=== PATIENT | male | born 1935 | race Two or more races ===

== ENCOUNTER 2021-09-19 19:25 | Emergency (ER) | payer MEDICARE, OTHER, SELFPAY ==
--- NOTE | ~2021-09-19 | XR_ITS ---
EXAMINATION: XR CHEST CLINICAL INFORMATION: Shortness of breath COMPARISON: Chest x-ray 06/02/2015 dictated report. Images not available for review. TECHNIQUE: 2 views of the chest were obtained. FINDINGS: Lungs are clear. No pulmonary vascular congestion. There is no pleural effusion. The heart size is normal. The cardiac and mediastinal contours are normal. There are multilevel degenerative changes of dorsal spine. XR/XR chest 2V IMPRESSION: Unremarkable examination.
--- NOTE | 2021-09-19 19:37 | ECG_ITS ---
Test Reason : WEAKNESS Blood Pressure : / mmHG Vent. Rate : 068 BPM Atrial Rate : 068 BPM P-R Int : 190 ms QRS Dur : 146 ms QT Int : 454 ms P-R-T Axes : 018 -13 017 degrees QTc Int : 482 ms Normal sinus rhythm Right bundle branch block Abnormal ECG When compared with ECG of 02-JUN-2015 10:31, Right bundle branch block is now Present Referred By: Jerrod Rizvi Electronically Signed By:RELL ALMEIDA
[2021-09-19 19:39] VITALS: BP 171/85; PULSE 75; TEMP 36.8; O2SAT 98; BMI 35.4
--- NOTE | 2021-09-19 19:41 | ED_ITS ---
HPI - General Adult General Chief complaint: Dizziness Stated complaint: dizziness Time Seen by Provider: 09/19/21 19:30 Source: patient and EMS History of Present Illness HPI narrative: Patient has apparently been out of his medications for the past 2 months. He moved here from [place] and does not have a PCP at this point. It is unclear what medications he was on. He does not believe he was ever on diabetic medication or diuretic, but family stated he was on diabetic pill. But he complains of significant bilateral leg edema. Leg edema has started over the past few months since he has been off his medication. He also complains of feeling dizzy prior to arrival. Symptoms have resolved on their own. He states he felt like this 1 time before and came to the hospital and got better without treatment. EMS found him to be hypertensive with a systolic of 170. No chest pain. No focal weakness. Unsure if he has dyspnea on exertion Related Data Previous Rx's Medication Instructions Recorded amlodipine 10 mg tablet 10 mg PO DAILY #30 tab 09/19/21 furosemide 20 mg tablet (Lasix) 20 mg PO DAILY #30 tab 09/19/21 metformin 500 mg tablet 500 mg PO DAILY #30 tab 09/19/21 Allergies Allergy/AdvReac Type Severity Reaction Status Date / Time No Known Allergies Allergy Unverified 06/16/20 18:56 [No Known Allergies*] Review of Systems Constitutional: Constitutional: Denies fever(s) and Denies headache(s) ENT: Denies headache(s) Cardiovascular: Comments: No chest pain Respiratory: Comments: No resting dyspnea Gastrointestinal: Comments: No abdominal pain. Positive abdominal bloating Musculoskeletal: Comments: Bilateral significant leg swelling Integumentary/Breasts: Comments: No rash or change in color Neurologic: Denies headache(s) Comments: No weakness numbness or paresthesias [facility] Past Medical History Medical History (Updated 09/19/21 @ 21:16 by Jerrod Rizvi MD) Diabetes Hypertension Social History Social History Alcohol intake: never Patient Tobacco Use Status: Never used Tobacco Use of substances other than those prescribed or required for medical reasons: No Advance Directives: No Physical Exam Vital Signs: Vital Signs: Last Vital Signs Temp 98.3 F 09/19/21 19:39 Pulse 80 09/19/21 20:38 Resp 25 H 09/19/21 20:00 BP 196/93 H 09/19/21 20:38 Pulse Ox 97 09/19/21 20:00 BMI result Body Mass Index 35.4 Const: Other: Awake alert in no acute distress Resp: Other: Clear and equal bilaterally Cardio: Other: Regular rate and rhythm without murmurs rubs or gallops GI: Other: Soft nontender. Positive distention. Normal bowel sounds Skin: Other: Warm pink and dry without rash Neuro: Other: Nonfocal Extrem: Other: Bilateral 3 to 4+ pitting edema, not weeping however Course Course Course Narrative: Uncontrolled hypertension Uncontrolled lymphedema Rule out acute coronary syndrome or cardiac ischemia Uncontrolled diabetes EMS point of care glucose slightly above 200. Will repeat here. Lasix for symptomatic relief. Lisinopril p.o.. 9:15 p.m.. Workup in emergency department shows no evidence of end-organ damage. Will discharge patient home with prescription for medication until he can follow-up with the primary care physician locally. Medical Decision Making Lab Data Result diagrams: 09/19/21 20:32 09/19/21 20:32 Labs: Lab Results 09/19/21 09/19/21 09/19/21 Range/Units 20:32 20:32 20:32 WBC 6.4 (4.8-10.8) X10*3/uL RBC 5.27 (4.60-5.80) X10*6/uL Hgb 13.8 L (14.0-18.0) g/dl Hct 43.9 (42.0-52.0) % MCV 83.3 (80.0-98.0) fL MCH 26.2 L (27.0-33.0) pg MCHC 31.4 (31.0-36.0) g/dl RDW 13.4 (11.0-16.0) % Plt Count 227 (160-400) X10*3/uL MPV 11.4 (9.4-12.4) fL Immature Gran % (Auto) 0.3 (0.0-0.4) % Neut % (Auto) 71.2 (45-73) % Lymph % (Auto) 19.1 L (20-40) % [place] % (Auto) 7.5 (2-11) % Eos % (Auto) 1.6 (0-4) % Baso % (Auto) 0.3 (0-2) % Lymph # (Auto) 1.2 (1.2-4.9) X10*3/uL [place] # (Auto) 0.5 (0.1-1.2) X10*3/uL Eos # (Auto) 0.1 (0.0-0.4) X10*3/uL Baso # (Auto) 0.0 (0.0-0.2) X10*3/uL Abs Immat Gran (auto) 0.02 (0.00-0.03) X10*3/uL Absolute Neuts (auto) 4.6 (2.0-8.3) x10*3/uL Absolute Nucleated RBC 0.000 (0.0-0.012) X10*3/uL Nucleated RBC % (auto) 0.0 (0.0-0.2) /100WBC Sodium 142 (135-145) mmol/L Potassium 4.0 (3.3-5.1) mmol/L Chloride 103 (96-108) mmol/L Carbon Dioxide 32 H (22-29) mmol/L Anion Gap 11 L (12-20) BUN 15 (9-16) mg/dL Creatinine 0.86 (0.5-1.4) mg/dL Estim Creat Clear Calc 61.4 Estimated GFR > 60 Random Glucose 190 H (60-115) mg/dL Calcium 9.6 (8.4-10.2) mg/dL Total Bilirubin 0.5 (0.0-1.0) mg/dL AST 18 (5-37) U/L ALT 15 (0-40) U/L Alkaline Phosphatase 148 H (39-117) U/L Ammonia 39 (13-55) umol/L Troponin I High Sens (<3.5-35.0) ng/L B-Natriuretic Peptide (<100) pg/mL Total Protein 7.3 (6.5-8.0) g/dL Albumin 3.9 (3.5-5.0) g/dL Urine Color Urine Appearance Urine pH (5.0-8.0) Ur Specific [place] (1.005-1.025) Urine Protein (NEG-TRACE) MG/DL Urine Glucose (UA) (NEG) MG/DL Urine Ketones (NEG) MG/DL Urine Blood (NEG) Urine Nitrite (NEG) Ur Leukocyte Esterase (NEG) COVID-19 ([facility]) (Negative) COVID-19 Clin Com 09/19/21 09/19/21 09/19/21 Range/Units 20:32 20:33 20:34 WBC (4.8-10.8) X10*3/uL RBC (4.60-5.80) X10*6/uL Hgb (14.0-18.0) g/dl Hct (42.0-52.0) % MCV (80.0-98.0) fL MCH (27.0-33.0) pg MCHC (31.0-36.0) g/dl RDW (11.0-16.0) % Plt Count (160-400) X10*3/uL MPV (9.4-12.4) fL Immature Gran % (Auto) (0.0-0.4) % Neut % (Auto) (45-73) % Lymph % (Auto) (20-40) % [place] % (Auto) (2-11) % Eos % (Auto) (0-4) % Baso % (Auto) (0-2) % Lymph # (Auto) (1.2-4.9) X10*3/uL [place] # (Auto) (0.1-1.2) X10*3/uL Eos # (Auto) (0.0-0.4) X10*3/uL Baso # (Auto) (0.0-0.2) X10*3/uL Abs Immat Gran (auto) (0.00-0.03) X10*3/uL Absolute Neuts (auto) (2.0-8.3) x10*3/uL Absolute Nucleated RBC (0.0-0.012) X10*3/uL Nucleated RBC % (auto) (0.0-0.2) /100WBC Sodium (135-145) mmol/L Potassium (3.3-5.1) mmol/L Chloride (96-108) mmol/L Carbon Dioxide (22-29) mmol/L Anion Gap (12-20) BUN (9-16) mg/dL Creatinine (0.5-1.4) mg/dL Estim Creat Clear Calc Estimated GFR Random Glucose (60-115) mg/dL Calcium (8.4-10.2) mg/dL Total Bilirubin (0.0-1.0) mg/dL AST (5-37) U/L ALT (0-40) U/L Alkaline Phosphatase (39-117) U/L Ammonia (13-55) umol/L Troponin I High Sens < 3.5 (<3.5-35.0) ng/L B-Natriuretic Peptide 65 (<100) pg/mL Total Protein (6.5-8.0) g/dL Albumin (3.5-5.0) g/dL Urine Color STRAW Urine Appearance CLEAR Urine pH 6.5 (5.0-8.0) Ur Specific [place] 1.020 (1.005-1.025) Urine Protein NEG (NEG-TRACE) MG/DL Urine Glucose (UA) NEG (NEG) MG/DL Urine Ketones NEG (NEG) MG/DL Urine Blood NEG (NEG) Urine Nitrite NEG (NEG) Ur Leukocyte Esterase NEG (NEG) COVID-19 ([facility]) Negative (Negative) COVID-19 Clin Com See Note Discharge Plan Discharge Clinical Impression: Hypertension, Edema Patient Disposition: Home, Self-Care Instructions: Hypertension and Diabetes (ED), Leg Edema (ED) Prescriptions: New furosemide [Lasix] 20 mg tablet 20 mg PO DAILY Qty: 30 RF: 0 metformin 500 mg tablet 500 mg PO DAILY Qty: 30 RF: 0 amlodipine 10 mg tablet 10 mg PO DAILY Qty: 30 RF: 0
[2021-09-19 20:00] VITALS: BP 196/93; PULSE 80; RESP 25; O2SAT 97
[2021-09-19 20:38] VITALS: BP 196/93; PULSE 80
[2021-09-19] MEDS: amLODIPine Besylate 10 MG TABLET PO (20:38)
[2021-09-19] MEDS: Furosemide 40 MG TABLET PO (20:38)
[2021-09-19 20:42] LABS: MANUAL DIFF FLAG NO
[2021-09-19 20:44] LABS: Appearance Urine CLEAR; Color Urine STRAW; Glucose Urine UA NEG (NEG); Leukocyte Esterase Urine NEG (NEG); Nitrite Urine NEG (NEG); PH 6.5 (5.0-8.0); Urine Blood NEG (NEG); Urine Ketones NEG (NEG); Urine Protein NEG (NEG-TRACE)
[2021-09-19 20:44] LABS: Basophils Percent Auto 0.3 % (0-2); Eosinophils Absolute Auto 0.1 X10*3/uL (0.0-0.4); Eosinophils Percent Auto 1.6 % (0-4); Hematocrit 43.9 % (42.0-52.0); Hemoglobin 13.8 g/dl (14.0-18.0); Imm Gran Abs Auto 0.02 X10*3/uL (0.00-0.03); Imm Gran Pct Auto 0.3 % (0.0-0.4); Lymphocytes Absolute Auto 1.2 X10*3/uL (1.2-4.9); Lymphocytes Percent Auto 19.1 % (20-40); Mean Corpuscular HGB Conc 31.4 g/dl (31.0-36.0); Mean Corpuscular Hemoglobin 26.2 pg (27.0-33.0); Mean Corpuscular Volume 83.3 fL (80.0-98.0); Mean Platelet Volume 11.4 fL (9.4-12.4); Monocytes Absolute Auto 0.5 X10*3/uL (0.1-1.2); Monocytes Percent Auto 7.5 % (2-11); Neutrophils Absolute Auto 4.6 x10*3/uL (2.0-8.3); Neutrophils Percent Auto 71.2 % (45-73); Platelet Count 227 X10*3/uL (160-400); Red Blood Count 5.27 X10*6/uL (4.60-5.80); Red Cell Distribution Width 13.4 % (11.0-16.0); White Blood Count 6.4 X10*3/uL (4.8-10.8)
[2021-09-19 20:52] LABS: Ammonia 39 umol/L (13-55)
[2021-09-19 20:59] LABS: Alanine Aminotransferase 15 U/L (0-40); Albumin Level 3.9 g/dL (3.5-5.0); Alkaline Phosphatase 148 U/L (39-117); Anion Gap 11 (12-20); Aspartate Amino Transferase 18 U/L (5-37); Bilirubin Total 0.5 mg/dL (0.0-1.0); Blood Urea Nitrogen 15 mg/dL (9-16); Calcium 9.6 mg/dL (8.4-10.2); Carbon Dioxide 32 mmol/L (22-29); Chloride 103 mmol/L (96-108); Creatinine Clr Calc Pharmacy 61.4; Estimated Glomerular Filt Rate > 60; Glucose Random 190 mg/dL (60-115); Sodium 142 mmol/L (135-145); Total Protein 7.3 g/dL (6.5-8.0)
[2021-09-19 21:01] LABS: COVID-19 Test Negative (Negative)
[2021-09-19 21:06] LABS: B Type Natriuretic Peptide 65 pg/mL (<100); Troponin-I High Sensitivity < 3.5 ng/L (<3.5-35.0)
[2021-09-19 21:20] LABS: Thyroid Stimulating Hormone 3.34 uIU/mL (0.32-4.0)
[2021-09-19 21:21] LABS: TSH reflex Free T4 3.24 uIU/mL (0.32-4.0)
[2021-09-19 21:29] VITALS: BP 171/88; PULSE 67; RESP 12
--- NOTE | 2022-04-15 09:59 | MHC.CM.PN ---
Patient is documented to be confused and a poor historian. CM attempted multiple times to contact listed Contact/Shirley @ [phone]; call appeared to connect to someone but then disconnected quickly. Patient appears to be visiting from [place] and has apparently been without his meds and is now here with S/S of a Stroke. CM is unaware of HCP, Covid vax status, NOK, PCP. DC plan appears contingent upon a PT eval and CM has initiated and will follow for dc planning.
== END 2021-09-19 22:06 | disposition home or self-care (01) ==
PROVIDERS: Emergency Provider Emergency Medicine
DX: I10 Essential (primary) hypertension (principal); R60.9 Edema, unspecified; E11.9 Type 2 diabetes mellitus without complications; Z79.84 Long term (current) use of oral hypoglycemic drugs; Z79.899 Other long term (current) drug therapy; Z20.822 Contact with and (suspected) exposure to COVID-19
CPT/HCPCS: 36415; 71046; 80053; 81003; 82140; 83880; 84443; 84484; 85025; 87635; 93005; 99284; 99285

== ENCOUNTER 2022-04-14 13:10 | Inpatient (IN) | payer MEDICARE, OTHER, SELFPAY ==
--- NOTE | ~2022-04-14 | XR_ITS ---
EXAMINATION: XR CHEST CLINICAL INFORMATION: Stroke COMPARISON: Previous chest x-ray May 2015 TECHNIQUE: Frontal view of the chest was obtained. FINDINGS: No significant abnormality is noted involving the heart, lungs, mediastinum, bony thorax or soft tissues. XR/XR chest 1V IMPRESSION: Unremarkable examination.
--- NOTE | ~2022-04-14 | CT_ITS ---
EXAMINATION: CT HEAD WITHOUT CONTRAST (STROKE PROTOCOL) CLINICAL INFORMATION: Stroke protocol. COMPARISON: None TECHNIQUE: Contiguous axial imaging was performed from the skull base to vertex without intravenous administration of contrast. This CT examination was performed using dose optimization techniques as appropriate, variously including the following: *Automated exposure control *Adjustment of mA and/or kV according to patient size (this includes techniques or standardized protocols for targeted exams where dose is matched to indication/reason for exam; i.e. extremities or head) *Use of iterative reconstruction technique DLP: 812 mGy-cm FINDINGS: There is no midline shift. There is no mass effect. There is no hemorrhage. Atrophy and white matter ischemic change with areas of focal infarction in the left posterior parietal occipital region as well as left cerebellum. Also high right parietal region. Scattered areas of white matter ischemic change. Bilateral hygromas right greater than left. [place]-white matter is fairly well maintained. Note is made of sinus disease. CT/CT head for stroke IMPRESSION: No acute intracranial pathology. Atrophy and white matter ischemic changes with areas of infarct and bilateral hygromas. Sinus disease noted This critical result was discussed with Dr. Garcia at 1:45 PM hours on 04/14/2022. It was ascertained that the content and urgency of the report was understood at the time of direct communication.
--- NOTE | ~2022-04-14 | US_ITS ---
EXAMINATION: US EXTRACRANIAL CAROTID DUPLEX, BILATERAL CLINICAL INFORMATION: Left-sided weakness. Stroke. COMPARISON: None TECHNIQUE: Real-time ultrasound and Doppler techniques (integrating B-mode 2-D vascular images, Doppler spectral analysis and color-flow Doppler imaging) were utilized to interrogate the extracranial carotid arteries, the vertebral arteries and proximal subclavian arteries bilaterally. The degree of stenosis is determined by criteria similar to NASCET. Exam is limited due to patient difficulty cooperating with the exam/coughing and moving. FINDINGS: Right Side: 1. There is mild atherosclerotic plaque seen in the bifurcation/proximal ICA region. 2. The common carotid artery PSV proximally is 80 cm/s and distally 13 cm/s. 3. The proximal internal carotid artery velocities are 87 cm/s systolic and cm/s diastolic. 4. The proximal external carotid artery PSV is 1-2 cm/s. 5. The vertebral artery is not seen. 6. The subclavian artery waveforms are normal. Left Side: 1. There is mild atherosclerotic plaque seen in the bifurcation/proximal ICA region. 2. The common carotid artery PSV proximally is 100 cm/s and distally 99 cm/s. 3. The proximal internal carotid artery velocities are 72 cm/s systolic and 12 cm/s diastolic. 4. The proximal external carotid artery PSV is cm/s. 5. The vertebral artery is not seen. 6. The subclavian artery waveforms are normal. US/US carotid duplex BI IMPRESSION: Limited exam. 1. RIGHT: Mild atherosclerotic plaque. 0-49% right ICA stenosis by peak systolic velocity 2. LEFT: Mild atherosclerotic plaque. 0-49% left ICA stenosis by peak systolic velocity criteria. 3. left and right vertebral artery is not seen.
--- NOTE | ~2022-04-14 | XR_ITS ---
EXAMINATION: XR CHEST CLINICAL INFORMATION: Aspiration COMPARISON: Previous chest x-ray most recent from yesterday TECHNIQUE: Frontal view of the chest was obtained. FINDINGS: The cardiac and mediastinal contours are stable. There is question of increasing airspace disease at the lung bases, left greater than right. There is no pleural effusion or pneumothorax. Bony structures are unremarkable. XR/XR chest 1V IMPRESSION: Question increasing airspace disease at the lung bases, left greater than right.
--- NOTE | ~2022-04-14 | XR_ITS ---
EXAMINATION: XR ABDOMEN KUB CLINICAL INDICATION: Pre-MRI. Check for foreign body. COMPARISON: None TECHNIQUE: AP view of the abdomen. FINDINGS: No foreign body is seen. The bowel gas pattern is normal. There are degenerative changes of the spine. There may be a mild T12 vertebral body compression fracture. There are mild degenerative changes at the hip joints. XR/XR KUB IMPRESSION: No radiopaque foreign body is seen.
--- NOTE | ~2022-04-14 | XR_ITS ---
EXAMINATION: XR CHEST CLINICAL INFORMATION: PICC placement COMPARISON: Chest x-ray on 04/15/2022 TECHNIQUE: Frontal view of the chest was obtained. FINDINGS: The right upper extremity PICC terminates in the distal SVC. The cardiac mediastinal silhouette is stable. The bilateral patchy airspace opacities and mild bronchial wall thickening is also unchanged. No pleural effusions or pneumothorax. XR/XR chest 1V IMPRESSION: Right upper extremity PICC terminates in the distal SVC.
--- NOTE | 2022-04-14 13:17 | ECG_ITS ---
Test Reason : ?STROKE Blood Pressure : / mmHG Vent. Rate : 086 BPM Atrial Rate : 086 BPM P-R Int : 180 ms QRS Dur : 134 ms QT Int : 408 ms P-R-T Axes : 048 -21 000 degrees QTc Int : 488 ms Normal sinus rhythm Right bundle branch block Abnormal ECG When compared with ECG of 19-SEP-2021 20:43, No significant change was found Referred By: Zheng Garcia Electronically Signed By:RADHA CHERRY MD
--- NOTE | 2022-04-14 13:20 | ED_ITS ---
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 Patient is visiting his family from [place] patient is out of his medication for sometimes. Related Data Previous Rx's Medication Instructions Recorded amlodipine 10 mg tablet 10 mg PO DAILY #30 tabs 09/19/21 furosemide 20 mg tablet (Lasix) 20 mg PO DAILY #30 tabs 09/19/21 metformin 500 mg tablet 500 mg PO DAILY #30 tabs 09/19/21 Allergies Allergy/AdvReac Type Severity Reaction Status Date / Time No Known Allergies Allergy Unverified 06/16/20 18:56 [No Known Allergies*] Review of Systems Review of Systems: All other systems are reviewed and are negative Constitutional: Reports as per HPI and Reports no additional constitutional complaints Eyes: Reports as per HPI and Reports no additional eye complaints Reports system reviewed and no additional complaints, except as documented Cardiovascular: Reports as per HPI and Reports no additional cardiovascular complaints Respiratory: Reports as per HPI and Reports no additional respiratory complaints Gastrointestinal: Reports as per HPI and Reports no additional gastrointestinal complaints Genitourinary: Reports no additional female genitourinary complaints Musculoskeletal: Reports no additional musculoskeletal complaints Skin/Breast: Reports system reviewed and no additional complaints, except as docu Psychiatric: Reports no additional psychiatric complaints Endocrine: Reports no additional endocrine complaints Hematologic/Lymphatic: Reports no additional hematologic/lymphatic complaints Allergic/Immunologic: Reports no additional allergic/immunologic complaints Reports system reviewed and no additional complaints, except as documented and Reports Abnormal speech present [facility] Past Medical History Medical History Diabetes Hypertension Social History Social History Alcohol intake: never Patient Tobacco Use Status: Never used Tobacco Use of substances other than those prescribed or required for medical reasons: No Advance Directives: Yes Advance Directives Information Provided: Yes Advance Directives on File: No Physical Exam Vital Signs: Vital Signs: Last Vital Signs Temp 98.5 F 04/14/22 13:37 Pulse 75 04/14/22 14:31 Resp 16 04/14/22 14:31 BP 166/89 H 04/14/22 14:31 Pulse Ox 96 04/14/22 14:31 O2 Del Method 04/14/22 14:31 BMI result Body Mass Index 35.7 Vital signs have been reviewed as appeared to be correct. Blood pressure normal. Heart rate normal. Respiration rate normal. Temperature normal. Oxygen saturation normal. Appearance: Alert. Oriented. No acute distress. Head: Normal external exam. Normocephalic. Atraumatic. No Liu signs noted. No raccoon eyes noted Eyes: PERRLA. EOMI. Conjunctiva and sclera normal. Eyelids normal. ENT: TM's Normal. Pharynx normal. Uvula midline. Moist mucous membranes. No trismus noted. No drooling noted. No muffled voice noted. Neck: Normal inspection. Neck supple. FROM. No adenopathy. Thyroid Normal. No meningeal signs. No neck mass noted. CVS: Normal heart rate and rhythm. Heart sound normal. No murmurs noted. Pulses normal throughout. Respiratory: No respiratory distress. Painless inspiration. Breath sounds normal. No wheezes/rales/rhonchi noted. Chest nontender. No accessory muscle usage noted or decreased air movement noted. Abdomen: Soft and nontender. Bowel sounds normal in all 4 quadrants. No distention noted. No organomegaly noted. No visible injury noted. Back: No CVA tenderness. Full range of motion noted. Skin: Skin warm and dry. Normal skin color. Normal skin turgor. No rashes/lesions/lacerations noted. Extremities: No lower extremity edema. Extremities exhibit normal range of motion. Extremities nontender. Neuro: Oriented X 3 (place, person, event, but not time). Cranial nerve exam: II-XII are grossly intact Mild left motor deficit. No sensory deficit. Reflexes normal. Course Course Course Narrative: 86 year old male came in with stroke like symptoms, patient is not a candidate for acute stroke treatment and thrombolytic therapy symptoms started since yesterday. Patient also is not a candidate for mechanical thrombectomy since symptoms is minor and the low NIH of 3. Will admit the patient, administer aspirin. [facility] - Neuro Symptoms/Deficit Medical Records Attestation: I reviewed the patient's medical records. Lab Data Attestation: I reviewed the patient's lab results. Result diagrams: 04/14/22 13:57 04/14/22 13:57 Labs: Lab Results 04/14/22 04/14/22 04/14/22 Range/Units 13:42 13:57 13:57 WBC 8.8 (4.8-10.8) X10*3/uL RBC 5.53 (4.60-5.80) X10*6/uL Hgb 14.7 (14.0-18.0) g/dl Hct 45.0 (42.0-52.0) % MCV 81.4 (80.0-98.0) fL MCH 26.6 L (27.0-33.0) pg MCHC 32.7 (31.0-36.0) g/dl RDW 13.5 (11.0-16.0) % Plt Count 236 (160-400) X10*3/uL MPV 11.1 (9.4-12.4) fL Immature Gran % (Auto) 0.3 (0.0-0.4) % Neut % (Auto) 78.8 H (45-73) % Lymph % (Auto) 13.3 L (20-40) % [place] % (Auto) 6.7 (2-11) % Eos % (Auto) 0.7 (0-4) % Baso % (Auto) 0.2 (0-2) % Lymph # (Auto) 1.2 (1.2-4.9) X10*3/uL [place] # (Auto) 0.6 (0.1-1.2) X10*3/uL Eos # (Auto) 0.1 (0.0-0.4) X10*3/uL Baso # (Auto) 0.0 (0.0-0.2) X10*3/uL Abs Immat Gran (auto) 0.03 (0.00-0.03) X10*3/uL Absolute Neuts (auto) 6.9 (2.0-8.3) x10*3/uL Absolute Nucleated RBC 0.000 (0.0-0.012) X10*3/uL Nucleated RBC % (auto) 0.0 (0.0-0.2) /100WBC PT 11.2 (10.0-13.1) SEC INR 1.0 (0.9-1.1) APTT 32.0 (24.1-38.0) SEC Sodium (135-145) mmol/L Potassium (3.3-5.1) mmol/L Chloride (96-108) mmol/L Carbon Dioxide (22-29) mmol/L Anion Gap (12-20) BUN (9-16) mg/dL Creatinine (0.5-1.4) mg/dL Estim Creat Clear Calc Estimated GFR POC Glucose 159 H (60-115) mg/dL Random Glucose (60-115) mg/dL Calcium (8.4-10.2) mg/dL Total Creatine Kinase (38-174) U/L Troponin I High Sens (<3.5-35.0) ng/L COVID-19 ([facility]) (Negative) COVID-19 Clin Com 04/14/22 04/14/22 04/14/22 Range/Units 13:57 13:57 13:57 WBC (4.8-10.8) X10*3/uL RBC (4.60-5.80) X10*6/uL Hgb (14.0-18.0) g/dl Hct (42.0-52.0) % MCV (80.0-98.0) fL MCH (27.0-33.0) pg MCHC (31.0-36.0) g/dl RDW (11.0-16.0) % Plt Count (160-400) X10*3/uL MPV (9.4-12.4) fL Immature Gran % (Auto) (0.0-0.4) % Neut % (Auto) (45-73) % Lymph % (Auto) (20-40) % [place] % (Auto) (2-11) % Eos % (Auto) (0-4) % Baso % (Auto) (0-2) % Lymph # (Auto) (1.2-4.9) X10*3/uL [place] # (Auto) (0.1-1.2) X10*3/uL Eos # (Auto) (0.0-0.4) X10*3/uL Baso # (Auto) (0.0-0.2) X10*3/uL Abs Immat Gran (auto) (0.00-0.03) X10*3/uL Absolute Neuts (auto) (2.0-8.3) x10*3/uL Absolute Nucleated RBC (0.0-0.012) X10*3/uL Nucleated RBC % (auto) (0.0-0.2) /100WBC PT (10.0-13.1) SEC INR (0.9-1.1) APTT (24.1-38.0) SEC Sodium 139 (135-145) mmol/L Potassium 3.8 (3.3-5.1) mmol/L Chloride 104 (96-108) mmol/L Carbon Dioxide 23 (22-29) mmol/L Anion Gap 16 (12-20) BUN 17 H (9-16) mg/dL Creatinine 0.84 (0.5-1.4) mg/dL Estim Creat Clear Calc 62.0 Estimated GFR > 60 POC Glucose (60-115) mg/dL Random Glucose 152 H (60-115) mg/dL Calcium 9.0 D (8.4-10.2) mg/dL Total Creatine Kinase 40 (38-174) U/L Troponin I High Sens < 3.5 (<3.5-35.0) ng/L COVID-19 ([facility]) Negative (Negative) COVID-19 Clin Com See Note Imaging Data Chest x-ray: Attestation: I personally reviewed and interpreted this imaging study as follows: Radiologist's impression: Unremarkable examination CT scan - head: Attestation: I personally reviewed and interpreted this imaging study as follows: Radiologist's impression: No acute intracranial pathology. Atrophy and white matter ischemic changes with areas of infarct and bilateral hygromas. Sinus disease noted ECG Data Attestation: I personally reviewed and interpreted this ECG as follows: Interpretation: Normal sinus rhythm at 86 beats per minutes, right bundle branch block, no ST-T changes. NIH Stroke Scale Internal: Initial- Upon Arrival Time: 13:32 Level of Consciousness: Alert Level of Consciousness Questions: Answers both questions correctly Level of Consciousness Commands: Performs both tasks correctly Best Gaze: Normal Visual: No visual loss Facial Palsy: Minor paralyis (Left facial droop) Motor Arm (Right): No drift Motor Arm (Left): Drift Motor Leg (Right): No drift Motor Leg (Left): No drift Limb Ataxia: Absent Sensory: Mild to moderate sensory loss (Left upper extremities and lower extremities.) Best Language: No aphasia Dysarthia: Normal Extinction and Inattention: No abnormality Score: 3 Discharge Plan Discharge Clinical Impression: Cerebrovascular accident Patient Disposition: Admitted As Inpatient
[2022-04-14 13:37] VITALS: BP 147/80; BP 168/97; PULSE 68; PULSE 84; RESP 20; TEMP 36.9; O2SAT 96; O2SAT 98; BMI 35.7
[2022-04-14 13:52] VITALS: PULSE 83
[2022-04-14 13:52] LABS: Glucose, Whole Blood 159 mg/dL (60-115)
[2022-04-14 14:02] LABS: MANUAL DIFF FLAG NO
[2022-04-14 14:07] LABS: Basophils Percent Auto 0.2 % (0-2); Eosinophils Absolute Auto 0.1 X10*3/uL (0.0-0.4); Eosinophils Percent Auto 0.7 % (0-4); Hemoglobin 14.7 g/dl (14.0-18.0); Imm Gran Abs Auto 0.03 X10*3/uL (0.00-0.03); Imm Gran Pct Auto 0.3 % (0.0-0.4); Lymphocytes Absolute Auto 1.2 X10*3/uL (1.2-4.9); Lymphocytes Percent Auto 13.3 % (20-40); Mean Corpuscular HGB Conc 32.7 g/dl (31.0-36.0); Mean Corpuscular Hemoglobin 26.6 pg (27.0-33.0); Mean Corpuscular Volume 81.4 fL (80.0-98.0); Mean Platelet Volume 11.1 fL (9.4-12.4); Monocytes Absolute Auto 0.6 X10*3/uL (0.1-1.2); Monocytes Percent Auto 6.7 % (2-11); Neutrophils Absolute Auto 6.9 x10*3/uL (2.0-8.3); Neutrophils Percent Auto 78.8 % (45-73); Platelet Count 236 X10*3/uL (160-400); Red Blood Count 5.53 X10*6/uL (4.60-5.80); Red Cell Distribution Width 13.5 % (11.0-16.0); White Blood Count 8.8 X10*3/uL (4.8-10.8)
[2022-04-14 14:12] LABS: Prothrombin Time 11.2 SEC (10.0-13.1)
[2022-04-14 14:20] LABS: COVID-19 Test Negative (Negative)
[2022-04-14 14:22] LABS: Troponin-I High Sensitivity < 3.5 ng/L (<3.5-35.0)
[2022-04-14 14:26] LABS: Anion Gap 16 (12-20); Blood Urea Nitrogen 17 mg/dL (9-16); Carbon Dioxide 23 mmol/L (22-29); Chloride 104 mmol/L (96-108); Estimated Glomerular Filt Rate > 60; Glucose Random 152 mg/dL (60-115); Potassium 3.8 mmol/L (3.3-5.1); Sodium 139 mmol/L (135-145)
[2022-04-14 14:31] VITALS: BP 166/89; PULSE 75; RESP 16; O2SAT 96
[2022-04-14 14:52] LABS: Stroke Lab Use COMPLETE
--- NOTE | 2022-04-14 15:14 | PM.IMHP ---
History of Present Illness Date of Service: 04/14/22 Chief Complaint: left-sided weakness an 86 Swazi speaker male with PMH of diabetes and hypertension who presents to the hospital complaining of start speech and left-sided weakness for 1 day. The patient is visiting his relatives from [place]. He is fairly poor historian but reported that since yesterday afternoon he felt his left side is not as strong as before mainly in his left upper extremity with associated difficulty speaking and swallowing. This morning he noticed that he has care cleaning and has secretions in his throat with persistent of difficulty speaking and weakness in left side of his body. He decided to come to the hospital for further evaluation and treatment. He denies any fever, chills, headache, lightheadedness, double vision, shortness of breath, chest pain, nausea or vomiting or change in bowel habit. CT scan in the emergency was negative for any acute findings. He failed bedside swallowing screen. to be admitted for further evaluation and treatment. Review of Systems Review of Systems: No fever, chills But reported left-sided weakness slurred speech No chest pain, palpitation No shortness of breath or coughing No abdominal pain, nausea or vomiting No urinary symptoms No any rash or wounds PMFSH Medical History Diabetes Hypertension Social History Alcohol intake: never Patient Tobacco Use Status: Never used Tobacco Use of substances other than those prescribed or required for medical reasons: No Advance Directives: Yes Advance Directives Information Provided: Yes Advance Directives on File: No Meds Allergies Allergy/AdvReac Type Severity Reaction Status Date / Time No Known Allergies Allergy Unverified 06/16/20 18:56 [No Known Allergies*] Active Medications: Current Medications Pharmacy Consult (Consult Rx Perform Med Rec) 1 each MISCELLANE ONCE PRN PRN Reason: Consult order Physical Exam Vital Signs and Narrative: Vital Signs: Last Vital Signs Temp 98.5 F 04/14/22 13:37 Pulse 75 04/14/22 14:31 Resp 16 04/14/22 14:31 BP 166/89 H 04/14/22 14:31 Pulse Ox 96 04/14/22 14:31 O2 Del Method 04/14/22 14:31 BMI result Body Mass Index 35.7 Const: Other: Constitutional : Alert, oriented, not in distress Neck : Normal inspection, Supple, Cardiovascular : RRR, no JVP, no lower extremity edema Respiratory : fair bilateral air entry, no crackles, wheezes or rhonchi Gastrointestinal: soft, lax, Normal bowel sounds, Non tender Skin : Warm, Dry Neurological : Alert & oriented x3, 4/5 LUE, 4/5 LLE , CN 2-12 within normalBut very mild facial drop in his left side Results Labs CBC and Chem 7: 04/14/22 13:57 04/14/22 13:57 Labs: Laboratory Results - last 24 hr 04/14/22 04/14/22 04/14/22 13:42 13:57 13:57 MCV 81.4 MCH 26.6 L MCHC 32.7 RDW 13.5 Plt Count 236 MPV 11.1 Immature Gran % (Auto) 0.3 Neut % (Auto) 78.8 H Lymph % (Auto) 13.3 L [place] % (Auto) 6.7 Eos % (Auto) 0.7 Baso % (Auto) 0.2 Lymph # (Auto) 1.2 [place] # (Auto) 0.6 Eos # (Auto) 0.1 Baso # (Auto) 0.0 Abs Immat Gran (auto) 0.03 Absolute Neuts (auto) 6.9 Absolute Nucleated RBC 0.000 Nucleated RBC % (auto) 0.0 PT 11.2 INR 1.0 APTT 32.0 Anion Gap Estim Creat Clear Calc Estimated GFR POC Glucose 159 H Random Glucose Calcium Total Creatine Kinase Troponin I High Sens COVID-19 ([facility]) COVID-19 Clin Com 04/14/22 04/14/22 04/14/22 13:57 13:57 13:57 MCV MCH MCHC RDW Plt Count MPV Immature Gran % (Auto) Neut % (Auto) Lymph % (Auto) [place] % (Auto) Eos % (Auto) Baso % (Auto) Lymph # (Auto) [place] # (Auto) Eos # (Auto) Baso # (Auto) Abs Immat Gran (auto) Absolute Neuts (auto) Absolute Nucleated RBC Nucleated RBC % (auto) PT INR APTT Anion Gap 16 Estim Creat Clear Calc 62.0 Estimated GFR > 60 POC Glucose Random Glucose 152 H Calcium 9.0 D Total Creatine Kinase 40 Troponin I High Sens < 3.5 COVID-19 ([facility]) Negative COVID-19 Clin Com See Note Imaging Radiologist's Impressions: Impressions Head CT 04/14/22 13:22 IMPRESSION: No acute intracranial pathology. Atrophy and white matter ischemic changes with areas of infarct and bilateral hygromas. Sinus disease noted This critical result was discussed with Dr. Garcia at 1:45 PM hours on 04/14/2022. It was ascertained that the content and urgency of the report was understood at the time of direct communication. Chest X-Ray 04/14/22 14:10 IMPRESSION: Unremarkable examination. Assessment and Plan (1) Cerebrovascular accident: Status: Acute (2) Slurred speech: Status: Acute (3) Acute left-sided weakness: Status: Acute Plan an 86 Sw[place] speaker male with PMH of diabetes and hypertension who presents to the hospital complaining of start speech and left-sided weakness for 1 day. left-sided weakness Slurred speech, swallowing problem All concerning for possible acute stroke He presented out of the window for tPA CT scan negative for any acute findings To check MRI, carotid ultrasound Start baby aspirin Start atorvastatin neurology consult swallowing problem Failed bedside speech screening Keep NPO Speech therapy evaluation diabetes Hold metformin SSI, Hypertension Hold amlodipine and allow for permissive hypertension up to 160s to 170s DVT PPX Lovenox The patient will likely need 2 overnight hospital stay for evaluation of slurred speech and left-sided weakness pending final images and neurology consult. Quality Stroke Does the patient have a stroke diagnosis?: Yes Reason for No Anti-thrombotic by Day Two: N/A - Med Ordered VTE Prior VTE?: No VTE Risk Level:: Medical - moderate - high VTE Device Contraindication: Treatment Not Indicated VTE Drug Contraindication: N/A - Med Ordered
--- NOTE | 2022-04-14 15:43 | PC.NURSE ---
Pt alert/confused wit batch unit treater. Spitting in bed to manage secretions, while laying flat pt needs oral suction to assist. Dr Mckeon aware, will postpone MRI t this time as ?pt tolerating laying flat for test. Pt to be NPO pending speech evaluation
--- NOTE | 2022-04-14 16:30 | PHA.MEDREC ---
Addendum entered by Heather Bearden RPh 04/16/22 14:20: Tried contacting patien't primary contact Shirley again. [facility]. Yesterday patient reported he did not know what he was taking. Today contacted [facility]. Patient has prescriptions on file that were never filled; lasix 20 mg daily on 10/03/21, amlodipine 5 mg daily and metformin 500 mg daily on 09/20/21. I entered the medication patient is suppose to be. I updated Dr. Garcia on the situation. Heather Bearden, PharmD Original Note: Pharmacy Consult ? Medication Reconciliation Pharmacy has completed the medication reconciliation. Spoke with patient via inclusion intern. Pt unsure of medications he is taking on a regular basis. Tried contacting family but had to leave a message message
[2022-04-14] MEDS: Aspirin 300 MG SUPP.RECT PR (17:13)
[2022-04-14 17:25] LABS: Glucose, Whole Blood 111 mg/dL (60-115)
--- NOTE | 2022-04-14 17:26 | PC.NURSE ---
Pt neuros unchanged since arrival, left sided facial droop, difficulty swallowing with left sided weakness. repositioned in bed for comfort throughout shift. [facility] ASA given as pt remains NPO pending swallow eval. POC 111.
[2022-04-14 18:19] VITALS: BP 188/89; PULSE 68; RESP 17; O2SAT 95
[2022-04-14] MEDS: Enoxaparin Sodium 40 MG/0.4 ML SYRINGE SUBCUT (19:53)
[2022-04-14 22:38] LABS: Glucose, Whole Blood 119 mg/dL (60-115)
[2022-04-14 23:51] VITALS: BP 187/95; PULSE 77; RESP 16; O2SAT 94
[2022-04-15] VITALS (10 sets, daily range): BP systolic 129–157; BP diastolic 70–88; PULSE 76–121; RESP 16–20; TEMP 36.2–38.6; O2SAT 89–99
--- NOTE | 2022-04-15 06:28 | PC.NURSE ---
Hospitalist notified of temp 101.5 rectal.
[2022-04-15] MEDS: Acetaminophen Supp 650 MG SUPP.RECT PR (07:12)
[2022-04-15] MEDS: Lactated Ringers 1,000 ML 50 ML IVCONT (07:18)
[2022-04-15 07:53] LABS: Glucose, Whole Blood 164 mg/dL (60-115)
[2022-04-15 07:55] LABS: Anion Gap 17 (12-20); Blood Urea Nitrogen 17 mg/dL (9-16); Calcium 8.6 mg/dL (8.4-10.2); Carbon Dioxide 20 mmol/L (22-29); Chloride 104 mmol/L (96-108); Cholesterol 163 mg/dL; Creatinine Clr Calc Pharmacy 67.6; Estimated Glomerular Filt Rate > 60; Glucose Random 157 mg/dL (60-115); HDL Cholesterol 46 mg/dL; LDL Cholesterol Calculated 104 mg/dl; Potassium 3.8 mmol/L (3.3-5.1); Sodium 137 mmol/L (135-145); Triglycerides 68 mg/dL
--- NOTE | 2022-04-15 08:42 | PC.NURSE ---
pt alert to self, skin color appropriate for ethnicity but slightly warm to touch, ls course in the left lower lobe, pt was found sating at 89% on room air and put on 2l via nasal cannual, pt unable to handle his own secretions requires intermittent suctions. ns on the monitor
[2022-04-15 09:12] LABS: Appearance Urine HAZY; Color Urine YELLOW; Glucose Urine UA NEG (NEG); Leukocyte Esterase Urine NEG (NEG); Nitrite Urine NEG (NEG); Urine Blood 3+ (NEG); Urine Ketones 5 MG/DL (NEG); Urine Protein NEG (NEG-TRACE)
[2022-04-15 09:34] LABS: RBC Urine 50-75 /HPF (0)
[2022-04-15 09:35] LABS: Bacteria Urine TRACE /LPF; Mucus Urine TRACE /LPF; WBC Urine 0 /HPF (0-4)
--- NOTE | 2022-04-15 10:08 | MHC.CM.PN ---
Patient is documented to be a poor Historian/Confused and CM was unable to connect with only Contact/Shirley @ [phone](call appeared to go through to someone but then disconnected quickly). Patient appears to be visiting from [place] and apparently has been out of his meds and now here with s/s of a Stroke. DC Plan appears to be contingent upon PT eval. CM will follow.
[2022-04-15] MEDS: Scopolamine 1.5 MG PATCH.TD.3 EAR-BEHIND (10:27)
--- NOTE | 2022-04-15 11:27 | P.PNIM_ITS ---
Subjective Subjective Date of Service: 04/15/22 Interval History: f/u on right sided weakness, slur speech, and dydphaiga inteval history: He's not able to control secretion and requiring constant suctioning and in fact may have aspirated resulting in fever of this morning, morocho no headache, no change in mental status. MRI is being on hold as it is unsafe for for pt to lay daown flat and likely to aspirate Review of Systems dysphagia fever Physical Exam Vital Signs: Vital Signs: Last Vital Signs Temp 99.8 F 04/15/22 08:29 Pulse 121 H 04/15/22 10:19 Resp 16 04/15/22 08:22 BP 157/80 H 04/15/22 08:22 Pulse Ox 89 L 04/15/22 08:22 O2 Del Method 04/15/22 08:22 O2 Flow Rate 94 04/15/22 08:22 BMI result Body Mass Index 35.7 Const: Other: General: AO X 3, no acute distress Resp: CTA bilateral CVS: S1,S2,RRR GI: +BS, NT, no distention Skin: No rash Neuro: motor grossly intact Psych: appropriate affect Objective Data Active Medications Acetaminophen (Acetaminophen 325 Mg Tablet) 650 mg PO Q6H PRN PRN Reason: Pain, Mild (Pain Scale 1-3) Acetaminophen (Acetaminophen Supp 650 Mg Supp.Rect) 650 mg GA Q6H PRN PRN Reason: fever Last Admin: 04/15/22 07:12 Dose: 650 mg Documented By: VANESA Aspirin (Aspirin Enteric Coated 81 Mg Tablet.) 81 mg PO DAILY [facility] Last Admin: 04/15/22 08:32 Dose: Not Given Documented By: KESHAV Non-Admin Reason: NPO Atorvastatin Calcium (Atorvastatin Calcium 80 Mg Tablet) 80 mg PO DAILY [facility] Last Admin: 04/15/22 08:32 Dose: Not Given Documented By: KESHAV Non-Admin Reason: NPO Enoxaparin Sodium (Enoxaparin Sodium 40 Mg/0.4 Ml Syringe) 40 mg SUBCUT Q24H [facility] Last Admin: 04/14/22 19:53 Dose: 40 mg Documented By: VANESA Lactated Ringer's (Lr) 1,000 mls @ 50 mls/hr IVCONT .Q20H [facility] Last Admin: 04/15/22 07:18 Dose: 50 mls/hr Documented By: VANESA Insulin Human Lispro (Insulin Lispro 100 Unit/Ml 3 Ml Vial) 0 unit SUBCUT QIDACHS [facility]; Protocol Last Admin: 04/15/22 08:31 Dose: Not Given Documented By: KESHAV Non-Admin Reason: NPO Ondansetron HCl (Ondansetron Hcl 4 Mg/2 Ml Vial) 4 mg IVPUSH Q8H PRN PRN Reason: Nausea and Vomiting Pharmacy Consult (Consult Rx Perform Med Rec) 1 each MISCELLANE ONCE PRN PRN Reason: Consult order Scopolamine (Scopolamine 1.5 Mg Patch.Td.3) 1.5 mg EAR-BEHIND Q72H [facility] Last Admin: 04/15/22 10:27 Dose: 1.5 mg Documented By: KESHAV Labs CBC & Chem 7: 04/14/22 13:57 04/15/22 07:28 Labs: Laboratory Results - last 24 hr 04/14/22 04/14/22 04/14/22 13:42 13:57 13:57 MCV 81.4 MCH 26.6 L MCHC 32.7 RDW 13.5 Plt Count 236 MPV 11.1 Immature Gran % (Auto) 0.3 Neut % (Auto) 78.8 H Lymph % (Auto) 13.3 L [place] % (Auto) 6.7 Eos % (Auto) 0.7 Baso % (Auto) 0.2 Lymph # (Auto) 1.2 [place] # (Auto) 0.6 Eos # (Auto) 0.1 Baso # (Auto) 0.0 Abs Immat Gran (auto) 0.03 Absolute Neuts (auto) 6.9 Absolute Nucleated RBC 0.000 Nucleated RBC % (auto) 0.0 PT 11.2 INR 1.0 APTT 32.0 Anion Gap Estim Creat Clear Calc Estimated GFR POC Glucose 159 H Random Glucose Lactic Acid Calcium Total Creatine Kinase Troponin I High Sens Triglycerides Cholesterol LDL Cholesterol, Calc HDL Cholesterol Urine Color Urine Appearance Urine pH Ur Specific [place] Urine Protein Urine Glucose (UA) Urine Ketones Urine Blood Urine Nitrite Ur Leukocyte Esterase Urine RBC Urine WBC Ur Squamous Epith Cells Urine Bacteria Urine Mucus COVID-19 ([facility]) COVID-19 Clin Com 04/14/22 04/14/22 04/14/22 13:57 13:57 13:57 MCV MCH MCHC RDW Plt Count MPV Immature Gran % (Auto) Neut % (Auto) Lymph % (Auto) [place] % (Auto) Eos % (Auto) Baso % (Auto) Lymph # (Auto) [place] # (Auto) Eos # (Auto) Baso # (Auto) Abs Immat Gran (auto) Absolute Neuts (auto) Absolute Nucleated RBC Nucleated RBC % (auto) PT INR APTT Anion Gap 16 Estim Creat Clear Calc 62.0 Estimated GFR > 60 POC Glucose Random Glucose 152 H Lactic Acid Calcium 9.0 D Total Creatine Kinase 40 Troponin I High Sens < 3.5 Triglycerides Cholesterol LDL Cholesterol, Calc HDL Cholesterol Urine Color Urine Appearance Urine pH Ur Specific [place] Urine Protein Urine Glucose (UA) Urine Ketones Urine Blood Urine Nitrite Ur Leukocyte Esterase Urine RBC Urine WBC Ur Squamous Epith Cells Urine Bacteria Urine Mucus COVID-19 ([facility]) Negative COVID-19 Clin Com See Note 04/14/22 04/14/22 04/15/22 17:19 22:33 07:28 MCV MCH MCHC RDW Plt Count MPV Immature Gran % (Auto) Neut % (Auto) Lymph % (Auto) [place] % (Auto) Eos % (Auto) Baso % (Auto) Lymph # (Auto) [place] # (Auto) Eos # (Auto) Baso # (Auto) Abs Immat Gran (auto) Absolute Neuts (auto) Absolute Nucleated RBC Nucleated RBC % (auto) PT INR APTT Anion Gap 17 Estim Creat Clear Calc 67.6 Estimated GFR > 60 POC Glucose 111 119 H Random Glucose 157 H Lactic Acid Calcium 8.6 Total Creatine Kinase Troponin I High Sens Triglycerides Cholesterol LDL Cholesterol, Calc HDL Cholesterol Urine Color Urine Appearance Urine pH Ur Specific [place] Urine Protein Urine Glucose (UA) Urine Ketones Urine Blood Urine Nitrite Ur Leukocyte Esterase Urine RBC Urine WBC Ur Squamous Epith Cells Urine Bacteria Urine Mucus COVID-19 ([facility]) COVID-19 Clin Com 04/15/22 04/15/22 04/15/22 07:28 07:28 07:50 MCV MCH MCHC RDW Plt Count MPV Immature Gran % (Auto) Neut % (Auto) Lymph % (Auto) [place] % (Auto) Eos % (Auto) Baso % (Auto) Lymph # (Auto) [place] # (Auto) Eos # (Auto) Baso # (Auto) Abs Immat Gran (auto) Absolute Neuts (auto) Absolute Nucleated RBC Nucleated RBC % (auto) PT INR APTT Anion Gap Estim Creat Clear Calc Estimated GFR POC Glucose 164 H Random Glucose Lactic Acid 2.0 Calcium Total Creatine Kinase Troponin I High Sens Triglycerides 68 Cholesterol 163 LDL Cholesterol, Calc 104 HDL Cholesterol 46 Urine Color Urine Appearance Urine pH Ur Specific [place] Urine Protein Urine Glucose (UA) Urine Ketones Urine Blood Urine Nitrite Ur Leukocyte Esterase Urine RBC Urine WBC Ur Squamous Epith Cells Urine Bacteria Urine Mucus COVID-19 ([facility]) COVID-19 Clin Com 04/15/22 09:07 MCV MCH MCHC RDW Plt Count MPV Immature Gran % (Auto) Neut % (Auto) Lymph % (Auto) [place] % (Auto) Eos % (Auto) Baso % (Auto) Lymph # (Auto) [place] # (Auto) Eos # (Auto) Baso # (Auto) Abs Immat Gran (auto) Absolute Neuts (auto) Absolute Nucleated RBC Nucleated RBC % (auto) PT INR APTT Anion Gap Estim Creat Clear Calc Estimated GFR POC Glucose Random Glucose Lactic Acid Calcium Total Creatine Kinase Troponin I High Sens Triglycerides Cholesterol LDL Cholesterol, Calc HDL Cholesterol Urine Color YELLOW Urine Appearance HAZY Urine pH 6.0 Ur Specific [place] 1.010 Urine Protein NEG Urine Glucose (UA) NEG Urine Ketones 5 Urine Blood 3+ H Urine Nitrite NEG Ur Leukocyte Esterase NEG Urine RBC 50-75 H Urine WBC 0 Ur Squamous Epith Cells NONE Urine Bacteria TRACE Urine Mucus TRACE COVID-19 ([facility]) COVID-19 Clin Com Assessment and Plan (1) Acute left-sided weakness: Status: Acute (2) Slurred speech: Status: Acute (3) Cerebrovascular accident: Status: Acute Plan 86 [place] speaker male with PMH of diabetes and hypertension who presents to the hospital complaining of start speech and left-sided weakness for 1 day. left-sided weakness Slurred speech, swallowing problem Clinical presenation c/w with strok CT scan negative for any acute findings Unable to to do MRI at this time due to high risk for aspiration, will try and c ontrol secretion with scopolamin Neuro to assess ? need for CTA Start atorvastatin ?neurology consult swallowing problem Failed bedside speech screening Keep NPO Speech therapy evaluation -Scopolamin patch to control secretions Suspected aspiration PNA with Hypoxa, add Unassyn ?Diabetes Hold metformin SSI, Hypertension Hold amlodipine and allow for permissive hypertension up to 160s to 170s ?DVT PPX Lovenox Need for inpatient: Clinical CVA complicated by Dysphagia not able to cotrol secretion, Quality Stroke Does the patient have a stroke diagnosis?: Yes Reason for No Anti-thrombotic by Day Two: N/A - Med Ordered VTE Prior VTE?: No VTE Risk Level:: Medical - moderate - high VTE Device Contraindication: Treatment Not Indicated VTE Drug Contraindication: N/A - Med Ordered
--- NOTE | 2022-04-15 11:29 | PC.NURSE ---
holding off on the mri pt still can not tolerate laying flat
[2022-04-15] MEDS: Aspirin 300 MG SUPP.RECT PR (11:58)
--- NOTE | 2022-04-15 13:34 | PC.NURSE ---
Pt alert, answer to name, found with NC off sats at 82, shaking. NC applied oxygen turned up to 5L still sating in the low to mid 80s. Oxymask applied and turned up to 9L, called placed to respiratory, currently sating at 89-90%
[2022-04-15] MEDS: Ampicillin Sodium/Sulbactam Na 3 GM in 0.9 % Sodium Chloride 100 ML IV ×2 (14:54→21:20)
--- NOTE | 2022-04-15 15:03 | PC.NURSE ---
pt is alert, respirations even and unlabored at this time but pt's inability to handle his own secretions are getting worse, this rn continuous on performing deep oral suctions with success, pt is on oxy mask at 11% and sating 98%, pt developed uncontrolled tremor no fever at this time. pt does have a condom cath in place but no urine out put since the strey cath at 0907, emptied 700ml at that time, this rn did bladder scan the pt this time only 137ml
[2022-04-15 15:05] LABS: Glucose, Whole Blood 111 mg/dL (60-115)
--- NOTE | 2022-04-15 18:28 | PC.NURSE ---
pt is finally sleeping peacefully, respirations even and unlabored, decreased on his oxymask now at 7l and sating at 99%
--- NOTE | 2022-04-15 19:42 | PC.NURSE ---
report received from Prerna [facility]. pt sleeping comfortably on stretcher. equal chest rise and fall. NAD. wearing oxymask 7L, O2 sat 96%. HR 90s. RR 16. will continue to monitor closely.
[2022-04-15] MEDS: Enoxaparin Sodium 40 MG/0.4 ML SYRINGE SUBCUT (21:21)
[2022-04-16] VITALS (7 sets, daily range): BP systolic 115–181; BP diastolic 65–82; PULSE 72–87; RESP 17–18; TEMP 37.4; O2SAT 92–97
--- NOTE | 2022-04-16 03:34 | PC.NURSE ---
pt repositioned and oral suctioned for comfort. on oxymask 7 L, O2 sat 96%. will continue to monitor closely
[2022-04-16] MEDS: Lactated Ringers 1,000 ML 50 ML IVCONT (04:14)
[2022-04-16] MEDS: Ampicillin Sodium/Sulbactam Na 3 GM in 0.9 % Sodium Chloride 100 ML IV ×3 (04:14→23:18)
[2022-04-16] MEDS: Aspirin 300 MG SUPP.RECT PR (09:35)
[2022-04-16 09:52] LABS: Glucose, Whole Blood 101 mg/dL (60-115)
[2022-04-16 12:30] LABS: Prothrombin Time Whole Bld POC 12.2 sec (11.1-13.5)
--- NOTE | 2022-04-16 13:40 | P.PNIM_ITS ---
Subjective Subjective Date of Service: 04/16/22 Interval History: f/u on right sided weakness, slur speech, and dydphaiga unable to control inteval history: He's not able to control secretions leading to hypoxia and requiring constant suctioning morocho no headache, no change in mental status. MRI cancelled for now as he's unable to lay flat and do this safely, he remains weak on right side Review of Systems dysphagia fever Physical Exam Vital Signs: Vital Signs: Last Vital Signs Temp 97.1 F 04/15/22 12:02 Pulse 79 04/16/22 09:47 Resp 17 04/16/22 09:47 BP 151/82 H 04/16/22 09:47 Pulse Ox 92 04/16/22 09:47 O2 Del Method 04/16/22 09:47 O2 Flow Rate 7 04/16/22 09:47 BMI result Body Mass Index 35.7 Const: Other: General: oriented to self and place Resp: ishmael rhocnhi HEENT: chronic secretion in mouth and has to be sauctioned CVS: S1,S2,RRR GI: +BS, NT, no distention Skin: No rash Neuro: right sided weakness Psych: appropriate affect Objective Data Active Medications Acetaminophen (Acetaminophen 325 Mg Tablet) 650 mg PO Q6H PRN PRN Reason: Pain, Mild (Pain Scale 1-3) Acetaminophen (Acetaminophen Supp 650 Mg Supp.Rect) 650 mg TN Q6H PRN PRN Reason: fever Last Admin: 04/15/22 07:12 Dose: 650 mg Documented By: VANESA Aspirin (Aspirin 300 Mg Supp.Rect) 300 mg TN DAILY [facility] Last Admin: 04/16/22 09:35 Dose: 300 mg Documented By: BRIAN Atorvastatin Calcium (Atorvastatin Calcium 80 Mg Tablet) 80 mg PO DAILY [facility] Last Admin: 04/16/22 09:49 Dose: Not Given Documented By: BRIAN Non-Admin Reason: NPO Enoxaparin Sodium (Enoxaparin Sodium 40 Mg/0.4 Ml Syringe) 40 mg SUBCUT Q24H [facility] Last Admin: 04/15/22 21:21 Dose: 40 mg Documented By: JOSÉ Lactated Ringer's (Lr) 1,000 mls @ 50 mls/hr IVCONT .Q20H [facility] Last Admin: 04/16/22 04:14 Dose: 50 mls/hr Documented By: JOSÉ Ampicillin Sodium/Sulbactam (Sodium 3 gm/ Sodium Chloride) 100 mls @ 200 mls/hr IV Q6H [facility] Last Admin: 04/16/22 09:35 Dose: 200 mls/hr Documented By: BRIAN Insulin Human Lispro (Insulin Lispro 100 Unit/Ml 3 Ml Vial) 0 unit SUBCUT QIDACHS [facility]; Protocol Last Admin: 04/16/22 09:34 Dose: Not Given Documented By: BRIAN Non-Admin Reason: NPO Ondansetron HCl (Ondansetron Hcl 4 Mg/2 Ml Vial) 4 mg IVPUSH Q8H PRN PRN Reason: Nausea and Vomiting Pharmacy Consult (Consult Rx Perform Med Rec) 1 each MISCELLANE ONCE PRN PRN Reason: Consult order Scopolamine (Scopolamine 1.5 Mg Patch.Td.3) 1.5 mg EAR-BEHIND Q72H [facility] Last Admin: 04/15/22 10:27 Dose: 1.5 mg Documented By: KESHAV Labs CBC & Chem 7: 04/14/22 13:57 04/15/22 07:28 Labs: Laboratory Results - last 24 hr 04/14/22 04/15/22 04/16/22 13:40 15:00 09:48 Whole Blood PT 12.2 Whole Blood INR 1.0 POC Glucose 111 101 Microbiology Microbiology Results: Microbiology 04/15/22 07:28 Blood Culture - Preliminary Blood - Venous No growth after 24 hours. 04/15/22 07:28 Blood Culture - Preliminary Blood - Venous No growth after 24 hours. Assessment and Plan (1) Acute left-sided weakness: Status: Acute (2) Slurred speech: Status: Acute (3) Cerebrovascular accident: Status: Acute Plan 86 [place] speaker male with PMH of diabetes and hypertension who presents to the hospital complaining of start speech and left-sided weakness for 1 day. left-sided weakness Slurred speech, swallowing problem Clinical presenation c/w with stroke-- CT scan negative for any acute findings Unable to to do MRI at this time due to high risk for aspiration, he's still having lots of secretion causing hypoxia ad cannot lay flat at this time and requiring frequent sauctioning Neuro to assess Start atorvastatin when able to take oral rectal aspirin for now ?neurology consult swallowing problem Failed bedside speech screening Keep NPO Speech therapy evaluation when safe to swallow -Scopolamine patch to control secretions Dysphagia with difficulty controlling secretions, continue NPO status, IVF for now and we'll try and get hold of family and consider a PEG Suspected aspiration PNA with Hypoxa, add Unassyn ?Diabetes Hold metformin SSI, Hypertension Hold amlodipine and allow for permissive hypertension up to 160s to 170s ?DVT PPX Lovenox Need for inpatient: Clinical CVA complicated by Dysphagia not able to cotrol secretions and might need a PEG I have not been able to locate family at this time and will keep trying Darron Jimenez listed as person to contact at [phone] is not responding, left message Full code; code to be readdressed when family is located Quality Stroke Does the patient have a stroke diagnosis?: Yes Reason for No Anti-thrombotic by Day Two: N/A - Med Ordered VTE Prior VTE?: No VTE Risk Level:: Medical - moderate - high VTE Device Contraindication: Treatment Not Indicated VTE Drug Contraindication: N/A - Med Ordered
--- NOTE | 2022-04-16 16:07 | PM.NEUROCN ---
History of Present Illness Data of Consult Service Date: 04/16/22 Primary Care Provider: Unknown Physician HPI Reason for consult: Left-sided weakness 86 years old man who probably has underlying history of dementia originally from [place] came to hospital with new onset of slurred speech and left-sided weakness. When I saw him he was comfortably laying down in emergency room bed and smiling. There was no witnessing of any recent seizure or fall. Review of Systems Review of Systems: No recent cold or flu-like illness cardiac symptom or fall. [facility] Past Medical History Medical History Diabetes Hypertension Social History Social History Alcohol intake: never Patient Tobacco Use Status: Never used Tobacco Use of substances other than those prescribed or required for medical reasons: No Advance Directives: Yes Advance Directives Information Provided: Yes Advance Directives on File: No service: No Current occupational status: unemployed Meds Allergies Allergy/AdvReac Type Severity Reaction Status Date / Time No Known Allergies Allergy Unverified 06/16/20 18:56 [No Known Allergies*] Active Medications: Current Medications Acetaminophen (Acetaminophen 325 Mg Tablet) 650 mg PO Q6H PRN PRN Reason: Pain, Mild (Pain Scale 1-3) Acetaminophen (Acetaminophen Supp 650 Mg Supp.Rect) 650 mg [place] Q6H PRN PRN Reason: fever Last Admin: 04/15/22 07:12 Dose: 650 mg Aspirin (Aspirin 300 Mg Supp.Rect) 300 mg [place] DAILY [facility] Last Admin: 04/16/22 09:35 Dose: 300 mg Atorvastatin Calcium (Atorvastatin Calcium 80 Mg Tablet) 80 mg PO DAILY [facility] Last Admin: 04/16/22 09:49 Dose: Not Given Enoxaparin Sodium (Enoxaparin Sodium 40 Mg/0.4 Ml Syringe) 40 mg SUBCUT Q24H [facility] Last Admin: 04/15/22 21:21 Dose: 40 mg Lactated Ringer's (Lr) 1,000 mls @ 50 mls/hr IVCONT .Q20H [facility] Last Admin: 04/16/22 04:14 Dose: 50 mls/hr Ampicillin Sodium/Sulbactam (Sodium 3 gm/ Sodium Chloride) 100 mls @ 200 mls/hr IV Q6H [facility] Last Admin: 04/16/22 09:35 Dose: 200 mls/hr Insulin Human Lispro (Insulin Lispro 100 Unit/Ml 3 Ml Vial) 0 unit SUBCUT QIDACHS [facility]; Protocol Last Admin: 04/16/22 09:34 Dose: Not Given Ondansetron HCl (Ondansetron Hcl 4 Mg/2 Ml Vial) 4 mg IVPUSH Q8H PRN PRN Reason: Nausea and Vomiting Pharmacy Consult (Consult Rx Perform Med Rec) 1 each MISCELLANE ONCE PRN PRN Reason: Consult order Scopolamine (Scopolamine 1.5 Mg Patch.Td.3) 1.5 mg EAR-BEHIND Q72H [facility] Last Admin: 04/15/22 10:27 Dose: 1.5 mg Physical Exam Vital Signs: Vital Signs: Last Vital Signs Temp 97.1 F 04/15/22 12:02 Pulse 79 04/16/22 09:47 Resp 17 04/16/22 09:47 BP 151/82 H 04/16/22 09:47 Pulse Ox 92 04/16/22 09:47 O2 Del Method 04/16/22 09:47 O2 Flow Rate 7 04/16/22 09:47 BMI result Body Mass Index 35.7 Neuro: Other: He was alert and awake with normal spontaneity and fluency of speech. He spoke Turkish but did understand some Kosovan in followed some commands. His face was symmetrical. Visual trujillo are full. Tongue was midline. There was no obvious focal arm or leg weakness. Plantars were flat. Results Labs CBC & Chem 7: 04/14/22 13:57 04/15/22 07:28 Labs: Noncontrast head CT revealed multiple bilateral embolic looking ischemic infarctions and significant atrophy suggestive of frontal hygromas. Microbiology Microbiology Results: Microbiology 04/15/22 07:28 Blood - Venous Blood Culture - Preliminary No growth after 24 hours. 04/15/22 07:28 Blood - Venous Blood Culture - Preliminary No growth after 24 hours. Assessment and Plan (1) Acute left-sided weakness: Status: Acute 86 years old man has underlying history of bilateral embolic looking ischemic infarctions and significant cerebral atrophy presented to emergency room with new onset of slurred speech left-sided weakness, which now has improved. With underlying significant ischemic pathology, stroke was a possibility. His carotid ultrasound did not reveal any extra chronic ill disease which was not expected with his ethnicity. Intracranial atherosclerotic disease on the other hand was more common in this patient population. If possible, I recommend obtaining a noncontrast MRI of brain. Otherwise mainstay of management is blood pressure control, continuation of anti-platelet agent and statin. 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 He would require help and consideration in that regard. Procedures Date of Service Date of Service: 04/16/22
--- NOTE | 2022-04-16 16:59 | MHC.SLORD ---
Speech Language Pathology Order Status: Received order for bedside dysphagia evaluation. Per chart review, pt w/ inability to manage his own secretions, requiring suctioning. Not appropriate for PO trials. Discussed w/ MD via [place] Message. Order deferred for tomorrow if appropriate.
[2022-04-16 22:44] LABS: Glucose, Whole Blood 96 mg/dL (60-115)
--- NOTE | 2022-04-16 22:48 | PC.NURSE ---
POC was not checked on this pt since 09:49 this morning. 11:30 and 16:30 doses of insulin were late on the NOV and documented against by this RN. POC checked and found to be 96 at this time. Night time dose of insulin held.
[2022-04-16] MEDS: Enoxaparin Sodium 40 MG/0.4 ML SYRINGE SUBCUT (23:17)
--- NOTE | 2022-04-16 23:53 | PC.NURSE ---
This RN called pharmacy to have Ampicillin re-timed for pt.'s primary RN Vic
[2022-04-17] VITALS (7 sets, daily range): BP systolic 151–174; BP diastolic 60–87; PULSE 65–79; RESP 14–18; TEMP 36.6–36.9; O2SAT 92–99
--- NOTE | 2022-04-17 00:15 | PC.NURSE ---
Pt satting at 88% on RA with good pleth and sat up in bed in comfortable position. Pt placed on O2 at 2 L/min via NC to improve SpO2 to 93%.
[2022-04-17] MEDS: Lactated Ringers 1,000 ML 50 ML IVCONT (00:42)
--- NOTE | 2022-04-17 01:33 | PC.NURSE ---
This RN called pharmacy to request dose schedule change for ampicillin because med administration was delayed earlier in shift. Last dose of ampicillin finished around midnight and the med is to be given Q6h. Next dose will be given at 0600.
--- NOTE | 2022-04-17 03:50 | PC.NURSE ---
Pt incontinent on blankets and amy. Cleaned pt and changed blankets and amy. Will continue to monitor.
[2022-04-17] MEDS: Ampicillin Sodium/Sulbactam Na 3 GM in 0.9 % Sodium Chloride 100 ML IV ×3 (06:28→17:39)
--- NOTE | 2022-04-17 07:42 | PC.NURSE ---
PT INCONTINENT OF URINE. HE HAS REMOVED HIS IV ACCESS AND CONTINUES TO PRODUCE LARGE AMOUNTS OF THICK YELLOWISH BROWN SPUTUM.
--- NOTE | 2022-04-17 09:49 | HO.PM.IMPN ---
Subjective Subjective Date of Service: 04/17/22 Interval History: f/u on right sided weakness, slur speech, and dydphaiga unable to control inteval history: He continues to have signficant secretion but is more alert and is asking to eat Review of Systems no new weakness no headache, no fever Physical Exam Vital Signs: Vital Signs: Last Vital Signs Temp 98.3 F 04/17/22 06:06 Pulse 77 04/17/22 09:41 Resp 17 04/17/22 06:06 BP 154/70 H 04/17/22 09:41 Pulse Ox 92 04/17/22 09:41 O2 Del Method 04/17/22 06:06 O2 Flow Rate 2 04/17/22 06:06 BMI result Body Mass Index 35.7 Const: Other: General: oriented to self and place Resp: ishmael rhocnhi HEENT: chronic secretion in mouth and has to be sauctioned CVS: S1,S2,RRR GI: +BS, NT, no distention Skin: No rash Neuro: right sided weakness seem better Psych: appropriate affect Objective Data Active Medications Acetaminophen (Acetaminophen 325 Mg Tablet) 650 mg PO Q6H PRN PRN Reason: Pain, Mild (Pain Scale 1-3) Acetaminophen (Acetaminophen Supp 650 Mg Supp.Rect) 650 mg [place] Q6H PRN PRN Reason: fever Last Admin: 04/15/22 07:12 Dose: 650 mg Documented By: VANESA Aspirin (Aspirin 300 Mg Supp.Rect) 300 mg [place] DAILY [facility] Last Admin: 04/16/22 09:35 Dose: 300 mg Documented By: BRIAN Atorvastatin Calcium (Atorvastatin Calcium 80 Mg Tablet) 80 mg PO DAILY [facility] Last Admin: 04/16/22 09:49 Dose: Not Given Documented By: BRIAN Non-Admin Reason: NPO Enoxaparin Sodium (Enoxaparin Sodium 40 Mg/0.4 Ml Syringe) 40 mg SUBCUT Q24H [facility] Last Admin: 04/16/22 23:17 Dose: 40 mg Documented By: INDIA Ampicillin Sodium/Sulbactam (Sodium 3 gm/ Sodium Chloride) 100 mls @ 200 mls/hr IV Q6H [facility] Last Admin: 04/17/22 06:28 Dose: 200 mls/hr Documented By: INDIA Insulin Human Lispro (Insulin Lispro 100 Unit/Ml 3 Ml Vial) 0 unit SUBCUT QIDACHS [facility]; Protocol Last Admin: 04/17/22 08:28 Dose: Not Given Documented By: SHANNON Non-Admin Reason: NPO Ondansetron HCl (Ondansetron Hcl 4 Mg/2 Ml Vial) 4 mg IVPUSH Q8H PRN PRN Reason: Nausea and Vomiting Pharmacy Consult (Consult Rx Perform Med Rec) 1 each MISCELLANE ONCE PRN PRN Reason: Consult order Scopolamine (Scopolamine 1.5 Mg Patch.Td.3) 1.5 mg EAR-BEHIND Q72H [facility] Last Admin: 04/15/22 10:27 Dose: 1.5 mg Documented By: KESHAV Labs CBC & Chem 7: 04/14/22 13:57 04/15/22 07:28 Labs: Laboratory Results - last 24 hr 04/14/22 04/16/22 04/16/22 13:40 09:48 22:40 Whole Blood PT 12.2 Whole Blood INR 1.0 POC Glucose 101 96 Microbiology Microbiology Results: Microbiology 04/15/22 07:28 Blood Culture - Preliminary Blood - Venous No growth after 48 hours. 04/15/22 07:28 Blood Culture - Preliminary Blood - Venous No growth after 48 hours. Assessment and Plan (1) Acute left-sided weakness: Status: Acute (2) Slurred speech: Status: Acute (3) Cerebrovascular accident: Status: Acute Plan 86 Faroese speaker male with PMH of diabetes and hypertension who presents to the hospital complaining of start speech and left-sided weakness for 1 day. left-sided weakness Slurred speech, swallowing problem Clinical presenation c/w with stroke-- CT scan negative for any acute findings Unable to to do MRI at this time due to high risk for aspiration, his secretions remains signficant Neuro saw him and recommends MRI if feasible, at this point at think no Statin if passes swallow eval, rectal ASA, PT/OT, speech following swallowing problem Still NPO To be reassess by speech Dysphagia with difficulty controlling secretions, continue NPO status, IVF for now and we'll try and get hold of family and consider a PEG Suspected aspiration PNA with Hypoxa, Continue Unasyn, no fever ?Diabetes Hold metformin SSI, Hypertension Hold amlodipine and allow for permissive hypertension up to 160s to 170s ?DVT PPX Lovenox Need for inpatient: Clinical CVA complicated by Dysphagia not able to cotrol secretions and might need a PEG I have not been able to locate family at this time and will keep trying Darron Jimenez listed as person to contact at [phone] is not responding, left message Full code; code to be readdressed when family is located Quality Stroke Does the patient have a stroke diagnosis?: Yes Reason for No Anti-thrombotic by Day Two: N/A - Med Ordered VTE Prior VTE?: No VTE Risk Level:: Medical - moderate - high VTE Device Contraindication: Treatment Not Indicated VTE Drug Contraindication: N/A - Med Ordered
[2022-04-17] MEDS: Aspirin 300 MG SUPP.RECT PR (10:42)
[2022-04-17 10:51] LABS: Glucose, Whole Blood 93 mg/dL (60-115)
[2022-04-17 11:08] LABS: Hematocrit 43.4 % (42.0-52.0); Hemoglobin 13.9 g/dl (14.0-18.0); Mean Corpuscular Hemoglobin 26.7 pg (27.0-33.0); Mean Corpuscular Volume 83.3 fL (80.0-98.0); Mean Platelet Volume 11.8 fL (9.4-12.4); Platelet Count 230 X10*3/uL (160-400); Red Blood Count 5.21 X10*6/uL (4.60-5.80); Red Cell Distribution Width 14.3 % (11.0-16.0); White Blood Count 21.4 X10*3/uL (4.8-10.8)
[2022-04-17 12:03] LABS: Anion Gap 15 (12-20); Blood Urea Nitrogen 26 mg/dL (9-16); Calcium 8.7 mg/dL (8.4-10.2); Carbon Dioxide 29 mmol/L (22-29); Chloride 104 mmol/L (96-108); Creatinine Clr Calc Pharmacy 63.5; Estimated Glomerular Filt Rate > 60; Glucose Random 91 mg/dL (60-115); Sodium 144 mmol/L (135-145)
--- NOTE | 2022-04-17 12:14 | MHC.STROKE ---
Addendum entered by Юлия Barajas RN 04/19/22 12:42: MRI reviewed, no acute stroke. I will continue to follow. Original Note: 04/14/22 1306 EMS PRE-NOTIFICATION STROKE ALERT . ARRIVED AT 1310. DIRECT TO [address], NIHSS = [address] GARCÍA'S NOTE. FAILED NURSING SWALLOW SCREEN, HE HAS REMAINED NPO. [place], VTE WITH LOVENOX. UNABLE TO PROVIDE STROKE EDUCATION AT THIS TIME. WAITING FOR FAMILY, UNALBE TO TOLERATED MRI, CAN'T LIE FLAT OR MANAGE SECRETIONS. I WILL CONTINUE TO FOLLOW.
--- NOTE | 2022-04-17 14:37 | MHC.SL.SWA ---
Speech Pathologist Impression: Risk of Aspiration Due to: Neurological Condition Dysphasia Diet Status: p/o trials w/ wheat and oats flake miller only. Liquid Consistency and Strategies for Safe Swallow: Liquid Intake Recommendation: NPO Liquid Intake Strategies: Solid Food Consistency: Dietary Recommendations: NPO Additional Modifications to Solid Foods: Oral Medication Intake: NPO Please contact the pharmacy regarding appropriate crushable or liquid drug formulations that are available whenever modified delivery is recommended. Compensatory Strategies and Precautions to be Taken for Safe Swallow: Supervision While Eating and Drinking for Safe Swallow: PO with INGREDIENT HANDLER Foods to Avoid: Swallowing Recommended Treatments: Compens. Strategy Educat. Recommendation for Speech: Inpatient Speech Therapy Comment: Pt continues to evidence difficulty managing secretions, on trace amount of water administered today, evidenced clinical signs of aspiration, produced foamy mucous from mouth requiring suctioning. Oral motor evidences L sided weakness, reduced laryngeal elevation on swallow. Recommend continue NPO at this time due to high risk of aspiration. INGREDIENT HANDLER will continue to follow, attempt P.O. trials, re-assess swallow. [facility] notified by secure text, Nursing advised of recommendations at bedside. Frequency/Duration: Date Range for Service Req: Timeline to reassess: Core Dropper Clinican/Clinical Fellow: No Supervisory Statement: I have reviewed and agree with the student/clinical fellow's documentation: N/A Speech Language Pathologist: Bibiana Bower M.A., [facility]-INGREDIENT HANDLER
--- NOTE | 2022-04-17 15:40 | MHC.CM.PN ---
This newspaper writer attempted to contact family listed with not answer to phone call. Attempt to locate any family members to participate in patient's care and discharge planning has been unsuccessful. in discussion with MD, plan to move forward with guardianship for patient in order to get patient to next site of care. Patient would not be able to return to a community setting independently. CM will initiate guardianship process.
[2022-04-17 16:58] LABS: Glucose, Whole Blood 92 mg/dL (60-115)
[2022-04-17] MEDS: Enoxaparin Sodium 40 MG/0.4 ML SYRINGE SUBCUT (20:00)
[2022-04-17 21:12] LABS: Glucose, Whole Blood 92 mg/dL (60-115)
[2022-04-18] VITALS (7 sets, daily range): BP systolic 170–189; BP diastolic 70–101; PULSE 63–73; RESP 18–20; TEMP 36.3–36.8; O2SAT 95–100
--- NOTE | 2022-04-18 06:00 | MHC.PIE ---
P.NO IV ACCESS I.MULTIPLE ATTEMPTS BY STAFF AND NURSING SLPS(8)TO START IV,UNABLE.DR ALVAREZ MADE AWARE. E.WILL UPDATE NEXT SHIFT
[2022-04-18 06:30] LABS: Hematocrit 43.8 % (42.0-52.0); Hemoglobin 14.2 g/dl (14.0-18.0); Mean Corpuscular HGB Conc 32.4 g/dl (31.0-36.0); Mean Corpuscular Hemoglobin 26.9 pg (27.0-33.0); Mean Corpuscular Volume 83.1 fL (80.0-98.0); Mean Platelet Volume 11.7 fL (9.4-12.4); Platelet Count 231 X10*3/uL (160-400); Red Blood Count 5.27 X10*6/uL (4.60-5.80); Red Cell Distribution Width 14.3 % (11.0-16.0); White Blood Count 16.5 X10*3/uL (4.8-10.8)
[2022-04-18 07:38] LABS: Glucose, Whole Blood 82 mg/dL (60-115)
[2022-04-18] MEDS: Aspirin 300 MG SUPP.RECT PR (09:40)
[2022-04-18] MEDS: Scopolamine 1.5 MG PATCH.TD.3 EAR-BEHIND (09:42)
--- NOTE | 2022-04-18 11:31 | HO.PM.IMPN ---
Subjective Subjective Date of Service: 04/18/22 Interval History: f/u on right sided weakness, slur speech, and dydphaiga unable to control secretions inteval history: He continues to have signficant secretions but is more alert and is asking to eat--no fever, lost iv access overnight with multiple unsuccesful attempts WBC is coming down Review of Systems no new weakness no headache, no fever Physical Exam Vital Signs: Vital Signs: Last Vital Signs Temp 97.9 F 04/18/22 11:13 Pulse 73 04/18/22 11:13 Resp 18 04/18/22 11:13 BP 175/70 H 04/18/22 11:13 Pulse Ox 98 04/18/22 11:13 O2 Del Method 04/18/22 11:13 O2 Flow Rate 2 04/18/22 11:13 BMI result Body Mass Index 35.7 Const: Other: General: oriented to self and place Resp: ishmael rhocnhi HEENT: chronic secretion in mouth and has to be sauctioned CVS: S1,S2,RRR GI: +BS, NT, no distention Skin: No rash Neuro: right sided weakness seem better Psych: appropriate affect Objective Data Active Medications Acetaminophen (Acetaminophen 325 Mg Tablet) 650 mg PO Q6H PRN PRN Reason: Pain, Mild (Pain Scale 1-3) Acetaminophen (Acetaminophen Supp 650 Mg Supp.Rect) 650 mg [place] Q6H PRN PRN Reason: fever Last Admin: 04/15/22 07:12 Dose: 650 mg Documented By: VANESA Aspirin (Aspirin 300 Mg Supp.Rect) 300 mg [place] DAILY [facility] Last Admin: 04/18/22 09:40 Dose: 300 mg Documented By: ROBERT Atorvastatin Calcium (Atorvastatin Calcium 80 Mg Tablet) 80 mg PO DAILY [facility] Last Admin: 04/18/22 09:39 Dose: Not Given Documented By: ROBERT Non-Admin Reason: NPO Enoxaparin Sodium (Enoxaparin Sodium 40 Mg/0.4 Ml Syringe) 40 mg SUBCUT Q24H [facility] Last Admin: 04/17/22 20:00 Dose: 40 mg Documented By: BEATRIZ Ampicillin Sodium/Sulbactam (Sodium 3 gm/ Sodium Chloride) 100 mls @ 200 mls/hr IV Q6H [facility] Last Admin: 04/18/22 05:59 Dose: Not Given Documented By: CATHERINE Non-Admin Reason: No Access Insulin Human Lispro (Insulin Lispro 100 Unit/Ml 3 Ml Vial) 0 unit SUBCUT QIDACHS [facility]; Protocol Last Admin: 04/18/22 07:54 Dose: Not Given Documented By: ROBERT Non-Admin Reason: No Insulin Coverage Ondansetron HCl (Ondansetron Hcl 4 Mg/2 Ml Vial) 4 mg IVPUSH Q8H PRN PRN Reason: Nausea and Vomiting Pharmacy Consult (Consult Rx Perform Med Rec) 1 each MISCELLANE ONCE PRN PRN Reason: Consult order Scopolamine (Scopolamine 1.5 Mg Patch.Td.3) 1.5 mg EAR-BEHIND Q72H [facility] Last Admin: 04/18/22 09:42 Dose: 1.5 mg Documented By: ROBERT Labs CBC & Chem 7: 04/18/22 06:01 04/17/22 10:49 Labs: Laboratory Results - last 24 hr 04/17/22 04/17/22 04/17/22 10:49 16:49 21:09 MCV MCH MCHC RDW Plt Count MPV Absolute Nucleated RBC Nucleated RBC % (auto) Anion Gap 15 Estim Creat Clear Calc 63.5 Estimated GFR > 60 POC Glucose 92 92 Random Glucose 91 D Calcium 8.7 04/18/22 04/18/22 06:01 07:34 MCV 83.1 MCH 26.9 L MCHC 32.4 RDW 14.3 Plt Count 231 MPV 11.7 Absolute Nucleated RBC 0.000 Nucleated RBC % (auto) 0.0 Anion Gap Estim Creat Clear Calc Estimated GFR POC Glucose 82 Random Glucose Calcium Microbiology Microbiology Results: Microbiology 04/15/22 07:28 Blood Culture - Preliminary Blood - Venous No growth after 48 hours. 04/15/22 07:28 Blood Culture - Preliminary Blood - Venous No growth after 48 hours. Assessment and Plan (1) Acute left-sided weakness: Status: Acute (2) Slurred speech: Status: Acute (3) Cerebrovascular accident: Status: Acute Plan 86 Citizen Of [place] speaker male with PMH of diabetes and hypertension who presents to the hospital complaining of start speech and left-sided weakness for 1 day. left-sided weakness Slurred speech, swallowing problem Clinical presenation c/w with stroke-- CT scan negative for any acute findings Unable to to do MRI at this time due to high risk for aspiration, his secretions remains signficant Neuro saw him and recommends MRI if feasible, at this point at think no Statin if passes swallow eval, rectal ASA, PT/OT, speech following swallowing problem Still NPO To be reassess by speech Dysphagia with difficulty controlling secretions, continue NPO status, IVF for now and we'll try and get hold of family and consider a PEG, he is not able to provide details about his family no family or freinds visiting, he probably has some undifined dementia, case managment is been working on locating a family contact Suspected aspiration PNA with Hypoxa, WBC is trending down, Continue Unasyn, no fever--get a PICC line given no IV access ?Diabetes Hold metformin SSI, Hypertension Hold amlodipine and allow for permissive hypertension up to 160s to 170s, IV labatalol or hydralazine for high BPs ?DVT PPX Lovenox Need for inpatient: Clinical CVA complicated by Dysphagia not able to cotrol secretions and might need a PEG I have not been able to locate family at this time and will keep trying Darron Jimenez listed as person to contact at [phone] is not responding, left message Full code; code to be readdressed when family is located Quality Stroke Does the patient have a stroke diagnosis?: Yes Reason for No Anti-thrombotic by Day Two: N/A - Med Ordered VTE Prior VTE?: No VTE Risk Level:: Medical - moderate - high VTE Device Contraindication: Treatment Not Indicated VTE Drug Contraindication: N/A - Med Ordered
[2022-04-18 11:36] LABS: Glucose, Whole Blood 96 mg/dL (60-115)
--- NOTE | 2022-04-18 13:06 | MHC.SL.SWA ---
Speech Pathologist Impression: Oropharyngeal dysphagia Risk of Aspiration Due to: Neurological Condition Dysphasia Diet Status: p/o trials w/ circular saw operator only. Liquid Consistency and Strategies for Safe Swallow: Liquid Intake Recommendation: NPO Solid Food Consistency: Dietary Recommendations: NPO Oral Medication Intake: NPO Please contact the pharmacy regarding appropriate crushable or liquid drug formulations that are available whenever modified delivery is recommended. Supervision While Eating and Drinking for Safe Swallow: PO with DANCE PROFESSOR Swallowing Recommended Treatments: Compens. Strategy Educat. Recommendation for Speech: Inpatient Speech Therapy Facilities Clerk Clinican/Clinical Fellow: No Supervisory Statement: I have reviewed and agree with the student/clinical fellow's documentation: N/A Speech Language Pathologist: Chely Bazan M.A., CCC-DANCE PROFESSOR
--- NOTE | 2022-04-18 15:22 | PM.EVENT ---
Event Note Date of Service: 04/18/22 Event Note: Multiple attempts to obtain peripheral access by mutiple people without success, he is not eating and needs to be on IV fluid, IV antibiotics and possobly pareteral nutrition. We are still not able to locate family members and thefore I am singing conscent on emergent basis for life sustaining treaments
--- NOTE | 2022-04-18 17:57 | P.PICC_ITS ---
PICC Line Insertion [facility] Diagnosis: [CVA ] Indication: [IV antibx/TPN Long Term] Pertinent Labs: [REVIEWED] Technique: Following informed consent including risks, benefits and alternatives and using sterile technique including cap and mask, sterile gown, glove and drape, the RIGHT[] arm was prepped and draped in the usual sterile fashion of full barrier technique with CHG. Following completion of [place] Protocol the skin and soft tissues were anesthetized with 1% Lidocaine plain. Using ultrasound guidance, [RIGHT BRACIAL] vein access was BY DR MURO. Over an 0.018 wire through peel-away sheath, a [5FR DOUBLE LUMEN] PICC line was positioned. Catheter length is [39CM] internal length, [0CM] external length, for a total trimmed length of 39CM]. The procedure was performed in [RM 272]. Tip verification was performed by Shabbir Cabrera with [facility] [address]CG BUT DR MURO WANTED TO GET A CX JUST TO VERTIFY PLACEMENT-WHICH IS GOING TO BE ORDERED BY DR DORAN. LINE IS NOT READY TO USE UNTIL RESULTS OF CXR ARE RESULTED. Ultrasound was used to document vein patency and for needle entry. A formal ultrasound picture and cardiac rhythm strip was recorded. Currently dressed with a StatLock, Tegaderm, and CHG disc. Verification has been performed for blood return and line patency. DR DORAN ALSO NOTIFIED THAT DOULBE PICC (PASV) WAS PLACED AND NEEDED AN ORDER FOR VENOUS ACCESS FLUSHING ORDERS. Arm Circumference: [29CM] Equipment: [Wireless EnvironmentO] Catheter Type: [4FR DOUBLE PICC] Lot #: [[id number]]
[2022-04-18 18:19] LABS: Glucose, Whole Blood 103 mg/dL (60-115)
[2022-04-18] MEDS: Dextrose 5 % and 0.45 % NaCl 1,000 ML 100 ML IVCONT (18:55)
[2022-04-18] MEDS: Ampicillin Sodium/Sulbactam Na 3 GM in 0.9 % Sodium Chloride 100 ML IV (18:55)
--- NOTE | 2022-04-18 19:31 | PC.NURSE ---
BP 170/78, Dr Garcia aware,no new orders.
[2022-04-18 21:44] LABS: Glucose, Whole Blood 114 mg/dL (60-115)
[2022-04-18 21:48] LABS: Glucose, Whole Blood 117 mg/dL (60-115)
[2022-04-18] MEDS: 0.9 % Sodium Chloride Flush 10 ML SYRINGE 5 ML IVFLUSH (22:18)
[2022-04-18] MEDS: Enoxaparin Sodium 40 MG/0.4 ML SYRINGE SUBCUT (22:18)
[2022-04-19] VITALS (10 sets, daily range): BP systolic 135–210; BP diastolic 67–97; PULSE 66–85; RESP 18; TEMP 36–36.6; O2SAT 95–99
[2022-04-19] MEDS: Ampicillin Sodium/Sulbactam Na 3 GM in 0.9 % Sodium Chloride 100 ML IV ×5 (00:43→23:16)
[2022-04-19] MEDS: 0.9 % Sodium Chloride Flush 10 ML SYRINGE 5 ML IVFLUSH ×2 (00:44→09:42)
[2022-04-19] MEDS: Dextrose 5 % and 0.45 % NaCl 1,000 ML 100 ML IVCONT ×2 (05:19→16:08)
[2022-04-19 07:24] LABS: Glucose, Whole Blood 142 mg/dL (60-115)
[2022-04-19] MEDS: Aspirin 300 MG SUPP.RECT PR (09:42)
--- NOTE | 2022-04-19 10:16 | HO.PM.IMPN ---
Subjective Subjective Date of Service: 04/19/22 Interval History: f/u on right sided weakness, slur speech, and dydphaiga unable to control secretions inteval history:he seems much better, managing secretions and will start diet Review of Systems no new weakness no headache, no fever Physical Exam Vital Signs: Vital Signs: Last Vital Signs Temp 96.8 F 04/19/22 07:12 Pulse 73 04/19/22 07:12 Resp 18 04/19/22 07:12 BP 190/87 H 04/19/22 09:46 Pulse Ox 97 04/19/22 07:12 O2 Del Method 04/19/22 07:12 O2 Flow Rate 2 04/19/22 07:12 BMI result Body Mass Index 35.7 Const: Other: General: oriented to self and place Resp: ishmael rhocnhi HEENT: chronic secretion in mouth and has to be sauctioned CVS: S1,S2,RRR GI: +BS, NT, no distention Skin: No rash Neuro: right sided weakness seem better Psych: appropriate affect Objective Data Active Medications Acetaminophen (Acetaminophen 325 Mg Tablet) 650 mg PO Q6H PRN PRN Reason: Pain, Mild (Pain Scale 1-3) Acetaminophen (Acetaminophen Supp 650 Mg Supp.Rect) 650 mg [place] Q6H PRN PRN Reason: fever Last Admin: 04/15/22 07:12 Dose: 650 mg Documented By: VANESA Aspirin (Aspirin 300 Mg Supp.Rect) 300 mg WI DAILY [facility] Last Admin: 04/19/22 09:42 Dose: 300 mg Documented By: GAB Atorvastatin Calcium (Atorvastatin Calcium 80 Mg Tablet) 80 mg PO DAILY [facility] Last Admin: 04/19/22 09:34 Dose: Not Given Documented By: GAB Non-Admin Reason: NPO Enoxaparin Sodium (Enoxaparin Sodium 40 Mg/0.4 Ml Syringe) 40 mg SUBCUT Q24H [facility] Last Admin: 04/18/22 22:18 Dose: 40 mg Documented By: LUCI Hydralazine HCl (Hydralazine Hcl 20 Mg/Ml Vial) 10 mg IVPUSH TID [facility]; Protocol Ampicillin Sodium/Sulbactam (Sodium 3 gm/ Sodium Chloride) 100 mls @ 200 mls/hr IV Q6H [facility] Last Infusion: 04/19/22 06:43 Dose: 0 mls/hr Documented By: TONY Dextrose/Sodium Chloride (D51/2ns) 1,000 mls @ 100 mls/hr IVCONT .Q10H [facility] Last Admin: 04/19/22 05:19 Dose: 100 mls/hr Documented By: TONY Insulin Human Lispro (Insulin Lispro 100 Unit/Ml 3 Ml Vial) 0 unit SUBCUT QIDACHS [facility]; Protocol Last Admin: 04/19/22 09:12 Dose: Not Given Documented By: GAB Non-Admin Reason: No Insulin Coverage Ondansetron HCl (Ondansetron Hcl 4 Mg/2 Ml Vial) 4 mg IVPUSH Q8H PRN PRN Reason: Nausea and Vomiting Pharmacy Consult (Consult Rx Perform Med Rec) 1 each MISCELLANE ONCE PRN PRN Reason: Consult order Scopolamine (Scopolamine 1.5 Mg Patch.Td.3) 1.5 mg EAR-BEHIND Q72H [facility] Last Admin: 04/18/22 09:42 Dose: 1.5 mg Documented By: ROBERT Sodium Chloride (0.9 % Sodium Chloride Flush 10 Ml Syringe) 5 ml IVFLUSH TID [facility] Last Admin: 04/19/22 09:42 Dose: 5 ml Documented By: GAB Labs CBC & Chem 7: 04/18/22 06:01 04/17/22 10:49 Labs: Laboratory Results - last 24 hr 04/18/22 04/18/22 04/18/22 11:20 18:07 20:14 POC Glucose 96 103 114 04/18/22 04/19/22 21:44 07:17 POC Glucose 117 H 142 H Assessment and Plan (1) Acute left-sided weakness: Status: Acute (2) Slurred speech: Status: Acute (3) Cerebrovascular accident: Status: Acute Plan 86 Tajik speaker male with PMH of diabetes and hypertension who presents to the hospital complaining of start speech and left-sided weakness for 1 day. left-sided weakness - Slurred speech, swallowing problem Clinical presenation c/w with stroke-- CT scan negative for any acute findings -His status if much better at this time, less secretion, weakness is better also -PT/OT continues to work with him, he has passed swallow eval and will start diet Dysphagia with difficulty controlling secretions--better see above Suspected aspiration PNA with Hypoxa, WBC is trending down, Continue Unasyn, and change to Augmentin in a day or 2 ?Diabetes Hold metformin SSI, Hypertension--restart Norvasc 10 alex ?DVT PPX Lovenox Need for inpatient: Clinical CVA complicated by Dysphagia not able to cotrol secretions and might need a PEG if not able to tolerate oral diet, I have not been able to locate family at this time and will keep trying Darron Jimenez listed as person to contact at [phone] is not responding, left message Full code; code to be readdressed when family is located Quality Stroke Does the patient have a stroke diagnosis?: Yes Reason for No Anti-thrombotic by Day Two: N/A - Med Ordered VTE Prior VTE?: No VTE Risk Level:: Medical - moderate - high VTE Device Contraindication: Treatment Not Indicated VTE Drug Contraindication: N/A - Med Ordered
--- NOTE | 2022-04-19 10:43 | MHC.SL.SWA ---
Speech Pathologist Impression: Risk of Aspiration Due to: Neurological Condition Dysphasia Diet Status: Recommend START diet of PUREE (NDD1) w/ HONEY THICK liquids, PILLS CRUSHED in PUREE. Diet believed to be safest initial diet, given this morning's evident improvement after Pt's prolonged period of having difficulty managing secretions/aspiration signs. GLASS BREAKER will follow re: toleration of diet, & re-assess for upgrades as needed. Pt will need full assist and close monitor during meals for aspirations signs, may need suctioning at ready given previous history Liquid Consistency and Strategies for Safe Swallow: Liquid Intake Recommendation: Honey Thick Liquid Intake Strategies: Liquids by Teaspoon Only Solid Food Consistency: Dietary Recommendations: Pureed (NDD1) Additional Modifications to Solid Foods: Full assistance and supervision during meals. Pt must be alert and awake, and may be impulsive. Close observation for aspiration, including throat clearing, upper airway noise (e.g. patient may not cough, but may become congested), w/ suctioning at ready (given Patient's history). Discontinue if these signs occur. Oral Medication Intake: Crushed with Puree Please contact the pharmacy regarding appropriate crushable or liquid drug formulations that are available whenever modified delivery is recommended. Compensatory Strategies and Precautions to be Taken for Safe Swallow: Sitting Upright (90 deg) No Straw Liquids from Spoon Small Bites and Sips Alternate Liquids/Solids Rate of Ingestion Change Oral Check Supervision While Eating and Drinking for Safe Swallow: Total Assistance (1:1) Foods to Avoid: very sticky/congealed purees. Swallowing Recommended Treatments: Compens. Strategy Educat. Recommendation for Speech: Inpatient Speech Therapy Comment: Pt awake and alert, sitting up in bed, asking for water and food. Pt appearing to have significant improvement in managing secretions, no airway noise, nursing reporting that he has not needed suctioning this morning. Pt eager to have water, attempted to grab cup, but was easily reasoned with and agreed to poco a poco. Pt given 1/4 tsp of water, good oral containment and timely transit, swallow trigger evident, mildly reduced laryngeal elevation. On full tsp of water, pt evidence throat clearing & wet voice after swallow. Suction offered however Pt appeared to have cleared throat adequately, so none was needed. Pt given tsp of apple sauce, w/ good labial closure and stripping of spoon, timely oral phase, evident swallow trigger and timely swallow, mildly reduced laryngeal elevation, no clinical s/s of aspiration. PT given multiple presentations of puree with similar response, tolerated full container of apple sauce w/ no clinical s/s aspiration. Pt given Honey Thick Apple Juice by Tsp, with good oral containment and transit noted, timely swallow, mildly reduced laryngeal elevation, no clinical signs of aspiration on multiple presentations/full container of juice. Pt given trial of softened ana cracker in apple sauce. Prolonged oral phase noted with mastication/mashing as Pt is edentulous, mild residual after swallow, cleared with tsp of HT liquid. Recommend START diet of PUREE (NDD1) w/ HONEY THICK liquids, PILLS CRUSHED in PUREE. Diet believed to be safest initial diet, given this morning's evident improvement after Pt's prolonged period of having difficulty managing secretions/aspiration signs. GLASS BREAKER will follow re: toleration of diet, & re-assess for upgrades as needed. Pt will need full assist and close monitor during meals for aspirations signs, may need suctioning at ready given previous history. MD, Waist Cutter notified of recommendation by secure text, Nursing advised on floor. Frequency/Duration: Date Range for Service Req: Timeline to reassess: Straw Boss Clinican/Clinical Fellow: No Supervisory Statement: I have reviewed and agree with the student/clinical fellow's documentation: N/A Speech Language Pathologist: Bibiana Bower M.A., [facility]GLASS BRE[facility]ER
[2022-04-19 11:22] LABS: Glucose, Whole Blood 212 mg/dL (60-115)
[2022-04-19] MEDS: amLODIPine Besylate 10 MG TABLET PO (11:47)
[2022-04-19] MEDS: Atorvastatin Calcium 80 MG TABLET PO (11:47)
[2022-04-19] MEDS: Furosemide 20 MG TABLET PO (11:47)
[2022-04-19] MEDS: Insulin Lispro 100 UNIT/ML 3 ML VIAL SUBCUT ×2 (11:47→20:31)
[2022-04-19] MEDS: hydrALAZINE HCl 20 MG/ML VIAL 10 MG IVPUSH (11:47)
--- NOTE | 2022-04-19 12:45 | MHC.STROKE ---
Addendum entered by Юлия Barajas RN 04/23/22 15:41: REVIEWED PATIENTS CHART AND EMS RUN SHEET. FAMILY CALLED 911 AND WAS PRESENT UPON EMS ARRIVAL TO [address] [place] [address]. I DISCUSSED THIS WITH DR RICHARDSON AND DR. FERRERA. ATTEMPTING TO REACH OUT TO FAMILY TO ASSIST WITH HIS PLAN OF CARE. Addendum entered by Юлия Barajas RN 04/19/22 12:48: EXCLUDED FROM STROKE EDUCATION, UNABLE TO COMPREHEND. Original Note: 04/14/22 EMS PRE-NOTIFIED STROKE ALERT, ARRIVED 1310. STROKE PROTOCOL ACTIVATED. DIRECT TO CT, NO BLEED. INELIGIBLE FOR TPA DUE TO DEALY IN ARRIVAL FROM ONSET. DETERMINED LKW DAY PRIOR 04/13/22. LEFT SIDED WEAKNESS. FAILED SWALLOW SCREEN. FOLLOW BY STROKE SERVICE, CASE MANAGEMENT, SPEECH. REFER TO CM NOTES AND PROGRESS NOTES.
--- NOTE | 2022-04-19 15:02 | MHC.CM.PN ---
Per [facility]: pt was transported on 04/14 via 911 call made by family. The locomotive boilermaker on scene noted pt in bedroom with dirty adult briefs. States family present, but no J2EE PROGRAMMER. Family stated that pt had been in [place] for about one month visiting from [place] and staying with family in [place]. Due to his declining health, they have been unable to get him back to [place] where he resides. Attempts to contact center director listed on his HCP / EMR contact have not been successful. Pt unable to give accurate information. No family has called to inquire on his wellbeing or have attempted to visit. Information relayed to CM Director.
[2022-04-19 16:00] LABS: Glucose, Whole Blood 117 mg/dL (60-115)
[2022-04-19 20:09] LABS: Glucose, Whole Blood 205 mg/dL (60-115)
[2022-04-19] MEDS: Enoxaparin Sodium 40 MG/0.4 ML SYRINGE SUBCUT (20:31)
[2022-04-20] MEDS: Dextrose 5 % and 0.45 % NaCl 1,000 ML 100 ML IVCONT ×2 (03:02→09:06)
[2022-04-20 03:35] VITALS: BP 173/92; PULSE 80; RESP 18; TEMP 36.2; O2SAT 98
[2022-04-20] MEDS: Ampicillin Sodium/Sulbactam Na 3 GM in 0.9 % Sodium Chloride 100 ML IV (05:41)
[2022-04-20 07:59] LABS: Glucose, Whole Blood 183 mg/dL (60-115)
[2022-04-20 08:00] VITALS: BP 160/83; PULSE 80; RESP 15; TEMP 36.8; O2SAT 93
[2022-04-20 08:52] VITALS: BP 160/83; PULSE 80; O2SAT 93
[2022-04-20] MEDS: Furosemide 20 MG TABLET PO (09:00)
[2022-04-20] MEDS: amLODIPine Besylate 10 MG TABLET PO (09:00)
[2022-04-20] MEDS: Atorvastatin Calcium 80 MG TABLET PO (09:00)
[2022-04-20] MEDS: Insulin Lispro 100 UNIT/ML 3 ML VIAL SUBCUT ×4 (09:00→20:24)
[2022-04-20] MEDS: 0.9 % Sodium Chloride Flush 10 ML SYRINGE 5 ML IVFLUSH ×2 (09:01→20:20)
--- NOTE | 2022-04-20 10:13 | P.PNIM_ITS ---
Subjective Subjective Date of Service: 04/20/22 Interval History: f/u on right sided weakness, slur speech, and dydphaiga unable to control secretions inteval history:he continues to improve, Although still confused. His secretions are much better. He is tolerating present diet Review of Systems no new weakness no headache, no fever Physical Exam Vital Signs: Vital Signs: Last Vital Signs Temp 98.2 F 04/20/22 08:00 Pulse 80 04/20/22 08:52 Resp 15 04/20/22 08:00 BP 160/83 H 04/20/22 08:52 Pulse Ox 93 04/20/22 08:52 O2 Del Method 04/20/22 08:00 O2 Flow Rate 2 04/20/22 03:35 BMI result Body Mass Index 35.7 Const: Other: General: oriented to self and place Resp: ishmael rhocnhi HEENT: chronic secretion in mouth and has to be sauctioned CVS: S1,S2,RRR GI: +BS, NT, no distention Skin: No rash Neuro: right sided weakness seem better Psych: appropriate affect Objective Data Active Medications Acetaminophen (Acetaminophen 325 Mg Tablet) 650 mg PO Q6H PRN PRN Reason: Pain, Mild (Pain Scale 1-3) Acetaminophen (Acetaminophen Supp 650 Mg Supp.Rect) 650 mg [place] Q6H PRN PRN Reason: fever Last Admin: 04/15/22 07:12 Dose: 650 mg Documented By: VANESA Amlodipine Besylate (Amlodipine Besylate 10 Mg Tablet) 10 mg PO DAILY [facility]; Protocol Last Admin: 04/20/22 09:00 Dose: 10 mg Documented By: GAB Aspirin (Aspirin 81 Mg Tab.Chew) 81 mg PO DAILY [facility] Atorvastatin Calcium (Atorvastatin Calcium 80 Mg Tablet) 80 mg PO DAILY [facility] Last Admin: 04/20/22 09:00 Dose: 80 mg Documented By: GAB Enoxaparin Sodium (Enoxaparin Sodium 40 Mg/0.4 Ml Syringe) 40 mg SUBCUT Q24H [facility] Last Admin: 04/19/22 20:31 Dose: 40 mg Documented By: TOR Furosemide (Furosemide 20 Mg Tablet) 20 mg PO DAILY [facility]; Protocol Last Admin: 04/20/22 09:00 Dose: 20 mg Documented By: GAB Hydralazine HCl (Hydralazine Hcl 20 Mg/Ml Vial) 10 mg IVPUSH TID PRN; Protocol PRN Reason: SBP > 180 Last Admin: 04/19/22 11:47 Dose: 10 mg Documented By: GAB Ampicillin Sodium/Sulbactam (Sodium 3 gm/ Sodium Chloride) 100 mls @ 200 mls/hr IV Q6H [facility] Last Infusion: 04/20/22 06:10 Dose: 0 mls/hr Documented By: TOR Dextrose/Sodium Chloride (D51/2ns) 1,000 mls @ 100 mls/hr IVCONT .Q10H [facility] Last Admin: 04/20/22 09:06 Dose: 100 mls/hr Documented By: GAB Insulin Human Lispro (Insulin Lispro 100 Unit/Ml 3 Ml Vial) 0 unit SUBCUT QIDACHS [facility]; Protocol Last Admin: 04/20/22 09:00 Dose: 2 unit Documented By: GAB Ondansetron HCl (Ondansetron Hcl 4 Mg/2 Ml Vial) 4 mg IVPUSH Q8H PRN PRN Reason: Nausea and Vomiting Pharmacy Consult (Consult Rx Perform Med Rec) 1 each MISCELLANE ONCE PRN PRN Reason: Consult order Scopolamine (Scopolamine 1.5 Mg Patch.Td.3) 1.5 mg EAR-BEHIND Q72H [facility] Last Admin: 04/18/22 09:42 Dose: 1.5 mg Documented By: ROBERT Sodium Chloride (0.9 % Sodium Chloride Flush 10 Ml Syringe) 5 ml IVFLUSH TID [facility] Last Admin: 04/20/22 09:01 Dose: 5 ml Documented By: GAB Labs CBC & Chem 7: 04/18/22 06:01 04/17/22 10:49 Labs: Laboratory Results - last 24 hr 04/19/22 04/19/22 04/19/22 11:08 15:43 19:56 POC Glucose 212 H 117 H 205 H 04/20/22 07:55 POC Glucose 183 H Microbiology Microbiology Results: Microbiology 04/15/22 07:28 Blood Culture - Final Blood - Venous No growth after 5 days. 04/15/22 07:28 Blood Culture - Final Blood - Venous No growth after 5 days. Assessment and Plan (1) Acute left-sided weakness: Status: Acute (2) Slurred speech: Status: Acute (3) Cerebrovascular accident: Status: Acute Plan 86 Bruneian speaker male with PMH of diabetes and hypertension who presents to the hospital complaining of start speech and left-sided weakness for 1 day. left-sided weakness - Slurred speech, swallowing problem Clinical presenation c/w with stroke-- CT scan negative for any acute findings -His status if much better at this time, less secretion, weakness is better also -PT/OT continues to work with him, he has passed swallow eval and will start diet and -at this point i don't think MRI that was originally recommended by Neurology will change attendant or outcome and therefore will not pursue it Dysphagia with difficulty controlling secretions--improved, see speechasssement Suspected aspiration PNA with Hypoxa, WBC is trending down, Continue Unasyn to oral Augmentin today Diabetes Hold metformin SSI, Hypertension--restart Norvasc 10 alex ?DVT PPX Lovenox Need for inpatient: post CVA management and will need palcement and also guardianship via court initiated as he's not able to make decionsi and we are not to locate any family members. Darron Jimenez listed as person to contact at [phone] is not responding, left message Full code; code to be readdressed when family is located Quality Stroke Does the patient have a stroke diagnosis?: Yes Reason for No Anti-thrombotic by Day Two: N/A - Med Ordered VTE Prior VTE?: No VTE Risk Level:: Medical - moderate - high VTE Device Contraindication: Treatment Not Indicated VTE Drug Contraindication: N/A - Med Ordered
[2022-04-20 11:40] LABS: Glucose, Whole Blood 176 mg/dL (60-115)
[2022-04-20 12:00] VITALS: BP 139/72; PULSE 81; RESP 18; TEMP 36.6; O2SAT 94
--- NOTE | 2022-04-20 12:29 | MHC.SL.SWA ---
Speech Pathologist Impression: Oropharyngeal dysphagia Risk of Aspiration Due to: Neurological Condition Dysphasia Diet Status: No change at this time Liquid Consistency and Strategies for Safe Swallow: Liquid Intake Recommendation: Honey Thick Liquid Intake Strategies: Liquids by Teaspoon Only Solid Food Consistency: Dietary Recommendations: Pureed (NDD1) Additional Modifications to Solid Foods: Full assistance and supervision during meals. Pt must be alert and awake, and may be impulsive. Close observation for aspiration, including throat clearing, upper airway noise (e.g. patient may not cough, but may become congested), w/ suctioning at ready (given Patient's history). Discontinue if these signs occur. Oral Medication Intake: Crushed with Puree Please contact the pharmacy regarding appropriate crushable or liquid drug formulations that are available whenever modified delivery is recommended. Compensatory Strategies and Precautions to be Taken for Safe Swallow: Sitting Upright (90 deg) No Straw Liquids from Spoon Small Bites and Sips Alternate Liquids/Solids Rate of Ingestion Change Oral Check Supervision While Eating and Drinking for Safe Swallow: Total Assistance (1:1) Foods to Avoid: very sticky/congealed purees. Swallowing Recommended Treatments: Compens. Strategy Educat. Recommendation for Speech: Inpatient Speech Therapy Machine Assembler For Puller Over Clinican/Clinical Fellow: No Supervisory Statement: I have reviewed and agree with the student/clinical fellow's documentation: N/A Speech Language Pathologist: Chely Bazan M.A., [facility]-HAND PRINTED CIRCUIT BOARD ASSEMBLER
[2022-04-20] MEDS: Aspirin 81 MG TAB.CHEW PO (12:41)
[2022-04-20 15:28] LABS: Glucose, Whole Blood 169 mg/dL (60-115)
[2022-04-20 16:00] VITALS: BP 129/73; PULSE 80; RESP 18; TEMP 36.4; O2SAT 94
[2022-04-20 19:03] LABS: Anion Gap 16 (12-20); Blood Urea Nitrogen 24 mg/dL (9-16); Calcium 7.8 mg/dL (8.4-10.2); Carbon Dioxide 23 mmol/L (22-29); Chloride 108 mmol/L (96-108); Creatinine Clr Calc Pharmacy 54.8; Estimated Glomerular Filt Rate > 60; Glucose Random 189 mg/dL (60-115); Potassium 3.6 mmol/L (3.3-5.1); Sodium 143 mmol/L (135-145)
[2022-04-20] MEDS: Enoxaparin Sodium 40 MG/0.4 ML SYRINGE SUBCUT (19:33)
[2022-04-20 20:00] VITALS: BP 151/80; PULSE 78; RESP 18; TEMP 36.6; O2SAT 94
[2022-04-20 20:01] LABS: Glucose, Whole Blood 162 mg/dL (60-115)
[2022-04-20] MEDS: Amoxicillin/Potassium Clav 875 MG TABLET PO (20:15)
[2022-04-21] VITALS (7 sets, daily range): BP systolic 122–154; BP diastolic 69–86; PULSE 84–100; RESP 12–18; TEMP 36.5–37; O2SAT 93–98
[2022-04-21 06:45] LABS: Hematocrit 44.5 % (42.0-52.0); Hemoglobin 13.9 g/dl (14.0-18.0); Mean Corpuscular HGB Conc 31.2 g/dl (31.0-36.0); Mean Corpuscular Hemoglobin 26.4 pg (27.0-33.0); Mean Corpuscular Volume 84.4 fL (80.0-98.0); Platelet Count 175 X10*3/uL (160-400); Red Blood Count 5.27 X10*6/uL (4.60-5.80); Red Cell Distribution Width 14.6 % (11.0-16.0); White Blood Count 12.5 X10*3/uL (4.8-10.8)
[2022-04-21 08:08] LABS: Glucose, Whole Blood 152 mg/dL (60-115)
[2022-04-21] MEDS: Insulin Lispro 100 UNIT/ML 3 ML VIAL SUBCUT ×3 (09:20→21:17)
[2022-04-21] MEDS: Scopolamine 1.5 MG PATCH.TD.3 EAR-BEHIND (09:21)
[2022-04-21] MEDS: Aspirin 81 MG TAB.CHEW PO (09:21)
[2022-04-21] MEDS: 0.9 % Sodium Chloride Flush 10 ML SYRINGE 5 ML IVFLUSH ×3 (09:21→21:18)
[2022-04-21] MEDS: Amoxicillin/Potassium Clav 875 MG TABLET PO ×2 (09:21→19:40)
[2022-04-21] MEDS: Furosemide 20 MG TABLET PO (09:22)
[2022-04-21] MEDS: amLODIPine Besylate 10 MG TABLET PO (09:22)
[2022-04-21] MEDS: Atorvastatin Calcium 80 MG TABLET PO (09:22)
--- NOTE | 2022-04-21 10:11 | HO.PM.IMPN ---
Subjective Subjective Date of Service: 04/21/22 Interval History: f/u on right sided weakness, slur speech, and dydphaiga unable to control secretions inteval history:he continues to improve, has no more secretions Review of Systems no new weakness no headache, no fever Physical Exam Vital Signs: Vital Signs: Last Vital Signs Temp 97.7 F 04/21/22 08:00 Pulse 84 04/21/22 08:00 Resp 12 04/21/22 08:00 BP 154/72 H 04/21/22 08:00 Pulse Ox 95 04/21/22 08:00 O2 Del Method 04/21/22 08:00 O2 Flow Rate 2 04/20/22 16:00 BMI result Body Mass Index 35.7 Const: Other: General: oriented to self and place Resp: ishmael rhocnhi HEENT: chronic secretion in mouth and has to be sauctioned CVS: S1,S2,RRR GI: +BS, NT, no distention Skin: No rash Neuro: right sided weakness seem better Psych: appropriate affect Objective Data Active Medications Acetaminophen (Acetaminophen 325 Mg Tablet) 650 mg PO Q6H PRN PRN Reason: Pain, Mild (Pain Scale 1-3) Acetaminophen (Acetaminophen Supp 650 Mg Supp.Rect) 650 mg [place] Q6H PRN PRN Reason: fever Last Admin: 04/15/22 07:12 Dose: 650 mg Documented By: VANESA Amlodipine Besylate (Amlodipine Besylate 10 Mg Tablet) 10 mg PO DAILY [facility]; Protocol Last Admin: 04/21/22 09:22 Dose: 10 mg Documented By: NILDA Amoxicillin/Clavulanate Potassium (Amoxicillin/Potassium Clav 875 Mg Tablet) 875 mg PO BID [facility] Last Admin: 04/21/22 09:21 Dose: 875 mg Documented By: NILDA Aspirin (Aspirin 81 Mg Tab.Chew) 81 mg PO DAILY [facility] Last Admin: 04/21/22 09:21 Dose: 81 mg Documented By: NILDA Atorvastatin Calcium (Atorvastatin Calcium 80 Mg Tablet) 80 mg PO DAILY [facility] Last Admin: 04/21/22 09:22 Dose: 80 mg Documented By: NILDA Enoxaparin Sodium (Enoxaparin Sodium 40 Mg/0.4 Ml Syringe) 40 mg SUBCUT Q24H [facility] Last Admin: 04/20/22 19:33 Dose: 40 mg Documented By: TATO Furosemide (Furosemide 20 Mg Tablet) 20 mg PO DAILY [facility]; Protocol Last Admin: 04/21/22 09:22 Dose: 20 mg Documented By: NILDA Hydralazine HCl (Hydralazine Hcl 20 Mg/Ml Vial) 10 mg IVPUSH TID PRN; Protocol PRN Reason: SBP > 180 Last Admin: 04/19/22 11:47 Dose: 10 mg Documented By: GAB Insulin Human Lispro (Insulin Lispro 100 Unit/Ml 3 Ml Vial) 0 unit SUBCUT QIDACHS [facility]; Protocol Last Admin: 04/21/22 09:20 Dose: 2 unit Documented By: NILDA Ondansetron HCl (Ondansetron Hcl 4 Mg/2 Ml Vial) 4 mg IVPUSH Q8H PRN PRN Reason: Nausea and Vomiting Pharmacy Consult (Consult Rx Perform Med Rec) 1 each MISCELLANE ONCE PRN PRN Reason: Consult order Scopolamine (Scopolamine 1.5 Mg Patch.Td.3) 1.5 mg EAR-BEHIND Q72H [facility] Last Admin: 04/21/22 09:21 Dose: 1.5 mg Documented By: NILDA Sodium Chloride (0.9 % Sodium Chloride Flush 10 Ml Syringe) 5 ml IVFLUSH TID [facility] Last Admin: 04/21/22 09:21 Dose: 5 ml Documented By: NILDA Labs CBC & Chem 7: 04/21/22 05:29 04/20/22 17:58 Labs: Laboratory Results - last 24 hr 04/20/22 04/20/22 04/20/22 11:35 15:17 17:58 MCV MCH MCHC RDW Plt Count MPV Absolute Nucleated RBC Nucleated RBC % (auto) Anion Gap 16 Estim Creat Clear Calc 54.8 Estimated GFR > 60 POC Glucose 176 H 169 H Random Glucose 189 H D Calcium 7.8 L D 04/20/22 04/21/22 04/21/22 19:54 05:29 08:04 MCV 84.4 MCH 26.4 L MCHC 31.2 RDW 14.6 Plt Count 175 MPV 13.0 H Absolute Nucleated RBC 0.000 Nucleated RBC % (auto) 0.0 Anion Gap Estim Creat Clear Calc Estimated GFR POC Glucose 162 H 152 H Random Glucose Calcium Microbiology Microbiology Results: Microbiology 04/15/22 07:28 Blood Culture - Final Blood - Venous No growth after 5 days. 04/15/22 07:28 Blood Culture - Final Blood - Venous No growth after 5 days. Assessment and Plan (1) Acute left-sided weakness: Status: Acute (2) Slurred speech: Status: Acute (3) Cerebrovascular accident: Status: Acute Plan 86 Mosotho speaker male with PMH of diabetes and hypertension who presents to the hospital complaining of start speech and left-sided weakness for 1 day. left-sided weakness - Slurred speech, swallowing problem Clinical presenation c/w with stroke-- CT scan negative for any acute findings -His status if much better at this time, less secretion, weakness is better also -PT/OT continues to work with him, he has passed swallow eval and will start diet and -at this point i don't think MRI that was originally recommended by Neurology will change control manager or outcome and therefore will not pursue it Dysphagia with difficulty controlling secretions--improved, see speechasssement Suspected aspiration PNA with Hypoxa, WBC is trending down, Continue Unasyn to oral Augmentin today Diabetes Hold metformin SSI, Hypertension--restart Norvasc 10 alex ?DVT PPX Lovenox Need for inpatient: post CVA management and will need palcement and also guardianship via court initiated as he's not able to make decionsi and we are not to locate any family members. Amnadeborajackson Tony listed as person to contact at [phone] is not responding, left message Guardianship paperwork filed with court Full code; code to be readdressed when family is located Quality Stroke Does the patient have a stroke diagnosis?: Yes Reason for No Anti-thrombotic by Day Two: N/A - Med Ordered VTE Prior VTE?: No VTE Risk Level:: Medical - moderate - high VTE Device Contraindication: Treatment Not Indicated VTE Drug Contraindication: N/A - Med Ordered
[2022-04-21 11:54] LABS: Glucose, Whole Blood 174 mg/dL (60-115)
[2022-04-21 16:31] LABS: Glucose, Whole Blood 135 mg/dL (60-115)
[2022-04-21] MEDS: Enoxaparin Sodium 40 MG/0.4 ML SYRINGE SUBCUT (19:34)
[2022-04-21 20:26] LABS: Glucose, Whole Blood 193 mg/dL (60-115)
[2022-04-22 04:00] VITALS: BP 165/71; PULSE 84; RESP 18; TEMP 36.4; O2SAT 94
--- NOTE | 2022-04-22 07:46 | P.PNIM_ITS ---
Subjective Subjective Date of Service: 04/22/22 Interval History: f/u on right sided weakness, slur speech, and dydphaiga unable to control secretions inteval history: baseline confusion, no new clinical changes Review of Systems no new weakness no headache, no fever Physical Exam Vital Signs: Vital Signs: Last Vital Signs Temp 97.5 F 04/22/22 04:00 Pulse 84 04/22/22 04:00 Resp 18 04/22/22 04:00 BP 165/71 H 04/22/22 04:00 Pulse Ox 94 04/22/22 04:00 O2 Del Method 04/22/22 04:00 O2 Flow Rate 2 04/20/22 16:00 BMI result Body Mass Index 35.7 Const: Other: General: oriented to self and place Resp: ishmael rhocnhi HEENT: chronic secretion in mouth and has to be sauctioned CVS: S1,S2,RRR GI: +BS, NT, no distention Skin: No rash Neuro: right sided weakness seem better Psych: appropriate affect Objective Data Active Medications Acetaminophen (Acetaminophen 325 Mg Tablet) 650 mg PO Q6H PRN PRN Reason: Pain, Mild (Pain Scale 1-3) Acetaminophen (Acetaminophen Supp 650 Mg Supp.Rect) 650 mg [place] Q6H PRN PRN Reason: fever Last Admin: 04/15/22 07:12 Dose: 650 mg Documented By: VANESA Amlodipine Besylate (Amlodipine Besylate 10 Mg Tablet) 10 mg PO DAILY [facility]; Protocol Last Admin: 04/21/22 09:22 Dose: 10 mg Documented By: NILDA Amoxicillin/Clavulanate Potassium (Amoxicillin/Potassium Clav 875 Mg Tablet) 875 mg PO BID [facility] Last Admin: 04/21/22 19:40 Dose: 875 mg Documented By: TATO Aspirin (Aspirin 81 Mg Tab.Chew) 81 mg PO DAILY [facility] Last Admin: 04/21/22 09:21 Dose: 81 mg Documented By: NILDA Atorvastatin Calcium (Atorvastatin Calcium 80 Mg Tablet) 80 mg PO DAILY [facility] Last Admin: 04/21/22 09:22 Dose: 80 mg Documented By: NILDA Enoxaparin Sodium (Enoxaparin Sodium 40 Mg/0.4 Ml Syringe) 40 mg SUBCUT Q24H [facility] Last Admin: 04/21/22 19:34 Dose: 40 mg Documented By: TATO Furosemide (Furosemide 20 Mg Tablet) 20 mg PO DAILY [facility]; Protocol Last Admin: 04/21/22 09:22 Dose: 20 mg Documented By: NILDA Hydralazine HCl (Hydralazine Hcl 20 Mg/Ml Vial) 10 mg IVPUSH TID PRN; Protocol PRN Reason: SBP > 180 Last Admin: 04/19/22 11:47 Dose: 10 mg Documented By: GAB Insulin Human Lispro (Insulin Lispro 100 Unit/Ml 3 Ml Vial) 0 unit SUBCUT QIDACHS [facility]; Protocol Last Admin: 04/21/22 21:17 Dose: 2 unit Documented By: TATO Ondansetron HCl (Ondansetron Hcl 4 Mg/2 Ml Vial) 4 mg IVPUSH Q8H PRN PRN Reason: Nausea and Vomiting Pharmacy Consult (Consult Rx Perform Med Rec) 1 each MISCELLANE ONCE PRN PRN Reason: Consult order Scopolamine (Scopolamine 1.5 Mg Patch.Td.3) 1.5 mg EAR-BEHIND Q72H [facility] Last Admin: 04/21/22 09:21 Dose: 1.5 mg Documented By: NILDA Sodium Chloride (0.9 % Sodium Chloride Flush 10 Ml Syringe) 5 ml IVFLUSH TID [facility] Last Admin: 04/21/22 21:18 Dose: 5 ml Documented By: TATO Labs CBC & Chem 7: 04/21/22 05:29 04/20/22 17:58 Labs: Laboratory Results - last 24 hr 04/21/22 04/21/22 04/21/22 08:04 10:48 16:26 POC Glucose 152 H 174 H 135 H 04/21/22 20:00 POC Glucose 193 H Assessment and Plan (1) Acute left-sided weakness: Status: Acute (2) Slurred speech: Status: Acute (3) Cerebrovascular accident: Status: Acute Plan 86 Chinese speaker male with PMH of diabetes and hypertension who presents to the hospital complaining of start speech and left-sided weakness for 1 day. left-sided weakness - Slurred speech, swallowing problem Clinical presenation c/w with stroke-- CT scan was negative for any acute findings, he was unable to do MRI on presentation due to inability to be able lay still and manage his secreation for days. At this point MRI will not car changer or outcome and therefore will not be done. TO continue work with PT, OT, speech. Medical management with ASA, BP control, statin. Dysphagia with difficulty controlling secretions--improved much and is able to eat now Suspected aspiration PNA with Hypoxa, WBC is trending down, Continue Unasyn to oral Augmentin for total of 7 days of Abx Diabetes Hold metformin SSI, Hypertension--Continue Norvasc ?DVT PPX Lovenox Need for inpatient: post CVA management and will need palcement and also guardianship via court initiated as he's not able to make decionsi and we are not to locate any family members. Darron Jimenez listed as person to contact at [phone] is not responding, left message Guardianship paperwork filed with court Full code; code to be readdressed when family is located Quality Stroke Does the patient have a stroke diagnosis?: Yes Reason for No Anti-thrombotic by Day Two: N/A - Med Ordered VTE Prior VTE?: No VTE Risk Level:: Medical - moderate - high VTE Device Contraindication: Treatment Not Indicated VTE Drug Contraindication: N/A - Med Ordered
[2022-04-22 07:53] VITALS: BP 147/77; PULSE 80; RESP 16; TEMP 36.6; O2SAT 95
[2022-04-22 07:54] LABS: Glucose, Whole Blood 135 mg/dL (60-115)
[2022-04-22] MEDS: 0.9 % Sodium Chloride Flush 10 ML SYRINGE 5 ML IVFLUSH ×3 (09:22→21:54)
[2022-04-22] MEDS: Amoxicillin/Potassium Clav 875 MG TABLET PO ×2 (09:22→21:53)
[2022-04-22] MEDS: Atorvastatin Calcium 80 MG TABLET PO (09:22)
[2022-04-22] MEDS: amLODIPine Besylate 10 MG TABLET PO (09:23)
[2022-04-22] MEDS: Furosemide 20 MG TABLET PO (09:23)
[2022-04-22] MEDS: Aspirin 81 MG TAB.CHEW PO (09:23)
[2022-04-22 11:26] LABS: Glucose, Whole Blood 153 mg/dL (60-115)
[2022-04-22 11:33] VITALS: BP 143/75; PULSE 81; RESP 14; TEMP 36.2; O2SAT 95
[2022-04-22 15:58] VITALS: BP 141/78; PULSE 81; RESP 14; TEMP 36.4; O2SAT 95
[2022-04-22 16:41] LABS: Glucose, Whole Blood 134 mg/dL (60-115)
[2022-04-22 19:25] VITALS: BP 150/65; PULSE 85; RESP 16; TEMP 36; O2SAT 95
[2022-04-22 19:45] LABS: Glucose, Whole Blood 159 mg/dL (60-115)
[2022-04-22] MEDS: Acetaminophen 325 MG TABLET 650 MG PO (21:53)
[2022-04-22] MEDS: Enoxaparin Sodium 40 MG/0.4 ML SYRINGE SUBCUT (21:53)
[2022-04-22] MEDS: Insulin Lispro 100 UNIT/ML 3 ML VIAL SUBCUT (21:54)
[2022-04-22 23:34] VITALS: BP 134/65; PULSE 81; RESP 17; TEMP 36; O2SAT 96
[2022-04-23 03:24] VITALS: BP 141/66; PULSE 78; RESP 18; TEMP 36.1; O2SAT 100
[2022-04-23 07:32] LABS: Glucose, Whole Blood 125 mg/dL (60-115)
[2022-04-23 08:00] VITALS: BP 143/69; PULSE 90; RESP 16; TEMP 35.9; O2SAT 96
--- NOTE | 2022-04-23 09:48 | HO.PM.IMPN ---
Subjective Subjective Date of Service: 04/23/22 Interval History: f/u on right sided weakness, slur speech, and dydphaiga unable to control secretions inteval history: baseline confusion, no new clinical changes--pleasantly confused Review of Systems no new weakness no headache, no fever Physical Exam Vital Signs: Vital Signs: Last Vital Signs Temp 96.6 F L 04/23/22 08:00 Pulse 90 04/23/22 08:00 Resp 16 04/23/22 08:00 BP 143/69 H 04/23/22 08:00 Pulse Ox 96 04/23/22 08:00 O2 Del Method 04/23/22 08:00 O2 Flow Rate 2 04/20/22 16:00 BMI result Body Mass Index 35.7 Const: Other: General: oriented to self and place Resp: ishmael rhocnhi HEENT: chronic secretion in mouth and has to be sauctioned CVS: S1,S2,RRR GI: +BS, NT, no distention Skin: No rash Neuro: right sided weakness seem better Psych: appropriate affect Objective Data Active Medications Acetaminophen (Acetaminophen 325 Mg Tablet) 650 mg PO Q6H PRN PRN Reason: Pain, Mild (Pain Scale 1-3) Last Admin: 04/22/22 21:53 Dose: 650 mg Documented By: BEATRIZ Acetaminophen (Acetaminophen Supp 650 Mg Supp.Rect) 650 mg [place] Q6H PRN PRN Reason: fever Last Admin: 04/15/22 07:12 Dose: 650 mg Documented By: VANESA Amlodipine Besylate (Amlodipine Besylate 10 Mg Tablet) 10 mg PO DAILY [facility]; Protocol Last Admin: 04/22/22 09:23 Dose: 10 mg Documented By: NILDA Amoxicillin/Clavulanate Potassium (Amoxicillin/Potassium Clav 875 Mg Tablet) 875 mg PO BID [facility] Last Admin: 04/22/22 21:53 Dose: 875 mg Documented By: BEATRIZ Aspirin (Aspirin 81 Mg Tab.Chew) 81 mg PO DAILY [facility] Last Admin: 04/22/22 09:23 Dose: 81 mg Documented By: NILDA Atorvastatin Calcium (Atorvastatin Calcium 80 Mg Tablet) 80 mg PO DAILY [facility] Last Admin: 04/22/22 09:22 Dose: 80 mg Documented By: NILDA Enoxaparin Sodium (Enoxaparin Sodium 40 Mg/0.4 Ml Syringe) 40 mg SUBCUT Q24H [facility] Last Admin: 04/22/22 21:53 Dose: 40 mg Documented By: BEATRIZ Furosemide (Furosemide 20 Mg Tablet) 20 mg PO DAILY [facility]; Protocol Last Admin: 04/22/22 09:23 Dose: 20 mg Documented By: NILDA Hydralazine HCl (Hydralazine Hcl 20 Mg/Ml Vial) 10 mg IVPUSH TID PRN; Protocol PRN Reason: SBP > 180 Last Admin: 04/19/22 11:47 Dose: 10 mg Documented By: GAB Insulin Human Lispro (Insulin Lispro 100 Unit/Ml 3 Ml Vial) 0 unit SUBCUT QIDACHS [facility]; Protocol Last Admin: 04/23/22 08:21 Dose: Not Given Documented By: AARON Non-Admin Reason: No Insulin Coverage Ondansetron HCl (Ondansetron Hcl 4 Mg/2 Ml Vial) 4 mg IVPUSH Q8H PRN PRN Reason: Nausea and Vomiting Pharmacy Consult (Consult Rx Perform Med Rec) 1 each MISCELLANE ONCE PRN PRN Reason: Consult order Scopolamine (Scopolamine 1.5 Mg Patch.Td.3) 1.5 mg EAR-BEHIND Q72H [facility] Last Admin: 04/21/22 09:21 Dose: 1.5 mg Documented By: NILDA Sodium Chloride (0.9 % Sodium Chloride Flush 10 Ml Syringe) 5 ml IVFLUSH TID [facility] Last Admin: 04/22/22 21:54 Dose: 5 ml Documented By: BEATRIZ Labs CBC & Chem 7: 04/21/22 05:29 04/20/22 17:58 Labs: Laboratory Results - last 24 hr 04/22/22 04/22/22 04/22/22 11:14 16:36 19:40 POC Glucose 153 H 134 H 159 H 04/23/22 07:27 POC Glucose 125 H Assessment and Plan (1) Acute left-sided weakness: Status: Acute (2) Slurred speech: Status: Acute (3) Cerebrovascular accident: Status: Acute Plan 86 Gabonese speaker male with PMH of diabetes and hypertension who presents to the hospital complaining of start speech and left-sided weakness for 1 day. CVA with left sided weakness and slur sepeech and dysphagia now resolved - Clinical presenation c/w with stroke-- CT scan was negative for any acute findings, he was unable to do MRI on presentation due to inability to be able lay still and manage his secreation for days. At this point MRI will not jacket changer or outcome and therefore will not be done. TO continue work with PT, OT, speech. Medical management with ASA, BP control, statin. Dysphagia with difficulty controlling secretions--improved much and is able to eat now Suspected aspiration PNA with Hypoxa, WBC is trending down, Continue Unasyn to oral Augmentin for total of 7 days of Abx Diabetes--continue holding Metformin , SSI Hypertension--Continue Norvasc ?DVT PPX Lovenox Need for inpatient: post CVA management and will need placement and also guardianship via court initiated as he's not able to make decision and we are not able to locate any family members. Darron Jimenez listed as person to contact at [phone] is not responding--phone rings then goes to answering Guardianship paperwork filed with court Full code; code to be readdressed when family is located Quality Stroke Does the patient have a stroke diagnosis?: Yes Reason for No Anti-thrombotic by Day Two: N/A - Med Ordered VTE Prior VTE?: No VTE Risk Level:: Medical - moderate - high VTE Device Contraindication: Treatment Not Indicated VTE Drug Contraindication: N/A - Med Ordered
[2022-04-23] MEDS: 0.9 % Sodium Chloride Flush 10 ML SYRINGE 5 ML IVFLUSH ×3 (10:08→21:09)
[2022-04-23] MEDS: Aspirin 81 MG TAB.CHEW PO (10:08)
[2022-04-23] MEDS: Atorvastatin Calcium 80 MG TABLET PO (10:08)
[2022-04-23] MEDS: Amoxicillin/Potassium Clav 875 MG TABLET PO ×2 (10:08→21:08)
[2022-04-23] MEDS: amLODIPine Besylate 10 MG TABLET PO (10:08)
[2022-04-23] MEDS: Furosemide 20 MG TABLET PO (10:09)
[2022-04-23 11:24] LABS: Glucose, Whole Blood 156 mg/dL (60-115)
[2022-04-23 11:44] VITALS: BP 149/73; PULSE 77; RESP 13; TEMP 37.1; O2SAT 96
--- NOTE | 2022-04-23 12:05 | MHC.SL.SWA ---
Speech Pathologist Impression: Oropharyngeal dysphagia Risk of Aspiration Due to: Neurological Condition Dysphasia Diet Status: Upgrade solids Liquid Consistency and Strategies for Safe Swallow: Liquid Intake Recommendation: Honey Thick Liquid Intake Strategies: Liquids by Teaspoon Only Solid Food Consistency: Dietary Recommendations: Grnd/Mech Altered (NDD2) Additional Modifications to Solid Foods: Recommend UPGRADE to GROUND/MECH ALTERED (NDD2) solids w/ sauces and gravies; continue w/ HONEY THICK liquids, PILLS CRUSHED in PUREE. Pt will need full assist and close monitor during meals for aspirations signs. Avoid sticky foods, mixed consistencies. Ensure food is administered w/ sauce and gravy to moisten and soften. Check oral cavity for clearance. To clear residue, alternate bites of food with sips of liquid, cue for multiple swallows as needed. Updated MD, RN, RD of upgrade via [place] Message. DIRECTOR DATA ARCHITECTURE updated diet order in [facility]. DIRECTOR DATA ARCHITECTURE will follow re: toleration of diet, & re-assess for upgrades as needed. Oral Medication Intake: Crushed with Puree Please contact the pharmacy regarding appropriate crushable or liquid drug formulations that are available whenever modified delivery is recommended. Compensatory Strategies and Precautions to be Taken for Safe Swallow: Sitting Upright (90 deg) No Straw Liquids from Spoon Small Bites and Sips Alternate Liquids/Solids Rate of Ingestion Change Oral Check Avoid Specific Foods Supervision While Eating and Drinking for Safe Swallow: Total Assistance (1:1) Foods to Avoid: Sticky foods; mixed consistencies Swallowing Recommended Treatments: Compens. Strategy Educat. Recommendation for Speech: Inpatient Speech Therapy Animal Husbandry Worker Clinican/Clinical Fellow: No Supervisory Statement: I have reviewed and agree with the student/clinical fellow's documentation: N/A Speech Language Pathologist: Chely Bazan M.A., CCC-DIRECTOR DATA ARCHITECTURE
[2022-04-23] MEDS: Insulin Lispro 100 UNIT/ML 3 ML VIAL SUBCUT ×2 (12:09→22:02)
[2022-04-23 16:00] VITALS: BP 149/78; PULSE 83; RESP 16; TEMP 36.9; O2SAT 94
[2022-04-23 16:07] LABS: Glucose, Whole Blood 109 mg/dL (60-115)
[2022-04-23 16:10] VITALS: BMI 35.7
[2022-04-23 19:17] VITALS: BP 134/82; PULSE 90; RESP 18; TEMP 36.1; O2SAT 98
[2022-04-23 20:29] LABS: Glucose, Whole Blood 159 mg/dL (60-115)
[2022-04-23] MEDS: Enoxaparin Sodium 40 MG/0.4 ML SYRINGE SUBCUT (21:08)
[2022-04-24] VITALS (7 sets, daily range): BP systolic 141–165; BP diastolic 73–83; PULSE 77–109; RESP 17–20; TEMP 36.2–37.1; O2SAT 95–98
[2022-04-24 07:46] LABS: Glucose, Whole Blood 136 mg/dL (60-115)
--- NOTE | 2022-04-24 09:00 | HO.PM.IMPN ---
Subjective Subjective Date of Service: 04/24/22 Interval History: f/u on right sided weakness, slur speech, and dydphaiga unable to control secretions Review of Systems ?baseline confusion, no new clinical changes--pleasantly confused no new c/o Physical Exam Vital Signs: Vital Signs: Last Vital Signs Temp 98.2 F 04/24/22 07:00 Pulse 80 04/24/22 07:00 Resp 18 04/24/22 07:00 BP 163/77 H 04/24/22 07:00 Pulse Ox 96 04/24/22 07:00 O2 Del Method 04/24/22 07:00 O2 Flow Rate 2 04/20/22 16:00 BMI result Body Mass Index 35.7 General: oriented to self? and place Resp: ishmael rhocnhi HEENT: chronic secretion in mouth and has to be sauctioned CVS: S1,S2,RRR GI: +BS, NT, no distention Skin: No rash Neuro: right sided weakness seem better Psych: appropriate affect Objective Data Active Medications Acetaminophen (Acetaminophen 325 Mg Tablet) 650 mg PO Q6H PRN PRN Reason: Pain, Mild (Pain Scale 1-3) Last Admin: 04/22/22 21:53 Dose: 650 mg Documented By: BEATRIZ Acetaminophen (Acetaminophen Supp 650 Mg Supp.Rect) 650 mg [place] Q6H PRN PRN Reason: fever Last Admin: 04/15/22 07:12 Dose: 650 mg Documented By: VANESA Amlodipine Besylate (Amlodipine Besylate 10 Mg Tablet) 10 mg PO DAILY [facility]; Protocol Last Admin: 04/23/22 10:08 Dose: 10 mg Documented By: AARON Amoxicillin/Clavulanate Potassium (Amoxicillin/Potassium Clav 875 Mg Tablet) 875 mg PO BID [facility] Last Admin: 04/23/22 21:08 Dose: 875 mg Documented By: BEATRIZ Aspirin (Aspirin 81 Mg Tab.Chew) 81 mg PO DAILY [facility] Last Admin: 04/23/22 10:08 Dose: 81 mg Documented By: AARON Atorvastatin Calcium (Atorvastatin Calcium 80 Mg Tablet) 80 mg PO DAILY [facility] Last Admin: 04/23/22 10:08 Dose: 80 mg Documented By: AARON Enoxaparin Sodium (Enoxaparin Sodium 40 Mg/0.4 Ml Syringe) 40 mg SUBCUT Q24H [facility] Last Admin: 04/23/22 21:08 Dose: 40 mg Documented By: BEATRIZ Furosemide (Furosemide 20 Mg Tablet) 20 mg PO DAILY [facility]; Protocol Last Admin: 04/23/22 10:09 Dose: 20 mg Documented By: AARON Hydralazine HCl (Hydralazine Hcl 20 Mg/Ml Vial) 10 mg IVPUSH TID PRN; Protocol PRN Reason: SBP > 180 Last Admin: 04/19/22 11:47 Dose: 10 mg Documented By: GAB Insulin Human Lispro (Insulin Lispro 100 Unit/Ml 3 Ml Vial) 0 unit SUBCUT QIDACHS [facility]; Protocol Last Admin: 04/24/22 07:47 Dose: Not Given Documented By: BEATRIZ Non-Admin Reason: No Insulin Coverage Ondansetron HCl (Ondansetron Hcl 4 Mg/2 Ml Vial) 4 mg IVPUSH Q8H PRN PRN Reason: Nausea and Vomiting Pharmacy Consult (Consult Rx Perform Med Rec) 1 each MISCELLANE ONCE PRN PRN Reason: Consult order Scopolamine (Scopolamine 1.5 Mg Patch.Td.3) 1.5 mg EAR-BEHIND Q72H [facility] Last Admin: 04/21/22 09:21 Dose: 1.5 mg Documented By: NILDA Sodium Chloride (0.9 % Sodium Chloride Flush 10 Ml Syringe) 5 ml IVFLUSH TID [facility] Last Admin: 04/23/22 21:09 Dose: 5 ml Documented By: BEATRIZ Labs CBC & Chem 7: 04/21/22 05:29 04/20/22 17:58 Labs: Laboratory Results - last 24 hr 04/23/22 04/23/22 04/23/22 11:19 15:58 20:08 POC Glucose 156 H 109 159 H 04/24/22 07:06 POC Glucose 136 H Assessment and Plan (1) Acute left-sided weakness: Status: Acute (2) Slurred speech: Status: Acute (3) Cerebrovascular accident: Status: Acute Plan 86 [place] speaker male with PMH of diabetes and hypertension who presents to the hospital complaining of start speech and left-sided weakness for 1 day. CVA with left sided weakness and slur sepeech and dysphagia now resolved - Clinical presenation c/w with stroke-- CT scan was negative for any acute findings, he was unable to do MRI on presentation due to inability to be able lay still and manage his secreation for days. At this point MRI will not manager of change or outcome and therefore will not be done. TO continue work with PT, OT, speech. Medical management with ASA, BP control, statin. Dysphagia with difficulty controlling secretions--improved much and is able to eat now Suspected aspiration PNA with Hypoxa, WBC is trending down, Continue Unasyn to oral Augmentin for total of 7 days of Abx Diabetes--continue holding Metformin , SSI Hypertension--Continue Norvasc ?DVT PPX Lovenox Need for inpatient: post CVA management and will need placement and also guardianship via court initiated as he's not able to make decision and we are not able to locate any family members. Darron Jimenez listed as person to contact at [phone] is not responding--phone rings then goes to answering Guardianship paperwork filed with court Full code; code to be readdressed when family is located Quality Stroke Does the patient have a stroke diagnosis?: Yes Reason for No Anti-thrombotic by Day Two: N/A - Med Ordered VTE Prior VTE?: No VTE Risk Level:: Medical - moderate - high VTE Device Contraindication: Treatment Not Indicated VTE Drug Contraindication: N/A - Med Ordered
[2022-04-24] MEDS: amLODIPine Besylate 10 MG TABLET PO (09:16)
[2022-04-24] MEDS: Furosemide 20 MG TABLET PO (09:16)
[2022-04-24] MEDS: Amoxicillin/Potassium Clav 875 MG TABLET PO ×2 (09:16→21:02)
[2022-04-24] MEDS: Aspirin 81 MG TAB.CHEW PO (09:17)
[2022-04-24] MEDS: Atorvastatin Calcium 80 MG TABLET PO (09:17)
[2022-04-24] MEDS: 0.9 % Sodium Chloride Flush 10 ML SYRINGE 5 ML IVFLUSH ×3 (09:17→21:05)
[2022-04-24] MEDS: Scopolamine 1.5 MG PATCH.TD.3 EAR-BEHIND (09:26)
[2022-04-24 11:31] LABS: Glucose, Whole Blood 177 mg/dL (60-115)
[2022-04-24] MEDS: Insulin Lispro 100 UNIT/ML 3 ML VIAL SUBCUT ×3 (12:06→21:03)
--- NOTE | 2022-04-24 14:01 | MHC.SL.SWA ---
Speech Pathologist Impression: Risk of Aspiration Due to: Neurological Condition Dysphasia Diet Status: Recommend continue diet of Ground/Mechanical Altered with HONEY THICK liquids, Pills crushed in Puree. Continue to provide Patient with assistance/supervision during meals. Liquid Consistency and Strategies for Safe Swallow: Liquid Intake Recommendation: Honey Thick Liquid Intake Strategies: Liquids by Teaspoon Only Solid Food Consistency: Dietary Recommendations: Grnd/Mech Altered (NDD2) Additional Modifications to Solid Foods: Full assistance and supervision during meals. Pt must be alert and awake, and may be impulsive. Oral Medication Intake: Crushed with Puree Please contact the pharmacy regarding appropriate crushable or liquid drug formulations that are available whenever modified delivery is recommended. Compensatory Strategies and Precautions to be Taken for Safe Swallow: Sitting Upright (90 deg) No Straw Liquids from Spoon Small Bites and Sips Alternate Liquids/Solids Rate of Ingestion Change Oral Check Avoid Specific Foods Supervision While Eating and Drinking for Safe Swallow: Total Assistance (1:1) Foods to Avoid: Sticky foods; mixed consistencies Swallowing Recommended Treatments: Compens. Strategy Educat. Recommendation for Speech: Inpatient Speech Therapy Comment: Pt seen during lunch for toleration of diet. Pt's diet upgraded yesterday to Ground/Mechanical/Altered. Pt was awake and alert, repositioned so that head of bed was upright for meal. Pt reported that he did not much like chicken, which unfortunately what was on the tray for lunch. Pt accepted bites of mashed potatoes that were improved with additional sauce gravy. Pt produced mildly slow lingual movement to propel bolus, with swallow trigger noted, mildly reduced laryngeal elevation on swallow. Pt accepted a bite of the ground chicken consistency, appearing to mash/masticate the bolus, w/timely swallow and mildly reduced laryngeal elevation noted, however Pt noted to grimace at the taste. Pt then stated he wasn't very hungry and didn't want more of the food. Pt took sips of honey thick liquid, feeding self by spoon, with occasional anterior oral loss, but otherwise containing liquid well, good transit, timely swallow, no clinical signs of aspiration. Patient asked for water, was given tsp amount, after swallow noted to have wet voice throat clearing. Pt also took Magic Cup nutritional desert, self feeding spoonfuls, with no clinical signs of aspiration. Pt is tolerating Ground/Mechanical Diet with Honey Thick Liquids well, though expressing some diet preferences that inhibited taking much of his lunch today. Pt evidenced clinical signs of aspiration on small amount of thin liquid presented, not appropriate at this time for an upgrade. Recommend continue diet of Ground/Mechanical Altered with HONEY THICK liquids, Pills crushed in Puree. Continue to provide Patient with assistance/supervision during meals. Frequency/Duration: Date Range for Service Req: Timeline to reassess: Deputy Register Of Deeds Clinican/Clinical Fellow: No Supervisory Statement: I have reviewed and agree with the student/clinical fellow's documentation: N/A Speech Language Pathologist: Bibiana Bower M.A., CCC-DIRECTOR SHOPPER MARKETING
[2022-04-24 16:16] LABS: Glucose, Whole Blood 175 mg/dL (60-115)
[2022-04-24 20:45] LABS: Glucose, Whole Blood 180 mg/dL (60-115)
[2022-04-24] MEDS: Enoxaparin Sodium 40 MG/0.4 ML SYRINGE SUBCUT (21:01)
[2022-04-25 03:55] VITALS: BP 147/68; PULSE 86; RESP 18; TEMP 36.6; O2SAT 96
[2022-04-25 07:19] LABS: Glucose, Whole Blood 124 mg/dL (60-115)
[2022-04-25 07:58] VITALS: BP 132/63; PULSE 79; RESP 18; TEMP 36.5; O2SAT 97
[2022-04-25] MEDS: Aspirin 81 MG TAB.CHEW PO (09:44)
[2022-04-25] MEDS: Atorvastatin Calcium 80 MG TABLET PO (09:44)
[2022-04-25] MEDS: amLODIPine Besylate 10 MG TABLET PO (09:44)
[2022-04-25] MEDS: 0.9 % Sodium Chloride Flush 10 ML SYRINGE 5 ML IVFLUSH ×2 (09:44→20:30)
[2022-04-25] MEDS: Amoxicillin/Potassium Clav 875 MG TABLET PO ×2 (09:44→20:25)
[2022-04-25] MEDS: Furosemide 20 MG TABLET PO (09:44)
--- NOTE | 2022-04-25 11:01 | MHC.SL.SWA ---
Speech Pathologist Impression: Oropharyngeal dysphagia Risk of Aspiration Due to: Neurological Condition Dysphasia Diet Status: No changes at this time. Liquid Consistency and Strategies for Safe Swallow: Liquid Intake Recommendation: Honey Thick Liquid Intake Strategies: Liquids by Teaspoon Only Solid Food Consistency: Dietary Recommendations: Grnd/Mech Altered (NDD2) Additional Modifications to Solid Foods: Full assistance and supervision during meals. Pt must be alert and awake, and may be impulsive. Oral Medication Intake: Crushed with Puree Please contact the pharmacy regarding appropriate crushable or liquid drug formulations that are available whenever modified delivery is recommended. Compensatory Strategies and Precautions to be Taken for Safe Swallow: Sitting Upright (90 deg) No Straw Liquids from Spoon Small Bites and Sips Alternate Liquids/Solids Rate of Ingestion Change Oral Check Avoid Specific Foods Supervision While Eating and Drinking for Safe Swallow: Total Assistance (1:1) Foods to Avoid: Sticky foods; mixed consistencies Swallowing Recommended Treatments: Compens. Strategy Educat. Recommendation for Speech: Inpatient Speech Therapy Recreation Attendant Clinican/Clinical Fellow: No Supervisory Statement: I have reviewed and agree with the student/clinical fellow's documentation: N/A Speech Language Pathologist: Chely Bazan M.A., CCC-VISITING NURSE
[2022-04-25 11:10] VITALS: BP 151/84; PULSE 78; RESP 18; TEMP 36.4; O2SAT 98
[2022-04-25 11:55] LABS: Glucose, Whole Blood 149 mg/dL (60-115)
--- NOTE | 2022-04-25 14:45 | HO.PM.IMPN ---
Subjective Subjective Date of Service: 04/25/22 Interval History: f/u on right sided weakness, slur speech, and dydphaiga unable to control secretions Review of Systems ?baseline confusion, no new clinical changes--pleasantly confused still has some cough with eating -diet adjusted as per swallow. Physical Exam Vital Signs: Vital Signs: Last Vital Signs Temp 97.5 F 04/25/22 11:10 Pulse 78 04/25/22 11:10 Resp 18 04/25/22 11:10 BP 151/84 H 04/25/22 11:10 Pulse Ox 98 04/25/22 11:10 O2 Del Method 04/25/22 11:10 O2 Flow Rate 2 04/20/22 16:00 BMI result Body Mass Index 35.7 ?General: oriented to self? and place Resp: ishmael rhocnhi HEENT: chronic secretion in mouth and has to be sauctioned CVS: S1,S2,RRR GI: +BS, NT, no distention Skin: No rash Neuro: right sided weakness seem better Psych: appropriate affect Objective Data Active Medications Acetaminophen (Acetaminophen 325 Mg Tablet) 650 mg PO Q6H PRN PRN Reason: Pain, Mild (Pain Scale 1-3) Last Admin: 04/22/22 21:53 Dose: 650 mg Documented By: BEATRIZ Acetaminophen (Acetaminophen Supp 650 Mg Supp.Rect) 650 mg [place] Q6H PRN PRN Reason: fever Last Admin: 04/15/22 07:12 Dose: 650 mg Documented By: VANESA Amlodipine Besylate (Amlodipine Besylate 10 Mg Tablet) 10 mg PO DAILY [facility]; Protocol Last Admin: 04/25/22 09:44 Dose: 10 mg Documented By: NILDA Amoxicillin/Clavulanate Potassium (Amoxicillin/Potassium Clav 875 Mg Tablet) 875 mg PO BID [facility] Last Admin: 04/25/22 09:44 Dose: 875 mg Documented By: NILDA Aspirin (Aspirin 81 Mg Tab.Chew) 81 mg PO DAILY [facility] Last Admin: 04/25/22 09:44 Dose: 81 mg Documented By: NILDA Atorvastatin Calcium (Atorvastatin Calcium 80 Mg Tablet) 80 mg PO DAILY [facility] Last Admin: 04/25/22 09:44 Dose: 80 mg Documented By: NILDA Enoxaparin Sodium (Enoxaparin Sodium 40 Mg/0.4 Ml Syringe) 40 mg SUBCUT Q24H [facility] Last Admin: 04/24/22 21:01 Dose: 40 mg Documented By: TATO Furosemide (Furosemide 20 Mg Tablet) 20 mg PO DAILY [facility]; Protocol Last Admin: 04/25/22 09:44 Dose: 20 mg Documented By: NILDA Hydralazine HCl (Hydralazine Hcl 20 Mg/Ml Vial) 10 mg IVPUSH TID PRN; Protocol PRN Reason: SBP > 180 Last Admin: 04/19/22 11:47 Dose: 10 mg Documented By: GAB Insulin Human Lispro (Insulin Lispro 100 Unit/Ml 3 Ml Vial) 0 unit SUBCUT QIDACHS [facility]; Protocol Last Admin: 04/25/22 12:08 Dose: Not Given Documented By: NILDA Non-Admin Reason: No Insulin Coverage Ondansetron HCl (Ondansetron Hcl 4 Mg/2 Ml Vial) 4 mg IVPUSH Q8H PRN PRN Reason: Nausea and Vomiting Pharmacy Consult (Consult Rx Perform Med Rec) 1 each MISCELLANE ONCE PRN PRN Reason: Consult order Scopolamine (Scopolamine 1.5 Mg Patch.Td.3) 1.5 mg EAR-BEHIND Q72H [facility] Last Admin: 04/24/22 09:26 Dose: 1.5 mg Documented By: AARON Sodium Chloride (0.9 % Sodium Chloride Flush 10 Ml Syringe) 5 ml IVFLUSH TID [facility] Last Admin: 04/25/22 09:44 Dose: 5 ml Documented By: NILDA Labs CBC & Chem 7: 04/21/22 05:29 04/20/22 17:58 Labs: Laboratory Results - last 24 hr 04/24/22 04/24/22 04/25/22 15:53 20:37 07:07 POC Glucose 175 H 180 H 124 H 04/25/22 11:51 POC Glucose 149 H Assessment and Plan (1) Acute left-sided weakness: Status: Acute (2) Slurred speech: Status: Acute (3) Cerebrovascular accident: Status: Acute Plan 86 Guinean speaker male with PMH of diabetes and hypertension who presents to the hospital complaining of start speech and left-sided weakness for 1 day. CVA with left sided weakness and slur sepeech and dysphagia now resolved - Clinical presenation c/w with stroke-- CT scan was negative for any acute findings, he was unable to do MRI on presentation due to inability to be able lay still and manage his secreation for days. At this point MRI will not exchange trouble shooter or outcome and therefore will not be done. TO continue work with PT, OT, speech. Medical management with ASA, BP control, statin. Dysphagia with difficulty controlling secretions--improved much and is able to eat -diet adjusted as per speech . Suspected aspiration PNA with Hypoxa, WBC is trending down, Continue Unasyn to oral Augmentin for total of 7 days of Abx Diabetes--continue holding Metformin , SSI Hypertension--Continue Norvasc ?DVT PPX Lovenox Need for inpatient: post CVA management and will need placement and also guardianship via court initiated as he's not able to make decision and we are not able to locate any family members. Amnadeborajackson Tony listed as person to contact at [phone] is not responding--phone rings then goes to answering Guardianship paperwork filed with court Full code; code to be readdressed when family is located Quality Stroke Does the patient have a stroke diagnosis?: Yes Reason for No Anti-thrombotic by Day Two: N/A - Med Ordered VTE Prior VTE?: No VTE Risk Level:: Medical - moderate - high VTE Device Contraindication: Treatment Not Indicated VTE Drug Contraindication: N/A - Med Ordered
--- NOTE | 2022-04-25 15:06 | MHC.CLN ---
F/U DIET=PUREE WITH HONEY THICK LIQUIDS. INTAKE X 2 DAYS ABOUT 25-50%. LOW JAMES SCORE BUT NO OPEN AREAS TO SKIN. CONTINUE TO FOLLOW FOR INTAKE.
--- NOTE | 2022-04-25 15:13 | MHC.SL.SWA ---
Speech Pathologist Impression: Oropharyngeal dysphagia Risk of Aspiration Due to: Neurological Condition Dysphasia Diet Status: Pt had difficulty eating ground solids during breakfast today per RN report. Solids DOWNGRADED to PUREED (NDD1) consistency, maintain HONEY THICK liquids, Pills crushed in Puree. Continue to provide Patient with assistance/supervision during meals. Updated diet order in [facility] & notified , RN, RD of change via [place] Message. Liquid Consistency and Strategies for Safe Swallow: Liquid Intake Recommendation: Honey Thick Liquid Intake Strategies: Small Sips No Straws Liquids by Teaspoon Only Solid Food Consistency: Dietary Recommendations: Pureed (NDD1) Additional Modifications to Solid Foods: Full assistance and supervision during meals. Pt must be alert and awake, and may be impulsive. Oral Medication Intake: Crushed with Puree Please contact the pharmacy regarding appropriate crushable or liquid drug formulations that are available whenever modified delivery is recommended. Compensatory Strategies and Precautions to be Taken for Safe Swallow: Sitting Upright (90 deg) No Straw Liquids from Spoon Small Bites and Sips Alternate Liquids/Solids Rate of Ingestion Change Oral Check Avoid Specific Foods Supervision While Eating and Drinking for Safe Swallow: Total Assistance (1:1) Foods to Avoid: Sticky foods; mixed consistencies Swallowing Recommended Treatments: Compens. Strategy Educat. Recommendation for Speech: Inpatient Speech Therapy Production Designer Clinican/Clinical Fellow: No Supervisory Statement: I have reviewed and agree with the student/clinical fellow's documentation: N/A Speech Language Pathologist: Chely Bazan M.A., CCC-OFFICE CASHIER
[2022-04-25 15:49] VITALS: BP 113/52; PULSE 86; RESP 17; TEMP 36.1; O2SAT 96
[2022-04-25 16:01] LABS: Glucose, Whole Blood 174 mg/dL (60-115)
[2022-04-25] MEDS: Insulin Lispro 100 UNIT/ML 3 ML VIAL SUBCUT (16:57)
[2022-04-25 20:00] VITALS: BP 117/76; PULSE 88; RESP 17; TEMP 36.5; O2SAT 98
[2022-04-25 20:10] LABS: Glucose, Whole Blood 127 mg/dL (60-115)
[2022-04-25] MEDS: Enoxaparin Sodium 40 MG/0.4 ML SYRINGE SUBCUT (20:25)
[2022-04-26] VITALS: BP 124/74; PULSE 91; RESP 18; TEMP 36.3; O2SAT 97
[2022-04-26 04:00] VITALS: BP 135/78; PULSE 91; RESP 19; TEMP 36.2; O2SAT 97
[2022-04-26 07:46] VITALS: BP 145/66; PULSE 83; RESP 18; TEMP 36.7; O2SAT 96
[2022-04-26 07:55] LABS: Glucose, Whole Blood 127 mg/dL (60-115)
[2022-04-26 11:21] VITALS: BP 138/66; PULSE 80; RESP 16; TEMP 36.4; O2SAT 97
[2022-04-26] MEDS: Furosemide 20 MG TABLET PO (11:26)
[2022-04-26] MEDS: amLODIPine Besylate 10 MG TABLET PO (11:26)
[2022-04-26] MEDS: Atorvastatin Calcium 80 MG TABLET PO (11:26)
[2022-04-26] MEDS: Amoxicillin/Potassium Clav 875 MG TABLET PO ×2 (11:26→19:48)
[2022-04-26] MEDS: Aspirin 81 MG TAB.CHEW PO (11:26)
[2022-04-26 11:34] LABS: Glucose, Whole Blood 197 mg/dL (60-115)
[2022-04-26] MEDS: Insulin Lispro 100 UNIT/ML 3 ML VIAL SUBCUT ×2 (12:06→19:48)
--- NOTE | 2022-04-26 12:12 | MHC.SL.SWA ---
Speech Pathologist Impression: Risk of Aspiration Due to: Neurological Condition Dysphasia Diet Status: Recommend continue diet of PUREE (NDD1) with HONEY THICK liquids, Pills Crushed in Puree (No change). Pt continues to need full assistance and supervision during all meals. Liquid Consistency and Strategies for Safe Swallow: Liquid Intake Recommendation: Honey Thick Liquid Intake Strategies: Small Sips No Straws Liquids by Teaspoon Only Solid Food Consistency: Dietary Recommendations: Pureed (NDD1) Additional Modifications to Solid Foods: Full assistance and supervision during meals. Pt must be alert and awake, and may be impulsive. Oral Medication Intake: Crushed with Puree Please contact the pharmacy regarding appropriate crushable or liquid drug formulations that are available whenever modified delivery is recommended. Compensatory Strategies and Precautions to be Taken for Safe Swallow: Sitting Upright (90 deg) No Straw Liquids from Spoon Small Bites and Sips Alternate Liquids/Solids Rate of Ingestion Change Oral Check Avoid Specific Foods Supervision While Eating and Drinking for Safe Swallow: Total Assistance (1:1) Foods to Avoid: Sticky foods; mixed consistencies Swallowing Recommended Treatments: Compens. Strategy Educat. Recommendation for Speech: Inpatient Speech Therapy Comment: Pt will need full assist and close monitor during meals for aspirations signs. Avoid sticky foods, mixed consistencies. Check oral cavity for clearance. To clear residue, alternate bites of food with sips of liquid, cue for multiple swallows as needed. Frequency/Duration: Date Range for Service Req: Timeline to reassess: Occupational Health Specialist Clinican/Clinical Fellow: No Supervisory Statement: I have reviewed and agree with the student/clinical fellow's documentation: N/A Speech Language Pathologist: Bibiana Bower M.A., CCC-LEAF SORTER
--- NOTE | 2022-04-26 13:34 | P.PNIM_ITS ---
Subjective Subjective Date of Service: 04/26/22 Interval History: f/u on right sided weakness, slur speech, and dydphaiga unable to control secretions Review of Systems no new events overmight Physical Exam Vital Signs: Vital Signs: Last Vital Signs Temp 97.6 F 04/26/22 11:21 Pulse 80 04/26/22 11:21 Resp 16 04/26/22 11:21 BP 138/66 04/26/22 11:21 Pulse Ox 97 04/26/22 11:21 O2 Del Method 04/26/22 11:21 O2 Flow Rate 2 04/20/22 16:00 BMI result Body Mass Index 35.7 ?General: oriented to self? and place Resp: air enrty fair , no rales or wheezing HEENT: chronic secretion in mouth and has to be sauctioned CVS: S1,S2,RRR GI: +BS, NT, no distention Skin: No rash Neuro: right sided weakness seem better Psych: appropriate affect Objective Data Active Medications Acetaminophen (Acetaminophen 325 Mg Tablet) 650 mg PO Q6H PRN PRN Reason: Pain, Mild (Pain Scale 1-3) Last Admin: 04/22/22 21:53 Dose: 650 mg Documented By: BEATRIZ Acetaminophen (Acetaminophen Supp 650 Mg Supp.Rect) 650 mg [place] Q6H PRN PRN Reason: fever Last Admin: 04/15/22 07:12 Dose: 650 mg Documented By: VANESA Amlodipine Besylate (Amlodipine Besylate 10 Mg Tablet) 10 mg PO DAILY [facility]; Protocol Last Admin: 04/26/22 11:26 Dose: 10 mg Documented By: LUCI Amoxicillin/Clavulanate Potassium (Amoxicillin/Potassium Clav 875 Mg Tablet) 875 mg PO BID [facility] Last Admin: 04/26/22 11:26 Dose: 875 mg Documented By: LUCI Aspirin (Aspirin 81 Mg Tab.Chew) 81 mg PO DAILY [facility] Last Admin: 04/26/22 11:26 Dose: 81 mg Documented By: LUCI Atorvastatin Calcium (Atorvastatin Calcium 80 Mg Tablet) 80 mg PO DAILY [facility] Last Admin: 04/26/22 11:26 Dose: 80 mg Documented By: LUCI Enoxaparin Sodium (Enoxaparin Sodium 40 Mg/0.4 Ml Syringe) 40 mg SUBCUT Q24H [facility] Last Admin: 04/25/22 20:25 Dose: 40 mg Documented By: HAYDER Furosemide (Furosemide 20 Mg Tablet) 20 mg PO DAILY [facility]; Protocol Last Admin: 04/26/22 11:26 Dose: 20 mg Documented By: LUCI Hydralazine HCl (Hydralazine Hcl 20 Mg/Ml Vial) 10 mg IVPUSH TID PRN; Protocol PRN Reason: SBP > 180 Last Admin: 04/19/22 11:47 Dose: 10 mg Documented By: GAB Insulin Human Lispro (Insulin Lispro 100 Unit/Ml 3 Ml Vial) 0 unit SUBCUT QIDACHS [facility]; Protocol Last Admin: 04/26/22 12:06 Dose: 2 unit Documented By: LUCI Ondansetron HCl (Ondansetron Hcl 4 Mg/2 Ml Vial) 4 mg IVPUSH Q8H PRN PRN Reason: Nausea and Vomiting Pharmacy Consult (Consult Rx Perform Med Rec) 1 each MISCELLANE ONCE PRN PRN Reason: Consult order Scopolamine (Scopolamine 1.5 Mg Patch.Td.3) 1.5 mg EAR-BEHIND Q72H [facility] Last Admin: 04/24/22 09:26 Dose: 1.5 mg Documented By: AARON Sodium Chloride (0.9 % Sodium Chloride Flush 10 Ml Syringe) 5 ml IVFLUSH TID [facility] Last Admin: 04/26/22 11:28 Dose: Not Given Documented By: LUCI Non-Admin Reason: No PICC line Labs CBC & Chem 7: 04/21/22 05:29 04/20/22 17:58 Labs: Laboratory Results - last 24 hr 04/25/22 04/25/22 04/26/22 15:53 20:05 07:49 POC Glucose 174 H 127 H 127 H 04/26/22 11:25 POC Glucose 197 H Assessment and Plan (1) Acute left-sided weakness: Status: Acute (2) Cerebrovascular accident: Status: Acute Plan 86 Libyan speaker male with PMH of diabetes and hypertension who presents to the hospital complaining of start speech and left-sided weakness for 1 day. CVA with left sided weakness and slur sepeech and dysphagia now resolved - Clinical presenation c/w with stroke-- CT scan was negative for any acute findings, he was unable to do MRI on presentation due to inability to be able lay still and manage his secreation for days.? At this point MRI will not change control specialist or outcome and therefore will not be done. ? TO continue work with PT, OT, speech.? Medical management with ASA, BP control, statin. Dysphagia with difficulty controlling secretions--improved much and is able to eat -diet adjusted as per speech . Suspected aspiration PNA with Hypoxa,? WBC is trending down, Continue Unasyn to oral Augmentin for total of 7 days of Abx Diabetes--continue holding Metformin , SSI Hypertension--Continue Norvasc ?DVT PPX Lovenox Need for inpatient: post CVA management and will need placement and also guardianship via court initiated as he's not able to make decision and we are not able? to locate any family members. Darron Jimenez listed as person to contact at [phone] is not resp onding--phone rings then goes to answering Guardianship paperwork filed with court Full code; code to be readdressed when family is located inpatient need: awaiting placement Quality Stroke Does the patient have a stroke diagnosis?: Yes Reason for No Anti-thrombotic by Day Two: N/A - Med Ordered VTE Prior VTE?: No VTE Risk Level:: Medical - moderate - high VTE Device Contraindication: Treatment Not Indicated VTE Drug Contraindication: N/A - Med Ordered
[2022-04-26 15:33] VITALS: BP 111/71; PULSE 89; RESP 18; TEMP 36.4; O2SAT 97
[2022-04-26 15:39] LABS: Glucose, Whole Blood 119 mg/dL (60-115)
[2022-04-26 19:39] VITALS: BP 118/62; PULSE 81; RESP 18; TEMP 36.2; O2SAT 98
[2022-04-26 19:47] LABS: Glucose, Whole Blood 182 mg/dL (60-115)
[2022-04-26] MEDS: Enoxaparin Sodium 40 MG/0.4 ML SYRINGE SUBCUT (19:48)
[2022-04-27] VITALS (7 sets, daily range): BP systolic 119–147; BP diastolic 60–74; PULSE 64–86; RESP 17–20; TEMP 35.7–37.1; O2SAT 95–99
--- NOTE | 2022-04-27 03:31 | PC.NURSE ---
pt not voiding, bladder scan 900 ml, Dr. Carlisle notified and ordered insert F/C. F/C drain 1100ml dark corwin color.
[2022-04-27 07:35] LABS: Glucose, Whole Blood 123 mg/dL (60-115)
[2022-04-27] MEDS: Amoxicillin/Potassium Clav 875 MG TABLET PO ×2 (09:52→20:55)
[2022-04-27] MEDS: amLODIPine Besylate 10 MG TABLET PO (09:52)
[2022-04-27] MEDS: Aspirin 81 MG TAB.CHEW PO (09:52)
[2022-04-27] MEDS: Furosemide 20 MG TABLET PO (09:53)
[2022-04-27] MEDS: Atorvastatin Calcium 80 MG TABLET PO (09:53)
[2022-04-27] MEDS: Scopolamine 1.5 MG PATCH.TD.3 EAR-BEHIND (09:53)
[2022-04-27 10:53] LABS: Glucose, Whole Blood 163 mg/dL (60-115)
--- NOTE | 2022-04-27 11:35 | MHC.CLN ---
F/U DIET=PUREE WITH HONEY THICK LIQUIDS. INTAKE CONTINUES 25-50% MOST MEALS. ADDED MAGIC CUP BID TO PROVIDE ADDITIONAL CALORIES/NUTRITION. MAGIC CUP BID PROVIDES 580 KCALS, 18 G PROTEIN. CONTINUE TO FOLLOW FOR INTAKE.
[2022-04-27] MEDS: Insulin Lispro 100 UNIT/ML 3 ML VIAL SUBCUT ×2 (11:58→20:54)
--- NOTE | 2022-04-27 13:28 | MHC.SL.SWA ---
Speech Pathologist Impression: Oropharyngeal Dysphagia Risk of Aspiration Due to: Neurological Condition Dysphasia Diet Status: No Change Liquid Consistency and Strategies for Safe Swallow: Liquid Intake Recommendation: Honey Thick Liquid Intake Strategies: Small Sips No Straws Liquids by Teaspoon Only Solid Food Consistency: Dietary Recommendations: Pureed (NDD1) Additional Modifications to Solid Foods: Full assistance and supervision during meals. Pt must be alert and awake, and may be impulsive. Oral Medication Intake: Crushed with Puree Please contact the pharmacy regarding appropriate crushable or liquid drug formulations that are available whenever modified delivery is recommended. Compensatory Strategies and Precautions to be Taken for Safe Swallow: Sitting Upright (90 deg) No Straw Liquids from Spoon Small Bites and Sips Alternate Liquids/Solids Rate of Ingestion Change Oral Check Avoid Specific Foods Supervision While Eating and Drinking for Safe Swallow: Total Assistance (1:1) Foods to Avoid: Sticky foods; mixed consistencies Swallowing Recommended Treatments: Compens. Strategy Educat. Recommendation for Speech: Inpatient Speech Therapy Maintenance Team Member Clinican/Clinical Fellow: No Supervisory Statement: I have reviewed and agree with the student/clinical fellow's documentation: N/A Speech Language Pathologist: Chely Bazan M.A., CCC-MORTAR MAN
[2022-04-27 16:51] LABS: Glucose, Whole Blood 143 mg/dL (60-115)
--- NOTE | 2022-04-27 17:11 | HO.PM.IMPN ---
Subjective Subjective Date of Service: 04/27/22 Interval History: f/u on right sided weakness, slur speech, and dydphaiga unable to control secretions Review of Systems no new events overmight Physical Exam Vital Signs: Vital Signs: Last Vital Signs Temp 97.2 F 04/27/22 16:00 Pulse 86 04/27/22 16:00 Resp 18 04/27/22 16:00 BP 119/60 04/27/22 16:00 Pulse Ox 97 04/27/22 16:00 O2 Del Method 04/27/22 16:00 O2 Flow Rate 2 04/20/22 16:00 BMI result Body Mass Index 35.7 General: oriented to self? and place Resp: air enrty fair , no rales or wheezing HEENT: chronic secretion in mouth and has to be sauctioned CVS: S1,S2,RRR GI: +BS, NT, no distention Skin: No rash Neuro: right sided weakness seem better Psych: appropriate affect Objective Data Active Medications Acetaminophen (Acetaminophen 325 Mg Tablet) 650 mg PO Q6H PRN PRN Reason: Pain, Mild (Pain Scale 1-3) Last Admin: 04/22/22 21:53 Dose: 650 mg Documented By: BEATRIZ Acetaminophen (Acetaminophen Supp 650 Mg Supp.Rect) 650 mg [place] Q6H PRN PRN Reason: fever Last Admin: 04/15/22 07:12 Dose: 650 mg Documented By: VANESA Amlodipine Besylate (Amlodipine Besylate 10 Mg Tablet) 10 mg PO DAILY [facility]; Protocol Last Admin: 04/27/22 09:52 Dose: 10 mg Documented By: LUCI Amoxicillin/Clavulanate Potassium (Amoxicillin/Potassium Clav 875 Mg Tablet) 875 mg PO BID [facility] Last Admin: 04/27/22 09:52 Dose: 875 mg Documented By: LUCI Aspirin (Aspirin 81 Mg Tab.Chew) 81 mg PO DAILY [facility] Last Admin: 04/27/22 09:52 Dose: 81 mg Documented By: LUCI Atorvastatin Calcium (Atorvastatin Calcium 80 Mg Tablet) 80 mg PO DAILY [facility] Last Admin: 04/27/22 09:53 Dose: 80 mg Documented By: LUCI Enoxaparin Sodium (Enoxaparin Sodium 40 Mg/0.4 Ml Syringe) 40 mg SUBCUT Q24H [facility] Last Admin: 04/26/22 19:48 Dose: 40 mg Documented By: HAYDER Furosemide (Furosemide 20 Mg Tablet) 20 mg PO DAILY [facility]; Protocol Last Admin: 04/27/22 09:53 Dose: 20 mg Documented By: LUCI Hydralazine HCl (Hydralazine Hcl 20 Mg/Ml Vial) 10 mg IVPUSH TID PRN; Protocol PRN Reason: SBP > 180 Last Admin: 04/19/22 11:47 Dose: 10 mg Documented By: GAB Insulin Human Lispro (Insulin Lispro 100 Unit/Ml 3 Ml Vial) 0 unit SUBCUT QIDACHS [facility]; Protocol Last Admin: 04/27/22 17:07 Dose: Not Given Documented By: LUCI Non-Admin Reason: No Insulin Coverage Ondansetron HCl (Ondansetron Hcl 4 Mg/2 Ml Vial) 4 mg IVPUSH Q8H PRN PRN Reason: Nausea and Vomiting Pharmacy Consult (Consult Rx Perform Med Rec) 1 each MISCELLANE ONCE PRN PRN Reason: Consult order Scopolamine (Scopolamine 1.5 Mg Patch.Td.3) 1.5 mg EAR-BEHIND Q72H [facility] Last Admin: 04/27/22 09:53 Dose: 1.5 mg Documented By: LUCI Labs CBC & Chem 7: 04/21/22 05:29 04/20/22 17:58 Labs: Laboratory Results - last 24 hr 04/26/22 04/27/22 04/27/22 19:43 07:30 10:50 POC Glucose 182 H 123 H 163 H 04/27/22 16:42 POC Glucose 143 H Assessment and Plan (1) Acute left-sided weakness: Status: Acute (2) Cerebrovascular accident: Status: Acute Plan 86 Sami speaker male with PMH of diabetes and hypertension who presents to the hospital complaining of start speech and left-sided weakness for 1 day. CVA with left sided weakness and slur sepeech and dysphagia now resolved - Clinical presenation c/w with stroke-- CT scan was negative for any acute findings, he was unable to do MRI on presentation due to inability to be able lay still and manage his secreation for days.? At this point MRI will not business change manager or outcome and therefore will not be done. ? TO continue work with PT, OT, speech.? Medical management with ASA, BP control, statin. Dysphagia with difficulty controlling secretions--improved much and is able to eat -diet adjusted as per speech . Suspected aspiration PNA with Hypoxa,? WBC is trending down, Continue Unasyn to oral Augmentin for total of 7 days of Abx Diabetes--continue holding Metformin , SSI Hypertension--Continue Norvasc ?DVT PPX Lovenox Need for inpatient: post CVA management and will need placement and also guardianship via court initiated as he's not able to make decision and we are not able? to locate any family members. Amietaliadeborajackson Tony listed as person to contact at [phone] is not responding--phone rings then goes to answering Guardianship paperwork filed with court Full code; code to be readdressed when family is located inpatient need: awaiting placement Quality Stroke Does the patient have a stroke diagnosis?: Yes Reason for No Anti-thrombotic by Day Two: N/A - Med Ordered VTE Prior VTE?: No VTE Risk Level:: Medical - moderate - high VTE Device Contraindication: Treatment Not Indicated VTE Drug Contraindication: N/A - Med Ordered
[2022-04-27 20:31] LABS: Glucose, Whole Blood 166 mg/dL (60-115)
[2022-04-27] MEDS: Enoxaparin Sodium 40 MG/0.4 ML SYRINGE SUBCUT (20:55)
[2022-04-28 04:00] VITALS: BP 132/62; PULSE 87; RESP 19; TEMP 37; O2SAT 100
[2022-04-28 07:36] VITALS: BP 139/61; PULSE 80; TEMP 36.4; O2SAT 96
[2022-04-28 07:45] LABS: Glucose, Whole Blood 134 mg/dL (60-115)
[2022-04-28] MEDS: Atorvastatin Calcium 80 MG TABLET PO (10:14)
[2022-04-28] MEDS: Furosemide 20 MG TABLET PO (10:14)
[2022-04-28] MEDS: Amoxicillin/Potassium Clav 875 MG TABLET PO ×2 (10:14→20:43)
[2022-04-28] MEDS: Aspirin 81 MG TAB.CHEW PO (10:15)
[2022-04-28] MEDS: amLODIPine Besylate 10 MG TABLET PO (10:15)
[2022-04-28 11:18] VITALS: BP 132/60; PULSE 79; RESP 16; TEMP 36.1; O2SAT 96
[2022-04-28 11:29] LABS: Glucose, Whole Blood 175 mg/dL (60-115)
--- NOTE | 2022-04-28 12:03 | HO.PM.IMPN ---
Subjective Subjective Date of Service: 04/28/22 Interval History: f/u on right sided weakness, slur speech, and dydphaiga unable to control secretions Review of Systems no new events overnight Physical Exam Vital Signs: Vital Signs: Last Vital Signs Temp 97.0 F 04/28/22 11:18 Pulse 79 04/28/22 11:18 Resp 16 04/28/22 11:18 BP 132/60 04/28/22 11:18 Pulse Ox 96 04/28/22 11:18 O2 Del Method 04/28/22 11:18 O2 Flow Rate 2 04/20/22 16:00 BMI result Body Mass Index 35.7 General: oriented to self? and place Resp: air enrty fair , no rales or wheezing HEENT: chronic secretion in mouth and has to be sauctioned CVS: S1,S2,RRR GI: +BS, NT, no distention Skin: No rash Neuro: right sided weakness seem better Psych: appropriate affect Objective Data Active Medications Acetaminophen (Acetaminophen 325 Mg Tablet) 650 mg PO Q6H PRN PRN Reason: Pain, Mild (Pain Scale 1-3) Last Admin: 04/22/22 21:53 Dose: 650 mg Documented By: BEATRIZ Acetaminophen (Acetaminophen Supp 650 Mg Supp.Rect) 650 mg RI Q6H PRN PRN Reason: fever Last Admin: 04/15/22 07:12 Dose: 650 mg Documented By: VANESA Amlodipine Besylate (Amlodipine Besylate 10 Mg Tablet) 10 mg PO DAILY [facility]; Protocol Last Admin: 04/28/22 10:15 Dose: 10 mg Documented By: ARPAN Amoxicillin/Clavulanate Potassium (Amoxicillin/Potassium Clav 875 Mg Tablet) 875 mg PO BID [facility] Last Admin: 04/28/22 10:14 Dose: 875 mg Documented By: ARPAN Aspirin (Aspirin 81 Mg Tab.Chew) 81 mg PO DAILY [facility] Last Admin: 04/28/22 10:15 Dose: 81 mg Documented By: ARPAN Atorvastatin Calcium (Atorvastatin Calcium 80 Mg Tablet) 80 mg PO DAILY [facility] Last Admin: 04/28/22 10:14 Dose: 80 mg Documented By: ARPAN Enoxaparin Sodium (Enoxaparin Sodium 40 Mg/0.4 Ml Syringe) 40 mg SUBCUT Q24H [facility] Last Admin: 04/27/22 20:55 Dose: 40 mg Documented By: TOR Furosemide (Furosemide 20 Mg Tablet) 20 mg PO DAILY [facility]; Protocol Last Admin: 04/28/22 10:14 Dose: 20 mg Documented By: ARPAN Hydralazine HCl (Hydralazine Hcl 20 Mg/Ml Vial) 10 mg IVPUSH TID PRN; Protocol PRN Reason: SBP > 180 Last Admin: 04/19/22 11:47 Dose: 10 mg Documented By: GAB Insulin Human Lispro (Insulin Lispro 100 Unit/Ml 3 Ml Vial) 0 unit SUBCUT QIDACHS [facility]; Protocol Last Admin: 04/28/22 08:02 Dose: Not Given Documented By: ARPAN Non-Admin Reason: Patient Asleep Ondansetron HCl (Ondansetron Hcl 4 Mg/2 Ml Vial) 4 mg IVPUSH Q8H PRN PRN Reason: Nausea and Vomiting Pharmacy Consult (Consult Rx Perform Med Rec) 1 each MISCELLANE ONCE PRN PRN Reason: Consult order Scopolamine (Scopolamine 1.5 Mg Patch.Td.3) 1.5 mg EAR-BEHIND Q72H [facility] Last Admin: 04/27/22 09:53 Dose: 1.5 mg Documented By: LUCI Labs CBC & Chem 7: 04/21/22 05:29 04/20/22 17:58 Labs: Laboratory Results - last 24 hr 04/27/22 04/27/22 04/28/22 16:42 19:50 07:35 POC Glucose 143 H 166 H 134 H 04/28/22 11:21 POC Glucose 175 H Assessment and Plan (1) Acute left-sided weakness: Status: Acute (2) Cerebrovascular accident: Status: Acute Plan 86 Macanese speaker male with PMH of diabetes and hypertension who presents to the hospital complaining of start speech and left-sided weakness for 1 day. CVA with left sided weakness and slur sepeech and dysphagia now resolved - Clinical presenation c/w with stroke-- CT scan was negative for any acute findings, he was unable to do MRI on presentation due to inability to be able lay still and manage his secreation for days.? At this point MRI will not guide changer or outcome and therefore will not be done. ? TO continue work with PT, OT, speech.? Medical management with ASA, BP control, statin. Dysphagia with difficulty controlling secretions--improved much and is able to eat -diet adjusted as per speech . Suspected aspiration PNA with Hypoxa,? WBC is trending down, Continue Unasyn to oral Augmentin for total of 7 days of Abx Diabetes--continue holding Metformin , SSI Hypertension--Continue Norvasc ?DVT PPX Lovenox Need for inpatient: post CVA management and will need placement and also guardianship via court initiated as he's not able to make decision and we are not able? to locate any family members. Amietaliadeborajackson Tony listed as person to contact at [phone] is not responding--phone rings then goes to answering Guardianship paperwork filed with court Full code; code to be readdressed when family is located inpatient need: awaiting placement Quality Stroke Does the patient have a stroke diagnosis?: Yes Reason for No Anti-thrombotic by Day Two: N/A - Med Ordered VTE Prior VTE?: No VTE Risk Level:: Medical - moderate - high VTE Device Contraindication: Treatment Not Indicated VTE Drug Contraindication: N/A - Med Ordered
[2022-04-28] MEDS: Insulin Lispro 100 UNIT/ML 3 ML VIAL SUBCUT ×2 (12:10→17:12)
[2022-04-28 16:00] VITALS: BP 128/59; PULSE 87; RESP 16; TEMP 37; O2SAT 98
[2022-04-28 16:25] LABS: Glucose, Whole Blood 188 mg/dL (60-115)
[2022-04-28 19:21] VITALS: BP 132/61; PULSE 87; RESP 16; TEMP 37.1; O2SAT 97
[2022-04-28 19:59] LABS: Glucose, Whole Blood 113 mg/dL (60-115)
[2022-04-28] MEDS: Enoxaparin Sodium 40 MG/0.4 ML SYRINGE SUBCUT (20:43)
[2022-04-28 23:37] VITALS: BP 142/60; PULSE 90; RESP 16; TEMP 36.4; O2SAT 96
[2022-04-29 03:22] VITALS: BP 145/60; PULSE 83; RESP 16; TEMP 36.7; O2SAT 95
[2022-04-29 07:01] VITALS: BP 121/57; PULSE 80; RESP 16; TEMP 36.2; O2SAT 97
[2022-04-29 07:27] LABS: Glucose, Whole Blood 136 mg/dL (60-115)
[2022-04-29] MEDS: Amoxicillin/Potassium Clav 875 MG TABLET PO ×2 (08:47→19:32)
[2022-04-29] MEDS: Aspirin 81 MG TAB.CHEW PO (08:47)
[2022-04-29] MEDS: Furosemide 20 MG TABLET PO (08:48)
[2022-04-29] MEDS: Atorvastatin Calcium 80 MG TABLET PO (08:48)
[2022-04-29] MEDS: amLODIPine Besylate 10 MG TABLET PO (08:48)
--- NOTE | 2022-04-29 10:40 | P.PNIM_ITS ---
Subjective Subjective Date of Service: 04/29/22 Interval History: f/u on right sided weakness, slur speech, and dysphagia unable to control secretions Review of Systems no new events overnight Physical Exam Vital Signs: Vital Signs: Last Vital Signs Temp 97.2 F 04/29/22 07:01 Pulse 80 04/29/22 07:01 Resp 16 04/29/22 07:01 BP 121/57 L 04/29/22 07:01 Pulse Ox 97 04/29/22 07:01 O2 Del Method 04/29/22 07:01 O2 Flow Rate 2 04/20/22 16:00 BMI result Body Mass Index 35.7 General: oriented to self? and place Resp: air enrty fair , no rales or wheezing HEENT: chronic secretion in mouth and has to be sauctioned CVS: S1,S2,RRR GI: +BS, NT, no distention Skin: No rash Neuro: right sided weakness seem better Psych: appropriate affect Objective Data Active Medications Acetaminophen (Acetaminophen 325 Mg Tablet) 650 mg PO Q6H PRN PRN Reason: Pain, Mild (Pain Scale 1-3) Last Admin: 04/22/22 21:53 Dose: 650 mg Documented By: BEATRIZ Acetaminophen (Acetaminophen Supp 650 Mg Supp.Rect) 650 mg CO Q6H PRN PRN Reason: fever Last Admin: 04/15/22 07:12 Dose: 650 mg Documented By: VANESA Amlodipine Besylate (Amlodipine Besylate 10 Mg Tablet) 10 mg PO DAILY [facility]; Protocol Last Admin: 04/29/22 08:48 Dose: 10 mg Documented By: ARPAN Amoxicillin/Clavulanate Potassium (Amoxicillin/Potassium Clav 875 Mg Tablet) 875 mg PO BID [facility] Last Admin: 04/29/22 08:47 Dose: 875 mg Documented By: ARPAN Aspirin (Aspirin 81 Mg Tab.Chew) 81 mg PO DAILY [facility] Last Admin: 04/29/22 08:47 Dose: 81 mg Documented By: ARPAN Atorvastatin Calcium (Atorvastatin Calcium 80 Mg Tablet) 80 mg PO DAILY [facility] Last Admin: 04/29/22 08:48 Dose: 80 mg Documented By: ARPAN Enoxaparin Sodium (Enoxaparin Sodium 40 Mg/0.4 Ml Syringe) 40 mg SUBCUT Q24H [facility] Last Admin: 04/28/22 20:43 Dose: 40 mg Documented By: TOR Furosemide (Furosemide 20 Mg Tablet) 20 mg PO DAILY [facility]; Protocol Last Admin: 04/29/22 08:48 Dose: 20 mg Documented By: ARPAN Hydralazine HCl (Hydralazine Hcl 20 Mg/Ml Vial) 10 mg IVPUSH TID PRN; Protocol PRN Reason: SBP > 180 Last Admin: 04/19/22 11:47 Dose: 10 mg Documented By: GAB Insulin Human Lispro (Insulin Lispro 100 Unit/Ml 3 Ml Vial) 0 unit SUBCUT QIDACHS [facility]; Protocol Last Admin: 04/29/22 08:17 Dose: Not Given Documented By: ARPAN Non-Admin Reason: No Insulin Coverage Ondansetron HCl (Ondansetron Hcl 4 Mg/2 Ml Vial) 4 mg IVPUSH Q8H PRN PRN Reason: Nausea and Vomiting Pharmacy Consult (Consult Rx Perform Med Rec) 1 each MISCELLANE ONCE PRN PRN Reason: Consult order Scopolamine (Scopolamine 1.5 Mg Patch.Td.3) 1.5 mg EAR-BEHIND Q72H [facility] Last Admin: 04/27/22 09:53 Dose: 1.5 mg Documented By: LUCI Labs CBC & Chem 7: 04/21/22 05:29 04/20/22 17:58 Labs: Laboratory Results - last 24 hr 04/28/22 04/28/22 04/28/22 11:21 16:20 19:54 POC Glucose 175 H 188 H 113 04/29/22 07:05 POC Glucose 136 H Assessment and Plan (1) Acute left-sided weakness: Status: Acute (2) Cerebrovascular accident: Status: Acute Plan 86 Romanian speaker male with PMH of diabetes and hypertension who presents to the hospital complaining of start speech and left-sided weakness for 1 day. CVA with left sided weakness and slur sepeech and dysphagia now resolved - Clinical presenation c/w with stroke-- CT scan was negative for any acute findings, he was unable to do MRI on presentation due to inability to be able lay still and manage his secreation for days.? At this point MRI will not globe changer or outcome and therefore will not be done. ? TO continue work with PT, OT, speech.? Medical management with ASA, BP control, statin. Dysphagia with difficulty controlling secretions--improved much and is able to eat -diet adjusted as per speech . Suspected aspiration PNA with Hypoxa,? WBC is trending down, Continue Unasyn to oral Augmentin for total of 7 days of Abx Diabetes--continue holding Metformin , SSI Hypertension--Continue Norvasc ?DVT PPX Lovenox Need for inpatient: post CVA management and will need placement and also gua rdianship via court initiated as he's not able to make decision and we are not able? to locate any family members. Darron Jimenez listed as person to contact at [phone] is not responding--phone rings then goes to answering Guardianship paperwork filed with court Full code; code to be readdressed when family is located inpatient need: awaiting placement Quality Stroke Does the patient have a stroke diagnosis?: Yes Reason for No Anti-thrombotic by Day Two: N/A - Med Ordered VTE Prior VTE?: No VTE Risk Level:: Medical - moderate - high VTE Device Contraindication: Treatment Not Indicated VTE Drug Contraindication: N/A - Med Ordered
[2022-04-29 11:20] VITALS: BP 137/66; PULSE 87; RESP 18; TEMP 36.3; O2SAT 98
[2022-04-29 11:43] LABS: Glucose, Whole Blood 153 mg/dL (60-115)
[2022-04-29 15:00] VITALS: BP 138/65; PULSE 85; RESP 16; TEMP 36.4; O2SAT 98
[2022-04-29 16:12] LABS: Glucose, Whole Blood 184 mg/dL (60-115)
[2022-04-29] MEDS: Insulin Lispro 100 UNIT/ML 3 ML VIAL SUBCUT (16:58)
[2022-04-29] MEDS: Enoxaparin Sodium 40 MG/0.4 ML SYRINGE SUBCUT (19:31)
[2022-04-29 20:19] VITALS: BP 146/75; PULSE 86; RESP 16; TEMP 36; O2SAT 99
[2022-04-29 21:37] LABS: Glucose, Whole Blood 124 mg/dL (60-115)
[2022-04-29 23:23] VITALS: BP 137/69; PULSE 84; RESP 16; TEMP 36; O2SAT 97
[2022-04-30] MEDS: Acetaminophen 325 MG TABLET 650 MG PO (03:43)
[2022-04-30 04:00] VITALS: BP 144/67; PULSE 76; RESP 16; TEMP 35.9; O2SAT 97
--- NOTE | 2022-04-30 06:06 | PC.NURSE ---
Noted last night at start of shift with red tinged urine output on spencer bag, color got churn driller later of the night then became red tinged again in the morning, spencer care done, no abdl distention noted, pt felt sore on the urethral canal as interpreted by Kazakh speaking staff, prn tylenol po given, rested and slept after, will cont to monitor.
[2022-04-30 06:56] VITALS: BP 136/64; PULSE 79; RESP 16; TEMP 36.2; O2SAT 97
[2022-04-30 07:37] LABS: Glucose, Whole Blood 119 mg/dL (60-115)
[2022-04-30] MEDS: Atorvastatin Calcium 80 MG TABLET PO (08:24)
[2022-04-30] MEDS: Scopolamine 1.5 MG PATCH.TD.3 EAR-BEHIND (08:25)
[2022-04-30] MEDS: Aspirin 81 MG TAB.CHEW PO (08:25)
[2022-04-30] MEDS: Amoxicillin/Potassium Clav 875 MG TABLET PO (08:25)
[2022-04-30] MEDS: amLODIPine Besylate 10 MG TABLET PO (08:25)
[2022-04-30] MEDS: Furosemide 20 MG TABLET PO (08:25)
[2022-04-30 11:02] VITALS: BP 131/60; PULSE 80; RESP 16; TEMP 36.3; O2SAT 98
[2022-04-30 11:22] LABS: Glucose, Whole Blood 179 mg/dL (60-115)
--- NOTE | 2022-04-30 11:51 | MHC.CM.PN ---
It appears that Patient will require LTC; Guardianship process has been initiated and CM will follow.
[2022-04-30] MEDS: Insulin Lispro 100 UNIT/ML 3 ML VIAL SUBCUT ×2 (12:04→16:53)
--- NOTE | 2022-04-30 15:24 | P.PNIM_ITS ---
Subjective Subjective Date of Service: 04/30/22 Interval History: f/u on right sided weakness, slur speech, and dysphagia? unable to control secretions Review of Systems no new events overnight denies any chest pain or sob or abd pain Physical Exam Vital Signs: Vital Signs: Last Vital Signs Temp 97.3 F 04/30/22 11:02 Pulse 80 04/30/22 11:02 Resp 16 04/30/22 11:02 BP 131/60 04/30/22 11:02 Pulse Ox 98 04/30/22 11:02 O2 Del Method 04/30/22 11:02 O2 Flow Rate 2 04/20/22 16:00 BMI result Body Mass Index 35.7 General: oriented to self? and place Resp: air enrty fair , no rales or wheezing HEENT: chronic secretion in mouth and has to be sauctioned CVS: S1,S2,RRR GI: +BS, NT, no distention Skin: No rash Neuro: right sided weakness seem better Psych: appropriate affect Objective Data Active Medications Acetaminophen (Acetaminophen 325 Mg Tablet) 650 mg PO Q6H PRN PRN Reason: Pain, Mild (Pain Scale 1-3) Last Admin: 04/30/22 03:43 Dose: 650 mg Documented By: BEATRIZ Acetaminophen (Acetaminophen Supp 650 Mg Supp.Rect) 650 mg SD Q6H PRN PRN Reason: fever Last Admin: 04/15/22 07:12 Dose: 650 mg Documented By: VANESA Amlodipine Besylate (Amlodipine Besylate 10 Mg Tablet) 10 mg PO DAILY [facility]; Protocol Last Admin: 04/30/22 08:25 Dose: 10 mg Documented By: ARPAN Amoxicillin/Clavulanate Potassium (Amoxicillin/Potassium Clav 875 Mg Tablet) 875 mg PO BID [facility] Last Admin: 04/30/22 08:25 Dose: 875 mg Documented By: ARPAN Aspirin (Aspirin 81 Mg Tab.Chew) 81 mg PO DAILY [facility] Last Admin: 04/30/22 08:25 Dose: 81 mg Documented By: ARPAN Atorvastatin Calcium (Atorvastatin Calcium 80 Mg Tablet) 80 mg PO DAILY [facility] Last Admin: 04/30/22 08:24 Dose: 80 mg Documented By: ARPAN Enoxaparin Sodium (Enoxaparin Sodium 40 Mg/0.4 Ml Syringe) 40 mg SUBCUT Q24H [facility] Last Admin: 04/29/22 19:31 Dose: 40 mg Documented By: CASTILMalka Furosemide (Furosemide 20 Mg Tablet) 20 mg PO DAILY [facility]; Protocol Last Admin: 04/30/22 08:25 Dose: 20 mg Documented By: ARPAN Hydralazine HCl (Hydralazine Hcl 20 Mg/Ml Vial) 10 mg IVPUSH TID PRN; Protocol PRN Reason: SBP > 180 Last Admin: 04/19/22 11:47 Dose: 10 mg Documented By: GAB Insulin Human Lispro (Insulin Lispro 100 Unit/Ml 3 Ml Vial) 0 unit SUBCUT QIDACHS [facility]; Protocol Last Admin: 04/30/22 12:04 Dose: 2 unit Documented By: APRAN Ondansetron HCl (Ondansetron Hcl 4 Mg/2 Ml Vial) 4 mg IVPUSH Q8H PRN PRN Reason: Nausea and Vomiting Pharmacy Consult (Consult Rx Perform Med Rec) 1 each MISCELLANE ONCE PRN PRN Reason: Consult order Scopolamine (Scopolamine 1.5 Mg Patch.Td.3) 1.5 mg EAR-BEHIND Q72H [facility] Last Admin: 04/30/22 08:25 Dose: 1.5 mg Documented By: ARPAN Labs CBC & Chem 7: 04/21/22 05:29 04/20/22 17:58 Labs: Laboratory Results - last 24 hr 04/29/22 04/29/22 04/30/22 16:07 21:27 07:00 POC Glucose 184 H 124 H 119 H 04/30/22 11:04 POC Glucose 179 H Assessment and Plan (1) Acute left-sided weakness: Status: Acute (2) Cerebrovascular accident: Status: Acute Plan 86 Icelandic speaker male with PMH of diabetes and hypertension who presents to the hospital complaining of start speech and left-sided weakness for 1 day. CVA with left sided weakness and slur sepeech and dysphagia now resolved - Clinical presenation c/w with stroke-- CT scan was negative for any acute findings, he was unable to do MRI on presentation due to inability to be able lay still and manage his secreation for days.? At this point MRI will not business change manager or outcome and therefore will not be done. ? TO continue work with PT, OT, speech.? Medical management with ASA, BP control, statin. Dysphagia with difficulty controlling secretions--improved much and is able to eat -diet adjusted as per speech . Suspected aspiration PNA with Hypoxa,? WBC is trending down, Continue Unasyn to oral Augmentin for total of 7 days of Abx Diabetes--continue holding Metformin , SSI Hypertension--Continue Norvasc ?DVT PPX Lovenox Need for inpatient: post CVA management and will need placement and also guardianship via court initiated as he's not able to make decision and we are not able? to locate any family members. Amnadeborajackson Tony listed as person to contact at [phone] is not responding-- phone rings then goes to answering Guardianship paperwork filed with court Full code; code to be readdressed when family is located inpatient need: awaiting placement Quality Stroke Does the patient have a stroke diagnosis?: Yes Reason for No Anti-thrombotic by Day Two: N/A - Med Ordered VTE Prior VTE?: No VTE Risk Level:: Medical - moderate - high VTE Device Contraindication: Treatment Not Indicated VTE Drug Contraindication: N/A - Med Ordered
--- NOTE | 2022-04-30 15:27 | MHC.CLN ---
F/U INTAKE 75-100% IMPROVED DIET RX: PUREE WITH HONEY THICK LIQUIDS-APPROPRIATE PT RECEIVING MAGIC CUP BID TO INCREASE KCALS AND PROMOTE WOUND HEALING PROVIDES 580 KCALS, 18 G PROTEIN CONTINUE TO FOLLOW FOR INTAKE
[2022-04-30 16:00] VITALS: BP 133/61; PULSE 83; RESP 16; TEMP 36; O2SAT 98
[2022-04-30 16:47] LABS: Glucose, Whole Blood 152 mg/dL (60-115)
[2022-04-30 19:47] VITALS: BP 131/60; RESP 14; TEMP 36.3; O2SAT 97
[2022-04-30 21:05] LABS: Glucose, Whole Blood 132 mg/dL (60-115)
[2022-04-30] MEDS: Enoxaparin Sodium 40 MG/0.4 ML SYRINGE SUBCUT (21:54)
[2022-04-30 23:56] VITALS: BP 128/52; PULSE 85; RESP 17; TEMP 36.7; O2SAT 97
[2022-05-01 04:00] VITALS: BP 132/63; PULSE 87; RESP 17; TEMP 36.4; O2SAT 97
[2022-05-01 07:01] VITALS: BP 135/64; PULSE 78; RESP 16; TEMP 36.2; O2SAT 98
[2022-05-01 07:31] LABS: Glucose, Whole Blood 119 mg/dL (60-115)
[2022-05-01] MEDS: amLODIPine Besylate 10 MG TABLET PO (08:12)
[2022-05-01] MEDS: Aspirin 81 MG TAB.CHEW PO (08:12)
[2022-05-01] MEDS: Furosemide 20 MG TABLET PO (08:13)
[2022-05-01] MEDS: Atorvastatin Calcium 80 MG TABLET PO (08:13)
[2022-05-01 10:56] VITALS: BP 130/62; PULSE 83; RESP 16; TEMP 36.6; O2SAT 98
[2022-05-01 11:17] LABS: Glucose, Whole Blood 185 mg/dL (60-115)
[2022-05-01] MEDS: Insulin Lispro 100 UNIT/ML 3 ML VIAL SUBCUT ×2 (12:16→19:46)
--- NOTE | 2022-05-01 14:32 | HO.PM.IMPN ---
Subjective Subjective Date of Service: 05/01/22 Interval History: f/u on right sided weakness, slur speech, and dydphaiga unable to control secretions inteval history: baseline confusion, no new issues, --pleasantly confused Review of Systems Baseline confusion, no fever, no weakness. Physical Exam Vital Signs: Vital Signs: Last Vital Signs Temp 97.9 F 05/01/22 10:56 Pulse 83 05/01/22 10:56 Resp 16 05/01/22 10:56 BP 130/62 05/01/22 10:56 Pulse Ox 98 05/01/22 10:56 O2 Del Method 05/01/22 10:56 O2 Flow Rate 2 04/20/22 16:00 BMI result Body Mass Index 35.7 Const: Other: General: oriented to self and place Resp: ishmael rhocnhi HEENT: chronic secretion in mouth and has to be sauctioned CVS: S1,S2,RRR GI: +BS, NT, no distention Skin: No rash Neuro: right sided weakness seem better Psych: appropriate affect Objective Data Active Medications Acetaminophen (Acetaminophen 325 Mg Tablet) 650 mg PO Q6H PRN PRN Reason: Pain, Mild (Pain Scale 1-3) Last Admin: 04/30/22 03:43 Dose: 650 mg Documented By: BEATRIZ Acetaminophen (Acetaminophen Supp 650 Mg Supp.Rect) 650 mg AR Q6H PRN PRN Reason: fever Last Admin: 04/15/22 07:12 Dose: 650 mg Documented By: VANESA Amlodipine Besylate (Amlodipine Besylate 10 Mg Tablet) 10 mg PO DAILY [facility]; Protocol Last Admin: 05/01/22 08:12 Dose: 10 mg Documented By: NILDA Aspirin (Aspirin 81 Mg Tab.Chew) 81 mg PO DAILY [facility] Last Admin: 05/01/22 08:12 Dose: 81 mg Documented By: NILDA Atorvastatin Calcium (Atorvastatin Calcium 80 Mg Tablet) 80 mg PO DAILY [facility] Last Admin: 05/01/22 08:13 Dose: 80 mg Documented By: NILDA Enoxaparin Sodium (Enoxaparin Sodium 40 Mg/0.4 Ml Syringe) 40 mg SUBCUT Q24H [facility] Last Admin: 04/30/22 21:54 Dose: 40 mg Documented By: TOR Furosemide (Furosemide 20 Mg Tablet) 20 mg PO DAILY [facility]; Protocol Last Admin: 05/01/22 08:13 Dose: 20 mg Documented By: NILDA Hydralazine HCl (Hydralazine Hcl 20 Mg/Ml Vial) 10 mg IVPUSH TID PRN; Protocol PRN Reason: SBP > 180 Last Admin: 04/19/22 11:47 Dose: 10 mg Documented By: GAB Insulin Human Lispro (Insulin Lispro 100 Unit/Ml 3 Ml Vial) 0 unit SUBCUT QIDACHS [facility]; Protocol Last Admin: 05/01/22 12:16 Dose: 2 unit Documented By: NILDA Ondansetron HCl (Ondansetron Hcl 4 Mg/2 Ml Vial) 4 mg IVPUSH Q8H PRN PRN Reason: Nausea and Vomiting Pharmacy Consult (Consult Rx Perform Med Rec) 1 each MISCELLANE ONCE PRN PRN Reason: Consult order Scopolamine (Scopolamine 1.5 Mg Patch.Td.3) 1.5 mg EAR-BEHIND Q72H [facility] Last Admin: 04/30/22 08:25 Dose: 1.5 mg Documented By: ARPAN Labs CBC & Chem 7: 04/21/22 05:29 04/20/22 17:58 Labs: Laboratory Results - last 24 hr 04/30/22 04/30/22 05/01/22 16:42 20:56 07:03 POC Glucose 152 H 132 H 119 H 05/01/22 10:59 POC Glucose 185 H Assessment and Plan (1) Acute left-sided weakness: Status: Acute (2) Cerebrovascular accident: Status: Acute Plan 86 Danish speaker male with PMH of diabetes and hypertension who presents to the hospital complaining of start speech and left-sided weakness for 1 day. CVA with left sided weakness and slur sepeech and dysphagia now resolved - Clinical presenation c/w with stroke-- CT scan was negative for any acute findings, he was unable to do MRI on presentation due to inability to be able lay still and manage his secreation for days.? At this point MRI will not change control coordinator or outcome and therefore will not be done. ? TO continue work with PT, OT, speech.? Medical management with ASA, BP control, statin. Dysphagia with difficulty controlling secretions--improved much and is able to eat -diet adjusted as per speech . Suspected aspiration PNA with Hypoxa--completed coure of Unassyn, Augmentinn Diabetes--continue holding Metformin , SSI Hypertension--Continue Norvasc ?DVT PPX Lovenox Need for inpatient: post CVA management and will need placement and also guardianship via court initiated as he's not able to make decision and we are not able? to locate any family members. Darron Jimenez listed as person to contact at [phone] is not responding--phone rings then goes to answering Guardianship paperwork filed with court Full code; code to be readdressed when family is located inpatient need: awaiting placement Quality Stroke Does the patient have a stroke diagnosis?: Yes Reason for No Anti-thrombotic by Day Two: N/A - Med Ordered VTE Prior VTE?: No VTE Risk Level:: Medical - moderate - high VTE Device Contraindication: Treatment Not Indicated VTE Drug Contraindication: N/A - Med Ordered
--- NOTE | 2022-05-01 15:29 | MHC.CM.PN ---
Male 86 [address] papers served to patient today. Receipt sent via email and [place] Mail.
[2022-05-01 15:55] VITALS: BP 140/64; PULSE 84; RESP 16; TEMP 36.7; O2SAT 99
[2022-05-01 16:04] LABS: Glucose, Whole Blood 149 mg/dL (60-115)
[2022-05-01 19:08] VITALS: BP 147/65; PULSE 86; RESP 16; TEMP 36.5; O2SAT 96
[2022-05-01 19:28] LABS: Glucose, Whole Blood 203 mg/dL (60-115)
[2022-05-01] MEDS: Enoxaparin Sodium 40 MG/0.4 ML SYRINGE SUBCUT (19:46)
[2022-05-01 23:30] VITALS: BP 136/65; PULSE 88; RESP 16; TEMP 36.3; O2SAT 98
[2022-05-02 03:14] VITALS: BP 133/62; PULSE 81; RESP 16; TEMP 36.3; O2SAT 96
--- NOTE | 2022-05-02 07:08 | P.PNIM_ITS ---
Subjective Subjective Date of Service: 05/02/22 Interval History: f/u on right sided weakness, slur speech, and dydphaiga unable to control secretions inteval history: No new issues, pleasantly confused Review of Systems Baseline confusion, no fever, no weakness. Physical Exam Vital Signs: Vital Signs: Last Vital Signs Temp 97.4 F 05/02/22 03:14 Pulse 81 05/02/22 03:14 Resp 16 05/02/22 03:14 BP 133/62 05/02/22 03:14 Pulse Ox 96 05/02/22 03:14 O2 Del Method 05/02/22 03:14 O2 Flow Rate 2 04/20/22 16:00 BMI result Body Mass Index 35.7 Const: Other: General: oriented to self and place Resp: ishmael rhocnhi HEENT: chronic secretion in mouth and has to be sauctioned CVS: S1,S2,RRR GI: +BS, NT, no distention Skin: No rash Neuro: right sided weakness seem better Psych: appropriate affect Objective Data Active Medications Acetaminophen (Acetaminophen 325 Mg Tablet) 650 mg PO Q6H PRN PRN Reason: Pain, Mild (Pain Scale 1-3) Last Admin: 04/30/22 03:43 Dose: 650 mg Documented By: BEATRIZ Acetaminophen (Acetaminophen Supp 650 Mg Supp.Rect) 650 mg OR Q6H PRN PRN Reason: fever Last Admin: 04/15/22 07:12 Dose: 650 mg Documented By: VANESA Amlodipine Besylate (Amlodipine Besylate 10 Mg Tablet) 10 mg PO DAILY [facility]; Protocol Last Admin: 05/01/22 08:12 Dose: 10 mg Documented By: NILDA Aspirin (Aspirin 81 Mg Tab.Chew) 81 mg PO DAILY [facility] Last Admin: 05/01/22 08:12 Dose: 81 mg Documented By: NILDA Atorvastatin Calcium (Atorvastatin Calcium 80 Mg Tablet) 80 mg PO DAILY [facility] Last Admin: 05/01/22 08:13 Dose: 80 mg Documented By: NILDA Enoxaparin Sodium (Enoxaparin Sodium 40 Mg/0.4 Ml Syringe) 40 mg SUBCUT Q24H [facility] Last Admin: 05/01/22 19:46 Dose: 40 mg Documented By: NILDA Furosemide (Furosemide 20 Mg Tablet) 20 mg PO DAILY [facility]; Protocol Last Admin: 05/01/22 08:13 Dose: 20 mg Documented By: NILDA Hydralazine HCl (Hydralazine Hcl 20 Mg/Ml Vial) 10 mg IVPUSH TID PRN; Protocol PRN Reason: SBP > 180 Last Admin: 04/19/22 11:47 Dose: 10 mg Documented By: GAB Insulin Human Lispro (Insulin Lispro 100 Unit/Ml 3 Ml Vial) 0 unit SUBCUT QIDACHS [facility]; Protocol Last Admin: 05/01/22 19:46 Dose: 4 unit Documented By: NILDA Ondansetron HCl (Ondansetron Hcl 4 Mg/2 Ml Vial) 4 mg IVPUSH Q8H PRN PRN Reason: Nausea and Vomiting Pharmacy Consult (Consult Rx Perform Med Rec) 1 each MISCELLANE ONCE PRN PRN Reason: Consult order Scopolamine (Scopolamine 1.5 Mg Patch.Td.3) 1.5 mg EAR-BEHIND Q72H [facility] Last Admin: 04/30/22 08:25 Dose: 1.5 mg Documented By: ARPAN Labs CBC & Chem 7: 04/21/22 05:29 04/20/22 17:58 Labs: Laboratory Results - last 24 hr 05/01/22 05/01/22 05/01/22 07:03 10:59 15:58 POC Glucose 119 H 185 H 149 H 05/01/22 19:24 POC Glucose 203 H Assessment and Plan (1) Cerebrovascular accident: Status: Acute Plan 86 Syriac speaker male with PMH of diabetes and hypertension who presents to the hospital complaining of start speech and left-sided weakness for 1 day. CVA with left sided weakness and slur sepeech and dysphagia now resolved - Clinical presenation c/w with acute stroke CT scan was negative for any acute findings, he was unable to do MRI on presentation due to inability to be able lay still and manage his secreation for days.? At this point MRI will not foreign exchange student coordinator or outcome and therefore will not be done. ? TO continue work with PT, OT, speech as needed.? Medical management with ASA, BP control, statin. Dysphagia with difficulty controlling secretions--improved and tolerating present diet Suspected aspiration PNA with Hypoxa--completed coure of Unassyn, Augmentinn Diabetes--continue holding Metformin , SSI Hypertension--Continue Norvasc ?DVT PPX Lovenox Need for inpatient: post CVA management and will need placement and also guardianship via court initiated as he's not able to make decision and we are not able? to locate any family members. Darron Jimenez listed as person to contact at [phone] is not responding--phone rings then goes to answering Guardianship paperwork filed with court Full code; code to be readdressed when family is located inpatient need: awaiting placement Quality Stroke Does the patient have a stroke diagnosis?: Yes Reason for No Anti-thrombotic by Day Two: N/A - Med Ordered VTE Prior VTE?: No VTE Risk Level:: Medical - moderate - high VTE Device Contraindication: Treatment Not Indicated VTE Drug Contraindication: N/A - Med Ordered
[2022-05-02 07:32] LABS: Glucose, Whole Blood 105 mg/dL (60-115)
[2022-05-02 07:52] VITALS: BP 137/63; PULSE 77; RESP 16; TEMP 36.1; O2SAT 96
[2022-05-02] MEDS: Furosemide 20 MG TABLET PO (09:07)
[2022-05-02] MEDS: amLODIPine Besylate 10 MG TABLET PO (09:07)
[2022-05-02] MEDS: Atorvastatin Calcium 80 MG TABLET PO (09:07)
[2022-05-02] MEDS: Aspirin 81 MG TAB.CHEW PO (09:07)
[2022-05-02 10:54] VITALS: BP 125/66; PULSE 79; RESP 18; TEMP 36.1; O2SAT 98
[2022-05-02 11:09] LABS: Glucose, Whole Blood 189 mg/dL (60-115)
[2022-05-02] MEDS: Insulin Lispro 100 UNIT/ML 3 ML VIAL SUBCUT ×2 (12:02→16:36)
--- NOTE | 2022-05-02 13:27 | MHC.CLN ---
F/U DIET= PUREE WITH HONEY THICK LIQUIDS-APPROPRIATE PT RECEIVING MAGIC CUP BID TO INCREASE KCALS AND PROMOTE WOUND HEALING. PROVIDES 580 KCALS, 18 G PROTEIN. INTAKE APPEARS VERY GOOD WITH MANY MEALS 100%. CONTINUE TO FOLLOW FOR INTAKE AND WOUND.
--- NOTE | 2022-05-02 13:44 | P.CDIC_ITS ---
CDI Concurrent Query Documentation Clarification: PHYSICIAN'S DOCUMENTATION REQUEST Date of Query: 05/02/22 5410 Patient Name: Jose Juan Cr Admit Date: 04/14/22 Dear Doctor, A review of the medical record indicates additional documentation may be indicated. Please review below and update the documentation accordingly. Clinical Indicators: Risk Factors/Clinical Indicators/Treatments Per skin assessment 04/29/22: stage 2 R heel blisters, moderate serous drainage, open to air, heel floated on a boot PMH: DM Based on the above, could you please provide, in the Progress Notes, further information regarding the ulcer/wound: * Type (etiology) of ulcer/wound: * Diabetic ulcer * Venous stasis ulcer * Arterial (ischemic) ulcer * Pressure (decubitus) ulcer * Traumatic wound * Other * Unable to determine * For a non-pressure ulcer, please indicate the depth/severity: * Limited to the breakdown of skin * With fat layer exposed * With necrosis of muscle * With necrosis of bone * Other * Unable to determine * If a pressure ulcer, please also include the stage* of the ulcer: * Stage 1 - Skin intact, non-blanchable redness * Stage 2 - Partial thickness loss of dermis, includes intact or open blister * Stage 3 - Full thickness tissue not including bone, tendon, or muscle * Stage 4 - Full thickness tissue loss, including exposed bones, tendon, or muscle * Unstageable - Full thickness tissue loss in which the base of the ulcer is covered by slough (yellow, mckeon, dawson, green or brown) and/or eschar (mckeon, brown, or black) in the wound bed. * Suspected deep tissue injury - Purple or maroon localized area of discolored intact skin or blood-filled blister due to damage of underlying soft tissues from pressure and/or shear. The area may be preceded by tissue that is painful, firm, mushy, boggy, warmer, or cooler as compare to adjacent tissue. * Unable to determine *Source: National Pressure Ulcer Advisory Panel (NPUAP) Use of terms such as suspected, likely, concern for, or probable (associated with a specific diagnosis that is being evaluated, monitored, or treated as if it exists) are acceptable and can be coded in the inpatient setting, when documented at the time of discharge. Thank you, Lianet Tobin , BRITT Extension: [phone] Please use your independent medical judgment in providing your response. THIS QUERY IS PART OF THE PERMANENT MEDICAL RECORD Provider Response: Other Other Diagnosis: stage 2 Right heel blisters,
--- NOTE | 2022-05-02 13:44 | MHC.CDI.CONC ---
CDI Concurrent Query Documentation Clarification: PHYSICIAN'S DOCUMENTATION REQUEST Date of Query: 05/02/22 [id number] Patient Name: Jose Juan Cr Admit Date: 04/14/22 Dear Doctor, A review of the medical record indicates additional documentation may be indicated. Please review below and update the documentation accordingly. Clinical Indicators: Risk Factors/Clinical Indicators/Treatments Per skin assessment 04/29/22: stage 2 R heel blisters, moderate serous drainage, open to air, heel floated on a boot PMH: DM Based on the above, could you please provide, in the Progress Notes, further information regarding the ulcer/wound: Type (etiology) of ulcer/wound: Diabetic ulcer Venous stasis ulcer Arterial (ischemic) ulcer Pressure (decubitus) ulcer Traumatic wound Other Unable to determine For a non-pressure ulcer, please indicate the depth/severity: Limited to the breakdown of skin With fat layer exposed With necrosis of muscle With necrosis of bone Other Unable to determine If a pressure ulcer, please also include the stage* of the ulcer: Stage 1 - Skin intact, non-blanchable redness Stage 2 - Partial thickness loss of dermis, includes intact or open blister Stage 3 - Full thickness tissue not including bone, tendon, or muscle Stage 4 - Full thickness tissue loss, including exposed bones, tendon, or muscle Unstageable - Full thickness tissue loss in which the base of the ulcer is covered by slough (yellow, mckeon, dawson, green or brown) and/or eschar (mckeon, brown, or black) in the wound bed. Suspected deep tissue injury - Purple or maroon localized area of discolored intact skin or blood-filled blister due to damage of underlying soft tissues from pressure and/or shear. The area may be preceded by tissue that is painful, firm, mushy, boggy, warmer, or cooler as compare to adjacent tissue. Unable to determine *Source: National Pressure Ulcer Advisory Panel (NPUAP) Use of terms such as suspected, likely, concern for, or probable (associated with a specific diagnosis that is being evaluated, monitored, or treated as if it exists) are acceptable and can be coded in the inpatient setting, when documented at the time of discharge. Thank you, Lianet oTbin RN Extension: [phone] Please use your independent medical judgment in providing your response. THIS QUERY IS PART OF THE PERMANENT MEDICAL RECORD Provider Response: Other Other Diagnosis: stage 2 Right heel blisters,
[2022-05-02 15:45] VITALS: BP 125/71; PULSE 88; RESP 17; TEMP 36.7; O2SAT 99
[2022-05-02 15:53] LABS: Glucose, Whole Blood 199 mg/dL (60-115)
[2022-05-02 19:11] VITALS: BP 107/63; PULSE 90; RESP 17; TEMP 36.3; O2SAT 99
[2022-05-02 19:53] LABS: Glucose, Whole Blood 141 mg/dL (60-115)
[2022-05-02] MEDS: Enoxaparin Sodium 40 MG/0.4 ML SYRINGE SUBCUT (20:58)
[2022-05-02 23:39] VITALS: BP 133/60; PULSE 89; RESP 18; TEMP 36.5; O2SAT 97
[2022-05-03 03:30] VITALS: BP 140/65; PULSE 88; RESP 18; TEMP 36.5; O2SAT 94
[2022-05-03 07:22] LABS: Glucose, Whole Blood 118 mg/dL (60-115)
[2022-05-03 08:00] VITALS: BP 151/76; PULSE 80; RESP 16; TEMP 36.4; O2SAT 98
--- NOTE | 2022-05-03 08:47 | P.PNIM_ITS ---
Subjective Subjective Date of Service: 05/03/22 Interval History: f/u on stroke with rigt sided weakness and now awaiting placement inteval history: No new issues, pleasantly confused Review of Systems Baseline confusion, no fever, no weakness. Physical Exam Vital Signs: Vital Signs: Last Vital Signs Temp 97.6 F 05/03/22 08:00 Pulse 80 05/03/22 08:00 Resp 16 05/03/22 08:00 BP 151/76 H 05/03/22 08:00 Pulse Ox 98 05/03/22 08:00 O2 Del Method 05/03/22 08:00 O2 Flow Rate 2 04/20/22 16:00 BMI result Body Mass Index 35.7 Const: Other: General: oriented to self and place Resp: ishmael rhocnhi HEENT: chronic secretion in mouth and has to be sauctioned CVS: S1,S2,RRR GI: +BS, NT, no distention Skin: No rash, stage 2 R heel blisters, moderate serous drainage, open to air, heel floated on a boot Neuro: right sided weakness seem better Psych: appropriate affect Neuro: Other: He was alert and awake with normal spontaneity and fluency of speech. He spoke American but did understand some Tunisian in followed some commands. His face was symmetrical. Visual trujillo are full. Tongue was midline. There was no obvious focal arm or leg weakness. Plantars were flat. Objective Data Active Medications Acetaminophen (Acetaminophen 325 Mg Tablet) 650 mg PO Q6H PRN PRN Reason: Pain, Mild (Pain Scale 1-3) Last Admin: 04/30/22 03:43 Dose: 650 mg Documented By: BEATRIZ Acetaminophen (Acetaminophen Supp 650 Mg Supp.Rect) 650 mg SC Q6H PRN PRN Reason: fever Last Admin: 04/15/22 07:12 Dose: 650 mg Documented By: VANESA Amlodipine Besylate (Amlodipine Besylate 10 Mg Tablet) 10 mg PO DAILY [facility]; Pro tocol Last Admin: 05/02/22 09:07 Dose: 10 mg Documented By: MAE Aspirin (Aspirin 81 Mg Tab.Chew) 81 mg PO DAILY [facility] Last Admin: 05/02/22 09:07 Dose: 81 mg Documented By: MAE Atorvastatin Calcium (Atorvastatin Calcium 80 Mg Tablet) 80 mg PO DAILY [facility] Last Admin: 05/02/22 09:07 Dose: 80 mg Documented By: MAE Enoxaparin Sodium (Enoxaparin Sodium 40 Mg/0.4 Ml Syringe) 40 mg SUBCUT Q24H [facility] Last Admin: 05/02/22 20:58 Dose: 40 mg Documented By: MALINI Furosemide (Furosemide 20 Mg Tablet) 20 mg PO DAILY [facility]; Protocol Last Admin: 05/02/22 09:07 Dose: 20 mg Documented By: MAE Hydralazine HCl (Hydralazine Hcl 20 Mg/Ml Vial) 10 mg IVPUSH TID PRN; Protocol PRN Reason: SBP > 180 Last Admin: 04/19/22 11:47 Dose: 10 mg Documented By: GAB Insulin Human Lispro (Insulin Lispro 100 Unit/Ml 3 Ml Vial) 0 unit SUBCUT QIDACHS [facility]; Protocol Last Admin: 05/02/22 20:59 Dose: Not Given Documented By: MALINI Non-Admin Reason: No Insulin Coverage Ondansetron HCl (Ondansetron Hcl 4 Mg/2 Ml Vial) 4 mg IVPUSH Q8H PRN PRN Reason: Nausea and Vomiting Pharmacy Consult (Consult Rx Perform Med Rec) 1 each MISCELLANE ONCE PRN PRN Reason: Consult order Scopolamine (Scopolamine 1.5 Mg Patch.Td.3) 1.5 mg EAR-BEHIND Q72H [facility] Last Admin: 04/30/22 08:25 Dose: 1.5 mg Documented By: ARPAN Labs CBC & Chem 7: 04/21/22 05:29 04/20/22 17:58 Labs: Laboratory Results - last 24 hr 05/02/22 05/02/22 05/02/22 10:59 15:48 19:14 POC Glucose 189 H 199 H 141 H 05/03/22 06:55 POC Glucose 118 H Assessment and Plan (1) Cerebrovascular accident: Status: Acute Plan 86 American speaker male with PMH of diabetes and hypertension who presents to the hospital complaining of start speech and left-sided weakness for 1 day. CVA with left sided weakness and slur sepeech and dysphagia now resolved - Clinical presenation c/w with acute stroke CT scan was negative for any acute findings, he was unable to do MRI on presentation due to inability to be able lay still and manage his secreation for days.? At this point MRI will not change management expert or outcome and therefore will not be done. ? TO continue work with PT, OT, speech as needed.? Medical m anagement with ASA, BP control, statin. Dysphagia with difficulty controlling secretions--improved and tolerating present diet Suspected aspiration PNA with Hypoxa--completed coure of Unassyn, Augmentinn Diabetes--continue holding Metformin , SSI Hypertension--Continue Norvasc ?DVT PPX Lovenox Need for inpatient: post CVA management and will need placement and also guardianship via court initiated as he's not able to make decision and we are not able? to locate any family members. Tracejackson Tony listed as person to contact at [phone] is not responding--phone rings then goes to answering Guardianship paperwork filed with court stage 2 R heel blisters, moderate serous drainage, open to air--of loading boot Full code; code to be readdressed when family is located inpatient need: awaiting placement Quality Stroke Does the patient have a stroke diagnosis?: Yes Reason for No Anti-thrombotic by Day Two: N/A - Med Ordered VTE Prior VTE?: No VTE Risk Level:: Medical - moderate - high VTE Device Contraindication: Treatment Not Indicated VTE Drug Contraindication: N/A - Med Ordered
[2022-05-03] MEDS: Scopolamine 1.5 MG PATCH.TD.3 EAR-BEHIND (10:04)
[2022-05-03] MEDS: Aspirin 81 MG TAB.CHEW PO (10:07)
[2022-05-03] MEDS: amLODIPine Besylate 10 MG TABLET PO (10:08)
[2022-05-03] MEDS: Atorvastatin Calcium 80 MG TABLET PO (10:08)
[2022-05-03] MEDS: Furosemide 20 MG TABLET PO (10:08)
--- NOTE | 2022-05-03 10:21 | MHC.SL.SWA ---
Speech Pathologist Impression: Risk of Aspiration Due to: Neurological Condition Dysphasia Diet Status: Recommend continue diet of PUREE (NDD1) with HONEY THICK liquids, Pills Crushed in Puree (No change). Pt continues to need full assistance and supervision during all meals. Liquid Consistency and Strategies for Safe Swallow: Liquid Intake Recommendation: Honey Thick Liquid Intake Strategies: Small Sips No Straws Liquids by Teaspoon Only Solid Food Consistency: Dietary Recommendations: Pureed (NDD1) Additional Modifications to Solid Foods: Full assistance and supervision during meals. Pt must be alert and awake, and may be impulsive. Oral Medication Intake: Crushed with Puree Please contact the pharmacy regarding appropriate crushable or liquid drug formulations that are available whenever modified delivery is recommended. Compensatory Strategies and Precautions to be Taken for Safe Swallow: Sitting Upright (90 deg) No Straw Liquids from Spoon Small Bites and Sips Alternate Liquids/Solids Rate of Ingestion Change Oral Check Avoid Specific Foods Supervision While Eating and Drinking for Safe Swallow: Total Assistance (1:1) Foods to Avoid: Sticky foods; mixed consistencies Swallowing Recommended Treatments: Compens. Strategy Educat. Recommendation for Speech: Inpatient Speech Therapy Comment: Pt seen at bedside for PO trials this morning. Pt was awake and alert, repositioned to sit upright in bed. Pt was given tsps of water, containing liquid well, mild delay initiating swallow, mildly reduced laryngeal elevation. On third tsp, pt. noted to produce throat clearing, then coughed. Pt was then given nectar thick liquid by tsp, again producing mild delay of swallow, reduced laryngeal elevation on swallow, no clinical signs of aspiration on full cup. Will plan to assess again toleration of [place] Thick liquids again tomorrow before recommending upgrade, as patient as had variability tolerating more advanced textures. Pt is tolerating PUREE consistency well, recommend continue diet of PUREE (NDD1) with HONEY THICK liquids, Pills Crushed in Puree (No change, re-assess for upgrade again tomorrow). Frequency/Duration: Date Range for Service Req: Timeline to reassess: Technical Services Specialist Clinican/Clinical Fellow: No Supervisory Statement: I have reviewed and agree with the student/clinical fellow's documentation: N/A Speech Language Pathologist: Chely Bazan M.A., CCC-SCIENTIFIC PROGRAMMER ANALYST
[2022-05-03 11:15] LABS: Glucose, Whole Blood 152 mg/dL (60-115)
[2022-05-03 11:16] VITALS: BP 131/73; PULSE 78; RESP 16; TEMP 36.3; O2SAT 98
[2022-05-03] MEDS: Insulin Lispro 100 UNIT/ML 3 ML VIAL SUBCUT ×2 (12:31→17:15)
[2022-05-03 15:05] VITALS: BP 126/59; PULSE 90; RESP 17; TEMP 36.1; O2SAT 98
[2022-05-03 15:40] LABS: Glucose, Whole Blood 178 mg/dL (60-115)
[2022-05-03 19:19] VITALS: BP 137/66; PULSE 90; RESP 17; TEMP 36.4; O2SAT 99
[2022-05-03 19:37] LABS: Glucose, Whole Blood 170 mg/dL (60-115)
[2022-05-03 23:50] VITALS: BP 128/66; PULSE 98; RESP 18; TEMP 36.8; O2SAT 97
[2022-05-04] MEDS: Insulin Lispro 100 UNIT/ML 3 ML VIAL SUBCUT ×2 (00:17→21:42)
[2022-05-04] MEDS: Enoxaparin Sodium 40 MG/0.4 ML SYRINGE SUBCUT ×2 (00:17→21:41)
--- NOTE | 2022-05-04 00:50 | PC.NURSE ---
Patient was bladder scanned with residual of 400. Patient was straight cath for 500 cc of tea colored urine at 05/04/2022 0100.
[2022-05-04 03:12] VITALS: BP 130/62; PULSE 81; RESP 18; TEMP 36.3; O2SAT 96
[2022-05-04 07:00] VITALS: BP 118/58; PULSE 84; RESP 17; TEMP 36.2; O2SAT 97
[2022-05-04 07:21] LABS: Glucose, Whole Blood 109 mg/dL (60-115)
[2022-05-04] MEDS: Aspirin 81 MG TAB.CHEW PO (09:26)
[2022-05-04] MEDS: Atorvastatin Calcium 80 MG TABLET PO (09:26)
[2022-05-04] MEDS: amLODIPine Besylate 10 MG TABLET PO (09:26)
[2022-05-04] MEDS: Furosemide 20 MG TABLET PO (09:26)
--- NOTE | 2022-05-04 10:46 | HO.PM.IMPN ---
Subjective Subjective Date of Service: 05/04/22 Interval History: f/u on stroke with rigt sided weakness and now awaiting placement inteval history: No new issues, pleasantly confused, urinary retention since spencer out yesterday Review of Systems Baseline confusion, no fever, no weakness. Physical Exam Vital Signs: Vital Signs: Last Vital Signs Temp 97.2 F 05/04/22 07:00 Pulse 84 05/04/22 07:00 Resp 17 05/04/22 07:00 BP 118/58 L 05/04/22 07:00 Pulse Ox 97 05/04/22 07:00 O2 Del Method 05/04/22 07:00 O2 Flow Rate 2 04/20/22 16:00 BMI result Body Mass Index 35.7 Const: Other: General: oriented to self and place Resp: ishmael rhocnhi HEENT: chronic secretion in mouth and has to be sauctioned CVS: S1,S2,RRR GI: +BS, NT, no distention Skin: No rash, stage 2 R heel blisters, moderate serous drainage, open to air, heel floated on a boot Neuro: right sided weakness seem better Psych: appropriate affect Objective Data Active Medications Acetaminophen (Acetaminophen 325 Mg Tablet) 650 mg PO Q6H PRN PRN Reason: Pain, Mild (Pain Scale 1-3) Last Admin: 04/30/22 03:43 Dose: 650 mg Documented By: BEATRIZ Acetaminophen (Acetaminophen Supp 650 Mg Supp.Rect) 650 mg GA Q6H PRN PRN Reason: fever Last Admin: 04/15/22 07:12 Dose: 650 mg Documented By: VANESA Amlodipine Besylate (Amlodipine Besylate 10 Mg Tablet) 10 mg PO DAILY [facility]; Protocol Last Admin: 05/04/22 09:26 Dose: 10 mg Documented By: MAE Aspirin (Aspirin 81 Mg Tab.Chew) 81 mg PO DAILY [facility] Last Admin: 05/04/22 09:26 Dose: 81 mg Documented By: MAE Atorvastatin Calcium (Atorvastatin Calcium 80 Mg Tablet) 80 mg PO DAILY [facility] Last Admin: 05/04/22 09:26 Dose: 80 mg Documented By: MAE Enoxaparin Sodium (Enoxaparin Sodium 40 Mg/0.4 Ml Syringe) 40 mg SUBCUT Q24H [facility] Last Admin: 05/04/22 00:17 Dose: 40 mg Documented By: MALINI Furosemide (Furosemide 20 Mg Tablet) 20 mg PO DAILY [facility]; Protocol Last Admin: 05/04/22 09:26 Dose: 20 mg Documented By: MAE Hydralazine HCl (Hydralazine Hcl 20 Mg/Ml Vial) 10 mg IVPUSH TID PRN; Protocol PRN Reason: SBP > 180 Last Admin: 04/19/22 11:47 Dose: 10 mg Documented By: GAB Insulin Human Lispro (Insulin Lispro 100 Unit/Ml 3 Ml Vial) 0 unit SUBCUT QIDACHS [facility]; Protocol Last Admin: 05/04/22 07:28 Dose: Not Given Documented By: MAE Non-Admin Reason: No Insulin Coverage Ondansetron HCl (Ondansetron Hcl 4 Mg/2 Ml Vial) 4 mg IVPUSH Q8H PRN PRN Reason: Nausea and Vomiting Pharmacy Consult (Consult Rx Perform Med Rec) 1 each MISCELLANE ONCE PRN PRN Reason: Consult order Scopolamine (Scopolamine 1.5 Mg Patch.Td.3) 1.5 mg EAR-BEHIND Q72H [facility] Last Admin: 05/03/22 10:04 Dose: 1.5 mg Documented By: MAE Comments: OLD PATCH REMOVED FROM RIGHT Labs CBC & Chem 7: 04/21/22 05:29 04/20/22 17:58 Labs: Laboratory Results - last 24 hr 05/03/22 05/03/22 05/03/22 11:11 15:36 19:21 POC Glucose 152 H 178 H 170 H 05/04/22 07:02 POC Glucose 109 Assessment and Plan (1) Cerebrovascular accident: Status: Acute Plan 86 Irish speaker male with PMH of diabetes and hypertension who presents to the hospital complaining of start speech and left-sided weakness for 1 day. CVA with left sided weakness and slur sepeech and dysphagia now resolved - Clinical presenation c/w with acute stroke CT scan was negative for any acute findings, he was unable to do MRI on presentation due to inability to be able lay still and manage his secreation for days.? At this point MRI will not global climate change researcher or outcome and therefore will not be done. ? TO continue work with PT, OT, speech as needed.? Medical management with ASA, BP control, statin. Dysphagia with difficulty controlling secretions--improved and tolerating present diet Suspected aspiration PNA with Hypoxa--completed coure of Unassyn, Augmentinn Diabetes--continue holding Metformin , SSI Hypertension--Continue Norvasc Need for inpatient: post CVA management and will need placement and also guardianship via court initiated as he's not able to make decision and we are not able? to locate any family members. urinary retention--Spencer, add Flomax stage 2 R heel blisters due to pressure, moderate serous drainage, open to air--of loading boot Darron Jimenez listed as person to contact at [phone] is not responding--phone rings then goes to answering Guardianship paperwork filed with court Full code; code to be readdressed when family is located inpatient need: awaiting placement, guardianship Quality Stroke Does the patient have a stroke diagnosis?: Yes Reason for No Anti-thrombotic by Day Two: N/A - Med Ordered VTE Prior VTE?: No VTE Risk Level:: Medical - moderate - high VTE Device Contraindication: Treatment Not Indicated VTE Drug Contraindication: N/A - Med Ordered
[2022-05-04 11:06] VITALS: BP 142/67; PULSE 77; RESP 18; TEMP 36.4; O2SAT 98
--- NOTE | 2022-05-04 11:22 | MHC.CM.PN ---
EMR REVIEWED, PT MEDICALLY CLEAR FOR D/C HOWEVER PT ABONDONED IN ED, COURT DATE FOR PETITION FOR GUARDIANSHIP 05/23/22, LITZY DRE HAS AGREED TO BE GUARDIAN, SNF REFERRALS TO BE PLACED FOR LTC.
[2022-05-04 11:33] LABS: Glucose, Whole Blood 152 mg/dL (60-115)
--- NOTE | 2022-05-04 12:50 | MHC.CLN ---
F/U DIET= PUREE WITH HONEY THICK LIQUIDS-APPROPRIATE PT RECEIVING MAGIC CUP BID TO INCREASE KCALS. PROVIDES 580 KCALS, 18 G PROTEIN. INTAKE APPEARS VERY GOOD WITH MANY MEALS 100%. SKIN WITH ABRASION TO RIGHT HEEL. CONTINUE TO FOLLOW FOR INTAKE AND SKIN.
[2022-05-04 16:00] VITALS: BP 109/64; PULSE 87; RESP 18; TEMP 36.8; O2SAT 100
[2022-05-04 16:26] LABS: Glucose, Whole Blood 117 mg/dL (60-115)
[2022-05-04 20:00] VITALS: BP 131/59; PULSE 86; RESP 18; TEMP 36.6; O2SAT 98
[2022-05-04 20:46] LABS: Glucose, Whole Blood 227 mg/dL (60-115)
[2022-05-05] VITALS (7 sets, daily range): BP systolic 122–136; BP diastolic 58–71; PULSE 72–98; RESP 16–19; TEMP 35.8–36.8; O2SAT 97–99
[2022-05-05 07:57] LABS: Glucose, Whole Blood 125 mg/dL (60-115)
[2022-05-05] MEDS: Aspirin 81 MG TAB.CHEW PO (09:13)
[2022-05-05] MEDS: Atorvastatin Calcium 80 MG TABLET PO (09:14)
[2022-05-05] MEDS: amLODIPine Besylate 10 MG TABLET PO (09:14)
[2022-05-05] MEDS: Furosemide 20 MG TABLET PO (09:14)
--- NOTE | 2022-05-05 09:39 | HO.PM.IMPN ---
Subjective Subjective Date of Service: 05/05/22 Interval History: f/u on stroke with rigt sided weakness and now awaiting placement inteval history: remains pleasantly confused, no new issues, urinary retention since spencer out yesterday Review of Systems Baseline confusion, no fever, no weakness. Physical Exam Vital Signs: Vital Signs: Last Vital Signs Temp 97.6 F 05/05/22 07:11 Pulse 77 05/05/22 07:11 Resp 18 05/05/22 07:11 BP 136/71 05/05/22 07:11 Pulse Ox 98 05/05/22 07:11 O2 Del Method 05/05/22 07:11 O2 Flow Rate 2 04/20/22 16:00 BMI result Body Mass Index 35.7 Const: Other: General: oriented to self and place Resp: ishmael rhocnhi HEENT: chronic secretion in mouth and has to be sauctioned CVS: S1,S2,RRR GI: +BS, NT, no distention Skin: No rash, stage 2 R heel blisters, moderate serous drainage, open to air, heel floated on a boot Neuro: right sided weakness seem better Psych: appropriate affect Objective Data Active Medications Acetaminophen (Acetaminophen 325 Mg Tablet) 650 mg PO Q6H PRN PRN Reason: Pain, Mild (Pain Scale 1-3) Last Admin: 04/30/22 03:43 Dose: 650 mg Documented By: BEATRIZ Acetaminophen (Acetaminophen Supp 650 Mg Supp.Rect) 650 mg [place] Q6H PRN PRN Reason: fever Last Admin: 04/15/22 07:12 Dose: 650 mg Documented By: VANESA Amlodipine Besylate (Amlodipine Besylate 10 Mg Tablet) 10 mg PO DAILY [facility]; Protocol Last Admin: 05/05/22 09:14 Dose: 10 mg Documented By: JOVON Aspirin (Aspirin 81 Mg Tab.Chew) 81 mg PO DAILY [facility] Last Admin: 05/05/22 09:13 Dose: 81 mg Documented By: JOVON Atorvastatin Calcium (Atorvastatin Calcium 80 Mg Tablet) 80 mg PO DAILY [facility] Last Admin: 05/05/22 09:14 Dose: 80 mg Documented By: JOVON Enoxaparin Sodium (Enoxaparin Sodium 40 Mg/0.4 Ml Syringe) 40 mg SUBCUT Q24H [facility] Last Admin: 05/04/22 21:41 Dose: 40 mg Documented By: ROBERT Furosemide (Furosemide 20 Mg Tablet) 20 mg PO DAILY [facility]; Protocol Last Admin: 05/05/22 09:14 Dose: 20 mg Documented By: JOVON Hydralazine HCl (Hydralazine Hcl 20 Mg/Ml Vial) 10 mg IVPUSH TID PRN; Protocol PRN Reason: SBP > 180 Last Admin: 04/19/22 11:47 Dose: 10 mg Documented By: GAB Insulin Human Lispro (Insulin Lispro 100 Unit/Ml 3 Ml Vial) 0 unit SUBCUT QIDACHS [facility]; Protocol Last Admin: 05/05/22 09:13 Dose: Not Given Documented By: JOVON Non-Admin Reason: No Insulin Coverage Ondansetron HCl (Ondansetron Hcl 4 Mg/2 Ml Vial) 4 mg IVPUSH Q8H PRN PRN Reason: Nausea and Vomiting Pharmacy Consult (Consult Rx Perform Med Rec) 1 each MISCELLANE ONCE PRN PRN Reason: Consult order Scopolamine (Scopolamine 1.5 Mg Patch.Td.3) 1.5 mg EAR-BEHIND Q72H [facility] Last Admin: 05/03/22 10:04 Dose: 1.5 mg Documented By: MAE Comments: OLD PATCH REMOVED FROM RIGHT Tamsulosin HCl (Tamsulosin Hcl 0.4 Mg Capsule) 0.4 mg PO DAILY@1700 [facility] Labs CBC & Chem 7: 04/21/22 05:29 04/20/22 17:58 Labs: Laboratory Results - last 24 hr 05/04/22 05/04/22 05/04/22 11:15 16:05 20:40 POC Glucose 152 H 117 H 227 H 05/05/22 07:09 POC Glucose 125 H Assessment and Plan (1) Cerebrovascular accident: Status: Acute Plan 86 Yi speaker male with PMH of diabetes and hypertension who presents to the hospital complaining of start speech and left-sided weakness for 1 day. CVA with left sided weakness and slur sepeech and dysphagia now resolved - Clinical presenation c/w with acute stroke CT scan was negative for any acute findings, he was unable to do MRI on presentation due to inability to be able lay still and manage his secreation for days.? At this point MRI will not exchange clerk or outcome and therefore will not be done. ? TO continue work with PT, OT, speech as needed.? Medical management with ASA, BP control, statin. Dysphagia with difficulty controlling secretions--improved and tolerating present diet Suspected aspiration PNA with Hypoxa--completed coure of Francine Lugo Diabetes--continue holding Metformin , SSI Hypertension--Continue Norvasc Need for inpatient: post CVA management and will need placement and also guardianship via court initiated as he's not able to make decision and we are not able? to locate any family members. urinary retention--Spencer in place, continue Flomax stage 2 R heel blisters due to pressure, moderate serous drainage, open to air--of loading boot Darron Jimenez listed as person to contact at [phone] is not responding still--phone rings then goes to answering Guardianship paperwork filed with court Full code; code to be readdressed when family is located inpatient need: awaiting placement, guardianship Quality Stroke Does the patient have a stroke diagnosis?: Yes Reason for No Anti-thrombotic by Day Two: N/A - Med Ordered VTE Prior VTE?: No VTE Risk Level:: Medical - moderate - high VTE Device Contraindication: Treatment Not Indicated VTE Drug Contraindication: N/A - Med Ordered
[2022-05-05 11:29] LABS: Glucose, Whole Blood 180 mg/dL (60-115)
[2022-05-05] MEDS: Insulin Lispro 100 UNIT/ML 3 ML VIAL SUBCUT ×2 (11:50→17:06)
[2022-05-05 16:48] LABS: Glucose, Whole Blood 181 mg/dL (60-115)
[2022-05-05] MEDS: Tamsulosin HCL 0.4 MG CAPSULE PO (17:06)
[2022-05-05 20:26] LABS: Glucose, Whole Blood 132 mg/dL (60-115)
[2022-05-05] MEDS: Enoxaparin Sodium 40 MG/0.4 ML SYRINGE SUBCUT (20:34)
[2022-05-06 03:17] VITALS: BP 137/60; PULSE 90; RESP 18; TEMP 36.9; O2SAT 99
[2022-05-06 07:13] VITALS: BP 118/58; PULSE 82; RESP 15; TEMP 36.3; O2SAT 98
--- NOTE | 2022-05-06 07:20 | P.PNIM_ITS ---
Subjective Subjective Date of Service: 05/06/22 Interval History: f/u on stroke with rigt sided weakness and now awaiting placement inteval history:doing well, no new issues, no agitations Review of Systems Baseline confusion, no fever, no weakness. Physical Exam Vital Signs: Vital Signs: Last Vital Signs Temp 97.3 F 05/06/22 07:13 Pulse 82 05/06/22 07:13 Resp 15 05/06/22 07:13 BP 118/58 L 05/06/22 07:13 Pulse Ox 98 05/06/22 07:13 O2 Del Method 05/06/22 07:13 O2 Flow Rate 2 04/20/22 16:00 BMI result Body Mass Index 35.7 Const: Other: General: oriented to self and place Resp: ishmael rhocnhi HEENT: chronic secretion in mouth and has to be sauctioned CVS: S1,S2,RRR GI: +BS, NT, no distention Skin: No rash, stage 2 R heel blisters, moderate serous drainage, open to air, heel floated on a boot Neuro: right sided weakness seem better Psych: appropriate affect Neuro: Other: He was alert and awake with normal spontaneity and fluency of speech. He spoke Greek but did understand some Divehi in followed some commands. His face was symmetrical. Visual trujillo are full. Tongue was midline. There was no obvious focal arm or leg weakness. Plantars were flat. Objective Data Active Medications Acetaminophen (Acetaminophen 325 Mg Tablet) 650 mg PO Q6H PRN PRN Reason: Pain, Mild (Pain Scale 1-3) Last Admin: 04/30/22 03:43 Dose: 650 mg Documented By: BEATRIZ Acetaminophen (Acetaminophen Supp 650 Mg Supp.Rect) 650 mg [place] Q6H PRN PRN Reason: fever Last Admin: 04/15/22 07:12 Dose: 650 mg Documented By: VANESA Amlodipine Besylate (Amlodipine Besylate 10 Mg Tablet) 10 mg PO DAILY [facility]; Protocol Last Admin: 05/05/22 09:14 Dose: 10 mg Documented By: JOVON Aspirin (Aspirin 81 Mg Tab.Chew) 81 mg PO DAILY [facility] Last Admin: 05/05/22 09:13 Dose: 81 mg Documented By: JOVON Atorvastatin Calcium (Atorvastatin Calcium 80 Mg Tablet) 80 mg PO DAILY [facility] Last Admin: 05/05/22 09:14 Dose: 80 mg Documented By: JOVON Enoxaparin Sodium (Enoxaparin Sodium 40 Mg/0.4 Ml Syringe) 40 mg SUBCUT Q24H [facility] Last Admin: 05/05/22 20:34 Dose: 40 mg Documented By: JAYNA Furosemide (Furosemide 20 Mg Tablet) 20 mg PO DAILY [facility]; Protocol Last Admin: 05/05/22 09:14 Dose: 20 mg Documented By: JOVON Hydralazine HCl (Hydralazine Hcl 20 Mg/Ml Vial) 10 mg IVPUSH TID PRN; Protocol PRN Reason: SBP > 180 Last Admin: 04/19/22 11:47 Dose: 10 mg Documented By: GAB Insulin Human Lispro (Insulin Lispro 100 Unit/Ml 3 Ml Vial) 0 unit SUBCUT QIDACHS [facility]; Protocol Last Admin: 05/05/22 20:34 Dose: Not Given Documented By: JAYNA Non-Admin Reason: No Insulin Coverage Ondansetron HCl (Ondansetron Hcl 4 Mg/2 Ml Vial) 4 mg IVPUSH Q8H PRN PRN Reason: Nausea and Vomiting Pharmacy Consult (Consult Rx Perform Med Rec) 1 each MISCELLANE ONCE PRN PRN Reason: Consult order Scopolamine (Scopolamine 1.5 Mg Patch.Td.3) 1.5 mg EAR-BEHIND Q72H [facility] Last Admin: 05/03/22 10:04 Dose: 1.5 mg Documented By: MAE Comments: OLD PATCH REMOVED FROM RIGHT Tamsulosin HCl (Tamsulosin Hcl 0.4 Mg Capsule) 0.4 mg PO DAILY@1700 [facility] Last Admin: 05/05/22 17:06 Dose: 0.4 mg Documented By: JOVON Labs CBC & Chem 7: 04/21/22 05:29 04/20/22 17:58 Labs: Laboratory Results - last 24 hr 05/05/22 05/05/22 05/05/22 07:09 10:52 16:42 POC Glucose 125 H 180 H 181 H 05/05/22 20:05 POC Glucose 132 H Assessment and Plan (1) Cerebrovascular accident: Status: Acute (2) Acute left-sided weakness: Status: Acute Plan 86 Greek speaker male with PMH of diabetes and hypertension who presents to the hospital complaining of start speech and left-sided weakness for 1 day and found to have CVA with left sided weakness and slur sepeech and dysphagia now resolved - Clinical presenation c/w with acute stroke CT scan was negative for any acute findings, he was unable to do MRI on presentation due to inability to be able lay still and manage his secreation for days.? At this point MRI will not change booth attendant or outcome and therefore will not be done. ? TO continue work with PT, OT, speech as needed.? Medical management with ASA, BP control, statin. Dysphagia with difficulty controlling secretions--improved and tolerating present diet Aspiration PNA with Hypoxa--completed coure of Unassyn, Augmentinn, no more hypoxia Diabetes--continue holding Metformin , SSI, blood sugars acceptable range Hypertension--Continue Norvasc Need for inpatient: post CVA management and will need placement and also guardianship via court initiated as he's not able to make decision and we are no t able? to locate any family members. urinary retention--Frederick in place, continue Flomax stage 2 R heel blisters due to pressure, moderate serous drainage, open to air--of loading boot Darron Jimenez listed as person to contact at [phone] is not responding still--phone rings then goes to answering Guardianship paperwork filed with court Full code; code to be readdressed when family is located inpatient need: awaiting placement, guardianship Quality Stroke Does the patient have a stroke diagnosis?: Yes Reason for No Anti-thrombotic by Day Two: N/A - Med Ordered VTE Prior VTE?: No VTE Risk Level:: Medical - moderate - high VTE Device Contraindication: Treatment Not Indicated VTE Drug Contraindication: N/A - Med Ordered
[2022-05-06 07:53] LABS: Glucose, Whole Blood 119 mg/dL (60-115)
[2022-05-06] MEDS: Furosemide 20 MG TABLET PO (09:45)
[2022-05-06] MEDS: Aspirin 81 MG TAB.CHEW PO (09:45)
[2022-05-06] MEDS: amLODIPine Besylate 10 MG TABLET PO (09:45)
[2022-05-06] MEDS: Scopolamine 1.5 MG PATCH.TD.3 EAR-BEHIND (09:46)
[2022-05-06] MEDS: Atorvastatin Calcium 80 MG TABLET PO (09:46)
[2022-05-06 11:48] VITALS: BP 148/73; PULSE 95; RESP 14; TEMP 36.5; O2SAT 98
[2022-05-06 12:11] LABS: Glucose, Whole Blood 211 mg/dL (60-115)
[2022-05-06] MEDS: Insulin Lispro 100 UNIT/ML 3 ML VIAL SUBCUT ×2 (12:26→20:42)
[2022-05-06 16:00] VITALS: BP 130/67; PULSE 97; RESP 16; TEMP 37.1; O2SAT 98
[2022-05-06 16:31] LABS: Glucose, Whole Blood 102 mg/dL (60-115)
[2022-05-06] MEDS: Tamsulosin HCL 0.4 MG CAPSULE PO (17:05)
[2022-05-06 19:20] VITALS: BP 147/62; PULSE 94; RESP 16; TEMP 36.6; O2SAT 98
[2022-05-06 19:38] LABS: Glucose, Whole Blood 185 mg/dL (60-115)
[2022-05-06] MEDS: Enoxaparin Sodium 40 MG/0.4 ML SYRINGE SUBCUT (20:42)
[2022-05-07] VITALS: BP 141/73; PULSE 91; RESP 19; TEMP 36.3; O2SAT 94
[2022-05-07 04:00] VITALS: BP 115/63; PULSE 79; RESP 19; TEMP 36.2; O2SAT 96
[2022-05-07 06:57] VITALS: BP 120/57; PULSE 81; RESP 20; TEMP 36.1; O2SAT 96
[2022-05-07 07:04] LABS: Glucose, Whole Blood 130 mg/dL (60-115)
[2022-05-07 07:08] LABS: Anion Gap 15 (12-20); Blood Urea Nitrogen 14 mg/dL (9-16); Calcium 8.6 mg/dL (8.4-10.2); Carbon Dioxide 28 mmol/L (22-29); Chloride 99 mmol/L (96-108); Creatinine Clr Calc Pharmacy 86.8; Estimated Glomerular Filt Rate > 60; Glucose Random 126 mg/dL (60-115); Potassium 4.3 mmol/L (3.3-5.1); Sodium 138 mmol/L (135-145)
[2022-05-07 07:34] LABS: Hematocrit 39.7 % (42.0-52.0); Hemoglobin 12.7 g/dl (14.0-18.0); Mean Corpuscular Hemoglobin 26.4 pg (27.0-33.0); Mean Corpuscular Volume 82.5 fL (80.0-98.0); Mean Platelet Volume 12.4 fL (9.4-12.4); Red Blood Count 4.81 X10*6/uL (4.60-5.80); Red Cell Distribution Width 14.5 % (11.0-16.0)
[2022-05-07 07:40] LABS: Platelet Count 379 X10*3/uL (160-400)
[2022-05-07] MEDS: Furosemide 20 MG TABLET PO (08:16)
[2022-05-07] MEDS: Aspirin 81 MG TAB.CHEW PO (08:16)
[2022-05-07] MEDS: Atorvastatin Calcium 80 MG TABLET PO (08:16)
[2022-05-07] MEDS: amLODIPine Besylate 10 MG TABLET PO (08:16)
--- NOTE | 2022-05-07 10:36 | HO.PM.IMPN ---
Subjective Subjective Date of Service: 05/07/22 Interval History: f/u on stroke with rigt sided weakness and now awaiting placement inteval history:has no new issues, pleasantly confused Review of Systems Baseline confusion, no fever, no weakness. Physical Exam Vital Signs: Vital Signs: Last Vital Signs Temp 97 F 05/07/22 06:57 Pulse 81 05/07/22 06:57 Resp 20 05/07/22 06:57 BP 120/57 L 05/07/22 06:57 Pulse Ox 96 05/07/22 06:57 O2 Del Method 05/07/22 06:57 O2 Flow Rate 2 04/20/22 16:00 BMI result Body Mass Index 35.7 Const: Other: General: oriented to self and place Resp: ishmael rhocnhi HEENT: chronic secretion in mouth and has to be sauctioned CVS: S1,S2,RRR GI: +BS, NT, no distention Skin: No rash, stage 2 R heel blisters, moderate serous drainage, open to air, heel floated on a boot Neuro: right sided weakness seem better Psych: appropriate affect Objective Data Active Medications Acetaminophen (Acetaminophen 325 Mg Tablet) 650 mg PO Q6H PRN PRN Reason: Pain, Mild (Pain Scale 1-3) Last Admin: 04/30/22 03:43 Dose: 650 mg Documented By: BEATRIZ Acetaminophen (Acetaminophen Supp 650 Mg Supp.Rect) 650 mg [place] Q6H PRN PRN Reason: fever Last Admin: 04/15/22 07:12 Dose: 650 mg Documented By: VANESA Amlodipine Besylate (Amlodipine Besylate 10 Mg Tablet) 10 mg PO DAILY [facility]; Protocol Last Admin: 05/07/22 08:16 Dose: 10 mg Documented By: BECKY Aspirin (Aspirin 81 Mg Tab.Chew) 81 mg PO DAILY [facility] Last Admin: 05/07/22 08:16 Dose: 81 mg Documented By: BECKY Atorvastatin Calcium (Atorvastatin Calcium 80 Mg Tablet) 80 mg PO DAILY [facility] Last Admin: 05/07/22 08:16 Dose: 80 mg Documented By: BECKY Enoxaparin Sodium (Enoxaparin Sodium 40 Mg/0.4 Ml Syringe) 40 mg SUBCUT Q24H [facility] Last Admin: 05/06/22 20:42 Dose: 40 mg Documented By: JAYNA Furosemide (Furosemide 20 Mg Tablet) 20 mg PO DAILY [facility]; Protocol Last Admin: 05/07/22 08:16 Dose: 20 mg Documented By: BECKY Hydralazine HCl (Hydralazine Hcl 20 Mg/Ml Vial) 10 mg IVPUSH TID PRN; Protocol PRN Reason: SBP > 180 Last Admin: 04/19/22 11:47 Dose: 10 mg Documented By: GAB Insulin Human Lispro (Insulin Lispro 100 Unit/Ml 3 Ml Vial) 0 unit SUBCUT QIDACHS [facility]; Protocol Last Admin: 05/07/22 07:19 Dose: Not Given Documented By: BECKY Non-Admin Reason: No Insulin Coverage Ondansetron HCl (Ondansetron Hcl 4 Mg/2 Ml Vial) 4 mg IVPUSH Q8H PRN PRN Reason: Nausea and Vomiting Pharmacy Consult (Consult Rx Perform Med Rec) 1 each MISCELLANE ONCE PRN PRN Reason: Consult order Scopolamine (Scopolamine 1.5 Mg Patch.Td.3) 1.5 mg EAR-BEHIND Q72H [facility] Last Admin: 05/06/22 09:46 Dose: 1.5 mg Documented By: JOVON Tamsulosin HCl (Tamsulosin Hcl 0.4 Mg Capsule) 0.4 mg PO DAILY@1700 [facility] Last Admin: 05/06/22 17:05 Dose: 0.4 mg Documented By: JOVON Labs CBC & Chem 7: 05/07/22 05:27 05/07/22 05:27 Labs: Laboratory Results - last 24 hr 05/06/22 05/06/22 05/06/22 11:51 16:20 19:35 MCV MCH MCHC RDW Plt Count MPV Absolute Nucleated RBC Nucleated RBC % (auto) Anion Gap Estim Creat Clear Calc Estimated GFR POC Glucose 211 H 102 185 H Random Glucose Calcium 05/07/22 05/07/22 05/07/22 05:27 05:27 07:00 MCV 82.5 MCH 26.4 L MCHC 32.0 RDW 14.5 Plt Count 379 D MPV 12.4 Absolute Nucleated RBC 0.000 Nucleated RBC % (auto) 0.0 Anion Gap 15 Estim Creat Clear Calc 86.8 Estimated GFR > 60 POC Glucose 130 H Random Glucose 126 H Calcium 8.6 D Assessment and Plan (1) Cerebrovascular accident: Status: Acute (2) Acute left-sided weakness: Status: Acute Plan 86 Yakut speaker male with PMH of diabetes and hypertension who presents to the hospital complaining of start speech and left-sided weakness for 1 day and found to have CVA with left sided weakness and slur sepeech and dysphagia now resolved - Clinical presenation c/w with acute stroke CT scan was negative for any acute findings, he was unable to do MRI on presentation due to inability to be able lay still and manage his secreation for days.? At this point MRI will not currency exchange specialist or outcome and therefore will not be done. ? TO continue work with PT, OT, speech as needed.? Medical management with ASA, BP control, statin. Dysphagia with difficulty controlling secretions--improved and tolerating present diet Aspiration PNA with Hypoxa--completed coure of Unassyn, Augmentinn, no more hypoxia Diabetes--continue holding Metformin , SSI, blood sugars acceptable range Hypertension--Continue Norvasc Need for inpatient: post CVA management and will need placement and also guardianship via court initiated as he's not able to make decision and we are not able? to locate any family members. urinary retention--Frederick in place, continue Flomax stage 2 R heel blisters due to pressure, moderate serous drainage, open to air--of loading boot Darron Jimenez listed as person to contact at [phone] is not responding still--phone rings then goes to answering Guardianship paperwork filed with court Full code; code to be readdressed when family is located inpatient need: awaiting placement, guardianship papers filed Quality Stroke Does the patient have a stroke diagnosis?: Yes Reason for No Anti-thrombotic by Day Two: N/A - Med Ordered VTE Prior VTE?: No VTE Risk Level:: Medical - moderate - high VTE Device Contraindication: Treatment Not Indicated VTE Drug Contraindication: N/A - Med Ordered
[2022-05-07 10:58] VITALS: BP 112/66; PULSE 79; RESP 18; TEMP 36.1; O2SAT 98
[2022-05-07] MEDS: Insulin Lispro 100 UNIT/ML 3 ML VIAL SUBCUT ×3 (11:06→20:00)
[2022-05-07 11:18] LABS: Glucose, Whole Blood 162 mg/dL (60-115)
--- NOTE | 2022-05-07 11:59 | MHC.SL.SWA ---
Speech Pathologist Impression: Oropharyngeal dysphagia Risk of Aspiration Due to: Neurological Condition Dysphasia Diet Status: Recommend continue diet of PUREE (NDD1) with HONEY THICK liquids, Pills Crushed in Puree (No change). Pt continues to need full assistance and supervision during all meals. Liquid Consistency and Strategies for Safe Swallow: Liquid Intake Recommendation: Honey Thick Liquid Intake Strategies: Small Sips No Straws Liquids by Teaspoon Only Solid Food Consistency: Dietary Recommendations: Pureed (NDD1) Additional Modifications to Solid Foods: Full assistance and supervision during meals. Pt must be alert and awake, and may be impulsive. Oral Medication Intake: Crushed with Puree Please contact the pharmacy regarding appropriate crushable or liquid drug formulations that are available whenever modified delivery is recommended. Compensatory Strategies and Precautions to be Taken for Safe Swallow: Sitting Upright (90 deg) No Straw Liquids from Spoon Small Bites and Sips Alternate Liquids/Solids Rate of Ingestion Change Oral Check Avoid Specific Foods Supervision While Eating and Drinking for Safe Swallow: Total Assistance (1:1) Foods to Avoid: Sticky foods; mixed consistencies Swallowing Recommended Treatments: Compens. Strategy Educat. Recommendation for Speech: Inpatient Speech Therapy Comment: Pt will need full assist and close monitor during meals for aspirations signs. Avoid sticky foods, mixed consistencies. Check oral cavity for clearance. To clear residue, alternate bites of food with sips of liquid, cue for multiple swallows as needed. Auto Motor Mechanic Clinican/Clinical Fellow: No Supervisory Statement: I have reviewed and agree with the student/clinical fellow's documentation: N/A Speech Language Pathologist: Chely Bazan M.A., CCC-[employer]
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
--- NOTE | 2022-05-07 14:15 | MHC.CLN ---
F/U DIET= PUREE WITH HONEY THICK LIQUIDS-APPROPRIATE PT RECEIVING MAGIC CUP BID TO INCREASE KCALS. PROVIDES 580 KCALS, 18 G PROTEIN. INTAKE APPEARS VERY GOOD WITH MOST MEALS 100%. SKIN WITH STAGE II TO RIGHT HEEL. CONTINUE TO FOLLOW FOR INTAKE AND SKIN. RD TO FOLLOW WEEKLY.
[2022-05-07 16:00] VITALS: BP 119/58; PULSE 87; RESP 16; TEMP 36.2; O2SAT 97
[2022-05-07 16:21] LABS: Glucose, Whole Blood 165 mg/dL (60-115)
[2022-05-07] MEDS: Tamsulosin HCL 0.4 MG CAPSULE PO (16:46)
[2022-05-07 19:21] LABS: Glucose, Whole Blood 178 mg/dL (60-115)
[2022-05-07 19:48] VITALS: BP 146/69; PULSE 92; RESP 16; TEMP 36.1; O2SAT 98
[2022-05-07] MEDS: Enoxaparin Sodium 40 MG/0.4 ML SYRINGE SUBCUT (20:00)
[2022-05-08] VITALS (7 sets, daily range): BP systolic 106–141; BP diastolic 55–89; PULSE 77–93; RESP 16–20; TEMP 35.9–36.8; O2SAT 95–99
[2022-05-08 07:16] LABS: Glucose, Whole Blood 114 mg/dL (60-115)
[2022-05-08] MEDS: Furosemide 20 MG TABLET PO (09:05)
[2022-05-08] MEDS: Atorvastatin Calcium 80 MG TABLET PO (09:05)
[2022-05-08] MEDS: Aspirin 81 MG TAB.CHEW PO (09:05)
[2022-05-08] MEDS: amLODIPine Besylate 10 MG TABLET PO (09:05)
--- NOTE | 2022-05-08 10:54 | HO.PM.IMPN ---
Subjective Subjective Date of Service: 05/08/22 Interval History: f/u on stroke with rigt sided weakness and now awaiting placement inteval history:no new issues Review of Systems Baseline confusion, no fever, no weakness. Physical Exam Vital Signs: Vital Signs: Last Vital Signs Temp 96.7 F L 05/08/22 08:00 Pulse 77 05/08/22 08:00 Resp 16 05/08/22 08:00 BP 106/55 L 05/08/22 08:00 Pulse Ox 95 05/08/22 08:00 O2 Del Method 05/08/22 08:00 O2 Flow Rate 2 04/20/22 16:00 BMI result Body Mass Index 35.7 Const: Other: General: oriented to self and place Resp: ishmael rhocnhi HEENT: chronic secretion in mouth and has to be sauctioned CVS: S1,S2,RRR GI: +BS, NT, no distention Skin: No rash, stage 2 R heel blisters, moderate serous drainage, open to air, heel floated on a boot Neuro: right sided weakness seem better Psych: appropriate affect Neuro: Other: He was alert and awake with normal spontaneity and fluency of speech. He spoke Barbadian but did understand some Colombian in followed some commands. His face was symmetrical. Visual trujillo are full. Tongue was midline. There was no obvious focal arm or leg weakness. Plantars were flat. Objective Data Active Medications Acetaminophen (Acetaminophen 325 Mg Tablet) 650 mg PO Q6H PRN PRN Reason: Pain, Mild (Pain Scale 1-3) Last Admin: 04/30/22 03:43 Dose: 650 mg Documented By: BEATRIZ Acetaminophen (Acetaminophen Supp 650 Mg Supp.Rect) 650 mg [place] Q6H PRN PRN Reason: fever Last Admin: 04/15/22 07:12 Dose: 650 mg Documented By: VANESA Amlodipine Besylate (Amlodipine Besylate 10 Mg Tablet) 10 mg PO DAILY [facility]; Protocol Last Admin: 05/08/22 09:05 Dose: 10 mg Documented By: ARPAN Aspirin (Aspirin 81 Mg Tab.Chew) 81 mg PO DAILY [facility] Last Admin: 05/08/22 09:05 Dose: 81 mg Documented By: ARPAN Atorvastatin Calcium (Atorvastatin Calcium 80 Mg Tablet) 80 mg PO DAILY [facility] Last Admin: 05/08/22 09:05 Dose: 80 mg Documented By: ARPAN Enoxaparin Sodium (Enoxaparin Sodium 40 Mg/0.4 Ml Syringe) 40 mg SUBCUT Q24H [facility] Last Admin: 05/07/22 20:00 Dose: 40 mg Documented By: CASTILMalka Furosemide (Furosemide 20 Mg Tablet) 20 mg PO DAILY [facility]; Protocol Last Admin: 05/08/22 09:05 Dose: 20 mg Documented By: ARPAN Hydralazine HCl (Hydralazine Hcl 20 Mg/Ml Vial) 10 mg IVPUSH TID PRN; Protocol PRN Reason: SBP > 180 Last Admin: 04/19/22 11:47 Dose: 10 mg Documented By: GBA Insulin Human Lispro (Insulin Lispro 100 Unit/Ml 3 Ml Vial) 0 unit SUBCUT QIDACHS [facility]; Protocol Last Admin: 05/08/22 08:11 Dose: Not Given Documented By: ARPAN Non-Admin Reason: No Insulin Coverage Ondansetron HCl (Ondansetron Hcl 4 Mg/2 Ml Vial) 4 mg IVPUSH Q8H PRN PRN Reason: Nausea and Vomiting Pharmacy Consult (Consult Rx Perform Med Rec) 1 each MISCELLANE ONCE PRN PRN Reason: Consult order Scopolamine (Scopolamine 1.5 Mg Patch.Td.3) 1.5 mg EAR-BEHIND Q72H [facility] Last Admin: 05/06/22 09:46 Dose: 1.5 mg Documented By: JOVON Tamsulosin HCl (Tamsulosin Hcl 0.4 Mg Capsule) 0.4 mg PO DAILY@1700 [facility] Last Admin: 05/07/22 16:46 Dose: 0.4 mg Documented By: BECKY Labs CBC & Chem 7: 05/07/22 05:27 05/07/22 05:27 Labs: Laboratory Results - last 24 hr 05/07/22 05/07/22 05/07/22 10:58 15:39 19:17 POC Glucose 162 H 165 H 178 H 05/08/22 07:08 POC Glucose 114 Assessment and Plan (1) Cerebrovascular accident: Status: Acute Plan 86 Barbadian speaker male with PMH of diabetes and hypertension who presents to the hospital complaining of start speech and left-sided weakness for 1 day and found to have no change in care today CVA with left sided weakness and slur sepeech and dysphagia now resolved - Clinical presenation c/w with acute stroke CT scan was negative for any acute findings, he was unable to do MRI on presentation due to inability to be able lay still and manage his secreation for days.? At this point MRI will not ticket dispenser changer or outcome and therefore will not be done. ? TO continue work with PT, OT, speech as needed.? Medical management with ASA, BP control, statin. Dysphagia with difficulty controlling secretions--improved and tolerating present diet Aspiration PNA with Hypoxa--completed coure of Unassyn, Augmentinn, no more hypoxia Diabetes--continue holding Metformin , SSI, blood sugars acceptable range Hypertension--Continue Norvasc Need for inpatient: post CVA management and will need placement and also guardianship via court initiated as he's not able to make decision and we are not able? to locate any family members. urinary retention--Frederick in place, continue Flomax stage 2 R heel blisters due to pressure, moderate serous drainage, open to air--of loading boot Darron Jimenez listed as person to contact at [phone] is not responding still--phone rings then goes to answering Guardianship paperwork filed with court Full code; code to be readdressed when family is located inpatient need: awaiting placement, guardianship papers filed Quality Stroke Does the patient have a stroke diagnosis?: Yes Reason for No Anti-thrombotic by Day Two: N/A - Med Ordered VTE Prior VTE?: No VTE Risk Level:: Medical - moderate - high VTE Device Contraindication: Treatment Not Indicated VTE Drug Contraindication: N/A - Med Ordered
[2022-05-08 11:17] LABS: Glucose, Whole Blood 176 mg/dL (60-115)
[2022-05-08] MEDS: Insulin Lispro 100 UNIT/ML 3 ML VIAL SUBCUT ×2 (12:06→21:25)
--- NOTE | 2022-05-08 13:50 | MHC.SL.SWA ---
Speech Pathologist Impression: Oropharyngeal dysphagia Risk of Aspiration Due to: Neurological Condition Dysphasia Diet Status: UPGRADE LIQUIDS Liquid Consistency and Strategies for Safe Swallow: Liquid Intake Recommendation: [place] Thick Liquid Intake Strategies: Small Sips No Straws Solid Food Consistency: Dietary Recommendations: Pureed (NDD1) Additional Modifications to Solid Foods: Recommend continue diet of PUREE (NDD1) and UPGRADE to NECTAR THICK liquids, Pills Crushed in Puree. Pt continues to need full assistance and supervision during all meals. Pt must be alert and awake, and may be impulsive. Oral Medication Intake: Crushed with Puree Please contact the pharmacy regarding appropriate crushable or liquid drug formulations that are available whenever modified delivery is recommended. Compensatory Strategies and Precautions to be Taken for Safe Swallow: Sitting Upright (90 deg) No Straw Small Bites and Sips Alternate Liquids/Solids Rate of Ingestion Change Oral Check Avoid Specific Foods Supervision While Eating and Drinking for Safe Swallow: Total Assistance (1:1) Swallowing Recommended Treatments: Compens. Strategy Educat. Recommendation for Speech: Inpatient Speech Therapy Comment: Pt will need full assist and close monitor during meals for aspirations signs. Avoid sticky foods, mixed consistencies. Check oral cavity for clearance. To clear residue, alternate bites of food with sips of liquid, cue for multiple swallows as needed. Can Line Operator Clinican/Clinical Fellow: No Supervisory Statement: I have reviewed and agree with the student/clinical fellow's documentation: N/A Speech Language Pathologist: Chely Bazan M.A., CCC-CONTROLLER INSTRUCTOR
[2022-05-08 16:08] LABS: Glucose, Whole Blood 147 mg/dL (60-115)
[2022-05-08] MEDS: Tamsulosin HCL 0.4 MG CAPSULE PO (18:46)
[2022-05-08 19:47] LABS: Glucose, Whole Blood 160 mg/dL (60-115)
[2022-05-08] MEDS: Enoxaparin Sodium 40 MG/0.4 ML SYRINGE SUBCUT (21:25)
[2022-05-09 03:30] VITALS: BP 132/62; PULSE 82; RESP 18; TEMP 36.1; O2SAT 97
[2022-05-09 07:27] LABS: Glucose, Whole Blood 125 mg/dL (60-115)
[2022-05-09 08:00] VITALS: BP 125/60; PULSE 85; RESP 18; TEMP 36.7; O2SAT 98
[2022-05-09] MEDS: amLODIPine Besylate 10 MG TABLET PO (09:52)
[2022-05-09] MEDS: Scopolamine 1.5 MG PATCH.TD.3 EAR-BEHIND (09:53)
[2022-05-09] MEDS: Atorvastatin Calcium 80 MG TABLET PO (09:53)
[2022-05-09] MEDS: Aspirin 81 MG TAB.CHEW PO (09:53)
[2022-05-09] MEDS: Furosemide 20 MG TABLET PO (09:53)
--- NOTE | 2022-05-09 10:23 | MHC.CM.PN ---
Guardianship hearing is set for 05/23/22; CM will follow.
--- NOTE | 2022-05-09 10:45 | P.PNIM_ITS ---
Subjective Subjective Date of Service: 05/09/22 Interval History: f/u on stroke with rigt sided weakness and now awaiting placement inteval history:no new issues, stable Review of Systems Baseline confusion, no fever, no weakness. Physical Exam Vital Signs: Vital Signs: Last Vital Signs Temp 98.1 F 05/09/22 08:00 Pulse 85 05/09/22 08:00 Resp 18 05/09/22 08:00 BP 125/60 05/09/22 08:00 Pulse Ox 98 05/09/22 08:00 O2 Del Method 05/09/22 08:00 O2 Flow Rate 2 04/20/22 16:00 BMI result Body Mass Index 35.7 Const: Other: General: oriented to self and place Resp: ishmael rhocnhi HEENT: chronic secretion in mouth and has to be sauctioned CVS: S1,S2,RRR GI: +BS, NT, no distention Skin: No rash, stage 2 R heel blisters, moderate serous drainage, open to air, heel floated on a boot Neuro: right sided weakness seem better Psych: appropriate affect Neuro: Other: He was alert and awake with normal spontaneity and fluency of speech. He spoke [place]an but did understand some Swazi in followed some commands. His face was symmetrical. Visual trujillo are full. Tongue was midline. There was no obvious focal arm or leg weakness. Plantars were flat. Objective Data Active Medications Acetaminophen (Acetaminophen 325 Mg Tablet) 650 mg PO Q6H PRN PRN Reason: Pain, Mild (Pain Scale 1-3) Last Admin: 04/30/22 03:43 Dose: 650 mg Documented By: BEATRIZ Acetaminophen (Acetaminophen Supp 650 Mg Supp.Rect) 650 mg [place] Q6H PRN PRN Reason: fever Last Admin: 04/15/22 07:12 Dose: 650 mg Documented By: VANESA Amlodipine Besylate (Amlodipine Besylate 10 Mg Tablet) 10 mg PO DAILY [facility]; Protocol Last Admin: 05/09/22 09:52 Dose: 10 mg Documented By: GAB Aspirin (Aspirin 81 Mg Tab.Chew) 81 mg PO DAILY [facility] Last Admin: 05/09/22 09:53 Dose: 81 mg Documented By: GBA Atorvastatin Calcium (Atorvastatin Calcium 80 Mg Tablet) 80 mg PO DAILY [facility] Last Admin: 05/09/22 09:53 Dose: 80 mg Documented By: GAB Enoxaparin Sodium (Enoxaparin Sodium 40 Mg/0.4 Ml Syringe) 40 mg SUBCUT Q24H [facility] Last Admin: 05/08/22 21:25 Dose: 40 mg Documented By: MARLEE Furosemide (Furosemide 20 Mg Tablet) 20 mg PO DAILY [facility]; Protocol Last Admin: 05/09/22 09:53 Dose: 20 mg Documented By: GAB Hydralazine HCl (Hydralazine Hcl 20 Mg/Ml Vial) 10 mg IVPUSH TID PRN; Protocol PRN Reason: SBP > 180 Last Admin: 04/19/22 11:47 Dose: 10 mg Documented By: GAB Insulin Human Lispro (Insulin Lispro 100 Unit/Ml 3 Ml Vial) 0 unit SUBCUT QIDACHS [facility]; Protocol Last Admin: 05/09/22 08:32 Dose: Not Given Documented By: GAB Non-Admin Reason: No Insulin Coverage Ondansetron HCl (Ondansetron Hcl 4 Mg/2 Ml Vial) 4 mg IVPUSH Q8H PRN PRN Reason: Nausea and Vomiting Pharmacy Consult (Consult Rx Perform Med Rec) 1 each MISCELLANE ONCE PRN PRN Reason: Consult order Scopolamine (Scopolamine 1.5 Mg Patch.Td.3) 1.5 mg EAR-BEHIND Q72H [facility] Last Admin: 05/09/22 09:53 Dose: 1.5 mg Documented By: GAB Tamsulosin HCl (Tamsulosin Hcl 0.4 Mg Capsule) 0.4 mg PO DAILY@1700 [facility] Last Admin: 05/08/22 18:46 Dose: 0.4 mg Documented By: ARPAN Labs CBC & Chem 7: 05/07/22 05:27 05/07/22 05:27 Labs: Laboratory Results - last 24 hr 05/08/22 05/08/22 05/08/22 11:10 15:48 19:43 POC Glucose 176 H 147 H 160 H 05/09/22 07:10 POC Glucose 125 H Assessment and Plan (1) Cerebrovascular accident: Status: Acute (2) Slurred speech: Status: Acute (3) Acute left-sided weakness: Status: Acute Plan 86 Sri [place]ankan speaker male with PMH of diabetes and hypertension who presents to the hospital complaining of start speech and left-sided weakness for 1 day and found to have no change in care today CVA with left sided weakness and slur sepeech and dysphagia now resolved - Clinical presenation c/w with acute stroke CT scan was negative for any acute findings, he was unable to do MRI on presentation due to inability to be able lay still and manage his secreation for days.? At this point MRI will not size changer or outcome and therefore will not be done. ? TO continue work with PT, OT, speech as needed.? Medical management with ASA, BP control, statin. Dysphagia with difficulty controlling secretions--improved and tolerating present diet Aspiration PNA with Hypoxa--completed coure of Unassyn, Augmentinn, no more hypoxia Diabetes--continue holding Metformin , SSI, blood sugars acceptable range Hypertension--Continue Norvasc Need for inpatient: post CVA management and will need placement and also guardianship via court initiated as he's not able to make decision and we are not able? to locate any family members. urinary retention--Frederick in place, continue Flomax stage 2 R heel blisters due to pressure, moderate serous drainage, open to air--of loading boot Darron Jimenez listed as person to contact at [phone] is not responding still--phone rings then goes to answering Guardianship paperwork filed with court Full code; code to be readdressed when family is located inpatient need: awaiting placement, guardianship papers filed More attempt to ambulate patient Quality Stroke Does the patient have a stroke diagnosis?: Yes Reason for No Anti-thrombotic by Day Two: N/A - Med Ordered VTE Prior VTE?: No VTE Risk Level:: Medical - moderate - high VTE Device Contraindication: Treatment Not Indicated VTE Drug Contraindication: N/A - Med Ordered
--- NOTE | 2022-05-09 11:03 | MHC.SL.SWA ---
Speech Pathologist Impression: Oropharyngeal dysphagia Risk of Aspiration Due to: Neurological Condition Dysphasia Diet Status: UPGRADE SOLIDS Liquid Consistency and Strategies for Safe Swallow: Liquid Intake Recommendation: [place] Thick Liquid Intake Strategies: Small Sips No Straws Solid Food Consistency: Dietary Recommendations: Grnd/Mech Altered (NDD2) Additional Modifications to Solid Foods: Recommend UPGRADE diet to GROUND/MECH ALTERED (NDD2) and continue with NECTAR THICK liquids, Pills Crushed in Puree. Pt presents with prolonged oral phase secondary to edentulous state. Recommend solids to be moistened with sauces and gravies to ease mastication. Pt to have 1:1 assistance during all PO intake. Check oral cavity to ensure clearance before giving more bites. Recommend strategies to promote oral clearance (alternate solids with sips of liquid, small bites). Pt must be alert and awake, and may be impulsive. Other aspiration precautions apply. ACOUSTIC WARFARE ANALYST updated diet order in [facility]. Discussed with RN on floor. Sent update to RN, MD, RD via [employer]. ACOUSTIC WARFARE ANALYST will continue to follow. Oral Medication Intake: Crushed with Puree Please contact the pharmacy regarding appropriate crushable or liquid drug formulations that are available whenever modified delivery is recommended. Compensatory Strategies and Precautions to be Taken for Safe Swallow: Sitting Upright (90 deg) No Straw Small Bites and Sips Alternate Liquids/Solids Rate of Ingestion Change Oral Check Avoid Specific Foods Supervision While Eating and Drinking for Safe Swallow: Total Assistance (1:1) Foods to Avoid: Tough, difficult to chew solids. Mixed consistencies. Swallowing Recommended Treatments: Compens. Strategy Educat. Recommendation for Speech: Inpatient Speech Therapy Poultry Barn Manager Clinican/Clinical Fellow: Yes: Peg Rosa M.A., CF-ACOUSTIC WARFARE ANALYST Supervisory Statement: I have reviewed and agree with the student/clinical fellow's documentation: N/A Speech Language Pathologist: Chely Bazan M.A., [facility]-ACOUSTIC WARFARE ANALYST
[2022-05-09 11:14] LABS: Glucose, Whole Blood 207 mg/dL (60-115)
[2022-05-09 11:36] VITALS: BP 143/65; PULSE 80; RESP 18; TEMP 36.1; O2SAT 99
[2022-05-09] MEDS: Insulin Lispro 100 UNIT/ML 3 ML VIAL SUBCUT ×2 (11:49→20:43)
[2022-05-09 15:08] VITALS: BP 142/67; PULSE 79; RESP 16; TEMP 36.6; O2SAT 98
[2022-05-09 15:49] LABS: Glucose, Whole Blood 150 mg/dL (60-115)
[2022-05-09] MEDS: Tamsulosin HCL 0.4 MG CAPSULE PO (16:30)
[2022-05-09 19:20] VITALS: BP 112/64; PULSE 96; RESP 18; TEMP 36.2; O2SAT 96
[2022-05-09 20:18] LABS: Glucose, Whole Blood 161 mg/dL (60-115)
[2022-05-09] MEDS: Enoxaparin Sodium 40 MG/0.4 ML SYRINGE SUBCUT (20:44)
[2022-05-09 23:32] VITALS: BP 125/64; PULSE 90; RESP 18; TEMP 36.1; O2SAT 97
[2022-05-10 03:29] VITALS: BP 134/65; PULSE 88; RESP 18; TEMP 36.4; O2SAT 98
[2022-05-10 07:16] LABS: Glucose, Whole Blood 164 mg/dL (60-115)
[2022-05-10 07:51] VITALS: BP 115/65; PULSE 76; RESP 15; TEMP 36.8; O2SAT 98
[2022-05-10] MEDS: Furosemide 20 MG TABLET PO (07:57)
[2022-05-10] MEDS: amLODIPine Besylate 10 MG TABLET PO (07:57)
[2022-05-10] MEDS: Aspirin 81 MG TAB.CHEW PO (07:57)
[2022-05-10] MEDS: Insulin Lispro 100 UNIT/ML 3 ML VIAL SUBCUT ×2 (07:57→16:29)
[2022-05-10] MEDS: Atorvastatin Calcium 80 MG TABLET PO (07:57)
[2022-05-10 10:58] VITALS: BP 126/65; PULSE 80; RESP 14; TEMP 35.9; O2SAT 98
[2022-05-10 11:17] LABS: Glucose, Whole Blood 150 mg/dL (60-115)
[2022-05-10 11:19] LABS: Glucose, Whole Blood 150 mg/dL (60-115)
--- NOTE | 2022-05-10 12:11 | MHC.SL.SWA ---
Speech Pathologist Impression: Oropharyngeal dysphagia Risk of Aspiration Due to: Neurological Condition Dysphasia Diet Status: No Change Liquid Consistency and Strategies for Safe Swallow: Liquid Intake Recommendation: [place] Thick Liquid Intake Strategies: Small Sips No Straws Solid Food Consistency: Dietary Recommendations: Grnd/Mech Altered (NDD2) Additional Modifications to Solid Foods: Recommend continue diet GROUND/MECH ALTERED (NDD2) with NECTAR THICK liquids, Pills Crushed in Puree. Pt presents with prolonged oral phase secondary to edentulous state. Recommend solids to be moistened with sauces and gravies to ease mastication. Pt to have 1:1 assistance during all PO intake. Check oral cavity to ensure clearance before giving more bites. Recommend strategies to promote oral clearance (alternate solids with sips of liquid, small bites). Pt must be alert and awake, and may be impulsive. Other aspiration precautions apply. Oral Medication Intake: Crushed with Puree Please contact the pharmacy regarding appropriate crushable or liquid drug formulations that are available whenever modified delivery is recommended. Compensatory Strategies and Precautions to be Taken for Safe Swallow: Sitting Upright (90 deg) No Straw Small Bites and Sips Alternate Liquids/Solids Rate of Ingestion Change Oral Check Avoid Specific Foods Supervision While Eating and Drinking for Safe Swallow: Total Assistance (1:1) Foods to Avoid: Tough, difficult to chew solids. Mixed consistencies. Swallowing Recommended Treatments: Compens. Strategy Educat. Recommendation for Speech: Inpatient Speech Therapy Windows Desktop Support Clinican/Clinical Fellow: Yes: Peg Rosa M.A., CF-COMMERCIAL ATTACHE Supervisory Statement: I have reviewed and agree with the student/clinical fellow's documentation: Yes Speech Language Pathologist: Chely Bazan M.A., CCC-COMMERCIAL ATTACHE
[2022-05-10 15:32] VITALS: BP 119/59; PULSE 86; RESP 17; TEMP 36.2; O2SAT 96
--- NOTE | 2022-05-10 15:43 | HO.PM.IMPN ---
Subjective Subjective Date of Service: 05/10/22 Interval History: seen and examined this morning History obtained the assistance of a component assembler supervisor f/u for stroke and now awaiting placement Patient is awake, alert. Has no specific complaints this morning He is able to tell me his name and that he is in [place] but otherwise unable to provide history Review of Systems Review of Systems: Yes all other systems are reviewed and are negative Constitutional Constitutional: Denies fever(s) Cardiovascular Cardiovascular: Denies chest pain and Denies dyspnea Respiratory Respiratory: Denies dyspnea Gastrointestinal Gastrointestinal: Denies abdominal pain Physical Exam Vital Signs: Vital Signs: Last Vital Signs Temp 97.1 F 05/10/22 15:32 Pulse 86 05/10/22 15:32 Resp 17 05/10/22 15:32 BP 119/59 L 05/10/22 15:32 Pulse Ox 96 05/10/22 15:32 O2 Del Method 05/10/22 15:32 O2 Flow Rate 2 04/20/22 16:00 BMI result Body Mass Index 35.7 Const: General: cooperative, comfortable, alert and awake Orientation/consciousness: oriented to person Resp: Effort & Inspection: normal respiratory effort and able to speak in complete sentences Cardio: Rate: regular rate Heart sounds: S1 normal heart sound present and S2 normal heart sound present GI: Inspection: No distended Palpation (GI): Soft to palpation and nontender : Other: spencer in place Neuro: Other: able to move all 4 extremities General: oriented to person Extrem: Other: right foot in offloading boot Objective Data Active Medications Acetaminophen (Acetaminophen 325 Mg Tablet) 650 mg PO Q6H PRN PRN Reason: Pain, Mild (Pain Scale 1-3) Last Admin: 04/30/22 03:43 Dose: 650 mg Documented By: BEATRIZ Acetaminophen (Acetaminophen Supp 650 Mg Supp.Rect) 650 mg [place] Q6H PRN PRN Reason: fever Last Admin: 04/15/22 07:12 Dose: 650 mg Documented By: VANESA Amlodipine Besylate (Amlodipine Besylate 10 Mg Tablet) 10 mg PO DAILY [facility]; Protocol Last Admin: 05/10/22 07:57 Dose: 10 mg Documented By: ALEXI Aspirin (Aspirin 81 Mg Tab.Chew) 81 mg PO DAILY [facility] Last Admin: 05/10/22 07:57 Dose: 81 mg Documented By: ALEXI Atorvastatin Calcium (Atorvastatin Calcium 80 Mg Tablet) 80 mg PO DAILY [facility] Last Admin: 05/10/22 07:57 Dose: 80 mg Documented By: ALEXI Enoxaparin Sodium (Enoxaparin Sodium 40 Mg/0.4 Ml Syringe) 40 mg SUBCUT Q24H [facility] Last Admin: 05/09/22 20:44 Dose: 40 mg Documented By: MARLEE Furosemide (Furosemide 20 Mg Tablet) 20 mg PO DAILY [facility]; Protocol Last Admin: 05/10/22 07:57 Dose: 20 mg Documented By: ALEXI Hydralazine HCl (Hydralazine Hcl 20 Mg/Ml Vial) 10 mg IVPUSH TID PRN; Protocol PRN Reason: SBP > 180 Last Admin: 04/19/22 11:47 Dose: 10 mg Documented By: GAB Insulin Human Lispro (Insulin Lispro 100 Unit/Ml 3 Ml Vial) 0 unit SUBCUT QIDACHS [facility]; Protocol Last Admin: 05/10/22 11:24 Dose: Not Given Documented By: ALEXI Non-Admin Reason: No Insulin Coverage Ondansetron HCl (Ondansetron Hcl 4 Mg/2 Ml Vial) 4 mg IVPUSH Q8H PRN PRN Reason: Nausea and Vomiting Pharmacy Consult (Consult Rx Perform Med Rec) 1 each MISCELLANE ONCE PRN PRN Reason: Consult order Scopolamine (Scopolamine 1.5 Mg Patch.Td.3) 1.5 mg EAR-BEHIND Q72H [facility] Last Admin: 05/09/22 09:53 Dose: 1.5 mg Documented By: GAB Tamsulosin HCl (Tamsulosin Hcl 0.4 Mg Capsule) 0.4 mg PO DAILY@1700 [facility] Last Admin: 05/09/22 16:30 Dose: 0.4 mg Documented By: MARLEE Labs CBC & Chem 7: 05/07/22 05:27 05/07/22 05:27 Labs: Laboratory Results - last 24 hr 05/09/22 05/09/22 05/10/22 15:43 20:13 07:05 POC Glucose 150 H 161 H 164 H 05/10/22 05/10/22 11:05 11:05 POC Glucose 150 H 150 H Assessment and Plan (1) Acute left-sided weakness: Status: Acute Plan 86 Bengali speaker male with PMH of diabetes and hypertension who presents to the hospital complaining of start speech and left-sided weakness for 1 day CVA with left sided weakness, slurred speech and dysphagia now resolved - Clinical presentation c/w with acute stroke CT scan was negative for any acute findings, he was unable to do MRI on presentation due to inability to be able lay still and manage his secretions for days.? At this point MRI will not change agent or outcome and therefore will not be done. ?continue work with PT, OT, speech as needed.? Medical management with ASA, BP control, statin. Dysphagia with difficulty controlling secretions--improved and tolerating present diet Aspiration PNA with Hypoxa--completed course of Unasyn, Augmentin, no more hypoxia Diabetes--continue holding Metformin , SSI, blood sugars acceptable range Hypertension--Continue Norvasc Need for inpatient: post CVA management and will need placement and also guardianship via court initiated as he's not able to make decision and we are not able? to locate any family members. urinary retention--Spencer in place, continue Flomax stage 2 R heel blisters due to pressure, moderate serous drainage, open to air--off loading boot Shirley Jimenez listed as person to contact at [phone] is not responding still--phone rings then goes to answering Guardianship paperwork filed with court Full code; code to be readdressed when family is located inpatient need: awaiting placement, guardianship papers filed attending - dr. galvan More attempt to ambulate patient Quality Stroke Does the patient have a stroke diagnosis?: Yes Reason for No Anti-thrombotic by Day Two: N/A - Med Ordered VTE Prior VTE?: No VTE Risk Level:: Medical - moderate - high VTE Device Contraindication: Treatment Not Indicated VTE Drug Contraindication: N/A - Med Ordered
[2022-05-10 15:59] LABS: Glucose, Whole Blood 172 mg/dL (60-115)
[2022-05-10] MEDS: Tamsulosin HCL 0.4 MG CAPSULE PO (16:29)
[2022-05-10 19:09] VITALS: BP 143/75; PULSE 95; RESP 17; TEMP 36.3; O2SAT 96
[2022-05-10 19:38] LABS: Glucose, Whole Blood 139 mg/dL (60-115)
[2022-05-10] MEDS: Enoxaparin Sodium 40 MG/0.4 ML SYRINGE SUBCUT (19:42)
[2022-05-11] VITALS: BP 119/64; PULSE 94; RESP 16; TEMP 36.7; O2SAT 96
[2022-05-11 03:46] VITALS: BP 141/69; PULSE 82; RESP 16; TEMP 36.8; O2SAT 97
[2022-05-11 07:10] LABS: Glucose, Whole Blood 130 mg/dL (60-115)
[2022-05-11 07:12] VITALS: BP 126/66; PULSE 81; RESP 18; TEMP 36.9; O2SAT 96
[2022-05-11] MEDS: Aspirin 81 MG TAB.CHEW PO (07:59)
[2022-05-11] MEDS: Atorvastatin Calcium 80 MG TABLET PO (07:59)
[2022-05-11] MEDS: Furosemide 20 MG TABLET PO (07:59)
[2022-05-11] MEDS: amLODIPine Besylate 10 MG TABLET PO (07:59)
--- NOTE | 2022-05-11 08:57 | MHC.CM.PN ---
CM MET W/PT, HOSPITALIST, RN CM AND CM DIRECTOR CM AND HOSPITALISTS HAVE BEEN ATTEMPTING TO CONTACT HER, LILLY PROVIDED CM W/A DIFFERENT PHONE NUMBER THAN WHAT IS ON FILE. LILLY DID REPORT SHE SAW PT'S GUARDIANSHIP PAPERWORK AT BEDSIDE AND MOST LIKELY RECEIVED CERTIFIED MAIL FROM COURTS. PT'S DIL/HCP SARAH [phone], BRIAN REPORTS PT LIVES W/HER AND PT'S SON AND THAT THEY ARE WILLING TO TAKE PT HOME HOPWEVER WOULD LIKE STR IF POSSIBLE AND DOES WANT HOME SERVICES HOWEVER PT HAS BEEN GOING BACK AND FORTH FROM PT AND HAS NOT SEEN XIMENA WILLINGHAM SINCE ABOUT 2017, DIL AWARE CM WILL MAKE INITIAL PCP APPT FOR PT AND THAT HE WILL NOT BE ABLE TO HAVE SERVICES IN HOME UNTIL HE IS SEEN BY A PCP. CM WILL SEND OUT REFERRALS FOR [facility] AND PT EVAL REQUESTED.
--- NOTE | 2022-05-11 09:24 | MHC.CM.PN ---
NO BED OFFERS AT THIS TIME, SNF REFERRAL EXPANDED.
--- NOTE | 2022-05-11 09:36 | MHC.CM.PN ---
PER PT PT WAS DISCHARGED FROM PT D/T LACK OF PROGRESS AND RECOMMEND LTC VS 24HR CARE AT HOME, CM WILL MEET W/DIL VIA CLAIMS ADJUSTER CROP TO PLAN FOR TRANSPORT LATER TODAY.
[2022-05-11 11:39] VITALS: BP 128/60; PULSE 79; RESP 18; TEMP 36.3; O2SAT 98
[2022-05-11 11:46] LABS: Glucose, Whole Blood 176 mg/dL (60-115)
--- NOTE | 2022-05-11 11:55 | MHC.SL.SWA ---
Speech Pathologist Impression: Oropharyngeal dysphagia Risk of Aspiration Due to: Neurological Condition Dysphasia Diet Status: Water (thin) ok between meals w/ assistance & aspiration precautions Liquid Consistency and Strategies for Safe Swallow: Liquid Intake Recommendation: [place] Thick Liquid Intake Strategies: Small Sips No Straws Solid Food Consistency: Dietary Recommendations: Grnd/Mech Altered (NDD2) Additional Modifications to Solid Foods: Recommend to continue with GROUND/MECH ALTERED (NDD2) and continue with NECTAR THICK liquids, Pills Crushed in Puree. Pt presents with prolonged oral phase secondary to edentulous state. Recommend solids to be moistened with sauces and gravies to ease mastication. Pt to have 1:1 assistance during all PO intake. Check oral cavity to ensure clearance before giving more bites. Recommend strategies to promote oral clearance (alternate solids with sips of liquid, small bites). WATER (THIN) ok by teaspoon only as requested between meals, w/ strict aspiration precautions, 1:1 assistance, and monitoring of tolerance. Oral care to be provided before and after PO intake. Pt must be alert and awake, and may be impulsive. Other aspiration precautions apply. WEB CONTENT EXECUTIVE will continue to follow to monitor tolerance and re-assess for potential upgrade. Oral Medication Intake: Crushed with Puree Please contact the pharmacy regarding appropriate crushable or liquid drug formulations that are available whenever modified delivery is recommended. Compensatory Strategies and Precautions to be Taken for Safe Swallow: Sitting Upright (90 deg) No Straw Small Bites and Sips Alternate Liquids/Solids Rate of Ingestion Change Oral Check Avoid Specific Foods Supervision While Eating and Drinking for Safe Swallow: Total Assistance (1:1) Foods to Avoid: Tough, difficult to chew solids. Mixed consistencies. Swallowing Recommended Treatments: Compens. Strategy Educat. Recommendation for Speech: Inpatient Speech Therapy Production Line Technician Clinican/Clinical Fellow: Yes: Peg Rosa M.A., CF-WEB CONTENT EXECUTIVE Supervisory Statement: I have reviewed and agree with the student/clinical fellow's documentation: Yes Speech Language Pathologist: Chely Bazan M.A., CCC-WEB CONTENT EXECUTIVE
--- NOTE | 2022-05-11 11:56 | P.F2F_ITS ---
Service Date Service Date: 05/11/22 Encounter Date of encounter: 05/11/22 Reasons for Services Signs and symptoms assessed: will need retirement for Frederick catheter management, right heel dressing changes. Allevyn foam dressing to right heel every other day Reason for retirement: wound care MD Overseeing Care: Sharifa Junior Homebound: Leaving the home is medically contraindicated at this time without the asist of a device and/or another person due th the listed conditions above and below. Reason homebound: unsteady gait / fall risk and cognitively impaired / unsafe Certification: Based on the above findings, I certify that this patient is confined to the home and needs intermittent retirement care, physical therapy and/or speech therapy, or continues to need occupational therapy. The patient is under my care, and I have initiated the establishment of the plan of care. The patient will be followed by a physician who will periodically review the plan of care.
--- NOTE | 2022-05-11 11:58 | P.DS_ITS ---
DS: Providers Provider Date of Service: 05/11/22 Date of admission: 04/14/22 15:09 Date of discharge: 05/11/22 Primary care physician: Unknown Physician Consults: 04/14/22 15:09 Consult to Neurology Routine Consulting Provider: Trenton Tan Reason for consultation: left-sided weakness DS: Diagnosis Discharge Diagnosis (1) Acute left-sided weakness: Status: Acute DS: Summary Hospital Course Hospital Course: From H&P on the day of admission an 86 Croatian speaker male with PMH of diabetes and hypertension who presents to the hospital complaining of start spe ech and left-sided weakness for 1 day. The patient is visiting his relatives from [place].? He is fairly poor historian but reported that since yesterday afternoon he felt his left side is not as strong as before mainly in his left upper extremity with associated difficulty speaking and swallowing.? This morning he noticed that he has care cleaning and has secretions in his throat with persistent of difficulty speaking and weakness in left side of his body.? He decided to come to the hospital for further evaluation and treatment.? He denies any fever, chills, headache, lightheadedness, double vision, shortness of breath, chest pain, nausea or vomiting or change in bowel habit. CT scan in the emergency was negative for any acute findings.? He failed bedside swallowing? screen. ?to be admitted for further evaluation and treatment. CVA with left sided weakness, slurred speech and dysphagia now resolved - Clinical presentation c/w with acute? stroke CT scan was negative for any acute findings, he was unable to do MRI on presentation due to inability to be able lay still and manage his secretions for days.? 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 ?continue work with PT, OT, speech as needed.? Medical management with ASA, BP control, statin. physical therapy recommended long-term care or home with 24/7 care Dysphagia with difficulty controlling secretions initially--improved and tolerating present diet. was seen by speech who recommended mechanical ground diet. Aspiration PNA with Hypoxa--completed course of Unasyn, Augmentin, no more hypoxia. currently saturating 98% on room air Diabetes- resume metformin on discharge Hypertension--Continue Norvasc. Blood pressure has been under control urinary retention--Frederick in place. Failed voiding trial, Frederick was replaced. Patient was started on Flomax. will need outpatient urology follow-up stage 2 Right heel ulcer. allevyn foam dressing, every other day. Can consider outpatient wound care referral. he is now stable for discharge home with family. initially we were unable to get ahold of family and Guardianship paper was submitted to the court. However family returned and is able to care for him at home. He will be discharged home with [facility] for Frederick management and right heel dressing changes. Time Spent with Patient Time attestation: Total time spent providing and/or coordinating discharge services: Discharge coordination time: Greater than 30 minutes Quality: Safe Use of Opioids Does Pt have an Active Cancer Diagnosis on the Problem List?: No Quality: Stroke Does the patient have a stroke diagnosis?: Yes Reason for No Anti-thrombotic at DC: N/A - Med Ordered Reason for No Anticoagulant at DC: N/A - Med Ordered Reason Not Initiating IV-Tpa: Not indicated Reason for No Anti-thrombotic by Day Two: N/A - Med Ordered Reason for No Statin at DC: N/A - Med Ordered Physical Exam Vital Signs: Vital Signs: Last Vital Signs Temp 97.4 F 05/11/22 11:39 Pulse 79 05/11/22 11:39 Resp 18 05/11/22 11:39 BP 128/60 05/11/22 11:39 Pulse Ox 98 05/11/22 11:39 O2 Del Method 05/11/22 11:39 O2 Flow Rate 2 04/20/22 16:00 BMI result Body Mass Index 35.7 Const: General: cooperative, comfortable, no acute distress, alert and awake Nutritional Appearance: average body habitus Orientation/consciousness: oriented to person Resp: Effort & Inspection: normal respiratory effort and able to speak in complete sentences Cardio: Rate: regular rate Heart sounds: S1 normal heart sound present and S2 normal heart sound present GI: Inspection: No distended Palpation (GI): Soft to palpation and nontender Neuro: General: oriented to person Extrem: General: Yes no pedal edema DS: Data Data Completed and Pending Labs on day of discharge: Laboratory Results - last 24 hr 05/10/22 05/10/22 05/11/22 15:54 19:18 07:06 POC Glucose 172 H 139 H 130 H 05/11/22 11:38 POC Glucose 176 H Discharge Plan Discharge Patient Disposition: Home, Self-Care Discharge Diagnosis: stroke Referrals: [facility] [Outside] - 1 Week Arvind Arechiga MD [Physician] - 1 Week Sharifa Mejias MD [Physician] - 05/14/22 9:00 am (You have an appointment scheduled on 05/14/2022, at 9:00 AM. Please arrive by 8:45 AM and bring your insurance cards. ) Physician,Unknown J [Primary Care Provider] - 1 Week Discharge Medications: New tamsulosin 0.4 mg Capsule 0.4 mg PO DAILY@1700 30 Days Qty: 30 0RF atorvastatin 80 mg Tablet 80 mg PO DAILY 30 Days Qty: 30 0RF aspirin 81 mg Tablet,Chewable 81 mg PO DAILY 30 Days Qty: 30 0RF Continued furosemide [Lasix] 20 mg tablet 20 mg PO DAILY Qty: 30 0RF metformin 500 mg tablet 500 mg PO DAILY Qty: 30 0RF amlodipine 10 mg tablet 10 mg PO DAILY Qty: 30 0RF Discharge Orders: Discharge Order (Routine); Ordered 05/11/22 Ordered By: Melia Rocha Activity on Discharge: As tolerated Stand Alone Forms: Patient Portal Discharge page Care Plan Goals: see below Health Concerns: acute stroke - initially with left-sided weakness, slurred speech and dysphagia. Now improved urinary retention- Frederick catheter in place dysphagia aspiration pneumonia - resolved with antibiotics right heel stage II pressure wound- recommend offloading with pillows when able. allyvyn foam dressing every other day Plan of Treatment: For stroke you have been started on aspirin and statin. please take as prescribed. for urinary retention you have been started on Flomax. You will need to keep Frederick catheter in place until you can be evaluated by urology. call to schedule a follow-up appointment with the urologist for difficulty swallowing, you have been eating a ground diet. continue with ground diet to prevent choking and aspiration. Eat Sitting Upright (90 deg), No Straw, Take Small Bites and Sips, Alternate Liquids/Solids. Assistance with eating is recommended please keep your scheduled appointment with your PCP Assessment: see discharge summary Discharge Date/Time: 05/11/22 17:17
[2022-05-11] MEDS: Insulin Lispro 100 UNIT/ML 3 ML VIAL SUBCUT ×2 (12:33→16:49)
--- NOTE | 2022-05-11 13:00 | MHC.CM.PN ---
PATIENT IS DC HOME WITH [facility]FERRAL TO [facility] IS UNABLE TO ACCEPT PATIENT WHO HAVE NOT YET SECURED PCP VISIT PATIENT CANNOT DC HOME WITH [facility], FAMILY NEEDS RN SKILLS SUPPORT IMM 05/11 IN CHART
[2022-05-11 16:00] VITALS: BP 149/77; PULSE 97; RESP 17; TEMP 36.4; O2SAT 97
[2022-05-11 16:17] LABS: Glucose, Whole Blood 151 mg/dL (60-115)
[2022-05-11] MEDS: Tamsulosin HCL 0.4 MG CAPSULE PO (16:49)
== END 2022-05-11 17:17 | disposition home health service (06) | DRG 64 ==
LOC: HO.ED 15:02 → HO.EDOVER 15:23 → HO.IMC 04-17 07:58 → HO.S3 04-18 15:43
PROVIDERS: Internal Medicine; Admitting Provider Student in an Organized Health Care Education/Training Program; Emergency Provider Emergency Medicine; Visit Provider Physician Assistant Medical
DX: I63.9 Cerebral infarction, unspecified (principal); J69.0 Pneumonitis due to inhalation of food and vomit; G81.94 Hemiplegia, unspecified affecting left nondominant side; R13.10 Dysphagia, unspecified; E11.9 Type 2 diabetes mellitus without complications; R47.81 Slurred speech; I10 Essential (primary) hypertension; R33.9 Retention of urine, unspecified; L89.612 Pressure ulcer of right heel, stage 2; R29.703 NIHSS score 3; Z20.822 Contact with and (suspected) exposure to COVID-19; Z91.19 Patient's noncompliance with other medical treatment and regimen; Z75.1 Person awaiting admission to adequate facility elsewhere; Z79.84 Long term (current) use of oral hypoglycemic drugs; Z79.899 Other long term (current) drug therapy
CPT/HCPCS: 36415; 36573; 70450; 71045; 74018; 80048; 80061; 81001; 82550; 82947; 83605; 84484; 85025; 85027; 85610; 85730; 87040; 87635; 92526; 92610; 93005; 93880; 97110; 97162; 97167; 97530; 99285; C1751; C1758; J0295; J1650

== ENCOUNTER 2022-05-14 10:22 | Outpatient (REF) | payer MEDICARE, OTHER, SELFPAY ==
[2022-05-14 11:32] LABS: Hematocrit 43.1 % (42.0-52.0); Hemoglobin 13.6 g/dl (14.0-18.0); Mean Corpuscular HGB Conc 31.6 g/dl (31.0-36.0); Mean Corpuscular Hemoglobin 26.1 pg (27.0-33.0); Mean Corpuscular Volume 82.6 fL (80.0-98.0); Mean Platelet Volume 11.8 fL (9.4-12.4); Platelet Count 339 X10*3/uL (160-400); Red Blood Count 5.22 X10*6/uL (4.60-5.80); Red Cell Distribution Width 14.8 % (11.0-16.0); White Blood Count 11.2 X10*3/uL (4.8-10.8)
[2022-05-14 12:24] LABS: Anion Gap 17 (12-20); Blood Urea Nitrogen 15 mg/dL (9-16); Calcium 8.7 mg/dL (8.4-10.2); Carbon Dioxide 28 mmol/L (22-29); Chloride 98 mmol/L (96-108); Estimated Glomerular Filt Rate > 60; Glucose Random 152 mg/dL (60-115); Potassium 4.2 mmol/L (3.3-5.1); Sodium 139 mmol/L (135-145)
[2022-05-14 12:34] LABS: Prostate Specific Antigen Scr 1.91 ng/mL (<0.05-4.0); TSH reflex Free T4 3.38 uIU/mL (0.32-4.0)
== END 2022-05-14 10:23 | disposition home or self-care (01) ==
LOC: HO.LAB 10:22
PROVIDERS: PCP Physician Assistant; Visit Provider Physician Assistant
DX: E11.59 Type 2 diabetes mellitus with other circulatory complications (principal); R33.9 Retention of urine, unspecified; I10 Essential (primary) hypertension; Z12.5 Encounter for screening for malignant neoplasm of prostate
CPT/HCPCS: 36415; 80048; 84153; 84443; 85027

== ENCOUNTER 2022-05-21 11:46 | Inpatient (IN) | payer MEDICARE, OTHER, SELFPAY ==
--- NOTE | ~2022-05-21 | MR_ITS ---
EXAMINATION: MR ABDOMEN WITHOUT CONTRAST CLINICAL INFORMATION: Elevated LFTs. COMPARISON: Ultrasound 05/21/[address] 05/21/2022 . Nuclear medicine biliary scan 05/01/2022. TECHNIQUE: MR abdomen is performed without gadolinium contrast. Heavily T2-weighted sequence performed for MRCP acquisition. FINDINGS: LUNG BASES: The visualized lung bases are unremarkable. LIVER, GALLBLADDER, AND BILIARY TREE: The liver is normal in size, smooth in contour, and normal in signal. 0.6 cm T2 bright lesion centrally in the right lobe of the liver, likely a cyst. No additional focal hepatic lesion or biliary ductal dilatation is present. The common bile duct measures 0.4 cm. No ductal filling defect. Gallbladder is contracted. 1.8 cm stone in the region of the gallbladder neck. There may be mild inflammation around the gallbladder. Small amount of fluid tracks inferiorly from the tip of the liver. PANCREAS: Unremarkable. SPLEEN: Unremarkable. ADRENAL GLANDS: Unremarkable. KIDNEYS AND URETERS: The kidneys are normal in size and shape. No hydronephrosis. No perinephric stranding. Simple bilateral renal cysts. No follow-up imaging recommended. GASTROINTESTINAL TRACT: No bowel obstruction. No ascites or fluid collection. ABDOMINAL WALL: No significant hernia is appreciated. LYMPH NODES: No lymphadenopathy. VASCULAR: Unremarkable. OSSEOUS STRUCTURES: Marrow signal normal. MR/MR abdomen wo con IMPRESSION: Contracted gallbladder with stone noted in the region of the gallbladder neck. Mild inflammation along the margin of the gallbladder. These findings are consistent with appearance on previous imaging suggesting acute cholecystitis. No biliary ductal dilatation or ductal filling defect.
--- NOTE | ~2022-05-21 | NM_ITS ---
EXAMINATION: NUCLEAR MEDICINE HEPATOBILIARY SCAN WITHOUT PHARMACEUTICAL CLINICAL INFORMATION: Elevated liver function tests. Gallstones. Rule out cholecystitis. COMPARISON: Previous CT of the abdomen and pelvis and abdominal ultrasound from earlier the same day TECHNIQUE: The patient was administered 4 mCi of technetium 99m labeled mebrofenin. CT imaging of the abdomen every minute for the first 60 minutes was performed. This was continued for another 60 minutes. Delayed 4 hour imaging of the abdomen in the CHILEAN, HUGHES and right lateral projections was also performed. FINDINGS: There is prompt and homogeneous liver uptake. There is prompt activity seen in the extrahepatic bile ducts and small bowel. There is no activity seen in the gallbladder. Findings are suggestive of acute cholecystitis or cystic duct obstruction. NM/NM hepatobiliary wo pharm IMPRESSION: No activity seen in the gallbladder suggestive of acute cholecystitis or cystic duct obstruction.
--- NOTE | ~2022-05-21 | CT_ITS ---
EXAMINATION: CT ABDOMEN AND PELVIS WITHOUT CONTRAST CLINICAL INFORMATION: Hematuria COMPARISON: None TECHNIQUE: Multidetector volumetric imaging was performed from the superior aspect of the liver through the pubic symphysis. Sagittal and coronal reformatted images were obtained on the technologist's workstation. This CT examination was performed using dose optimization techniques as appropriate, variously including the following: *Automated exposure control *Adjustment of mA and/or kV according to patient size (this includes techniques or standardized protocols for targeted exams where dose is matched to indication/reason for exam; i.e. extremities or head) *Use of iterative reconstruction technique DLP: 659 mGy-cm FINDINGS: LUNG BASES: The visualized lung bases are unremarkable. LIVER, GALLBLADDER, AND BILIARY TREE: The liver is normal in size, shape, and attenuation. No focal hepatic lesion or biliary ductal dilatation is present. Gallstones in the gallbladder. PANCREAS: Unremarkable. SPLEEN: Unremarkable. ADRENAL GLANDS: Unremarkable. KIDNEYS AND URETERS: The kidneys are normal in size, shape, and attenuation. No hydronephrosis, hydroureter, or calculi seen. No perinephric stranding. BLADDER: There is a Frederick catheter in the bladder. Bladder is empty. There is a small amount of air in the bladder probably related to Frederick catheter placement. There is diffuse bladder wall thickening and stranding of the perivesicular fat. GASTROINTESTINAL TRACT: Diverticulosis of the colon. The small and large bowel are otherwise unremarkable. The appendix is unremarkable. ABDOMINAL WALL: Small umbilical hernia containing fat. LYMPH NODES: Nonspecific mild fat stranding small bowel mesentery and shotty small bowel mesentery lymphadenopathy. No enlarged lymph nodes. No ascites. VASCULAR: There is evidence of atherosclerotic disease. Ectasia of the right common iliac artery. PELVIC VISCERA: The prostate gland is enlarged and measures 4.5 x 5 cm. OSSEOUS STRUCTURES: Unremarkable. CT/CT abdomen pelvis wo con IMPRESSION: Gallstones. Frederick catheter in the bladder. The bladder is empty. Small amount of air in the bladder likely related to Frederick catheter placement. Mild diffuse bladder wall thickening and stranding of the perivesicular fat. Infectious, inflammatory and neoplastic bladder process should be considered. Enlarged prostate gland. Diverticulosis of the colon. No evidence of diverticulitis. Nonspecific small bowel mesentery fat stranding and shotty lymphadenopathy, mild. Fleischner guidelines were followed.
--- NOTE | ~2022-05-21 | US_ITS ---
EXAMINATION: US ABDOMEN LIMITED CLINICAL INFORMATION: Elevated LFTs. COMPARISON: CT 05/21/2022 TECHNIQUE: Real-time imaging of the right upper quadrant abdominal viscera. Portable exam. FINDINGS: PANCREAS: Obscured by bowel gas LIVER: Normal. The liver is normal in size. The liver contour is normal. Parenchymal echogenicity is normal. No focal hepatic lesion. There is no intrahepatic biliary duct dilatation seen. GALLBLADDER: There are several echogenic gallstones. There is no pericholecystic fluid. There is subtle asymmetric wall thickening toward the infundibulum up to 7 mm, though in the body and fundus there appear to be significant wall thickening. There is no sonographic Hadley's sign. COMMON BILE DUCT: Normal in caliber measuring 0.4 cm in diameter. RIGHT KIDNEY: Normal. No hydronephrosis or focal parenchymal lesions. At the lower pole there is an echogenic 6 x 5 mm structure which may represent a nonobstructing calculus, though no CT correlate is identified. The kidney measures 10.6 cm in maximum dimension. FREE FLUID: None. US/US abdomen limited IMPRESSION: Somewhat equivocal findings of the gallbladder. While there are gallstones and there is some degree of wall thickening toward the infundibulum, the main body and fundus do not demonstrate similar wall thickening and there is no sonographic Hadley sign. If there are continued clinical concerns for cholecystitis, further evaluation could be considered with HIDA. 6 x 5 mm echogenic structure at the lower pole right kidney which could represent a nonobstructing calculus, though there is no CT correlate.
[2022-05-21 11:58] VITALS: BP 117/63; BP 142/88; PULSE 82; PULSE 86; RESP 16; TEMP 36.8; O2SAT 97; O2SAT 99; BMI 29.9
--- NOTE | 2022-05-21 12:12 | ED.MALEGU ---
HPI - Male Genitourinary General Chief complaint: Urogenital-Male <SAMPSON Manrique - Last Filed: 05/21/22 17:31> Stated complaint: BLOOD IN F/C BAG,ON THINNERS <SAMPSON Manrique - Last Filed: 05/21/22 17:31> Time Seen by Provider: 05/21/22 11:58 <SAMPSON Manrique - Last Filed: 05/21/22 17:31> Source: patient and EMS <SAMPSON Manrique Last Filed: 05/21/22 17:31> Mode of arrival: EMS <SAMPSON Manrique Last Filed: 05/21/22 17:31> Limitations: other (Baseline confusion/nonverbal/hard of hearing/nonambulatory) <SAMPSON Manrique Last Filed: 05/21/22 17:31> History of Present Illness HPI Narrative: 86-year-old male is confused at baseline, nonverbal, hard of hearing and nonambulatory who recently had a stroke 1 month ago currently on anti-platelet therapy/high-dose statin therapy per Adi Campos PA-C noted on 05/14/22, diabetes and hypertension presenting to the ED via EMS after his VNA nurse notice hematuria and his Frederick cath bag this morning therefore she sent him here for further evaluation treatment. Patient denies any complaints at this time. <SAMPSON Manrique - Last Filed: 05/21/22 17:31> MD Complaint: other (Hematuria in Frederick catheter bag) <SAMPSON Manrique Last Filed: 05/21/22 17:31> Onset (ago): hour(s) (Started this morning) <SAMPSON Manrique - Last Filed: 05/21/22 17:31> Duration: constant <SAMPSON Manrique Last Filed: 05/21/22 17:31> Severity: moderate <SAMPSON Manrique Last Filed: 05/21/22 17:31> Associated symptoms: Reports denies other symptoms <SAMPSON Manrique Last Filed: 05/21/22 17:31> Related Data Home medications: Previous Rx's Medication Instructions Recorded furosemide 20 mg tablet (Lasix) 20 mg PO DAILY #30 tabs 09/19/21 aspirin 81 mg chewable tablet 81 mg PO DAILY 30 days #30 tabs 05/11/22 atorvastatin 80 mg tablet 80 mg PO DAILY 30 days #30 tabs 05/11/22 tamsulosin 0.4 mg capsule 0.4 mg PO DAILY@1700 30 days #30 05/11/22 caps acetaminophen 325 mg tablet 325 mg PO QID PRN pain 15 days #60 05/14/22 tabs amlodipine 10 mg tablet 10 mg PO DAILY 90 days #90 tabs 05/14/22 metformin 500 mg tablet 500 mg PO DAILY 90 days #90 tabs 05/14/22 <SAMPSON Manrique - Last Filed: 05/21/22 17:31> Allergies/Adverse reactions: Allergies Allergy/AdvReac Type Severity Reaction Status Date / Time No Known Allergies Allergy Verified 05/21/22 12:36 [No Known Allergies*] <SAMPSON Manrique - Last Filed: 05/21/22 17:31> Review of Systems Review of Systems: Yes Unobtainable due to mental condition (Patient baseline confused/hard of hearing/nonverbal and nonambulatory) <SAMPSON Manrique - Last Filed: 05/21/22 17:31> [facility] Past Medical History Attestation statement: The following information was validated with the patient. <SAMPSON Manrique - Last Filed: 05/21/22 17:31> Source: nursing notes reviewed <SAMPSON Manrique - Last Filed: 05/21/22 17:31> Medical History: Medical History Diabetes Hypertension <SAMPSON Manrique - Last Filed: 05/21/22 17:31> Social History Social History: Social History Household Members: Family Housing: Apartment Do you presently have visiting nurse or other home services: No Alcohol intake: never Patient Tobacco Use Status: Former Tobacco user Tobacco use type: Cigarette e-Cigarette/Vaping Use: Never Used Advance Directives: No Advance Directives Information Provided: Yes service: No Current occupational status: unemployed Cognitive needs: Yes Hearing needs: No Vision needs: Yes (cataracts in both eyes) <SAMPSON Manrique - Last Filed: 05/21/22 17:31> Physical Exam Vital Signs: Vital Signs: Last Vital Signs Temp 98.5 F 05/21/22 12:18 Pulse 86 05/21/22 20:00 Resp 18 05/21/22 14:12 BP 127/75 05/21/22 20:00 Pulse Ox 98 05/21/22 20:00 O2 Del Method 05/21/22 20:00 BMI result Body Mass Index 29.9 vital signs have been reviewed as normal and appeared to be correct. Blood pressure normal. Heart rate normal. Respiration rate normal. Temperature normal. Oxygen saturation normal. <SAMPSON Manrique - Last Filed: 05/21/22 17:31> Vital Signs: Last Vital Signs Temp 98.5 F 05/21/22 12:18 Pulse 86 05/21/22 20:00 Resp 18 05/21/22 14:12 BP 127/75 05/21/22 20:00 Pulse Ox 98 05/21/22 20:00 O2 Del Method 05/21/22 20:00 BMI result Body Mass Index 29.9 <SAMPSON Ybarra - Last Filed: 05/21/22 22:56> Appearance: Alert. Pleasantly confused at baseline.. No acute distress. Head: Normal external exam. Normocephalic. Eyes: PERRLA. EOMI. Conjunctiva and sclera normal. Eyelids normal. ENT: Pharynx normal. Uvula midline. Moist mucous membranes. No trismus noted. No drooling noted. No muffled voice noted. Neck: Normal inspection. Neck supple. FROM. No adenopathy. No meningeal signs. CVS: Normal heart rate and rhythm. Heart sound normal. No murmurs noted. Pulses normal throughout. Respiratory: No respiratory distress. Painless inspiration. Breath sounds normal. No wheezes/rales/rhonchi noted. Chest nontender. No accessory muscle usage noted or decreased air movement noted. Abdomen: Soft and nontender. Nondistended. No guarding. No rigidity. Bowel sounds normal in all 4 quadrants. No distention noted. No organomegaly noted. No visible injury noted. No rebound tenderness. Negative Rovsing sign. Negative obturator's sign. Negative psoas sign. Negative Hadley sign. Back: No CVA tenderness. Full range of motion noted. Skin: Skin warm and dry. Normal skin color. Normal skin turgor. No rashes/lesions/lacerations noted. Extremities: Extremities exhibit normal range of motion. Extremities nontender. Neuro: Pleasantly confused at baseline. Oriented X 3. No motor deficit. No sensory deficit. Reflexes normal. Normal steady gait. CN's II-XII intact bilaterally? And patient's Frederick catheter bag it appears the urine appears like [employer] versus hematuria no clots noted. <SAMPSON Manrique - Last Filed: 05/21/22 17:31> Course Course Course Narrative: 12pm - 86-year-old male is confused at baseline, nonverbal, hard of hearing and nonambulatory who recently had a stroke 1 month ago currently on anti-platelet therapy/high-dose statin therapy per Adi Campos PA-C noted on 05/14/22, diabetes and hypertension presenting to the ED via EMS after his VNA nurse notice hematuria and his Frederick cath bag this morning therefore she sent him here for further evaluation treatment. Patient denies any complaints at this time. Plan: Will obtain labs, UA and CT scan abdomen pelvis with IV contrast and re-evaluate <SAMPSON Manrique - Last Filed: 05/21/22 17:31> Reevaluation(s) Reevaluation #1: - labs return patient with an elevated white blood cell count 39909 this is similar compared to prior. Random glucose 144. Total bilirubin 3.4. AST 629. ALT 413. Alkaline phosphate 1052. Total CPK 34. Albumin 3.0. Otherwise all other labs are within normal limits. - therefore the elevation in his LFTs are new will also obtain an ultrasound of right upper quadrant to evaluate liver/gallbladder or any other acute process. Urine still pending. Will re-evaluate. <SAMPSON Manrique - Last Filed: 05/21/22 17:31> Time: 13:17 <SAMPSON Manrique - Last Filed: 05/21/22 17:31> Reevaluation #2: - abdominal ultrasound revealed gallbladder wall thickening and gallstones and a negative Hadley sign although recommending HIDA scan for concerns for cholecystitis therefore HIDA scan ordered at this time. - it also revealed a 6 x 5 mm echogenic structure at the lower pole right kidney which could represent nonobstructing calculus recommended CT - CT scan abdomen pelvis without IV contrast revealed gallstones and Frederick catheter in place. Bladder is empty. Small amount of air in the bladder likely related to Frederick catheter placement. Mild diffuse bladder wall thickening and stranding of the perivesicular fat. Infectious/inflammatory and neoplastic bladder process should be considered. Enlarged prostate gland. Diverticulosis of colon without evidence of diverticulitis. Nonspecific small bowel mesenteric fat stranding and shotty lymphadenopathy mild noted. Otherwise no other acute processes noted - therefore I discussed this case with Dr. Arechiga he reported that the patient can be treated with antibiotics for UTI and can follow up with him as an outpatient for further evaluation treatment for the bladder wall thickening and stranding of the perivesicular fat. - therefore at this time will order HIDA scan. Along with blood cultures a lactic. Start the patient on antibiotics Rocephin 1 g IV for UTI. Re-evaluate <SAMPSON Manrique - Last Filed: 05/21/22 17:31> Time: 16:38 <SAMPSON Manrique Last Filed: 05/21/22 17:31> Reevaluation #3: - sign-out to PRAKASH Augustin pending HIDA scan and possible admit. <SAMPSON Manrique - Last Filed: 05/21/22 17:31> Time: 17:31 <SAMPSON Manrique - Last Filed: 05/21/22 17:31> Additional Reevaluation(s): Patient with a positive HIDA scan. Flagyl added. Upon reexamination he is denying right upper quadrant tenderness, but he winces to deep palpation. He is a poor historian. He remains afebrile and hemodynamically stable. Case was discussed with Dr. Gardiner from General surgery, he is recommending medical admission with surgical consult at this time. <SAMPSON Ybarra - Last Filed: 05/21/22 22:56> Consultations Consultation #1: Dr. Gardiner - General Surgery <SAMPSON Ybarra - Last Filed: 05/21/22 22:56> MDM - Male Genitourinary Medical Records Attestation: I reviewed the patient's medical records. <SAMPSON Manrique Last Filed: 05/21/22 17:31> Lab Data Attestation: I reviewed the patient's lab results. <SAMPSON Manrique - Last Filed: 05/21/22 17:31> Result diagrams: : 05/21/22 12:28 05/21/22 12:28 <SAMPSON Manrique - Last Filed: 05/21/22 17:31> Labs: Lab Results 05/21/22 05/21/22 05/21/22 Range/Units 12:28 12:28 12:28 WBC 11.3 H (4.8-10.8) X10*3/uL RBC 5.32 (4.60-5.80) X10*6/uL Hgb 14.0 (14.0-18.0) g/dl Hct 43.4 (42.0-52.0) % MCV 81.6 (80.0-98.0) fL MCH 26.3 L (27.0-33.0) pg MCHC 32.3 (31.0-36.0) g/dl RDW 15.9 (11.0-16.0) % Plt Count 370 (160-400) X10*3/uL MPV 10.5 (9.4-12.4) fL Immature Gran % (Auto) 0.5 H (0.0-0.4) % Neut % (Auto) 76.6 H (45-73) % Lymph % (Auto) 12.2 L (20-40) % [place] % (Auto) 8.1 (2-11) % Eos % (Auto) 2.2 (0-4) % Baso % (Auto) 0.4 (0-2) % Lymph # (Auto) 1.4 (1.2-4.9) X10*3/uL [place] # (Auto) 0.9 (0.1-1.2) X10*3/uL Eos # (Auto) 0.3 (0.0-0.4) X10*3/uL Baso # (Auto) 0.1 (0.0-0.2) X10*3/uL Abs Immat Gran (auto) 0.06 H (0.00-0.03) X10*3/uL Absolute Neuts (auto) 8.6 H (2.0-8.3) x10*3/uL Absolute Nucleated RBC 0.000 (0.0-0.012) X10*3/uL Nucleated RBC % (auto) 0.0 (0.0-0.2) /100WBC PT 11.5 (10.0-13.1) SEC INR 1.0 (0.9-1.1) APTT 32.7 (26.0-36.4) SEC Sodium 141 (135-145) mmol/L Potassium 3.6 (3.3-5.1) mmol/L Chloride 100 (96-108) mmol/L Carbon Dioxide 28 (22-29) mmol/L Anion Gap 17 (12-20) BUN 14 (9-16) mg/dL Creatinine 0.80 (0.5-1.4) mg/dL Estim Creat Clear Calc 66.2 Estimated GFR > 60 Random Glucose 144 H (60-115) mg/dL Lactic Acid (0.5-2.0) mmol/L Calcium 8.9 (8.4-10.2) mg/dL Magnesium 2.1 (1.6-2.6) mg/dL Total Bilirubin 3.4 H (0.0-1.0) mg/dL Direct Bilirubin (0.0-0.5) mg/dL AST 629 H (5-37) U/L ALT 413 H (0-40) U/L Alkaline Phosphatase 1052 H D (39-117) U/L Total Creatine Kinase 34 L (38-174) U/L Total Protein 7.0 (6.5-8.0) g/dL Albumin 3.0 L D (3.5-5.0) g/dL Lipase 47 (8-78) U/L Urine Color Urine Appearance Urine pH (5.0-8.0) Ur Specific [place] (1.005-1.025) Urine Protein (Neg-Trace) mg/dL Urine Glucose (UA) (Negative) mg/dL Urine Ketones (Negative) mg/dL Urine Blood (Negative) Urine Nitrite (Negative) Ur Leukocyte Esterase (Negative) Urine RBC (0-2) /HPF Urine WBC (0-5) /HPF Ur Squamous Epith Cells (0-2) /HPF Urine Bacteria (None Seen) Hyaline Casts (0-2) /LPF Granular Casts Salicylates (15-30) mg/dL Acetaminophen (<30) mcg/mL 05/21/22 05/21/22 05/21/22 Range/Units 14:10 16:42 19:29 WBC (4.8-10.8) X10*3/uL RBC (4.60-5.80) X10*6/uL Hgb (14.0-18.0) g/dl Hct (42.0-52.0) % MCV (80.0-98.0) fL MCH (27.0-33.0) pg MCHC (31.0-36.0) g/dl RDW (11.0-16.0) % Plt Count (160-400) X10*3/uL MPV (9.4-12.4) fL Immature Gran % (Auto) (0.0-0.4) % Neut % (Auto) (45-73) % Lymph % (Auto) (20-40) % [place] % (Auto) (2-11) % Eos % (Auto) (0-4) % Baso % (Auto) (0-2) % Lymph # (Auto) (1.2-4.9) X10*3/uL [place] # (Auto) (0.1-1.2) X10*3/uL Eos # (Auto) (0.0-0.4) X10*3/uL Baso # (Auto) (0.0-0.2) X10*3/uL Abs Immat Gran (auto) (0.00-0.03) X10*3/uL Absolute Neuts (auto) (2.0-8.3) x10*3/uL Absolute Nucleated RBC (0.0-0.012) X10*3/uL Nucleated RBC % (auto) (0.0-0.2) /100WBC PT (10.0-13.1) SEC INR (0.9-1.1) APTT (26.0-36.4) SEC Sodium (135-145) mmol/L Potassium (3.3-5.1) mmol/L Chloride (96-108) mmol/L Carbon Dioxide (22-29) mmol/L Anion Gap (12-20) BUN (9-16) mg/dL Creatinine (0.5-1.4) mg/dL Estim Creat Clear Calc Estimated GFR Random Glucose (60-115) mg/dL Lactic Acid 2.6 H* (0.5-2.0) mmol/L Calcium (8.4-10.2) mg/dL Magnesium (1.6-2.6) mg/dL Total Bilirubin (0.0-1.0) mg/dL Direct Bilirubin (0.0-0.5) mg/dL AST (5-37) U/L ALT (0-40) U/L Alkaline Phosphatase (39-117) U/L Total Creatine Kinase (38-174) U/L Total Protein (6.5-8.0) g/dL Albumin (3.5-5.0) g/dL Lipase (8-78) U/L Urine Color ORANGE Urine Appearance Hazy Urine pH 6.0 (5.0-8.0) Ur Specific [place] >= 1.030 H (1.005-1.025) Urine Protein 100 (2+) H (Neg-Trace) mg/dL Urine Glucose (UA) Negative (Negative) mg/dL Urine Ketones Trace (Negative) mg/dL Urine Blood Large (3+) H (Negative) Urine Nitrite Positive H (Negative) Ur Leukocyte Esterase Moderate (2+) H (Negative) Urine RBC >20 H (0-2) /HPF Urine WBC 21-50 H (0-5) /HPF Ur Squamous Epith Cells 3-5 (0-2) /HPF Urine Bacteria 4+ (None Seen) Hyaline Casts 3-5 (0-2) /LPF Granular Casts Present Salicylates < 5.0 L (15-30) mg/dL Acetaminophen < 1 (<30) mcg/mL 05/21/22 Range/Units 21:56 WBC (4.8-10.8) X10*3/uL RBC (4.60-5.80) X10*6/uL Hgb (14.0-18.0) g/dl Hct (42.0-52.0) % MCV (80.0-98.0) fL MCH (27.0-33.0) pg MCHC (31.0-36.0) g/dl RDW (11.0-16.0) % Plt Count (160-400) X10*3/uL MPV (9.4-12.4) fL Immature Gran % (Auto) (0.0-0.4) % Neut % (Auto) (45-73) % Lymph % (Auto) (20-40) % [place] % (Auto) (2-11) % Eos % (Auto) (0-4) % Baso % (Auto) (0-2) % Lymph # (Auto) (1.2-4.9) X10*3/uL [place] # (Auto) (0.1-1.2) X10*3/uL Eos # (Auto) (0.0-0.4) X10*3/uL Baso # (Auto) (0.0-0.2) X10*3/uL Abs Immat Gran (auto) (0.00-0.03) X10*3/uL Absolute Neuts (auto) (2.0-8.3) x10*3/uL Absolute Nucleated RBC (0.0-0.012) X10*3/uL Nucleated RBC % (auto) (0.0-0.2) /100WBC PT (10.0-13.1) SEC INR (0.9-1.1) APTT (26.0-36.4) SEC Sodium (135-145) mmol/L Potassium (3.3-5.1) mmol/L Chloride (96-108) mmol/L Carbon Dioxide (22-29) mmol/L Anion Gap (12-20) BUN (9-16) mg/dL Creatinine (0.5-1.4) mg/dL Estim Creat Clear Calc Estimated GFR Random Glucose (60-115) mg/dL Lactic Acid (0.5-2.0) mmol/L Calcium (8.4-10.2) mg/dL Magnesium (1.6-2.6) mg/dL Total Bilirubin 3.2 H (0.0-1.0) mg/dL Direct Bilirubin 2.2 H (0.0-0.5) mg/dL AST 629 H (5-37) U/L ALT 417 H (0-40) U/L Alkaline Phosphatase 1076 H (39-117) U/L Total Creatine Kinase (38-174) U/L Total Protein 6.8 (6.5-8.0) g/dL Albumin 2.8 L (3.5-5.0) g/dL Lipase (8-78) U/L Urine Color Urine Appearance Urine pH (5.0-8.0) Ur Specific [place] (1.005-1.025) Urine Protein (Neg-Trace) mg/dL Urine Glucose (UA) (Negative) mg/dL Urine Ketones (Negative) mg/dL Urine Blood (Negative) Urine Nitrite (Negative) Ur Leukocyte Esterase (Negative) Urine RBC (0-2) /HPF Urine WBC (0-5) /HPF Ur Squamous Epith Cells (0-2) /HPF Urine Bacteria (None Seen) Hyaline Casts (0-2) /LPF Granular Casts Salicylates (15-30) mg/dL Acetaminophen (<30) mcg/mL <SAMPSON Manrique - Last Filed: 05/21/22 17:31> Lab Results 05/21/22 05/21/22 05/21/22 Range/Units 12:28 12:28 12:28 WBC 11.3 H (4.8-10.8) X10*3/uL RBC 5.32 (4.60-5.80) X10*6/uL Hgb 14.0 (14.0-18.0) g/dl Hct 43.4 (42.0-52.0) % MCV 81.6 (80.0-98.0) fL MCH 26.3 L (27.0-33.0) pg MCHC 32.3 (31.0-36.0) g/dl RDW 15.9 (11.0-16.0) % Plt Count 370 (160-400) X10*3/uL MPV 10.5 (9.4-12.4) fL Immature Gran % (Auto) 0.5 H (0.0-0.4) % Neut % (Auto) 76.6 H (45-73) % Lymph % (Auto) 12.2 L (20-40) % [place] % (Auto) 8.1 (2-11) % Eos % (Auto) 2.2 (0-4) % Baso % (Auto) 0.4 (0-2) % Lymph # (Auto) 1.4 (1.2-4.9) X10*3/uL [place] # (Auto) 0.9 (0.1-1.2) X10*3/uL Eos # (Auto) 0.3 (0.0-0.4) X10*3/uL Baso # (Auto) 0.1 (0.0-0.2) X10*3/uL Abs Immat Gran (auto) 0.06 H (0.00-0.03) X10*3/uL Absolute Neuts (auto) 8.6 H (2.0-8.3) x10*3/uL Absolute Nucleated RBC 0.000 (0.0-0.012) X10*3/uL Nucleated RBC % (auto) 0.0 (0.0-0.2) /100WBC PT 11.5 (10.0-13.1) SEC INR 1.0 (0.9-1.1) APTT 32.7 (26.0-36.4) SEC Sodium 141 (135-145) mmol/L Potassium 3.6 (3.3-5.1) mmol/L Chloride 100 (96-108) mmol/L Carbon Dioxide 28 (22-29) mmol/L Anion Gap 17 (12-20) BUN 14 (9-16) mg/dL Creatinine 0.80 (0.5-1.4) mg/dL Estim Creat Clear Calc 66.2 Estimated GFR > 60 Random Glucose 144 H (60-115) mg/dL Lactic Acid (0.5-2.0) mmol/L Calcium 8.9 (8.4-10.2) mg/dL Magnesium 2.1 (1.6-2.6) mg/dL Total Bilirubin 3.4 H (0.0-1.0) mg/dL Direct Bilirubin (0.0-0.5) mg/dL AST 629 H (5-37) U/L ALT 413 H (0-40) U/L Alkaline Phosphatase 1052 H D (39-117) U/L Total Creatine Kinase 34 L (38-174) U/L Total Protein 7.0 (6.5-8.0) g/dL Albumin 3.0 L D (3.5-5.0) g/dL Lipase 47 (8-78) U/L Urine Color Urine Appearance Urine pH (5.0-8.0) Ur Specific [place] (1.005-1.025) Urine Protein (Neg-Trace) mg/dL Urine Glucose (UA) (Negative) mg/dL Urine Ketones (Negative) mg/dL Urine Blood (Negative) Urine Nitrite (Negative) Ur Leukocyte Esterase (Negative) Urine RBC (0-2) /HPF Urine WBC (0-5) /HPF Ur Squamous Epith Cells (0-2) /HPF Urine Bacteria (None Seen) Hyaline Casts (0-2) /LPF Granular Casts Salicylates (15-30) mg/dL Acetaminophen (<30) mcg/mL 05/21/22 05/21/22 05/21/22 Range/Units 14:10 16:42 19:29 WBC (4.8-10.8) X10*3/uL RBC (4.60-5.80) X10*6/uL Hgb (14.0-18.0) g/dl Hct (42.0-52.0) % MCV (80.0-98.0) fL MCH (27.0-33.0) pg MCHC (31.0-36.0) g/dl RDW (11.0-16.0) % Plt Count (160-400) X10*3/uL MPV (9.4-12.4) fL Immature Gran % (Auto) (0.0-0.4) % Neut % (Auto) (45-73) % Lymph % (Auto) (20-40) % [place] % (Auto) (2-11) % Eos % (Auto) (0-4) % Baso % (Auto) (0-2) % Lymph # (Auto) (1.2-4.9) X10*3/uL [place] # (Auto) (0.1-1.2) X10*3/uL Eos # (Auto) (0.0-0.4) X10*3/uL Baso # (Auto) (0.0-0.2) X10*3/uL Abs Immat Gran (auto) (0.00-0.03) X10*3/uL Absolute Neuts (auto) (2.0-8.3) x10*3/uL Absolute Nucleated RBC (0.0-0.012) X10*3/uL Nucleated RBC % (auto) (0.0-0.2) /100WBC PT (10.0-13.1) SEC INR (0.9-1.1) APTT (26.0-36.4) SEC Sodium (135-145) mmol/L Potassium (3.3-5.1) mmol/L Chloride (96-108) mmol/L Carbon Dioxide (22-29) mmol/L Anion Gap (12-20) BUN (9-16) mg/dL Creatinine (0.5-1.4) mg/dL Estim Creat Clear Calc Estimated GFR Random Glucose (60-115) mg/dL Lactic Acid 2.6 H* (0.5-2.0) mmol/L Calcium (8.4-10.2) mg/dL Magnesium (1.6-2.6) mg/dL Total Bilirubin (0.0-1.0) mg/dL Direct Bilirubin (0.0-0.5) mg/dL AST (5-37) U/L ALT (0-40) U/L Alkaline Phosphatase (39-117) U/L Total Creatine Kinase (38-174) U/L Total Protein (6.5-8.0) g/dL Albumin (3.5-5.0) g/dL Lipase (8-78) U/L Urine Color ORANGE Urine Appearance Hazy Urine pH 6.0 (5.0-8.0) Ur Specific [place] >= 1.030 H (1.005-1.025) Urine Protein 100 (2+) H (Neg-Trace) mg/dL Urine Glucose (UA) Negative (Negative) mg/dL Urine Ketones Trace (Negative) mg/dL Urine Blood Large (3+) H (Negative) Urine Nitrite Positive H (Negative) Ur Leukocyte Esterase Moderate (2+) H (Negative) Urine RBC >20 H (0-2) /HPF Urine WBC 21-50 H (0-5) /HPF Ur Squamous Epith Cells 3-5 (0-2) /HPF Urine Bacteria 4+ (None Seen) Hyaline Casts 3-5 (0-2) /LPF Granular Casts Present Salicylates < 5.0 L (15-30) mg/dL Acetaminophen < 1 (<30) mcg/mL 05/21/ Range/Units 21:56 WBC (4.8-10.8) X10*3/uL RBC (4.60-5.80) X10*6/uL Hgb (14.0-18.0) g/dl Hct (42.0-52.0) % MCV (80.0-98.0) fL MCH (27.0-33.0) pg MCHC (31.0-36.0) g/dl RDW (11.0-16.0) % Plt Count (160-400) X10*3/uL MPV (9.4-12.4) fL Immature Gran % (Auto) (0.0-0.4) % Neut % (Auto) (45-73) % Lymph % (Auto) (20-40) % [place] % (Auto) (2-11) % Eos % (Auto) (0-4) % Baso % (Auto) (0-2) % Lymph # (Auto) (1.2-4.9) X10*3/uL [place] # (Auto) (0.1-1.2) X10*3/uL Eos # (Auto) (0.0-0.4) X10*3/uL Baso # (Auto) (0.0-0.2) X10*3/uL Abs Immat Gran (auto) (0.00-0.03) X10*3/uL Absolute Neuts (auto) (2.0-8.3) x10*3/uL Absolute Nucleated RBC (0.0-0.012) X10*3/uL Nucleated RBC % (auto) (0.0-0.2) /100WBC PT (10.0-13.1) SEC INR (0.9-1.1) APTT (26.0-36.4) SEC Sodium (135-145) mmol/L Potassium (3.3-5.1) mmol/L Chloride (96-108) mmol/L Carbon Dioxide (22-29) mmol/L Anion Gap (12-20) BUN (9-16) mg/dL Creatinine (0.5-1.4) mg/dL Estim Creat Clear Calc Estimated GFR Random Glucose (60-115) mg/dL Lactic Acid (0.5-2.0) mmol/L Calcium (8.4-10.2) mg/dL Magnesium (1.6-2.6) mg/dL Total Bilirubin 3.2 H (0.0-1.0) mg/dL Direct Bilirubin 2.2 H (0.0-0.5) mg/dL AST 629 H (5-37) U/L ALT 417 H (0-40) U/L Alkaline Phosphatase 1076 H (39-117) U/L Total Creatine Kinase (38-174) U/L Total Protein 6.8 (6.5-8.0) g/dL Albumin 2.8 L (3.5-5.0) g/dL Lipase (8-78) U/L Urine Color Urine Appearance Urine pH (5.0-8.0) Ur Specific [place] (1.005-1.025) Urine Protein (Neg-Trace) mg/dL Urine Glucose (UA) (Negative) mg/dL Urine Ketones (Negative) mg/dL Urine Blood (Negative) Urine Nitrite (Negative) Ur Leukocyte Esterase (Negative) Urine RBC (0-2) /HPF Urine WBC (0-5) /HPF Ur Squamous Epith Cells (0-2) /HPF Urine Bacteria (None Seen) Hyaline Casts (0-2) /LPF Granular Casts Salicylates (15-30) mg/dL Acetaminophen (<30) mcg/mL <SAMPSON Ybarra - Last Filed: 05/21/22 22:56> Imaging Data CT scan abdomen pelvis without IV contrast: Attestation: I personally reviewed and interpreted this imaging study as follows: <SAMPSON Manrique - Last Filed: 05/21/22 17:31> Radiologist's impression: FINDINGS: LUNG BASES: The visualized lung bases are unremarkable.? LIVER, GALLBLADDER, AND BILIARY TREE: The liver is normal in size, shape, and attenuation. No focal hepatic lesion or biliary ductal dilatation is present. Gallstones in the gallbladder. PANCREAS: Unremarkable.? SPLEEN: Unremarkable.? ADRENAL GLANDS: Unremarkable.? KIDNEYS AND URETERS: The kidneys are normal in size, shape, and attenuation. No hydronephrosis, hydroureter, or calculi seen. No perinephric stranding. ? BLADDER: There is a Frederick catheter in the bladder. Bladder is empty. There is a small amount of air in the bladder probably related to Frederick catheter placement. There is diffuse bladder wall thickening and stranding of the perivesicular fat.? GASTROINTESTINAL TRACT: Diverticulosis of the colon. The small and large bowel are otherwise unremarkable. The appendix is unremarkable.? ABDOMINAL WALL: Small umbilical hernia containing fat. LYMPH NODES: Nonspecific mild fat stranding small bowel mesentery and shotty small bowel mesentery lymphadenopathy. No enlarged lymph nodes. No ascites. VASCULAR: There is evidence of atherosclerotic disease. Ectasia of the right common iliac artery. PELVIC VISCERA: The prostate gland is enlarged and measures 4.5 x 5 cm. ? OSSEOUS STRUCTURES: Unremarkable.? CT/CT abdomen pelvis wo con IMPRESSION: Gallstones. Frederick catheter in the bladder. The bladder is empty. Small amount of air in the bladder likely related to Frederick catheter placement. Mild diffuse bladder wall thickening and stranding of the perivesicular fat. Infectious, inflammatory and neoplastic bladder process should be considered. Enlarged prostate gland. Diverticulosis of the colon. No evidence of diverticulitis. Nonspecific small bowel mesentery fat stranding and shotty lymphadenopathy, mild. ? Fleischner guidelines were followed. <SAMPSON Manrique - Last Filed: 05/21/22 17:31> Abdominal ultrasound limited: Attestation: I personally reviewed and interpreted this imaging study as follows: <SAMPSON Manrique - Last Filed: 05/21/22 17:31> Radiologist's impression: FINDINGS: PANCREAS: Obscured by bowel gas LIVER: Normal. The liver is normal in size. The liver contour is normal. Parenchymal echogenicity is normal. No focal hepatic lesion. There is no intrahepatic biliary duct dilatation seen. GALLBLADDER: There are several echogenic gallstones. There is no pericholecystic fluid. There is subtle asymmetric wall thickening toward the infundibulum up to 7 mm, though in the body and fundus there appear to be significant wall thickening. There is no sonographic Hadley's sign. COMMON BILE DUCT: Normal in caliber measuring 0.4 cm in diameter. RIGHT KIDNEY: Normal. No hydronephrosis or focal parenchymal lesions. At the lower pole there is an echogenic 6 x 5 mm structure which may represent a nonobstructing calculus, though no CT correlate is identified. The kidney measures 10.6 cm in maximum dimension. FREE FLUID: None. US/US abdomen limited IMPRESSION: Somewhat equivocal findings of the gallbladder. While there are gallstones and there is some degree of wall thickening toward the infundibulum, the main body and fundus do not demonstrate similar wall thickening and there is no sonographic Hadley sign. If there are continued clinical concerns for cholecystitis, further evaluation could be considered with HIDA. ? 6 x 5 mm echogenic structure at the lower pole right kidney which could represent a nonobstructing calculus, though there is no CT correlate. <SAMPSON Manrique Last Filed: 05/21/22 17:31> Critical Care Time Critical Care Time Critical Care Time: Yes <SAMPSON Manrique Last Filed: 05/21/22 17:31> Total Critical Care Time: 60 <SAMPSON Manrique Last Filed: 05/21/22 17:31> Attestation: I personally attest to this time spent taking care of the patient <SAMPSON Manrique Last Filed: 05/21/22 17:31> Discharge Plan Discharge Clinical Impression: Elevated LFTs, UTI (urinary tract infection), Hematuria, Enlarged prostate, Diverticulosis, Abdominal lymphadenopathy, Acute cholecystitis <SAMPSON Manrique Last Filed: 05/21/22 17:31> Patient Disposition: Admitted As Inpatient <SAMPSON Manrique Last Filed: 05/21/22 17:31> Prescriptions: No Action furosemide [Lasix] 20 mg tablet 20 mg PO DAILY Qty: 30 0RF tamsulosin 0.4 mg Capsule 0.4 mg PO DAILY@1700 30 Days Qty: 30 0RF atorvastatin 80 mg Tablet 80 mg PO DAILY 30 Days Qty: 30 0RF aspirin 81 mg Tablet,Chewable 81 mg PO DAILY 30 Days Qty: 30 0RF amlodipine 10 mg tablet 10 mg PO DAILY 90 Days Qty: 90 1RF acetaminophen 325 mg tablet 325 mg PO QID PRN (Reason: pain) 15 Days Qty: 60 3RF metformin 500 mg tablet 500 mg PO DAILY 90 Days Qty: 90 1RF <SAMPSON Manrique Last Filed: 05/21/22 17:31>
[2022-05-21 12:18] VITALS: BP 133/76; PULSE 78; RESP 14; TEMP 36.9; O2SAT 97
[2022-05-21 12:32] LABS: MANUAL DIFF FLAG NO
[2022-05-21 12:34] LABS: Basophils Absolute Auto 0.1 X10*3/uL (0.0-0.2); Basophils Percent Auto 0.4 % (0-2); Eosinophils Absolute Auto 0.3 X10*3/uL (0.0-0.4); Eosinophils Percent Auto 2.2 % (0-4); Hematocrit 43.4 % (42.0-52.0); Imm Gran Abs Auto 0.06 X10*3/uL (0.00-0.03); Imm Gran Pct Auto 0.5 % (0.0-0.4); Lymphocytes Absolute Auto 1.4 X10*3/uL (1.2-4.9); Lymphocytes Percent Auto 12.2 % (20-40); Mean Corpuscular HGB Conc 32.3 g/dl (31.0-36.0); Mean Corpuscular Hemoglobin 26.3 pg (27.0-33.0); Mean Corpuscular Volume 81.6 fL (80.0-98.0); Mean Platelet Volume 10.5 fL (9.4-12.4); Monocytes Absolute Auto 0.9 X10*3/uL (0.1-1.2); Monocytes Percent Auto 8.1 % (2-11); Neutrophils Absolute Auto 8.6 x10*3/uL (2.0-8.3); Neutrophils Percent Auto 76.6 % (45-73); Platelet Count 370 X10*3/uL (160-400); Red Blood Count 5.32 X10*6/uL (4.60-5.80); Red Cell Distribution Width 15.9 % (11.0-16.0); White Blood Count 11.3 X10*3/uL (4.8-10.8)
[2022-05-21 12:40] LABS: Prothrombin Time 11.5 SEC (10.0-13.1)
[2022-05-21 12:43] LABS: Partial Thromboplastin Time 32.7 SEC (26.0-36.4)
[2022-05-21 13:03] LABS: Alanine Aminotransferase 413 U/L (0-40); Alkaline Phosphatase 1052 U/L (39-117); Anion Gap 17 (12-20); Aspartate Amino Transferase 629 U/L (5-37); Bilirubin Total 3.4 mg/dL (0.0-1.0); Blood Urea Nitrogen 14 mg/dL (9-16); Calcium 8.9 mg/dL (8.4-10.2); Carbon Dioxide 28 mmol/L (22-29); Chloride 100 mmol/L (96-108); Creatinine Clr Calc Pharmacy 66.2; Estimated Glomerular Filt Rate > 60; Glucose Random 144 mg/dL (60-115); Magnesium 2.1 mg/dL (1.6-2.6); Potassium 3.6 mmol/L (3.3-5.1); Sodium 141 mmol/L (135-145)
--- NOTE | 2022-05-21 13:20 | PC.NURSE ---
Pt comes in via EMS from home, sent in by [facility] for hematuria noted in pt's chronic catheter. Pt is Alert, oriented to baseline per EMS. PMHX of stroke a few months ago, urine is dark in color at this time, no obvious blood seen. Labs sent, pt repositioned and changed. Call knox within reach, will continue to monitor.
[2022-05-21 14:12] VITALS: BP 135/72; PULSE 75; RESP 18; O2SAT 97
[2022-05-21 14:16] LABS: Appearance Urine Hazy; Color Urine ORANGE; Glucose Urine UA Negative (Negative); Leukocyte Esterase Urine Moderate (2+) (Negative); Nitrite Urine Positive (Negative); Specific Gravity - Urine >= 1.030 (1.005-1.025); Urine Blood Large (3+) (Negative); Urine Ketones Trace mg/dL (Negative); Urine Protein 100 (2+) mg/dL (Neg-Trace)
[2022-05-21 14:27] LABS: RBC Urine >20 /HPF (0-2); UACC Culture Trigger YES; WBC Urine 21-50 /HPF (0-5)
[2022-05-21 14:28] LABS: Bacteria Urine 4+ (None Seen); Granular Casts Urine Present
[2022-05-21 14:38] LABS: Lipase 47 U/L (8-78)
[2022-05-21 17:02] LABS: Acetaminophen LAB < 1 mcg/mL (<30); Salicylate < 5.0 mg/dL (15-30)
[2022-05-21] MEDS: cefTRIAXone sodium 1 GM in 0.9 % Sodium Chloride 50 ML IV (19:39)
[2022-05-21] MEDS: 0.9 % Sodium Chloride 1,000 ML 999 ML IVCONT (19:40)
[2022-05-21 19:54] LABS: Lactic Acid 2.6 mmol/L (0.5-2.0)
[2022-05-21 20:00] VITALS: BP 127/75; PULSE 86; O2SAT 98
[2022-05-21 21:33] LABS: Reflex Lactate? Lactic Acid Added
[2022-05-21 22:36] LABS: Alanine Aminotransferase 417 U/L (0-40); Albumin Level 2.8 g/dL (3.5-5.0); Alkaline Phosphatase 1076 U/L (39-117); Aspartate Amino Transferase 629 U/L (5-37); Bilirubin Direct 2.2 mg/dL (0.0-0.5); Bilirubin Total 3.2 mg/dL (0.0-1.0); Total Protein 6.8 g/dL (6.5-8.0)
[2022-05-21 23:23] LABS: COVID-19 Test Negative (Negative)
[2022-05-21 23:36] LABS: ~Lactic Acid-LAB USE ONLY 2.2 mmol/L (0.5-2.0)
--- NOTE | 2022-05-21 23:59 | PC.NURSE ---
Pt's IV is infiltrating. NS fluid infusing with 200 mL left in the bag. Flagyl to be hung but need to obtain IV access. Pt is hard to gain access on. Provider mad aware.
[2022-05-22] MEDS: metroNIDAZOLE/NS 500 MG/100 ML PIGGYBACK 100 MG IV ×3 (00:49→16:25)
[2022-05-22 00:57] LABS: Reflex Lactate? 2 Y
[2022-05-22 01:47] LABS: ~Lactic Acid-LAB USE ONLY 1.6 mmol/L (0.5-2.0)
[2022-05-22] MEDS: Lactated Ringers 1,000 ML 100 ML IVCONT ×3 (02:08→20:58)
--- NOTE | 2022-05-22 03:47 | PC.NURSE ---
Med rec completed with reference to pt's external medication list.
[2022-05-22 05:34] VITALS: BP 108/54; PULSE 87; O2SAT 97
--- NOTE | 2022-05-22 06:40 | PM.IMHP ---
History of Present Illness Date of Service: 05/21/22 Chief Complaint: dark urine 86-year-old Kinyarwanda-speaking only, history is attempted to be obtained with the help of an bilingual interpreter but unsuccessfully, This is an 86-year-old male from home who is confused at baseline, nonambulatory, history of recent CVA about a month ago, diabetes and hypertension who is brought in to the hospital after his [facility] nurse noticed Dark urine in his Frederick catheter and recommended patient be sent to the hospital for further evaluation. I am unable to get much history from the patient as he is confused, he thinks he is in [place], he is denying any pain, he just wants to drink water. After further workup in the ED patient was noted to have elevated WBC count, elevated total bili of 3.4, AST of 629 and ALT of 413, with an alk-phos of 1052 and a total CPK of 34. Given the new LFT elevations patient underwent ultrasound of the right upper quadrant evaluate for liver gallbladder, which revealed gallbladder wall thickness, and gallstones and HIDA scan was recommended. HIDA scan was ordered which was positive for infection. general surgery was consulted, recommended admission to medical floor. Patient's UA was also found to be positive for acute infection with a CT showing bladder wall thickening and stranding of the perivesicular fat concerning for infectious process. This case was also discussed with Dr. Arechiga and he recommended treatment with antibiotics for UTI and follow-up as outpatient for further evaluation of the bladder wall thickening seen on CT. Review of Systems Review of Systems: Yes Unobtainable due to mental condition and Unobtainable due to mental status [facility] Medical History Diabetes Hypertension Social History Household Members: Family Housing: Apartment Do you presently have visiting nurse or other home services: No Alcohol intake: never Patient Tobacco Use Status: Former Tobacco user Tobacco use type: Cigarette e-Cigarette/Vaping Use: Never Used Advance Directives: Yes Advance Directives on File: Yes Advance Directives Date on File: 05/14/22 service: No Current occupational status: unemployed Cognitive needs: Yes Hearing needs: No Vision needs: Yes (cataracts in both eyes) Meds Allergies Allergy/AdvReac Type Severity Reaction Status Date / Time No Known Allergies Allergy Verified 05/21/22 12:36 [No Known Allergies*] Active Medications: Current Medications Acetaminophen (Acetaminophen 325 Mg Tablet) 650 mg PO Q6H PRN PRN Reason: Pain, Mild (Pain Scale 1-3) Docusate Sodium (Docusate Sodium 100 Mg Capsule) 100 mg PO DAILY PRN PRN Reason: Constipation Ceftriaxone Sodium 1 gm/ (Sodium Chloride) 50 mls @ 100 mls/hr IV Q24H [facility] Last Admin: 05/22/22 02:47 Dose: Not Given Metronidazole (Flagyl) 500 mg in 100 mls @ 100 mls/hr IV Q8H [facility] Last Admin: 05/22/22 02:37 Dose: Not Given Lactated Ringer's (Lr) 1,000 mls @ 100 mls/hr IVCONT .Q10H [facility] Last Admin: 05/22/22 02:08 Dose: 100 mls/hr Ondansetron HCl (Ondansetron Hcl 4 Mg/2 Ml Vial) 4 mg IVPUSH Q8H PRN PRN Reason: Nausea and Vomiting Oxycodone HCl (Oxycodone Hcl Immed Release 5 Mg Tablet) 5 mg PO Q6H PRN PRN Reason: Pain, Severe (Pain Scale 7-10) Pharmacy Consult (Consult Rx Perform Med Rec) 1 each MISCELLANE ONCE PRN PRN Reason: Consult order Sodium Chloride (0.9 % Sodium Chloride Flush 3 Ml Syringe) 3 ml IVFLUSH QSHIFT [facility] Last Admin: 05/22/22 00:50 Dose: Not Given Physical Exam Vital Signs and Narrative: Vital Signs: Last Vital Signs Temp 98.5 F 05/21/22 12:18 Pulse 87 05/22/22 05:34 Resp 18 05/21/22 14:12 BP 108/54 L 05/22/22 05:34 Pulse Ox 97 05/22/22 05:34 O2 Del Method 05/22/22 05:34 BMI result Body Mass Index 29.9 Const: Other: Patient oriented to self not place or time General: cooperative and no acute distress Eyes: General: appearance normal, both eyes and all related structures Resp: Effort & Inspection: normal respiratory effort Auscultation: clear to auscultation bilaterally Cardio: Rate: regular rate Rhythm: regular rhythm GI: Other: no abdominal tenderness at this time, no rebound or guarding Palpation (GI): Soft to palpation Auscultation: normal bowel sounds Skin: General skin exam: no rashes or lesions noted Extrem: General: Yes normal to inspection and Yes no pedal edema Results Labs CBC and Chem 7: 05/21/22 12:28 05/21/22 12:28 Labs: Laboratory Results - last 24 hr 05/21/22 05/21/22 05/21/22 12:28 12:28 12:28 MCV 81.6 MCH 26.3 L MCHC 32.3 RDW 15.9 Plt Count 370 MPV 10.5 Immature Gran % (Auto) 0.5 H Neut % (Auto) 76.6 H Lymph % (Auto) 12.2 L [place] % (Auto) 8.1 Eos % (Auto) 2.2 Baso % (Auto) 0.4 Lymph # (Auto) 1.4 [place] # (Auto) 0.9 Eos # (Auto) 0.3 Baso # (Auto) 0.1 Abs Immat Gran (auto) 0.06 H Absolute Neuts (auto) 8.6 H Absolute Nucleated RBC 0.000 Nucleated RBC % (auto) 0.0 PT 11.5 INR 1.0 APTT 32.7 Anion Gap 17 Estim Creat Clear Calc 66.2 Estimated GFR > 60 Random Glucose 144 H Lactic Acid Lactic Acid F/U @ 2Hr Lactic Acid F/U @ 4Hr Calcium 8.9 Magnesium 2.1 Total Bilirubin 3.4 H Direct Bilirubin AST 629 H ALT 413 H Alkaline Phosphatase 1052 H D Total Creatine Kinase 34 L Total Protein 7.0 Albumin 3.0 L D Lipase 47 Urine Color Urine Appearance Urine pH Ur Specific [place] Urine Protein Urine Glucose (UA) Urine Ketones Urine Blood Urine Nitrite Ur Leukocyte Esterase Urine RBC Urine WBC Ur Squamous Epith Cells Urine Bacteria Hyaline Casts Granular Casts Salicylates Acetaminophen COVID-19 ([facility]) COVID-19 Clin Com 05/21/22 05/21/22 05/21/22 14:10 16:42 19:29 MCV MCH MCHC RDW Plt Count MPV Immature Gran % (Auto) Neut % (Auto) Lymph % (Auto) [place] % (Auto) Eos % (Auto) Baso % (Auto) Lymph # (Auto) [place] # (Auto) Eos # (Auto) Baso # (Auto) Abs Immat Gran (auto) Absolute Neuts (auto) Absolute Nucleated RBC Nucleated RBC % (auto) PT INR APTT Anion Gap Estim Creat Clear Calc Estimated GFR Random Glucose Lactic Acid 2.6 H* Lactic Acid F/U @ 2Hr Lactic Acid F/U @ 4Hr Calcium Magnesium Total Bilirubin Direct Bilirubin AST ALT Alkaline Phosphatase Total Creatine Kinase Total Protein Albumin Lipase Urine Color ORANGE Urine Appearance Hazy Urine pH 6.0 Ur Specific [place] >= 1.030 H Urine Protein 100 (2+) H Urine Glucose (UA) Negative Urine Ketones Trace Urine Blood Large (3+) H Urine Nitrite Positive H Ur Leukocyte Esterase Moderate (2+) H Urine RBC >20 H Urine WBC 21-50 H Ur Squamous Epith Cells 3-5 Urine Bacteria 4+ Hyaline Casts 3-5 Granular Casts Present Salicylates < 5.0 L Acetaminophen < 1 COVID-19 ([facility]) COVID-19 [place] Com 05/21/22 05/21/22 05/21/22 21:56 22:53 22:53 MCV MCH MCHC RDW Plt Count MPV Immature Gran % (Auto) Neut % (Auto) Lymph % (Auto) [place] % (Auto) Eos % (Auto) Baso % (Auto) Lymph # (Auto) [place] # (Auto) Eos # (Auto) Baso # (Auto) Abs Immat Gran (auto) Absolute Neuts (auto) Absolute Nucleated RBC Nucleated RBC % (auto) PT INR APTT Anion Gap Estim Creat Clear Calc Estimated GFR Random Glucose Lactic Acid Lactic Acid F/U @ 2Hr 2.2 H* Lactic Acid F/U @ 4Hr Calcium Magnesium Total Bilirubin 3.2 H Direct Bilirubin 2.2 H AST 629 H ALT 417 H Alkaline Phosphatase 1076 H Total Creatine Kinase Total Protein 6.8 Albumin 2.8 L Lipase Urine Color Urine Appearance Urine pH Ur Specific [place] Urine Protein Urine Glucose (UA) Urine Ketones Urine Blood Urine Nitrite Ur Leukocyte Esterase Urine RBC Urine WBC Ur Squamous Epith Cells Urine Bacteria Hyaline Casts Granular Casts Salicylates Acetaminophen COVID-19 ([facility]) Negative COVID-19 Clin Com See Note 05/22/22 01:29 MCV MCH MCHC RDW Plt Count MPV Immature Gran % (Auto) Neut % (Auto) Lymph % (Auto) [place] % (Auto) Eos % (Auto) Baso % (Auto) Lymph # (Auto) [place] # (Auto) Eos # (Auto) Baso # (Auto) Abs Immat Gran (auto) Absolute Neuts (auto) Absolute Nucleated RBC Nucleated RBC % (auto) PT INR APTT Anion Gap Estim Creat Clear Calc Estimated GFR Random Glucose Lactic Acid Lactic Acid F/U @ 2Hr Lactic Acid F/U @ 4Hr 1.6 Calcium Magnesium Total Bilirubin Direct Bilirubin AST ALT Alkaline Phosphatase Total Creatine Kinase Total Protein Albumin Lipase Urine Color Urine Appearance Urine pH Ur Specific [place] Urine Protein Urine Glucose (UA) Urine Ketones Urine Blood Urine Nitrite Ur Leukocyte Esterase Urine RBC Urine WBC Ur Squamous Epith Cells Urine Bacteria Hyaline Casts Granular Casts Salicylates Acetaminophen COVID-19 ([facility]) COVID-19 Clin Com Imaging Radiologist's Impressions: Impressions Abdomen/Pelvis CT 05/21/22 13:37 IMPRESSION: Gallstones. Frederick catheter in the bladder. The bladder is empty. Small amount of air in the bladder likely related to Frederick catheter placement. Mild diffuse bladder wall thickening and stranding of the perivesicular fat. Infectious, inflammatory and neoplastic bladder process should be considered. Enlarged prostate gland. Diverticulosis of the colon. No evidence of diverticulitis. Nonspecific small bowel mesentery fat stranding and shotty lymphadenopathy, mild. Fleischner guidelines were followed. Abdomen Ultrasound 05/21/22 14:02 IMPRESSION: Somewhat equivocal findings of the gallbladder. While there are gallstones and there is some degree of wall thickening toward the infundibulum, the main body and fundus do not demonstrate similar wall thickening and there is no sonographic Hadley sign. If there are continued clinical concerns for cholecystitis, further evaluation could be considered with HIDA. 6 x 5 mm echogenic structure at the lower pole right kidney which could represent a nonobstructing calculus, though there is no CT correlate. Hepatobiliary Scan Nuclear Medicine 05/21/22 21:25 IMPRESSION: No activity seen in the gallbladder suggestive of acute cholecystitis or cystic duct obstruction. Assessment and Plan (1) Acute cholecystitis: Status: Acute (2) UTI (urinary tract infection): Status: Acute (3) Elevated LFTs: Status: Acute (4) Hematuria: Status: Acute (5) Enlarged prostate: Status: Acute Plan 86-year-old male with past medical history as mentioned above with dementia at baseline presents to the hospital with dark urine found to have acute cholecystitis and UTI # acute cholecystitis - had elevated LFTs, and ultrasound of the abdomen was done, recommended HIDA scan which was positive for cholecystitis - patient hemodynamically stable - will treat with IV antibiotics - surgeries on consult - will keep patient NPO # UTI - chronic Frederick in place - positive UA - evidence of cystitis on CT abdomen with bladder wall thickness - will treat with IV antibiotics - urology was consulted, and recommend outpatient follow-up for further evaluati on of the CT finding # elevated LFTs - secondary to above - follow LFTs on treatment # hematuria - likely secondary to UTI versus bladder malignancy - CT abdomen pelvis shows thickness of the gallbladder wall - patient to follow-up with Urology outpatient for further evaluation # hypertension - stable - continue amlodipine dvt ppx: sc given patient's acute cholecystitis, need for IV antibiotics, patient will require a minimum 2 night hospital stay for further management Quality Stroke Does the patient have a stroke diagnosis?: No VTE Prior VTE?: No VTE Risk Level:: Medical - moderate - high VTE Device Contraindication: N/A - Device Ordered VTE Drug Contraindication: Treatment Not Indicated
--- NOTE | 2022-05-22 07:28 | PHA.MEDREC ---
Pharmacy Consult ? Medication Reconciliation Pharmacy has completed the medication reconciliation. Reviewed by me this AM. Aspirin missing. Provider notified. Thanks Román
[2022-05-22 07:44] LABS: Glucose, Whole Blood 107 mg/dL (60-115)
--- NOTE | 2022-05-22 07:55 | P.CONGS_ITS ---
History of Present Illness Consult details Consult date: 05/22/22 Reason for consult: gallstones Narrative: The patient is an 86-year-old male with h/o CVA, poor speech, Yoruba-speaking only, DM2 & HTN who was referred to the emergency department because of dark u rine. The patient has a chronic indwelling Frederick due to urinary retention issues and needs follow-up with Urology.? Per EMR, th patient recently here visiting relatives from [place] who presented to [facility] with left- sided upper extremity weakness, difficulty speaking and swallowing.? Was noted to have difficulty with handling his secretions.? CT of head was negative for acute findings, was unable to have MRI done due to not being able to sit still.? Patient's clinical presentation most consistent with an acute stroke.? Patient was also found to have an aspiration pneumonia due to his dysphagia and was placed on IV antibiotics. He was discharged home with family to take care of him at home.? Treatment for his acute CVA with antiplatelet therapy high-dose statin therapy and blood pressure control. In the ER, the patient was noted to have abnormal LFTs, consequently a CT scan was performed which demonstrated calcified gallstones but was negative for pericholecystic fluid, intrahepatic ductal dilation or acute biliary pathology. Given this, an abdominal ultrasound was then performed which confirmed cholithiasis with no intrahepatic ductal dilation, pericholecystic fluid, gallbladder wall thickening and per report, ultrasonographic Hadley's was negative. However, given the abnormal LFTs and 2- studies, the emergency department ordered a HIDA scan which showed nonvisualization of the gallbladder. The patient communicates very little so history is of dubious use, but he denies any abdominal pain. Review of Systems Review of Systems: Yes Unobtainable due to mental status [facility] Past Medical History Medical History Diabetes Hypertension Social History Social History Household Members: Family Housing: Apartment Do you presently have visiting nurse or other home services: No Alcohol intake: never Patient Tobacco Use Status: Former Tobacco user Tobacco use type: Cigarette e-Cigarette/Vaping Use: Never Used Advance Directives: Yes Advance Directives on File: Yes Advance Directives Date on File: 05/14/22 service: No Current occupational status: unemployed Cognitive needs: Yes Hearing needs: No Vision needs: Yes (cataracts in both eyes) Meds Allergies Allergy/AdvReac Type Severity Reaction Status Date / Time No Known Allergies Allergy Verified 05/21/22 12:36 [No Known Allergies*] Active Medications: Current Medications Acetaminophen (Acetaminophen 325 Mg Tablet) 650 mg PO Q6H PRN PRN Reason: Pain, Mild (Pain Scale 1-3) Amlodipine Besylate (Amlodipine Besylate 10 Mg Tablet) 10 mg PO DAILY [facility]; Protocol Dextrose (Dextrose 50 % 25 Gm/50 Ml Syringe) 25 gm IVPUSH Q15M PRN; Protocol PRN Reason: per Hypoglycemia Standing Ord. Docusate Sodium (Docusate Sodium 100 Mg Capsule) 100 mg PO DAILY PRN PRN Reason: Constipation Glucose (Glucose Gel 15 Gm Gel..Gram.) 15 gm PO Q15M PRN; Protocol PRN Reason: per Hypoglycemia Standing Ord. Ceftriaxone Sodium 1 gm/ (Sodium Chloride) 50 mls @ 100 mls/hr IV Q24H [facility] Last Admin: 05/22/22 02:47 Dose: Not Given Metronidazole (Flagyl) 500 mg in 100 mls @ 100 mls/hr IV Q8H [facility] Last Admin: 05/22/22 02:37 Dose: Not Given Lactated Ringer's (Lr) 1,000 mls @ 100 mls/hr IVCONT .Q10H [facility] Last Admin: 05/22/22 02:08 Dose: 100 mls/hr Insulin Human Lispro (Insulin Lispro 100 Unit/Ml 3 Ml Vial) 0 unit SUBCUT QIDACHS [facility]; Protocol Ondansetron HCl (Ondansetron Hcl 4 Mg/2 Ml Vial) 4 mg IVPUSH Q8H PRN PRN Reason: Nausea and Vomiting Oxycodone HCl (Oxycodone Hcl Immed Release 5 Mg Tablet) 5 mg PO Q6H PRN PRN Reason: Pain, Severe (Pain Scale 7-10) Pharmacy Consult (Consult Rx Perform Med Rec) 1 each MISCELLANE ONCE PRN PRN Reason: Consult order Sodium Chloride (0.9 % Sodium Chloride Flush 3 Ml Syringe) 3 ml IVFLUSH QSHIFT [facility] Last Admin: 05/22/22 00:50 Dose: Not Given Tamsulosin HCl (Tamsulosin Hcl 0.4 Mg Capsule) 0.4 mg PO DAILY@1700 [facility] Home Medications Medication Instructions Recorded Confirmed Last Taken Type aspirin 81 mg tablet,delayed 81 mg PO DAILY 05/22/22 05/22/22 Unknown History release Physical Exam Vital Signs: Vital Signs: Last Vital Signs Temp 98.5 F 05/21/22 12:18 Pulse 87 05/22/22 05:34 Resp 18 05/21/22 14:12 BP 108/54 L 05/22/22 05:34 Pulse Ox 97 05/22/22 05:34 O2 Del Method 05/22/22 05:34 BMI result Body Mass Index 29.9 The patient is non-toxic NC/AT, PERRLA, EOMI Sclera anicteric conjunctiva pink and moist Neck is supple with no masses, adenopathy or bruits Heart is regular, normal S1-S2 no rubs or murmurs Lungs are clear and equal anteriorly with no audible wheezing, rubs or dullness to percussion No CVA tenderness present Abdomen is overweight & soft, without guarding, rebound or rigidity & with no demonstrable hernias. No HSM, is present. Rectal exam is deferred Skin has good turgor and is free of rashes Extremities free of cyanosis clubbing edema Results Labs Result diagrams: 05/21/22 12:28 05/21/22 12:28 Labs: Abnormal lab results 05/21/22 05/21/22 05/21/22 Range/Units 12:28 12:28 14:10 WBC 11.3 H (4.8-10.8) X10*3/uL MCH 26.3 L (27.0-33.0) pg Immature Gran % (Auto) 0.5 H (0.0-0.4) % Neut % (Auto) 76.6 H (45-73) % Lymph % (Auto) 12.2 L (20-40) % Abs Immat Gran (auto) 0.06 H (0.00-0.03) X10*3/uL Absolute Neuts (auto) 8.6 H (2.0-8.3) x10*3/uL Random Glucose 144 H (60-115) mg/dL Lactic Acid (0.5-2.0) mmol/L Lactic Acid F/U @ 2Hr (0.5-2.0) mmol/L Total Bilirubin 3.4 H (0.0-1.0) mg/dL Direct Bilirubin (0.0-0.5) mg/dL AST 629 H (5-37) U/L ALT 413 H (0-40) U/L Alkaline Phosphatase 1052 H D (39-117) U/L Total Creatine Kinase 34 L (38-174) U/L Albumin 3.0 L D (3.5-5.0) g/dL Ur Specific [place] >= 1.030 H (1.005-1.025) Urine Protein 100 (2+) H (Neg-Trace) mg/dL Urine Blood Large (3+) H (Negative) Urine Nitrite Positive H (Negative) Ur Leukocyte Esterase Moderate (2+) H (Negative) Urine RBC >20 H (0-2) /HPF Urine WBC 21-50 H (0-5) /HPF Salicylates (15-30) mg/dL 05/21/22 05/21/22 05/21/22 Range/Units 16:42 19:29 21:56 WBC (4.8-10.8) X10*3/uL MCH (27.0-33.0) pg Immature Gran % (Auto) (0.0-0.4) % Neut % (Auto) (45-73) % Lymph % (Auto) (20-40) % Abs Immat Gran (auto) (0.00-0.03) X10*3/uL Absolute Neuts (auto) (2.0-8.3) x10*3/uL Random Glucose (60-115) mg/dL Lactic Acid 2.6 H* (0.5-2.0) mmol/L Lactic Acid F/U @ 2Hr (0.5-2.0) mmol/L Total Bilirubin 3.2 H (0.0-1.0) mg/dL Direct Bilirubin 2.2 H (0.0-0.5) mg/dL AST 629 H (5-37) U/L ALT 417 H (0-40) U/L Alkaline Phosphatase 1076 H (39-117) U/L Total Creatine Kinase (38-174) U/L Albumin 2.8 L (3.5-5.0) g/dL Ur Specific [place] (1.005-1.025) Urine Protein (Neg-Trace) mg/dL Urine Blood (Negative) Urine Nitrite (Negative) Ur Leukocyte Esterase (Negative) Urine RBC (0-2) /HPF Urine WBC (0-5) /HPF Salicylates < 5.0 L (15-30) mg/dL 05/21/22 Range/Units 22:53 WBC (4.8-10.8) X10*3/uL MCH (27.0-33.0) pg Immature Gran % (Auto) (0.0-0.4) % Neut % (Auto) (45-73) % Lymph % (Auto) (20-40) % Abs Immat Gran (auto) (0.00-0.03) X10*3/uL Absolute Neuts (auto) (2.0-8.3) x10*3/uL Random Glucose (60-115) mg/dL Lactic Acid (0.5-2.0) mmol/L Lactic Acid F/U @ 2Hr 2.2 H* (0.5-2.0) mmol/L Total Bilirubin (0.0-1.0) mg/dL Direct Bilirubin (0.0-0.5) mg/dL AST (5-37) U/L ALT (0-40) U/L Alkaline Phosphatase (39-117) U/L Total Creatine Kinase (38-174) U/L Albumin (3.5-5.0) g/dL Ur Specific [place] (1.005-1.025) Urine Protein (Neg-Trace) mg/dL Urine Blood (Negative) Urine Nitrite (Negative) Ur Leukocyte Esterase (Negative) Urine RBC (0-2) /HPF Urine WBC (0-5) /HPF Salicylates (15-30) mg/dL Short CBC 05/21/22 Range/Units 12:28 WBC 11.3 H (4.8-10.8) X10*3/uL Hgb 14.0 (14.0-18.0) g/dl Hct 43.4 (42.0-52.0) % Plt Count 370 (160-400) X10*3/uL BMP 05/21/22 12:28 Sodium 141 Potassium 3.6 Chloride 100 Carbon Dioxide 28 BUN 14 Creatinine 0.80 Calcium 8.9 Cardiac Enzymes 05/21/22 Range/Units 12:28 Total Creatine Kinase 34 L (38-174) U/L Liver Function 05/21/22 05/21/22 Range/Units 12:28 21:56 Total Bilirubin 3.4 H 3.2 H (0.0-1.0) mg/dL Direct Bilirubin 2.2 H (0.0-0.5) mg/dL AST 629 H 629 H (5-37) U/L ALT 413 H 417 H (0-40) U/L Alkaline Phosphatase 1052 H D 1076 H (39-117) U/L Albumin 3.0 L D 2.8 L (3.5-5.0) g/dL Urine 05/21/22 Range/Units 14:10 Urine Color ORANGE Urine Appearance Hazy Urine pH 6.0 (5.0-8.0) Ur Specific [place] >= 1.030 H (1.005-1.025) Urine Protein 100 (2+) H (Neg-Trace) mg/dL Urine Glucose (UA) Negative (Negative) mg/dL All other labs normal. Imaging Abdomen CT scan report/results: report reviewed and image reviewed CT scan - pelvis: report reviewed and image reviewed Abdominal ultrasound report/results: report reviewed Assessment and Plan (1) Elevated LFTs: Status: Acute (2) UTI (urinary tract infection): Status: Acute (3) Gallstone: Status: Acute (4) Abnormal biliary HIDA scan: Status: Acute (5) Dementia: Qualifiers: Dementia type: vascular dementia Dementia behavioral disturbance: without behavioral disturbance Qualified Code(s): F01.50 - Vascular dementia without behavioral disturbance Status: Acute (6) DMII (diabetes mellitus, type 2): Qualifiers: Diabetes mellitus tank terminal gauger insulin use: without longterm use Diabetes mellitus complication status: with circulatory complication Diabetes mellitus complication detail: with other circulatory complications Qualified Code(s): E11.59 - Type 2 diabetes mellitus with other circulatory complications Status: Acute (7) HTN (hypertension): Qualifiers: Hypertension type: primary hypertension Qualified Code(s): I10 - Ess ential (primary) hypertension Status: Acute (8) Acute left-sided weakness: Status: Acute (9) Cerebrovascular accident: Qualifiers: CVA mechanism: occlusion Laterality of affected vessel: bilateral Precerebral and cerebral artery: middle cerebral artery Qualified Code(s): I63.513 - Cerebral infarction due to unspecified occlusion or stenosis of ishmael ateral middle cerebral arteries Status: Acute Plan Would recommend GI evaluation regarding the abnormal LFTs. On my exam this morning, the patient's abdomen is soft with no grimacing and no rebound, rigidity or guarding. Two of the 3 studies, specifically the CT and ultrasound, show no gallbladder wall abnormalities, pericholecystic fluid nor direct gallbladder tenderness to support the finding of acute cholecystitis. HIDA scan does not show infection, it shows whether not the cystic duct is patent; patient may need an MRCP but would defer on additional testing until input from GI is available. Will continue to follow, please call me with questions. Procedures Date of Service Date of Service: 05/22/22
[2022-05-22 08:36] LABS: ~HepC Num1 0.23 S/CO (0.00-0.79); ~Hepatitis C Antibody Nonreactive (Nonreactive)
[2022-05-22] MEDS: 0.9 % Sodium Chloride Flush 3 ML SYRINGE IVFLUSH (08:43)
[2022-05-22 08:44] LABS: HBc Num1 0.55 S/CO (0.00-0.79); HBsAGNum1 0.16 S/CO (0.00-0.99); Hepatitis B Core Antibody Nonreactive (Nonreactive); Hepatitis B Surface Antigen Negative (Negative); ~Hepatitis B Surface Antibody NONREACTIVE (Nonreactive)
[2022-05-22 09:11] VITALS: BP 110/50; PULSE 81; RESP 16; O2SAT 96
--- NOTE | 2022-05-22 11:28 | PC.NURSE ---
called the pt's family contact, a child answered and states that her mother Shirley is coming to the hospital. I'll attempt to do a MRI screening form when she gets here. mri didn't answer phone when called
[2022-05-22 11:46] LABS: Basophils Absolute Auto 0.1 X10*3/uL (0.0-0.2); Basophils Percent Auto 0.9 % (0-2); Eosinophils Absolute Auto 0.3 X10*3/uL (0.0-0.4); Eosinophils Percent Auto 2.8 % (0-4); Hematocrit 39.9 % (42.0-52.0); Imm Gran Abs Auto 0.06 X10*3/uL (0.00-0.03); Imm Gran Pct Auto 0.6 % (0.0-0.4); Lymphocytes Absolute Auto 1.4 X10*3/uL (1.2-4.9); Lymphocytes Percent Auto 13.1 % (20-40); MANUAL DIFF FLAG SCAN; Mean Corpuscular HGB Conc 32.6 g/dl (31.0-36.0); Mean Corpuscular Hemoglobin 26.3 pg (27.0-33.0); Mean Corpuscular Volume 80.8 fL (80.0-98.0); Monocytes Absolute Auto 0.9 X10*3/uL (0.1-1.2); NRBC Pct Auto 0.2 /100WBC (0.0-0.2); Neutrophils Absolute Auto 7.9 x10*3/uL (2.0-8.3); Neutrophils Percent Auto 74.6 % (45-73); PLT CLUMP 1; Red Blood Count 4.94 X10*6/uL (4.60-5.80); Red Cell Distribution Width 16.2 % (11.0-16.0); SCAN SMEAR FLAG 1
[2022-05-22 12:03] LABS: Anion Gap 14 (12-20); Blood Urea Nitrogen 14 mg/dL (9-16); Calcium 8.2 mg/dL (8.4-10.2); Carbon Dioxide 25 mmol/L (22-29); Chloride 104 mmol/L (96-108); Creatinine Clr Calc Pharmacy 75.6; Estimated Glomerular Filt Rate > 60; Glucose Random 113 mg/dL (60-115); Sodium 139 mmol/L (135-145)
[2022-05-22 12:13] LABS: White Blood Count 10.6 X10*3/uL (4.8-10.8)
[2022-05-22 12:15] LABS: SLIDE REVIEW VERIFIED
--- NOTE | 2022-05-22 14:04 | PM.GICN ---
History of Present Illness Data of Consult Service Date: 05/22/22 Primary Care Provider: Adi Campos PA-C HPI Reason for consult: abn LFT 86-year-old male w/ history of recent CVA about a month ago, diabetes and hypertension with baseline confusion who I am seeing for assessment for abn LFT Most of hx from chart and clinical team due to patients baseline confusion PAtient himself denies any sx but per chart he initially came after VNA nurse noted abnormal colored urine in [place]. Further testing revealed UA and culture pos for GNR He also had abn labs with elevated WBC count, elevated total bili of 3.4, AST of 629 and ALT of 413, with an alk-phos of 1052 and a total CPK of 34, Hep B,C neg, Hep A pending. Acetaminophen level was neg. US revealed gallstones and subtle thickened GB, subsequent HIDA was pos for possible acute cholecystitis. CT also done revealing bladder wall thickening and stranding of the perivesicular fat concerning for infectious process. Review of Systems Review of Systems: Yes Unobtainable due to mental status [facility] Past Medical History Medical History Diabetes Hypertension Family History Pertinent family history: unable to obtain Social History Social History Household Members: Family Housing: Apartment Do you presently have visiting nurse or other home services: No Alcohol intake: never Patient Tobacco Use Status: Former Tobacco user Tobacco use type: Cigarette e-Cigarette/Vaping Use: Never Used Advance Directives: Yes Advance Directives on File: Yes Advance Directives Date on File: 05/14/22 service: No Current occupational status: retired Cognitive needs: Yes Hearing needs: No Vision needs: Yes (cataracts in both eyes) Meds Allergies Allergy/AdvReac Type Severity Reaction Status Date / Time No Known Allergies Allergy Verified 05/21/22 12:36 [No Known Allergies*] Active Medications: Current Medications Acetaminophen (Acetaminophen 325 Mg Tablet) 650 mg PO Q6H PRN PRN Reason: Pain, Mild (Pain Scale 1-3) Dextrose (Dextrose 50 % 25 Gm/50 Ml Syringe) 25 gm IVPUSH Q15M PRN; Protocol PRN Reason: per Hypoglycemia Standing Ord. Docusate Sodium (Docusate Sodium 100 Mg Capsule) 100 mg PO DAILY PRN PRN Reason: Constipation Glucose (Glucose Gel 15 Gm Gel..Gram.) 15 gm PO Q15M PRN; Protocol PRN Reason: per Hypoglycemia Standing Ord. Ceftriaxone Sodium 1 gm/ (Sodium Chloride) 50 mls @ 100 mls/hr IV Q24H [facility] Last Admin: 05/22/22 02:47 Dose: Not Given Metronidazole (Flagyl) 500 mg in 100 mls @ 100 mls/hr IV Q8H [facility] Last Admin: 05/22/22 08:43 Dose: 100 mls/hr Lactated Ringer's (Lr) 1,000 mls @ 100 mls/hr IVCONT .Q10H [facility] Last Admin: 05/22/22 10:10 Dose: 100 mls/hr Insulin Human Lispro (Insulin Lispro 100 Unit/Ml 3 Ml Vial) 0 unit SUBCUT QIDACHS [facility]; Protocol Last Admin: 05/22/22 08:47 Dose: Not Given Ondansetron HCl (Ondansetron Hcl 4 Mg/2 Ml Vial) 4 mg IVPUSH Q8H PRN PRN Reason: Nausea and Vomiting Oxycodone HCl (Oxycodone Hcl Immed Release 5 Mg Tablet) 5 mg PO Q6H PRN PRN Reason: Pain, Severe (Pain Scale 7-10) Pharmacy Consult (Consult Rx Perform Med Rec) 1 each MISCELLANE ONCE PRN PRN Reason: Consult order Sodium Chloride (0.9 % Sodium Chloride Flush 3 Ml Syringe) 3 ml IVFLUSH QSHIFT [facility] Last Admin: 05/22/22 08:43 Dose: 3 ml Tamsulosin HCl (Tamsulosin Hcl 0.4 Mg Capsule) 0.4 mg PO DAILY@1700 [facility] Home Medications Medication Instructions Recorded Confirmed Last Taken Type aspirin 81 mg tablet,delayed 81 mg PO DAILY 05/22/22 05/22/22 Unknown History release Physical Exam Vital Signs: Vital Signs: Last Vital Signs Temp 98.5 F 05/21/22 12:18 Pulse 81 05/22/22 09:11 Resp 16 05/22/22 09:11 BP 110/50 L 05/22/22 09:11 Pulse Ox 96 05/22/22 09:11 O2 Del Method 05/22/22 09:11 BMI result Body Mass Index 29.9 Const: Other: Patient oriented to self not place or time General: cooperative and no acute distress Eyes: General: appearance normal, both eyes and all related structures Resp: Effort & Inspection: normal respiratory effort Auscultation: clear to auscultation bilaterally Cardio: Rate: regular rate Rhythm: regular rhythm GI: Other: no abdominal tenderness at this time, no rebound or guarding Palpation (GI): Soft to palpation Auscultation: normal bowel sounds Skin: General skin exam: no rashes or lesions noted Extrem: General: Yes normal to inspection and Yes no pedal edema Psych: Appearance: disheveled Mental Status: mental status grossly abnormal Insight: Poor insight present (Psych) Results Labs CBC & Chem 7: 05/22/22 11:35 05/22/22 11:35 Labs: Short CBC 05/22/22 Range/Units 11:35 WBC 10.6 (4.8-10.8) X10*3/uL Hgb 13.0 L (14.0-18.0) g/dl Hct 39.9 L (42.0-52.0) % Plt Count TNP BMP 05/22/22 11:35 Sodium 139 Potassium 4.0 Chloride 104 Carbon Dioxide 25 BUN 14 Creatinine 0.70 Calcium 8.2 L D Liver Function 05/21/22 Range/Units 21:56 Total Bilirubin 3.2 H (0.0-1.0) mg/dL Direct Bilirubin 2.2 H (0.0-0.5) mg/dL AST 629 H (5-37) U/L ALT 417 H (0-40) U/L Alkaline Phosphatase 1076 H (39-117) U/L Albumin 2.8 L (3.5-5.0) g/dL Urine 05/21/22 Range/Units 14:10 Urine Color ORANGE Urine Appearance Hazy Urine pH 6.0 (5.0-8.0) Ur Specific [place] >= 1.030 H (1.005-1.025) Urine Protein 100 (2+) H (Neg-Trace) mg/dL Urine Glucose (UA) Negative (Negative) mg/dL Microbiology Microbiology Results: Microbiology 05/21/22 Unknown Urine Catheterized - Spencer Catheter Urine Culture - Preliminary Gram negative angel Imaging CT scan - abdomen: Attestation: I personally reviewed and interpreted this imaging study as follows: (gallstones, thickened bladder ) Assessment and Plan (1) Elevated LFTs: Status: Acute (2) UTI (urinary tract infection): Status: Acute (3) Gallstone: Status: Acute (4) Abnormal biliary HIDA scan: Status: Acute (5) Dementia: Qualifiers: Dementia behavioral disturbance: without behavioral disturbance Dementia type: vascular dementia Qualified Code(s): F01.50 - Vascular dementia without behavioral disturbance Status: Acute (6) DMII (diabetes mellitus, type 2): Qualifiers: Diabetes mellitus complication detail: with other circulatory complications Diabetes mellitus complication status: with circulatory complication Diabetes mellitus penitentiary insulin use: without penitentiary use Qualified Code(s): E11.59 - Type 2 diabetes mellitus with other circulatory complications Status: Acute (7) HTN (hypertension): Qualifiers: Hypertension type: primary hypertension Qualified Code(s): I10 - Essential (primary) hypertension Status: Acute (8) Acute left-sided weakness: Status: Acute (9) Cerebrovascular accident: Qualifiers: CVA mechanism: occlusion Laterality of affected vessel: bilateral Precerebral and cerebral artery: middle cerebral artery Qualified Code(s): I63.513 - Cerebral infarction due to unspecified occlusion or stenosis of bilateral middle cerebral arteries Status: Acute Plan 1/ Abn LFT with imaging revealing gallstones and pos HIDA but benign clinical exam. ddx: could still be acute on chronic cholecystitis, choledocholithiasis, interstitial liver disease, budd chairi, infectious hepatitis, DILI, 2/2 right heart cardiac disease, autoimmune hepatitis, cholangiocarcinoma PLAN: 1/ check liver serologies, XIMENA, SMA, ANCa, SLA, anti LKM, await Hep A, 2/ MRCP 3/ hold statin for the meantime 4/watch for clinical signs of cholecystitis 5/ if choledocholithiasis then may need ERCP Procedures Date of Service Date of Service: 05/22/22
--- NOTE | 2022-05-22 15:31 | P.PNIM_ITS ---
Subjective Subjective Date of Service: 05/22/22 Interval History: History obtained via staff physical therapist, patient resting comfortably denies abdominal pain, denies nausea, vomiting, no other acute events since admission to the hospital. Patient with baseline confusion. Unreliable historian. 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 Neck no JVD. CVS regular rate rhythm, Respiratory lungs clear to auscultation, no respiratory distress, no wheeze, no rhonchi. Gastrointestinal abdomen soft, nontender, bowel sounds audible, no guarding , no rigidity. Extremities no edema. Neuro moving all 4 extremity speech clear. Skin no rash Psych poor insight Objective Data Active Medications Acetaminophen (Acetaminophen 325 Mg Tablet) 650 mg PO Q6H PRN PRN Reason: Pain, Mild (Pain Scale 1-3) Dextrose (Dextrose 50 % 25 Gm/50 Ml Syringe) 25 gm IVPUSH Q15M PRN; Protocol PRN Reason: per Hypoglycemia Standing Ord. Docusate Sodium (Docusate Sodium 100 Mg Capsule) 100 mg PO DAILY PRN PRN Reason: Constipation Glucose (Glucose Gel 15 Gm Gel..Gram.) 15 gm PO Q15M PRN; Protocol PRN Reason: per Hypoglycemia Standing Ord. Ceftriaxone Sodium 1 gm/ (Sodium Chloride) 50 mls @ 100 mls/hr IV Q24H [facility] Last Admin: 05/22/22 02:47 Dose: Not Given Documented By: INDIA Non-Admin Reason: Duplicate Order Metronidazole (Flagyl) 500 mg in 100 mls @ 100 mls/hr IV Q8H [facility] Last Admin: 05/22/22 08:43 Dose: 100 mls/hr Documented By: BRIAN Lactated Ringer's (Lr) 1,000 mls @ 100 mls/hr IVCONT .Q10H [facility] Last Admin: 05/22/22 10:10 Dose: 100 mls/hr Documented By: BRIAN Insulin Human Lispro (Insulin Lispro 100 Unit/Ml 3 Ml Vial) 0 unit SUBCUT QIDACHS [facility]; Protocol Last Admin: 05/22/22 14:43 Dose: Not Given Documented By: SANDRA Non-Admin Reason: No Insulin Coverage Comments: Venous [id number] Ondansetron HCl (Ondansetron Hcl 4 Mg/2 Ml Vial) 4 mg IVPUSH Q8H PRN PRN Reason: Nausea and Vomiting Oxycodone HCl (Oxycodone Hcl Immed Release 5 Mg Tablet) 5 mg PO Q6H PRN PRN Reason: Pain, Severe (Pain Scale 7-10) Pharmacy Consult (Consult Rx Perform Med Rec) 1 each MISCELLANE ONCE PRN PRN Reason: Consult order Sodium Chloride (0.9 % Sodium Chloride Flush 3 Ml Syringe) 3 ml IVFLUSH QSHIFT [facility] Last Admin: 05/22/22 08:43 Dose: 3 ml Documented By: BRIAN Tamsulosin HCl (Tamsulosin Hcl 0.4 Mg Capsule) 0.4 mg PO DAILY@1700 [facility] Labs CBC & Chem 7: 05/22/22 11:35 05/22/22 11:35 Labs: Laboratory Results - last 24 hr 05/21/22 05/21/22 05/21/22 12:28 16:42 19:29 MCV MCH MCHC RDW Plt Count MPV Immature Gran % (Auto) Neut % (Auto) Lymph % (Auto) [place] % (Auto) Eos % (Auto) Baso % (Auto) Lymph # (Auto) [place] # (Auto) Eos # (Auto) Baso # (Auto) Abs Immat Gran (auto) Absolute Neuts (auto) Absolute Nucleated RBC Nucleated RBC % (auto) Smear Tech's Comments Anion Gap Estim Creat Clear Calc Estimated GFR POC Glucose Random Glucose Lactic Acid 2.6 H* Lactic Acid F/U @ 2Hr Lactic Acid F/U @ 4Hr Calcium Total Bilirubin Direct Bilirubin AST ALT Alkaline Phosphatase Total Protein Albumin Salicylates < 5.0 L Acetaminophen < 1 COVID-19 ([facility]) COVID-19 Clin Com Hep Bs Antigen Negative Hep Bs Antibody NONREACTIVE Hep B Core Total Ab Nonreactive Hepatitis C Ab (EIA) Nonreactive 05/21/22 05/21/22 05/21/22 21:56 22:53 22:53 MCV MCH MCHC RDW Plt Count MPV Immature Gran % (Auto) Neut % (Auto) Lymph % (Auto) [facility] % (Auto) Eos % (Auto) Baso % (Auto) Lymph # (Auto) [place] # (Auto) Eos # (Auto) Baso # (Auto) Abs Immat Gran (auto) Absolute Neuts (auto) Absolute Nucleated RBC Nucleated RBC % (auto) Smear Tech's Comments Anion Gap Estim Creat Clear Calc Estimated GFR POC Glucose Random Glucose Lactic Acid Lactic Acid F/U @ 2Hr 2.2 H* Lactic Acid F/U @ 4Hr Calcium Total Bilirubin 3.2 H Direct Bilirubin 2.2 H AST 629 H ALT 417 H Alkaline Phosphatase 1076 H Total Protein 6.8 Albumin 2.8 L Salicylates Acetaminophen COVID-19 ([facility]) Negative COVID-19 Clin Com See Note Hep Bs Antigen Hep Bs Antibody Hep B Core Total Ab Hepatitis C Ab (EIA) 05/22/22 05/22/22 05/22/22 01:29 07:34 11:35 MCV 80.8 MCH 26.3 L MCHC 32.6 RDW 16.2 H Plt Count TNP MPV Not Reportable Immature Gran % (Auto) 0.6 H Neut % (Auto) 74.6 H Lymph % (Auto) 13.[address] [place] % (Auto) 8.0 Eos % (Auto) 2.8 Baso % (Auto) 0.9 Lymph # (Auto) 1.4 [facility] # (Auto) 0.9 Eos # (Auto) 0.3 Baso # (Auto) 0.1 Abs Immat Gran (auto) 0.06 H Absolute Neuts (auto) 7.9 Absolute Nucleated RBC 0.020 H Nucleated RBC % (auto) 0.2 Smear Tech's Comments VERIFIED Anion Gap Estim Creat Clear Calc Estimated GFR POC Glucose 107 Random Glucose Lactic Acid Lactic Acid F/U @ 2Hr Lactic Acid F/U @ 4Hr 1.6 Calcium Total Bilirubin Direct Bilirubin AST ALT Alkaline Phosphatase Total Protein Albumin Salicylates Acetaminophen COVID-19 ([facility]) COVID-19 Clin Com Hep Bs Antigen Hep Bs Antibody Hep B Core Total Ab Hepatitis C Ab (EIA) 05/22/22 11:35 MCV MCH MCHC RDW Plt Count MPV Immature Gran % (Auto) Neut % (Auto) Lymph % (Auto) [facility] % (Auto) Eos % (Auto) Baso % (Auto) Lymph # (Auto) [facility] # (Auto) Eos # (Auto) Baso # (Auto) Abs Immat Gran (auto) Absolute Neuts (auto) Absolute Nucleated RBC Nucleated RBC % (auto) Smear Tech's Comments Anion Gap 14 Estim Creat Clear Calc 75.6 Estimated GFR > 60 POC Glucose Random Glucose 113 Lactic Acid Lactic Acid F/U @ 2Hr Lactic Acid F/U @ 4Hr Calcium 8.2 L D Total Bilirubin Direct Bilirubin AST ALT Alkaline Phosphatase Total Protein Albumin Salicylates Acetaminophen COVID-19 ([facility]) COVID-19 Clin Com Hep Bs Antigen Hep Bs Antibody Hep B Core Total Ab Hepatitis C Ab (EIA) Microbiology Microbiology Results: Microbiology 05/21/22 Unknown Urine Culture - Preliminary Urine Catheterized - Frederick Catheter Gram negative angel Assessment and Plan (1) Abnormal biliary HIDA scan: Status: Acute (2) Gallstone: Status: Acute (3) Elevated LFTs: Status: Acute (4) UTI (urinary tract infection): Status: Acute Plan 86-year-old male with past medical history as mentioned above with dementia at baseline presents to the hospital with dark? urine found to have acute cholecystitis and UTI #?elevated LFTs consistent with obstructive jaundice Sent to ED since noted to have dark-colored urine Patient asymptomatic, with no nausea vomiting abdominal pain , WBC normalized , hepatitis serology negative for hep B and C, hepatitis a IgM antibody pending High-showed no gallbladder activity suggestive of acute cholecystitis, ultrasound of abdomen showed some degree of wall thickening of gallbladder, no Hadley sign Patient seen by General surgery patient noted to have a normal abdominal exam, CT abdomen and ultrasound showed no gallbladder wall abnormalities, surgery recommend GI evaluation MRCP ordered GI consult obtained Continue IV antibiotics and iv fluids , follow LFTs #? UTI -? chronic Frederick in place, UA positive urine culture growing Gram-negative rods continue IV ceftriaxone -? evidence of cystitis on CT abdomen with bladder wall thickness - urology was consulted,? and recommend outpatient follow-up for further evaluati on of the CT finding #? hematuria -? likely secondary to UTI versus bladder malignancy -? CT abdomen? pelvis shows? thickness of the gallbladder wall, patient to follow-up with Urology outpatient for further evaluation #? hypertension -? low BP hold amlodipine # recent history of CVA nonambulatory at home, hold statin due to elevated LFTs # diabetes mellitus hold metformin follow blood sugars, diabetic diet when able to tolerate by mouth # dementia likely vascular, no behavioral issues noted dvt ppx: sc ?given patient's elevated LFTs, UTI on IV antibiotic needs continued inpatient hospitalization for workup Quality Stroke Does the patient have a stroke diagnosis?: No VTE Prior VTE?: No VTE Risk Level:: Medical - moderate - high VTE Device Contraindication: N/A - Device Ordered VTE Drug Contraindication: Treatment Not Indicated
[2022-05-22 16:00] VITALS: BP 105/48; PULSE 71; RESP 16; TEMP 36.6; O2SAT 99
--- NOTE | 2022-05-22 16:22 | MHC.CM.PN ---
IMM ADDRESSED WITH PATIENT'S HCP SARAH GARCÍA AT [phone], WHITE COPY MAILED TO HOME VIA CERTIFIED MAIL, YELLOW TO CHART. IMM ADDENDUM COMPLETED. ALBANIAN SPEAKING PATIENT LIVES WITH FAMILY MEMBER, USES WHEELCHAIR AT HOME, [facility] [facility] SEE PATIENT. COPY OF HCP REQUESTED. [facility] X2 MRNA, PCP XIMENA [place], NEEDS BLS TRANSPORT. SARAH EDUCATED ON [facility] FOR REQUEST OF SERVICES D/C PLAN: HOME RESUME VNA
--- NOTE | 2022-05-22 16:39 | PC.NURSE ---
PATIENT WAS INC OF SMALL AMOUNT OF STOOL ,BED BATH GIVEN AND BEDDING CHANGE .
[2022-05-22 16:44] LABS: Glucose, Whole Blood 116 mg/dL (60-115)
[2022-05-22] MEDS: LORazepam 0.5 MG TABLET PO (17:01)
[2022-05-22 20:00] VITALS: BP 116/53; PULSE 69; RESP 16; TEMP 36.8; O2SAT 97
[2022-05-22 20:53] LABS: Glucose, Whole Blood 96 mg/dL (60-115)
--- NOTE | 2022-05-22 21:35 | PC.NURSE ---
Attempt to call report to S3 - RN states she will call back
--- NOTE | 2022-05-22 21:55 | PC.NURSE ---
Report called to BRITT Melo on S3
[2022-05-22 23:57] VITALS: BP 126/59; PULSE 67; RESP 17; TEMP 36.3; O2SAT 97
[2022-05-23] VITALS (13 sets, daily range): BP systolic 106–160; BP diastolic 49–78; PULSE 67–88; RESP 9–18; TEMP 36.1–36.6; O2SAT 95–100
[2022-05-23] MEDS: cefTRIAXone sodium 1 GM in 0.9 % Sodium Chloride 50 ML IV ×2 (01:17→23:47)
[2022-05-23] MEDS: 0.9 % Sodium Chloride Flush 3 ML SYRINGE IVFLUSH ×4 (01:17→23:48)
[2022-05-23] MEDS: metroNIDAZOLE/NS 500 MG/100 ML PIGGYBACK 100 MG IV ×3 (01:48→18:18)
[2022-05-23 07:32] LABS: Glucose, Whole Blood 90 mg/dL (60-115)
[2022-05-23 08:19] LABS: Hepatitis A Antibody IgM 0.79 Index (0-0.79); ~Hepatitis A Antibody IgM Nonreactive (Nonreactive)
--- NOTE | 2022-05-23 08:34 | PM.PNGS ---
Subjective Subjective Date of Service: 05/23/22 Patient reports: no new complaints Interval history: Patient denies pain Physical Exam Vital Signs: Vital Signs: Last Vital Signs Temp 97.8 F 05/23/22 07:32 Pulse 68 05/23/22 07:32 Resp 18 05/23/22 07:32 BP 142/65 H 05/23/22 07:32 Pulse Ox 95 05/23/22 07:32 O2 Del Method 05/23/22 07:32 BMI result Body Mass Index 29.9 Abdomen remains soft with no tenderness, rebound, rigidity or guarding NC/AT Neuro exam is unchanged Sclera remain anicteric Objective Data Active Medications Acetaminophen (Acetaminophen 325 Mg Tablet) 650 mg PO Q6H PRN PRN Reason: Pain, Mild (Pain Scale 1-3) Dextrose (Dextrose 50 % 25 Gm/50 Ml Syringe) 25 gm IVPUSH Q15M PRN; Protocol PRN Reason: per Hypoglycemia Standing Ord. Docusate Sodium (Docusate Sodium 100 Mg Capsule) 100 mg PO DAILY PRN PRN Reason: Constipation Glucose (Glucose Gel 15 Gm Gel..Gram.) 15 gm PO Q15M PRN; Protocol PRN Reason: per Hypoglycemia Standing Ord. Ceftriaxone Sodium 1 gm/ (Sodium Chloride) 50 mls @ 100 mls/hr IV Q24H [facility] Last Infusion: 05/23/22 01:47 Dose: 0 mls/hr Documented By: TONY Metronidazole (Flagyl) 500 mg in 100 mls @ 100 mls/hr IV Q8H [facility] Last Infusion: 05/23/22 02:48 Dose: 0 mls/hr Documented By: TONY Lactated Ringer's (Lr) 1,000 mls @ 100 mls/hr IVCONT .Q10H [facility] Last Admin: 05/23/22 06:11 Dose: Not Given Documented By: TONY Non-Admin Reason: IV Running Insulin Human Lispro (Insulin Lispro 100 Unit/Ml 3 Ml Vial) 0 unit SUBCUT QIDACHS [facility]; Protocol Last Admin: 05/22/22 21:05 Dose: Not Given Documented By: IJEOMA Non-Admin Reason: POC = 96 Ondansetron HCl (Ondansetron Hcl 4 Mg/2 Ml Vial) 4 mg IVPUSH Q8H PRN PRN Reason: Nausea and Vomiting Oxycodone HCl (Oxycodone Hcl Immed Release 5 Mg Tablet) 5 mg PO Q6H PRN PRN Reason: Pain, Severe (Pain Scale 7-10) Pharmacy Consult (Consult Rx Perform Med Rec) 1 each MISCELLANE ONCE PRN PRN Reason: Consult order Sodium Chloride (0.9 % Sodium Chloride Flush 3 Ml Syringe) 3 ml IVFLUSH QSHIFT [facility] Last Admin: 05/23/22 01:17 Dose: 3 ml Documented By: TONY Tamsulosin HCl (Tamsulosin Hcl 0.4 Mg Capsule) 0.4 mg PO DAILY@1700 [facility] Last Admin: 05/22/22 16:25 Dose: Not Given Documented By: KACY Non-Admin Reason: NPO Labs CBC & Chem 7: 05/22/22 11:35 05/22/22 11:35 Labs: Laboratory Results - last 24 hr 05/21/22 05/22/22 05/22/22 12:28 11:35 11:35 MCV 80.8 MCH 26.3 L MCHC 32.6 RDW 16.2 H Plt Count TNP MPV Not Reportable Immature Gran % (Auto) 0.6 H Neut % (Auto) 74.6 H Lymph % (Auto) 13.1 L Allen % (Auto) 8.0 Eos % (Auto) 2.8 Baso % (Auto) 0.9 Lymph # (Auto) 1.4 Allen # (Auto) 0.9 Eos # (Auto) 0.3 Baso # (Auto) 0.1 Abs Immat Gran (auto) 0.06 H Absolute Neuts (auto) 7.9 Absolute Nucleated RBC 0.020 H Nucleated RBC % (auto) 0.2 Smear Tech's Comments VERIFIED Anion Gap 14 Estim Creat Clear Calc 75.6 Estimated GFR > 60 POC Glucose Random Glucose 113 Calcium 8.2 L D Hep Bs Antigen Negative Hep Bs Antibody NONREACTIVE Hep B Core Total Ab Nonreactive Hepatitis C Ab (EIA) Nonreactive 05/22/22 05/22/22 05/23/22 16:38 20:47 07:22 MCV MCH MCHC RDW Plt Count MPV Immature Gran % (Auto) Neut % (Auto) Lymph % (Auto) Allen % (Auto) Eos % (Auto) Baso % (Auto) Lymph # (Auto) [place] # (Auto) Eos # (Auto) Baso # (Auto) Abs Immat Gran (auto) Absolute Neuts (auto) Absolute Nucleated RBC Nucleated RBC % (auto) Smear Tech's Comments Anion Gap Estim Creat Clear Calc Estimated GFR POC Glucose 116 H 96 90 Random Glucose Calcium Hep Bs Antigen Hep Bs Antibody Hep B Core Total Ab Hepatitis C Ab (EIA) Microbiology Microbiology Results: Microbiology 05/21/22 Unknown Urine Culture - Final Urine Catheterized - Frederick Catheter Escherichia coli 05/21/22 19:29 Blood Culture - Preliminary Blood - Venous No growth after 24 hours. 05/21/22 19:29 Blood Culture - Preliminary Blood - Venous No growth after 24 hours. Procedures Date of Service Date of Service: 05/23/22 Progress Note: A&P Assessment and plan (1) Abnormal biliary HIDA scan: Status: Acute (2) Gallstone: Status: Acute (3) Elevated LFTs: Status: Acute (4) UTI (urinary tract infection): Status: Acute (5) Dementia: Status: Acute (6) Abdominal lymphadenopathy: Status: Acute (7) HTN (hypertension): Status: Acute (8) DMII (diabetes mellitus, type 2): Status: Acute (9) Cerebrovascular accident: Status: Acute Plan Given the patient's CVA and inability to communicate, I contacted his daughter in-law, Shirley Jimenez, at [phone], and had SUREKHA Son in our Bariatric Office help facilitate a discussion regarding possible surgery since the patient's daughter in-law only speaks Khmer. Explained that the tests suggest the patient's gallbladder may be contributing to some of the patient's problems/symptoms. However, in my experience, typically when a patient has acute cholecystitis causing severe elevation of the liver tests, this is apparent on CT and not in equivocal or borderline. The patient has a significant UTI which can also cause sepsis and abnormal liver tests. The options are to continue to monitor him without an operation and see if this symptom recurs or remove his gallbladder. I reviewed the inherent risks to cholecystectomy which include, but are not limited to: Bleeding that could require another operation or a blood transfusion; the need for open surgery; the possibility of bile duct injury that occurs 09/999 cases; the possibility of bile leak or retained common duct stones that could require an ERCP and the possibility that any of these complications could be fatal given his health. The option of continued observation and medical management was declined by the patient's daughter in-law. I explained that in the majority of cases, serious complications are uncommon and the majority of people who have their gallbladder removed do not have any significant issues, although diarrhea can be a chronic problem especially with fatty foods. Patient's [id number] seemed understand the options and requested that I proceed with surgery. The patient's [id number] reports that she is going to court today to be appointed durable power of managing attorney for healthcare at 10:00 and will drop off forms confirming this. She seemed to have her questions satisfactorily answered. Will proceed with laparoscopic cholecystectomy, possible open cholecystectomy and possible cholangiogram today. Time Spent With Patient Time: Total time spent is greater than 50% in coordination of care (as documented) at patient's floor/unit and/or counseling patient: 63 minutes in coordinatling care & phone discussion with daughter in law Shriley Posey Stroke Does the patient have a stroke diagnosis?: No VTE Prior VTE?: No VTE Risk Level:: Medical - moderate - high VTE Device Contraindication: N/A - Device Ordered VTE Drug Contraindication: Treatment Not Indicated
--- NOTE | 2022-05-23 10:15 | P.OP_ITS ---
Operative Note Operative Note Date of Service: 05/23/22 Narrative: Preop diagnosis: [Abnormal LFTs & HIDA] Postop diagnosis: [same, joanne/GB edema] Procedure: [lap wilber] Surgeon: Adolfo Gardiner MD Assist: [Ryanne Staton PA-C] Anesthesia: [GET; local Ropivicaine, 0.5%] Estimated blood loss: [25cc] Specimen: [Gall bladder & contents] Intraoperative findings: [Old filmy adhesions to GB. Fibrotic & edematous gallbladder with edema. No noemy necrosis. cystic duct was 5mm; cystic artery was 3-4mm. Edema & ooze from liver bed. Surgicel left in GB fossa] Indications: [The patient is an 86-year-old man status post CVA, [place] Islander- speaking only who presented to the emergency department with a UTI and elevated liver function tests. The patient has limited speech abilities post-CVA. CT and MRI were is equivocal with mild inflammation and the gallbladder wall; HIDA scan showed nonvisualization of the gallbladder. Patient's abdominal exam remained benign. Given the question of gallbladder disease being to abnormal LFTs, a discussion was obtained by telephone with via science interpreter, Adelaida (bariatric office), and the patient's vrpxqzwl-mc-kgd, Shirley Jimenez, at [phone]. Options were reviewed by telephone with Ms. Jimenez of continued observation versus cholecystectomy; 2nd opinion was also discussed. The patient's qjqjzfun-nz-pjo is going to court today to be [facility] as [facility] is the next of kin. Due to abnormal HIDA & imaging, I offered a laparoscopic cholecystectomy and also explained the patient's LFTs may continue to be abnormal if the gall bladder isn't the issue. We again reviewed the option of continued observation and 2nd opinion, which was declined. I also reviewed the inherent risks to surgery which include, but are not limited to: Bleeding that could require another operation or blood transfusion, the need for open surgery, the unlikely but possible issue of bile leak that could require an ERCP, the risk of retained common duct stones that could require an ERCP, the risk of common bile duct injury which would require transfer to a larger institution for another operation. Patient's daughter in law, Shirley, seemed to understand her options for her father in law, declined a 2nd opinion and wants to proceed. The possibility of ongoing issues related to his liver function test and or other health problems was also discussed and may not be related to his gall bladder. She seemed understand and wanted everything possible done.] Procedure: [The patient was identified in preoperative holding and again in the operating room and placed supine on the table. The patient voided bladder auditing control clerk, sequential compression stockings were in place, subcu heparin had been administered and antibiotics per protocol were given. The patient was induced in general endotracheal anesthesia administered with excellent effect. An appropriate time-out was performed. A footboard was utilized. The patient's abdomen was widely prepped and draped in the usual manner for surgery using chlorhexidine. Preemptive local was used at all trocar insertion sites. Again at the supraumbilical location and after infiltrating local, made a stab incision and placed a Veress needle without difficulty. An appropriate drop test was perform ed and a pneumoperitoneum of 15 mmHg was obtained using carbon dioxide. Opening pressure was 6mm Hg. Next, the needle was withdrawn and a 5 mm/30 degree laparoscoped over Optiview trocar was used to access the abdomen without incident. Upon examining the abdomen, there was no evidence of injury from the Veress needle or trocar. Next, 5 mm trocars were placed in the epigastric, subcostal and right anterior axillary line just above the line of the umbilicus. Under direct laparoscopic vision, the 5 mm umbilical port was upsized to a 12 mm. The patient was then positioned in reverse Trendelenburg position and banked left. The gallbladder was clearly identified and grasped by its fundus. Old, filmy adhesions to the omentum were taken down with electrocautery. The gall bladder was then retracted cranially and anteriorly and dissection began lateral in the cystic triangle. The cystic duct was identified at its junction on the gallbladder and dissection carried medially, then circumferentially dissected using the [place] dissector and hook. The cystic artery was then carefully identified and circumferentially dissected. Once dissection of both structures was complete and the critical view of safety demonstrated, the duct and artery were double clipped proximally and once distally and sharply divided. Electrocautery was used to remove the gallbladder from its fossa on the liver. There was edema and ooze from the fosaa & in spite of electrocuatery, SurgiCell was placed & held for hemostasis, then left in place. Liver bed was inspected for hemostasis and the clips were noted to be on the respective structures. The gallbladder was placed in an Endo-Catch bag and delivered through the umbilicus under direct laparoscopic vision. The abdomen was again inspected with the laparoscoped and a abdomen deflated to assess for hemostasis. Irrigation via the Nezhat & aspiration until the irrigant returned clear was performed. The patient was returned to neutral position, the abdomen deflated and the fascia of the supraumbilical incision closed with interrupted Vicryl sutures. Skin was closed with 4-0 Monocryl subcuticular sutures. Mastisol and Steri-Strips were applied followed by Band- Aids. The patient tolerated the procedure well and was extubated recovered in stable condition. All sponge instrument counts were correct. At the patient's request I called Melia Jimenez at [phone] and apprise her of the operation with the help of science interpreter Adelaida. The daughter in law's questions seemed to be satisfactorily answered. She noted her [facility] appoi ntment for today was rescheduled by the court to a later date.
[2022-05-23 10:47] LABS: Hematocrit 39.5 % (42.0-52.0); Hemoglobin 13.2 g/dl (14.0-18.0); Mean Corpuscular HGB Conc 33.4 g/dl (31.0-36.0); Mean Corpuscular Hemoglobin 26.8 pg (27.0-33.0); Mean Corpuscular Volume 80.3 fL (80.0-98.0); Mean Platelet Volume 11.7 fL (9.4-12.4); PLT CLUMP 1; Red Blood Count 4.92 X10*6/uL (4.60-5.80); Red Cell Distribution Width 16.4 % (11.0-16.0)
[2022-05-23 10:48] LABS: White Blood Count 10.4 X10*3/uL (4.8-10.8)
[2022-05-23 10:57] LABS: Alanine Aminotransferase 399 U/L (0-40); Albumin Level 2.6 g/dL (3.5-5.0); Alkaline Phosphatase 1009 U/L (39-117); Anion Gap 16 (12-20); Aspartate Amino Transferase 644 U/L (5-37); Bilirubin Direct 2.3 mg/dL (0.0-0.5); Bilirubin Total 3.3 mg/dL (0.0-1.0); Blood Urea Nitrogen 13 mg/dL (9-16); Calcium 8.4 mg/dL (8.4-10.2); Carbon Dioxide 22 mmol/L (22-29); Chloride 106 mmol/L (96-108); Creatinine Clr Calc Pharmacy 81.4; Estimated Glomerular Filt Rate > 60; Glucose Random 99 mg/dL (60-115); Potassium 4.2 mmol/L (3.3-5.1); Sodium 140 mmol/L (135-145); Total Protein 6.1 g/dL (6.5-8.0)
[2022-05-23 11:14] LABS: Glucose, Whole Blood 90 mg/dL (60-115)
[2022-05-23 11:42] LABS: IgA 329 mg/dL (70-320); IgG 1161 mg/dL (600-1540); IgM 1003 mg/dL (50-300)
[2022-05-23 11:55] LABS: Platelet Count 247 X10*3/uL (160-400)
--- NOTE | 2022-05-23 12:57 | P.CDIC_ITS ---
CDI Concurrent Query Documentation Clarification: PHYSICIAN'S DOCUMENTATION REQUEST Date of Query: 05/23/22 1258 Patient Name: Jose Juan Cr Admit Date: 05/21/22 Dear Doctor, A review of the medical record indicates additional documentation may be needed. Please review below and update the documentation accordingly. Clinical Indicators: Documentation includes the conditions of UTI and chronic Frederick catheter. Additional clinical indicators in the record include: Risk Factors/Clinical Indicators/Treatments Per MD progress note 05/22/22: ?UTI -? chronic Frederick in place, UA positive u rine culture growing Gram-negative rods continue IV ceftriaxone Please clarify the relationship between these conditions: * Yes, UTI is related to / associated with / due to Frederick catheter * No, UTI is not related to / associated with / due to Frederick catheter * Unable to determine Use of terms such as suspected, likely, concern for, or probable (associated with a specific diagnosis that is being evaluated, monitored, or treated as if it exists) are acceptable and can be coded in the inpatient setting, when documented at the time of discharge. Thank you, Lianet Tobin , BRITT Extension: [phone] Please use your independent medical judgment in providing your response. THIS QUERY IS PART OF THE PERMANENT MEDICAL RECORD Provider Response: Other Other Diagnosis: see note
--- NOTE | 2022-05-23 13:25 | HO.ANESPROP2 ---
HPI - Anesthesia Eval Consult details Narrative: 86 M for laparoscopic Cholecystectomy CVA x2 ,last stroke about a month ago , weakness left greater than right but overall weak , balance problems . Confused at baseline . DM,HTN Spoke with the daughter in law , explained he is a high risk for dandy-operative complications . [facility] Active Problems Active Problems: All Active Problems (Updated 05/22/22 @ 08:06 by Adolfo Gardiner MD) Abnormal biliary HIDA scan (Acute) Gallstone (Acute) Elevated LFTs (Acute) UTI (urinary tract infection) (Acute) Hematuria (Acute) Enlarged prostate (Acute) Diverticulosis (Acute) Abdominal lymphadenopathy (Acute) Acute cholecystitis (Acute) Lumbar spine pain (Acute) Dementia (Acute) Urinary retention with incomplete bladder emptying (Acute) Stage III pressure ulcer of heel (Acute) HTN (hypertension) (Acute) DMII (diabetes mellitus, type 2) (Acute) Acute left-sided weakness (Acute) Slurred speech (Acute) Cerebrovascular accident (Acute) Past Medical History Medical History Diabetes Hypertension Family History Family history of problems with anesthesia: No Surgical History History of Problems with Anesthesia: No Social History Social History Household Members: Other Household Members Other:: penitentiary Housing: Skilled Nursing Unable to assess alcohol history related to: Unknown Alcohol intake: never Patient Tobacco Use Status: Former Tobacco user Tobacco use type: Cigarette e-Cigarette/Vaping Use: Never Used Second Hand Smoke Exposure: No Advance Directives Date on File: 05/14/22 service: No Current occupational status: retired Cognitive needs: Yes Hearing needs: No Vision needs: Yes (cataracts in both eyes) Meds Allergies Allergy/AdvReac Type Severity Reaction Status Date / Time No Known Allergies Allergy Verified 05/21/22 12:36 [No Known Allergies*] Active Medications: Current Medications Acetaminophen (Acetaminophen 325 Mg Tablet) 650 mg PO Q6H PRN PRN Reason: Pain, Mild (Pain Scale 1-3) Dextrose (Dextrose 50 % 25 Gm/50 Ml Syringe) 25 gm IVPUSH Q15M PRN; Protocol PRN Reason: per Hypoglycemia Standing Ord. Docusate Sodium (Docusate Sodium 100 Mg Capsule) 100 mg PO DAILY PRN PRN Reason: Constipation Glucose (Glucose Gel 15 Gm Gel..Gram.) 15 gm PO Q15M PRN; Protocol PRN Reason: per Hypoglycemia Standing Ord. Ceftriaxone Sodium 1 gm/ (Sodium Chloride) 50 mls @ 100 mls/hr IV Q24H [facility] Last Infusion: 05/23/22 01:47 Dose: Infused Metronidazole (Flagyl) 500 mg in 100 mls @ 100 mls/hr IV Q8H [facility] Last Infusion: 05/23/22 12:18 Dose: Infused Lactated Ringer's (Lr) 1,000 mls @ 100 mls/hr IVCONT .Q10H [facility] Last Admin: 05/23/22 06:11 Dose: Not Given Insulin Human Lispro (Insulin Lispro 100 Unit/Ml 3 Ml Vial) 0 unit SUBCUT QIDACHS [facility]; Protocol Last Admin: 05/23/22 11:45 Dose: Not Given Ondansetron HCl (Ondansetron Hcl 4 Mg/2 Ml Vial) 4 mg IVPUSH Q8H PRN PRN Reason: Nausea and Vomiting Oxycodone HCl (Oxycodone Hcl Immed Release 5 Mg Tablet) 5 mg PO Q6H PRN PRN Reason: Pain, Severe (Pain Scale 7-10) Pharmacy Consult (Consult Rx Perform Med Rec) 1 each MISCELLANE ONCE PRN PRN Reason: Consult order Sodium Chloride (0.9 % Sodium Chloride Flush 3 Ml Syringe) 3 ml IVFLUSH QSHIFT [facility] Last Admin: 05/23/22 10:59 Dose: 3 ml Tamsulosin HCl (Tamsulosin Hcl 0.4 Mg Capsule) 0.4 mg PO DAILY@1700 [facility] Last Admin: 05/22/22 16:25 Dose: Not Given Home Medications Medication Instructions Recorded Confirmed Last Taken Type aspirin 81 mg tablet,delayed 81 mg PO DAILY 05/22/22 05/22/22 Unknown History release Exam Exam Date and Time: May 23, 2022 1325 Height,Weight and Vital Signs: Height 5 ft 6 in Weight 84.2 kg Last Vital Signs Temp 97.0 F 05/23/22 13:00 Pulse 68 05/23/22 13:00 Resp 16 05/23/22 13:00 BP 122/54 L 05/23/22 13:00 Pulse Ox 96 05/23/22 13:00 O2 Del Method 05/23/22 13:00 Pertinent Lab Results Pertinent Lab Results: Laboratory Tests 05/21/22 05/21/22 05/21/22 12:28 12:28 12:28 WBC 11.3 H RBC 5.32 Hgb 14.0 Hct 43.4 MCV 81.6 MCH 26.3 L MCHC 32.3 RDW 15.9 Plt Count 370 MPV 10.5 Immature Gran % (Auto) 0.5 H Neut % (Auto) 76.6 H Lymph % (Auto) 12.2 L Warren % (Auto) 8.1 Eos % (Auto) 2.2 Baso % (Auto) 0.4 Lymph # (Auto) 1.4 Warren # (Auto) 0.9 Eos # (Auto) 0.3 Baso # (Auto) 0.1 Abs Immat Gran (auto) 0.06 H Absolute Neuts (auto) 8.6 H Absolute Nucleated RBC 0.000 Nucleated RBC % (auto) 0.0 Smear Tech's Comments PT 11.5 INR 1.0 APTT 32.7 Sodium 141 Potassium 3.6 Chloride 100 Carbon Dioxide 28 Anion Gap 17 BUN 14 Creatinine 0.80 Estim Creat Clear Calc 66.2 Estimated GFR > 60 POC Glucose Random Glucose 144 H Lactic Acid Lactic Acid F/U @ 2Hr Lactic Acid F/U @ 4Hr Calcium 8.9 Magnesium 2.1 Total Bilirubin 3.4 H Direct Bilirubin AST 629 H ALT 413 H Alkaline Phosphatase 1052 H D Total Creatine Kinase 34 L Total Protein 7.0 Albumin 3.0 L D Lipase 47 Urine Color Urine Appearance Urine pH Ur Specific [place] Urine Protein Urine Glucose (UA) Urine Ketones Urine Blood Urine Nitrite Ur Leukocyte Esterase Urine RBC Urine WBC Ur Squamous Epith Cells Urine Bacteria Hyaline Casts Granular Casts Salicylates Acetaminophen IgG Total IgA Total IgM COVID-19 ([facility]) COVID-19 Clin Com Hepatitis A IgM Ab Hep Bs Antigen Hep Bs Antibody Hep B Core Total Ab Hepatitis C Ab (EIA) 05/21/22 05/21/22 05/21/22 12:28 14:10 16:42 WBC RBC Hgb Hct MCV MCH MCHC RDW Plt Count MPV Immature Gran % (Auto) Neut % (Auto) Lymph % (Auto) Warren % (Auto) Eos % (Auto) Baso % (Auto) Lymph # (Auto) Warren # (Auto) Eos # (Auto) Baso # (Auto) Abs Immat Gran (auto) Absolute Neuts (auto) Absolute Nucleated RBC Nucleated RBC % (auto) Smear Tech's Comments PT INR APTT Sodium Potassium Chloride Carbon Dioxide Anion Gap BUN Creatinine Estim Creat Clear Calc Estimated GFR POC Glucose Random Glucose Lactic Acid Lactic Acid F/U @ 2Hr Lactic Acid F/U @ 4Hr Calcium Magnesium Total Bilirubin Direct Bilirubin AST ALT Alkaline Phosphatase Total Creatine Kinase Total Protein Albumin Lipase Urine Color ORANGE Urine Appearance Hazy Urine pH 6.0 Ur Specific Ber[place] >= 1.030 H Urine Protein 100 (2+) H Urine Glucose (UA) Negative Urine Ketones Trace Urine Blood Large (3+) H Urine Nitrite Positive H Ur Leukocyte Esterase Moderate (2+) H Urine RBC >20 H Urine WBC 21-50 H Ur Squamous Epith Cells 3-5 Urine Bacteria 4+ Hyaline Casts 3-5 Granular Casts Present Salicylates < 5.0 L Acetaminophen < 1 IgG Total IgA Total IgM COVID-19 ([facility]) COVID-19 Clin Com Hepatitis A IgM Ab Nonreactive Hep Bs Antigen Negative Hep Bs Antibody NONREACTIVE Hep B Core Total Ab Nonreactive Hepatitis C Ab (EIA) Nonreactive 05/21/22 05/21/22 05/21/22 19:29 21:56 22:53 WBC RBC Hgb Hct MCV MCH MCHC RDW Plt Count MPV Immature Gran % (Auto) Neut % (Auto) Lymph % (Auto) Warren % (Auto) Eos % (Auto) Baso % (Auto) Lymph # (Auto) Warren # (Auto) Eos # (Auto) Baso # (Auto) Abs Immat Gran (auto) Absolute Neuts (auto) Absolute Nucleated RBC Nucleated RBC % (auto) Smear Tech's Comments PT INR APTT Sodium Potassium Chloride Carbon Dioxide Anion Gap BUN Creatinine Estim Creat Clear Calc Estimated GFR POC Glucose Random Glucose Lactic Acid 2.6 H* Lactic Acid F/U @ 2Hr 2.2 H* Lactic Acid F/U @ 4Hr Calcium Magnesium Total Bilirubin 3.2 H Direct Bilirubin 2.2 H AST 629 H ALT 417 H Alkaline Phosphatase 1076 H Total Creatine Kinase Total Protein 6.8 Albumin 2.8 L Lipase Urine Color Urine Appearance Urine pH Ur Specific [place] Urine Protein Urine Glucose (UA) Urine Ketones Urine Blood Urine Nitrite Ur Leukocyte Esterase Urine RBC Urine WBC Ur Squamous Epith Cells Urine Bacteria Hyaline Casts Granular Casts Salicylates Acetaminophen IgG Total IgA Total IgM COVID-19 ([facility]) COVID-19 Clin Com Hepatitis A IgM Ab Hep Bs Antigen Hep Bs Antibody Hep B Core Total Ab Hepatitis C Ab (EIA) 05/21/22 05/22/22 05/22/22 22:53 01:29 07:34 WBC RBC Hgb Hct MCV MCH MCHC RDW Plt Count MPV Immature Gran % (Auto) Neut % (Auto) Lymph % (Auto) Warren % (Auto) Eos % (Auto) Baso % (Auto) Lymph # (Auto) Warren # (Auto) Eos # (Auto) Baso # (Auto) Abs Immat Gran (auto) Absolute Neuts (auto) Absolute Nucleated RBC Nucleated RBC % (auto) Smear Tech's Comments PT INR APTT Sodium Potassium Chloride Carbon Dioxide Anion Gap BUN Creatinine Estim Creat Clear Calc Estimated GFR POC Glucose 107 Random Glucose Lactic Acid Lactic Acid F/U @ 2Hr Lactic Acid F/U @ 4Hr 1.6 Calcium Magnesium Total Bilirubin Direct Bilirubin AST ALT Alkaline Phosphatase Total Creatine Kinase Total Protein Albumin Lipase Urine Color Urine Appearance Urine pH Ur Specific [place] Urine Protein Urine Glucose (UA) Urine Ketones Urine Blood Urine Nitrite Ur Leukocyte Esterase Urine RBC Urine WBC Ur Squamous Epith Cells Urine Bacteria Hyaline Casts Granular Casts Salicylates Acetaminophen IgG Total IgA Total IgM COVID-19 ([facility]) Negative COVID-19 Clin Com See Note Hepatitis A IgM Ab Hep Bs Antigen Hep Bs Antibody Hep B Core Total Ab Hepatitis C Ab (EIA) 05/22/22 05/22/22 05/22/22 11:35 11:35 16:38 WBC 10.6 RBC 4.94 Hgb 13.0 L Hct 39.9 L MCV 80.8 MCH 26.3 L MCHC 32.6 RDW 16.2 H Plt Count TNP MPV Not Reportable Immature Gran % (Auto) 0.6 H Neut % (Auto) 74.6 H Lymph % (Auto) 13.1 L Warren % (Auto) 8.0 Eos % (Auto) 2.8 Baso % (Auto) 0.9 Lymph # (Auto) 1.4 Warren # (Auto) 0.9 Eos # (Auto) 0.3 Baso # (Auto) 0.1 Abs Immat Gran (auto) 0.06 H Absolute Neuts (auto) 7.9 Absolute Nucleated RBC 0.020 H Nucleated RBC % (auto) 0.2 Smear Tech's Comments VERIFIED PT INR APTT Sodium 139 Potassium 4.0 Chloride 104 Carbon Dioxide 25 Anion Gap 14 BUN 14 Creatinine 0.70 Estim Creat Clear Calc 75.6 Estimated GFR > 60 POC Glucose 116 H Random Glucose 113 Lactic Acid Lactic Acid F/U @ 2Hr Lactic Acid F/U @ 4Hr Calcium 8.2 L D Magnesium Total Bilirubin Direct Bilirubin AST ALT Alkaline Phosphatase Total Creatine Kinase Total Protein Albumin Lipase Urine Color Urine Appearance Urine pH Ur Specific [place] Urine Protein Urine Glucose (UA) Urine Ketones Urine Blood Urine Nitrite Ur Leukocyte Esterase Urine RBC Urine WBC Ur Squamous Epith Cells Urine Bacteria Hyaline Casts Granular Casts Salicylates Acetaminophen IgG Total IgA Total IgM COVID-19 ([facility]) COVID-19 Clin Com Hepatitis A IgM Ab Hep Bs Antigen Hep Bs Antibody Hep B Core Total Ab Hepatitis C Ab (EIA) 05/22/22 05/22/22 05/23/22 18:36 20:47 07:22 WBC RBC Hgb Hct MCV MCH MCHC RDW Plt Count MPV Immature Gran % (Auto) Neut % (Auto) Lymph % (Auto) Warren % (Auto) Eos % (Auto) Baso % (Auto) Lymph # (Auto) Warren # (Auto) Eos # (Auto) Baso # (Auto) Abs Immat Gran (auto) Absolute Neuts (auto) Absolute Nucleated RBC Nucleated RBC % (auto) Smear Tech's Comments PT INR APTT Sodium Potassium Chloride Carbon Dioxide Anion Gap BUN Creatinine Estim Creat Clear Calc Estimated GFR POC Glucose 96 90 Random Glucose Lactic Acid Lactic Acid F/U @ 2Hr Lactic Acid F/U @ 4Hr Calcium Magnesium Total Bilirubin Direct Bilirubin AST ALT Alkaline Phosphatase Total Creatine Kinase Total Protein Albumin Lipase Urine Color Urine Appearance Urine pH Ur Specific [place] Urine Protein Urine Glucose (UA) Urine Ketones Urine Blood Urine Nitrite Ur Leukocyte Esterase Urine RBC Urine WBC Ur Squamous Epith Cells Urine Bacteria Hyaline Casts Granular Casts Salicylates Acetaminophen IgG Total 1161 IgA Total 329 H IgM 1003 H COVID-19 ([facility]) COVID-19 Clin Com Hepatitis A IgM Ab Hep Bs Antigen Hep Bs Antibody Hep B Core Total Ab Hepatitis C Ab (EIA) 05/23/22 05/23/22 05/23/22 10:03 10:03 10:03 WBC 10.4 RBC 4.92 Hgb 13.2 L Hct 39.5 L MCV 80.3 MCH 26.8 L MCHC 33.4 RDW 16.4 H Plt Count 247 D MPV 11.7 Immature Gran % (Auto) Neut % (Auto) Lymph % (Auto) Warren % (Auto) Eos % (Auto) Baso % (Auto) Lymph # (Auto) Warren # (Auto) Eos # (Auto) Baso # (Auto) Abs Immat Gran (auto) Absolute Neuts (auto) Absolute Nucleated RBC 0.000 Nucleated RBC % (auto) 0.0 Smear Tech's Comments PT INR APTT Sodium 140 Potassium 4.2 Chloride 106 Carbon Dioxide 22 Anion Gap 16 BUN 13 Creatinine 0.65 Estim Creat Clear Calc 81.4 Estimated GFR > 60 POC Glucose Random Glucose 99 Lactic Acid Lactic Acid F/U @ 2Hr Lactic Acid F/U @ 4Hr Calcium 8.4 Magnesium Total Bilirubin 3.3 H Cancelled Direct Bilirubin 2.3 H Cancelled AST 644 H Cancelled ALT 399 H Cancelled Alkaline Phosphatase 1009 H Cancelled Total Creatine Kinase Total Protein 6.1 L Cancelled Albumin 2.6 L Cancelled Lipase Urine Color Urine Appearance Urine pH Ur Specific [place] Urine Protein Urine Glucose (UA) Urine Ketones Urine Blood Urine Nitrite Ur Leukocyte Esterase Urine RBC Urine WBC Ur Squamous Epith Cells Urine Bacteria Hyaline Casts Granular Casts Salicylates Acetaminophen IgG Total IgA Total IgM COVID-19 ([facility]) COVID-19 Clin Com Hepatitis A IgM Ab Hep Bs Antigen Hep Bs Antibody Hep B Core Total Ab Hepatitis C Ab (EIA) 05/23/22 11:01 WBC RBC Hgb Hct MCV MCH MCHC RDW Plt Count MPV Immature Gran % (Auto) Neut % (Auto) Lymph % (Auto) Warren % (Auto) Eos % (Auto) Baso % (Auto) Lymph # (Auto) Warren # (Auto) Eos # (Auto) Baso # (Auto) Abs Immat Gran (auto) Absolute Neuts (auto) Absolute Nucleated RBC Nucleated RBC % (auto) Smear Tech's Comments PT INR APTT Sodium Potassium Chloride Carbon Dioxide Anion Gap BUN Creatinine Estim Creat Clear Calc Estimated GFR POC Glucose 90 Random Glucose Lactic Acid Lactic Acid F/U @ 2Hr Lactic Acid F/U @ 4Hr Calcium Magnesium Total Bilirubin Direct Bilirubin AST ALT Alkaline Phosphatase Total Creatine Kinase Total Protein Albumin Lipase Urine Color Urine Appearance Urine pH Ur Specific [place] Urine Protein Urine Glucose (UA) Urine Ketones Urine Blood Urine Nitrite Ur Leukocyte Esterase Urine RBC Urine WBC Ur Squamous Epith Cells Urine Bacteria Hyaline Casts Granular Casts Salicylates Acetaminophen IgG Total IgA Total IgM COVID-19 ([facility]) COVID-19 Clin Com Hepatitis A IgM Ab Hep Bs Antigen Hep Bs Antibody Hep B Core Total Ab Hepatitis C Ab (EIA) Airway Mallampati Class: IV TM Dist: >3cm Neck ROM: Limited Loose/Missing/Broken Teeth: Yes Assessment and Plan Assessment Anesthesia Assessment: Anesthesia Plan Discussed and Chart Reviewed Final Anesthetic Review Family History of Problems with Anesthesia: No History of Problems with Anesthesia: No NPO: Yes ASA Class: III and Emergency Final Preanesthetic Review: Meds/Allgs Chart Reviewed, Consent Obtained/Reviewed and Anes Risks/Benef Reviewed Patient Risk: High Procedure Risk: Intermediate Anesthetic Plan Anesthetic Plan: GA Disposition: Inp. Admit - Standard Bed
--- NOTE | 2022-05-23 13:47 | PC.NURSE ---
verbal consent obtain from HCP Melia Jimenez by Dr. Gardiner. patient contact in computer has spelling of Shirley Jimenez and this spelling written on surgical consent. Faustina Blanca, fish farm manager notified to clarify if consent needs to be redone with correct HCP spelling. Per fish farm manager consent can be used for procedure and does not need to be redone.
[2022-05-23 13:48] LABS: Glucose, Whole Blood 91 mg/dL (60-115)
--- NOTE | 2022-05-23 14:39 | HO.PM.IMPN ---
Subjective Subjective Date of Service: 05/23/22 Interval History: history obtained via track liner operator, patient offers no acute complaints of nausea vomiting, no abdominal pain, no acute overnight events, patient remains afebrile.Answers no to all questions. unreliable historian due to underlying history of dementia. Review of Systems BOTTLE HOP no headache no dizziness CVS no chest pain no palpitation Review of Systems: Yes all other systems are reviewed and are negative Physical Exam Vital Signs: Vital Signs: Last Vital Signs Temp 97.0 F 05/23/22 13:00 Pulse 68 05/23/22 13:00 Resp 16 05/23/22 13:00 BP 122/54 L 05/23/22 13:00 Pulse Ox 96 05/23/22 13:00 O2 Del Method 05/23/22 13:00 BMI result Body Mass Index 29.9 Const: Other: General awake alert, resting comfortably in no acute distress.? Neck? no JVD. CVS? regular rate rhythm, Respiratory lungs clear to auscultation, no respiratory distress, no wheeze, no rhonchi. Gastrointestinal abdomen soft, nontender, bowel sounds audible, no guarding , no rigidity. Extremities no edema. Neuro moving all 4 extremity speech clear. Skin no rash Psych poor insight Objective Data Active Medications Acetaminophen (Acetaminophen 325 Mg Tablet) 650 mg PO Q6H PRN PRN Reason: Pain, Mild (Pain Scale 1-3) Dextrose (Dextrose 50 % 25 Gm/50 Ml Syringe) 25 gm IVPUSH Q15M PRN; Protocol PRN Reason: per Hypoglycemia Standing Ord. Docusate Sodium (Docusate Sodium 100 Mg Capsule) 100 mg PO DAILY PRN PRN Reason: Constipation Glucose (Glucose Gel 15 Gm Gel..Gram.) 15 gm PO Q15M PRN; Protocol PRN Reason: per Hypoglycemia Standing Ord. Ceftriaxone Sodium 1 gm/ (Sodium Chloride) 50 mls @ 100 mls/hr IV Q24H [facility] Last Infusion: 05/23/22 01:47 Dose: 0 mls/hr Documented By: TONY Metronidazole (Flagyl) 500 mg in 100 mls @ 100 mls/hr IV Q8H [facility] Last Infusion: 05/23/22 12:18 Dose: 0 mls/hr Documented By: GAB Lactated Ringer's (Lr) 1,000 mls @ 100 mls/hr IVCONT .Q10H [facility] Last Admin: 05/23/22 06:11 Dose: Not Given Documented By: TONY Non-Admin Reason: IV Running Insulin Human Lispro (Insulin Lispro 100 Unit/Ml 3 Ml Vial) 0 unit SUBCUT QIDACHS [facility]; Protocol Last Admin: 05/23/22 11:45 Dose: Not Given Documented By: GAB Non-Admin Reason: No Insulin Coverage Ondansetron HCl (Ondansetron Hcl 4 Mg/2 Ml Vial) 4 mg IVPUSH Q8H PRN PRN Reason: Nausea and Vomiting Oxycodone HCl (Oxycodone Hcl Immed Release 5 Mg Tablet) 5 mg PO Q6H PRN PRN Reason: Pain, Severe (Pain Scale 7-10) Pharmacy Consult (Consult Rx Perform Med Rec) 1 each MISCELLANE ONCE PRN PRN Reason: Consult order Sodium Chloride (0.9 % Sodium Chloride Flush 3 Ml Syringe) 3 ml IVFLUSH QSHIFT [facility] Last Admin: 05/23/22 10:59 Dose: 3 ml Documented By: GBA Tamsulosin HCl (Tamsulosin Hcl 0.4 Mg Capsule) 0.4 mg PO DAILY@1700 [facility] Last Admin: 05/22/22 16:25 Dose: Not Given Documented By: KACY Non-Admin Reason: NPO Labs CBC & Chem 7: 05/23/22 10:03 05/23/22 10:03 Labs: Laboratory Results - last 24 hr 05/21/22 05/22/22 05/22/22 12:28 16:38 18:36 MCV MCH MCHC RDW Plt Count MPV Absolute Nucleated RBC Nucleated RBC % (auto) Anion Gap Estim Creat Clear Calc Estimated GFR POC Glucose 116 H Random Glucose Calcium Total Bilirubin Direct Bilirubin AST ALT Alkaline Phosphatase Total Protein Albumin IgG Total 1161 IgA Total 329 H IgM 1003 H Hepatitis A IgM Ab Nonreactive 05/22/22 05/23/22 05/23/22 20:47 07:22 10:03 MCV 80.3 MCH 26.8 L MCHC 33.4 RDW 16.4 H Plt Count 247 D MPV 11.7 Absolute Nucleated RBC 0.000 Nucleated RBC % (auto) 0.0 Anion Gap Estim Creat Clear Calc Estimated GFR POC Glucose 96 90 Random Glucose Calcium Total Bilirubin Direct Bilirubin AST ALT Alkaline Phosphatase Total Protein Albumin IgG Total IgA Total IgM Hepatitis A IgM Ab 05/23/22 05/23/22 05/23/22 10:03 10:03 11:01 MCV MCH MCHC RDW Plt Count MPV Absolute Nucleated RBC Nucleated RBC % (auto) Anion Gap 16 Estim Creat Clear Calc 81.4 Estimated GFR > 60 POC Glucose 90 Random Glucose 99 Calcium 8.4 Total Bilirubin 3.3 H Cancelled Direct Bilirubin 2.3 H Cancelled AST 644 H Cancelled ALT 399 H Cancelled Alkaline Phosphatase 1009 H Cancelled Total Protein 6.1 L Cancelled Albumin 2.6 L Cancelled IgG Total IgA Total IgM Hepatitis A IgM Ab 05/23/22 13:44 MCV MCH MCHC RDW Plt Count MPV Absolute Nucleated RBC Nucleated RBC % (auto) Anion Gap Estim Creat Clear Calc Estimated GFR POC Glucose 91 Random Glucose Calcium Total Bilirubin Direct Bilirubin AST ALT Alkaline Phosphatase Total Protein Albumin IgG Total IgA Total IgM Hepatitis A IgM Ab Microbiology Microbiology Results: Microbiology 05/21/22 Unknown Urine Culture - Final Urine Catheterized - Frederick Catheter Escherichia coli 05/21/22 19:29 Blood Culture - Preliminary Blood - Venous No growth after 24 hours. 05/21/22 19:29 Blood Culture - Preliminary Blood - Venous No growth after 24 hours. Assessment and Plan (1) Abnormal biliary HIDA scan: Status: Acute (2) Gallstone: Status: Acute (3) Elevated LFTs: Status: Acute (4) UTI (urinary tract infection): Status: Acute Plan 86-year-old male with past medical history as mentioned above with dementia at baseline presents to the hospital with dark? urine found to have acute cholecystitis and UTI #? Acute cholecystitis elevated LFTs with elevated bili and alk-phos patient Sent to ED by RN since noted to have dark-colored urine Patient asymptomatic, with no nausea vomiting abdominal pain , WBC normalized , hepatitis serology negative Hida scan showed no gallbladder activity suggestive of acute cholecystitis, ultrasound of abdomen showed some degree of wall thickening of gallbladder, no Hadley sign CT abdomen and ultrasound showed no gallbladder wall abnormalities, due to concern for obstructive etiology and MRCP was obtained but was consistent with acute cholecystitis LFTs remains elevated therefore patient will undergo cholecystectomy per General surgery Continue IV ceftriaxone and Flagyl day 2, iv fluids , follow LFTs seen by Dr. Balderrama he ordered further workup to rule out other possibilities of elevated LFTs labs pending #? UTI related to chronic Frederick urine culture grew E coli, ESBL negative continue IV ceftriaxone ? evidence of cystitis on CT abdomen with bladder wall thickness - urology was consulted,? and recommend outpatient follow-up for further evaluati on of the CT finding #? hematuria -? likely secondary to UTI versus bladder malignancy -? CT abdomen? pelvis shows? thickness of the gallbladder wall, patient to follow-up with Urology outpatient for further evaluation #? hypertension -? resume amlodipine # recent history of CVA nonambulatory at home, hold statin due to elevated LFTs # diabetes mellitus hold metformin follow blood sugars, diabetic diet when able to tolerate by mouth # dementia likely vascular, no behavioral issues noted dvt ppx: compression boots ? need for cholecystectomy, scheduled for today. Quality Stroke Does the patient have a stroke diagnosis?: No VTE Prior VTE?: No VTE Risk Level:: Medical - moderate - high VTE Device Contraindication: N/A - Device Ordered VTE Drug Contraindication: Treatment Not Indicated
[2022-05-23 14:52] LABS: Alpha 1 Anti-trypsin 202 mg/dL (83-199)
[2022-05-23 18:14] LABS: Glucose, Whole Blood 120 mg/dL (60-115)
[2022-05-23] MEDS: Lactated Ringers 1,000 ML 100 ML IVCONT (18:17)
[2022-05-23] MEDS: Tamsulosin HCL 0.4 MG CAPSULE PO (18:19)
[2022-05-23 21:09] LABS: Glucose, Whole Blood 169 mg/dL (60-115)
[2022-05-23] MEDS: Insulin Lispro 100 UNIT/ML 3 ML VIAL SUBCUT (22:04)
[2022-05-23 23:15] LABS: Transglutaminase IgA <1.0 U/mL
[2022-05-24] VITALS (7 sets, daily range): BP systolic 103–136; BP diastolic 54–70; PULSE 64–90; RESP 16–18; TEMP 35.8–36.8; O2SAT 95–98
[2022-05-24] MEDS: metroNIDAZOLE/NS 500 MG/100 ML PIGGYBACK 100 MG IV ×4 (00:30→23:38)
[2022-05-24 07:32] LABS: Hematocrit 35.4 % (42.0-52.0); Hemoglobin 11.4 g/dl (14.0-18.0); Mean Corpuscular HGB Conc 32.2 g/dl (31.0-36.0); Mean Corpuscular Volume 80.6 fL (80.0-98.0); Mean Platelet Volume 11.9 fL (9.4-12.4); Platelet Count 332 X10*3/uL (160-400); Red Blood Count 4.39 X10*6/uL (4.60-5.80); Red Cell Distribution Width 16.4 % (11.0-16.0); White Blood Count 10.3 X10*3/uL (4.8-10.8)
[2022-05-24 07:42] LABS: Glucose, Whole Blood 138 mg/dL (60-115)
[2022-05-24 07:53] LABS: Alanine Aminotransferase 288 U/L (0-40); Albumin Level 2.4 g/dL (3.5-5.0); Alkaline Phosphatase 902 U/L (39-117); Anion Gap 16 (12-20); Aspartate Amino Transferase 439 U/L (5-37); Bilirubin Total 2.4 mg/dL (0.0-1.0); Blood Urea Nitrogen 14 mg/dL (9-16); Calcium 8.1 mg/dL (8.4-10.2); Carbon Dioxide 22 mmol/L (22-29); Chloride 106 mmol/L (96-108); Creatinine Clr Calc Pharmacy 76.7; Estimated Glomerular Filt Rate > 60; Glucose Random 137 mg/dL (60-115); Potassium 3.8 mmol/L (3.3-5.1); Sodium 140 mmol/L (135-145); Total Protein 5.6 g/dL (6.5-8.0)
[2022-05-24 08:00] LABS: Alanine Aminotransferase 289 U/L (0-40); Albumin Level 2.4 g/dL (3.5-5.0); Alkaline Phosphatase 908 U/L (39-117); Anion Gap 16 (12-20); Aspartate Amino Transferase 438 U/L (5-37); Bilirubin Direct 1.9 mg/dL (0.0-0.5); Bilirubin Total 2.5 mg/dL (0.0-1.0); Blood Urea Nitrogen 15 mg/dL (9-16); Calcium 8.1 mg/dL (8.4-10.2); Carbon Dioxide 22 mmol/L (22-29); Chloride 106 mmol/L (96-108); Creatinine Clr Calc Pharmacy 77.8; Estimated Glomerular Filt Rate > 60; Glucose Random 137 mg/dL (60-115); Potassium 3.7 mmol/L (3.3-5.1); Sodium 140 mmol/L (135-145); Total Protein 5.5 g/dL (6.5-8.0)
[2022-05-24] MEDS: Lactated Ringers 1,000 ML 100 ML IVCONT (08:14)
--- NOTE | 2022-05-24 08:23 | PM.PNGS ---
Subjective Subjective Date of Service: 05/24/22 Patient reports: no new complaints Interval history: The patient is seen with a historical interpreter. He continues to deny any abdominal pain and is tolerating a clear liquid diet. He repeatedly stated that he does not understand French to the historical interpreter. He seems to otherwise denies chest pain or other symptoms. Physical Exam Vital Signs: Vital Signs: Last Vital Signs Temp 96.9 F 05/24/22 07:49 Pulse 69 05/24/22 07:49 Resp 18 05/24/22 07:49 BP 103/54 L 05/24/22 07:49 Pulse Ox 96 05/24/22 07:49 O2 Del Method 05/24/22 07:49 O2 Flow Rate 2 05/23/22 16:33 BMI result Body Mass Index 29.9 Abdomen is soft with no tenderness. Dressings are clean dry and intact Objective Data Active Medications Acetaminophen (Acetaminophen 325 Mg Tablet) 650 mg PO Q6H PRN PRN Reason: Pain, Mild (Pain Scale 1-3) Amlodipine Besylate (Amlodipine Besylate 5 Mg Tablet) 5 mg PO DAILY [facility]; Protocol Dextrose (Dextrose 50 % 25 Gm/50 Ml Syringe) 25 gm IVPUSH Q15M PRN; Protocol PRN Reason: per Hypoglycemia Standing Ord. Docusate Sodium (Docusate Sodium 100 Mg Capsule) 100 mg PO DAILY PRN PRN Reason: Constipation Fentanyl (Fentanyl Citrate/Pf 100 Mcg/2 Ml Vial) 25 mcg IVPUSH Q5M PRN; Protocol PRN Reason: Pain, Moderate (Pain Scale 4-6 Glucose (Glucose Gel 15 Gm Gel..Gram.) 15 gm PO Q15M PRN; Protocol PRN Reason: per Hypoglycemia Standing Ord. Ceftriaxone Sodium 1 gm/ (Sodium Chloride) 50 mls @ 100 mls/hr IV Q24H [facility] Last Infusion: 05/24/22 00:29 Dose: 0 mls/hr Documented By: TONY Metronidazole (Flagyl) 500 mg in 100 mls @ 100 mls/hr IV Q8H [facility] Last Admin: 05/24/22 08:14 Dose: 100 mls/hr Documented By: NILDA Lactated Ringer's (Lr) 1,000 mls @ 100 mls/hr IVCONT .Q10H [facility] Last Admin: 05/24/22 08:14 Dose: 100 mls/hr Documented By: NILDA Insulin Human Lispro (Insulin Lispro 100 Unit/Ml 3 Ml Vial) 0 unit SUBCUT QIDACHS [facility]; Protocol Last Admin: 05/24/22 07:38 Dose: Not Given Documented By: NILDA Non-Admin Reason: No Insulin Coverage Ondansetron HCl (Ondansetron Hcl 4 Mg/2 Ml Vial) 4 mg IVPUSH Q8H PRN PRN Reason: Nausea and Vomiting Ondansetron HCl (Ondansetron Hcl 4 Mg/2 Ml Vial) 4 mg IVPUSH ONCE PRN PRN Reason: Nausea and Vomiting Oxycodone HCl (Oxycodone Hcl Immed Release 5 Mg Tablet) 5 mg PO Q6H PRN PRN Reason: Pain, Severe (Pain Scale 7-10) Pharmacy Consult (Consult Rx Perform Med Rec) 1 each MISCELLANE ONCE PRN PRN Reason: Consult order Sodium Chloride (0.9 % Sodium Chloride Flush 3 Ml Syringe) 3 ml IVFLUSH QSHIFT [facility] Last Admin: 05/24/22 08:14 Dose: Not Given Documented By: NILDA Non-Admin Reason: IV Running Tamsulosin HCl (Tamsulosin Hcl 0.4 Mg Capsule) 0.4 mg PO DAILY@1700 [facility] Last Admin: 05/23/22 18:19 Dose: 0.4 mg Documented By: MARLEE Labs CBC & Chem 7: 05/24/22 06:24 05/24/22 06:24 Labs: Laboratory Results - last 24 hr 05/21/22 05/22/22 05/22/22 12:28 18:36 18:36 MCV MCH MCHC RDW Plt Count MPV Absolute Nucleated RBC Nucleated RBC % (auto) Anion Gap Estim Creat Clear Calc Estimated GFR POC Glucose Random Glucose Calcium Total Bilirubin Direct Bilirubin AST ALT Alkaline Phosphatase Total Protein Albumin Cxyti-1-Pnmcreplxsb 202 H IgG Total 1161 IgA Total 329 H IgM 1003 H Tiss Transglutamin IgA Hepatitis A IgM Ab Nonreactive 05/22/22 05/23/22 05/23/22 18:36 10:03 10:03 MCV 80.3 MCH 26.8 L MCHC 33.4 RDW 16.4 H Plt Count 247 D MPV 11.7 Absolute Nucleated RBC 0.000 Nucleated RBC % (auto) 0.0 Anion Gap 16 Estim Creat Clear Calc 81.4 Estimated GFR > 60 POC Glucose Random Glucose 99 Calcium 8.4 Total Bilirubin 3.3 H Direct Bilirubin 2.3 H AST 644 H ALT 399 H Alkaline Phosphatase 1009 H Total Protein 6.1 L Albumin 2.6 L Yrrap-1-Bwsfkdqimbq IgG Total IgA Total IgM Tiss Transglutamin IgA <1.0 Hepatitis A IgM Ab 05/23/22 05/23/22 05/23/22 10:03 11:01 13:44 MCV MCH MCHC RDW Plt Count MPV Absolute Nucleated RBC Nucleated RBC % (auto) Anion Gap Estim Creat Clear Calc Estimated GFR POC Glucose 90 91 Random Glucose Calcium Total Bilirubin Cancelled Direct Bilirubin Cancelled AST Cancelled ALT Cancelled Alkaline Phosphatase Cancelled Total Protein Cancelled Albumin Cancelled Ajqtu-2-Rdxobzdyqpq IgG Total IgA Total IgM Tiss Transglutamin IgA Hepatitis A IgM Ab 05/23/22 05/23/22 05/24/22 18:09 20:57 06:24 MCV 80.6 MCH 26.0 L MCHC 32.2 RDW 16.4 H Plt Count 332 D MPV 11.9 Absolute Nucleated RBC 0.000 Nucleated RBC % (auto) 0.0 Anion Gap Estim Creat Clear Calc Estimated GFR POC Glucose 120 H 169 H Random Glucose Calcium Total Bilirubin Direct Bilirubin AST ALT Alkaline Phosphatase Total Protein Albumin Oyxxc-3-Idaxvcbhzop IgG Total IgA Total IgM Tiss Transglutamin IgA Hepatitis A IgM Ab 05/24/22 05/24/22 05/24/22 06:24 06:24 07:21 MCV MCH MCHC RDW Plt Count MPV Absolute Nucleated RBC Nucleated RBC % (auto) Anion Gap 16 16 Estim Creat Clear Calc 77.8 76.7 Estimated GFR > 60 > 60 POC Glucose 138 H Random Glucose 137 H D 137 H Calcium 8.1 L 8.1 L Total Bilirubin 2.5 H 2.4 H Direct Bilirubin 1.9 H AST 438 H 439 H ALT 289 H 288 H Alkaline Phosphatase 908 H 902 H Total Protein 5.5 L 5.6 L Albumin 2.4 L 2.4 L Vawmg-0-Kgejcmmnjla IgG Total IgA Total IgM Tiss Transglutamin IgA Hepatitis A IgM Ab Microbiology Microbiology Results: Microbiology 05/21/22 19:29 Blood Culture - Preliminary Blood - Venous No growth after 48 hours. 05/21/22 19:29 Blood Culture - Preliminary Blood - Venous No growth after 48 hours. 05/21/22 Unknown Urine Culture - Final Urine Catheterized - Frederick Catheter Escherichia coli Procedures Date of Service Date of Service: 05/24/22 Progress Note: A&P Assessment and plan (1) Abnormal biliary HIDA scan: Status: Acute (2) Gallstone: Status: Acute (3) Elevated LFTs: Status: Acute (4) Abdominal lymphadenopathy: Status: Acute Plan Intraoperatively, there was edema but no necrosis and it is not clear that the patient has elevated LFTs were secondary to his gallbladder. Continue to trend labs. Hold on anticoagulation for another 24 hours given the overall who is from the liver bed. Will continue to follow. The pt's diet can be advanced as limited by his CVA. I typically recommend a low-fat diet due to GI distress/diarrhea that can occur secondary to fatty meals post cholecystectomy, but I am not sure how limited the patient's swallowing is by his prior CVA. Please advance as recommended by Neurology. Time Spent With Patient Time: Total time spent is greater than 50% in coordination of care (as documented) at patient's floor/unit and/or counseling patient: Quality Stroke Does the patient have a stroke diagnosis?: No VTE Prior VTE?: No VTE Risk Level:: Medical - moderate - high VTE Device Contraindication: N/A - Device Ordered VTE Drug Contraindication: Treatment Not Indicated
[2022-05-24 11:25] LABS: Glucose, Whole Blood 152 mg/dL (60-115)
--- NOTE | 2022-05-24 11:26 | HO.POSTANES ---
Post Anesthesia Evaluation Post Anesthesia Evaluation Vital Signs: Vital Signs Temp Pulse Resp BP Pulse Ox O2 Del Method 05/24/22 11:09 96.8 F 64 18 119/61 98 Room Air 05/24/22 07:49 96.9 F 69 18 103/54 L 96 Room Air 05/24/22 04:00 96.6 F L 75 18 112/55 L 98 Room Air 05/24/22 00:00 96.4 F L 90 18 109/57 L 98 Room Air Anesthesia: General Endotracheal-GETA Mental Status: Awake Pain Control: Satisfactory Nausea/Vomiting: None Hydration: Adequate Anesthesia-Related Issues: No Anes. Related Issues
--- NOTE | 2022-05-24 12:13 | HO.PM.IMPN ---
Subjective Subjective Date of Service: 05/24/22 Interval History: Seen and examined this morning Follow-up for elevated LFTs Patient with recent stroke and h/o dementia, difficult to obtain history even with use of interpreter translator Patient denies any abdominal pain Review of Systems Review of Systems: Yes Unobtainable due to mental condition Constitutional Constitutional: Denies chills Cardiovascular Cardiovascular: Denies chest pain Gastrointestinal Gastrointestinal: Denies abdominal pain Physical Exam Vital Signs: Vital Signs: Last Vital Signs Temp 96.8 F 05/24/22 11:09 Pulse 64 05/24/22 11:09 Resp 18 05/24/22 11:09 BP 119/61 05/24/22 11:09 Pulse Ox 98 05/24/22 11:09 O2 Del Method 05/24/22 11:09 O2 Flow Rate 2 05/23/22 16:33 BMI result Body Mass Index 29.9 Const: General: cooperative, comfortable, alert and awake Nutritional Appearance: average body habitus Orientation/consciousness: oriented to person Resp: Effort & Inspection: normal respiratory effort and able to speak in complete sentences Cardio: Rate: regular rate Heart sounds: S1 normal heart sound present and S2 normal heart sound present GI: Other: Abdomen soft with positive bowel sounds, nontender palpation, dressings are clean, dry, intact Neuro: General: oriented to person and CN's II-XI intact bilaterally Extrem: General: Yes no pedal edema Objective Data Active Medications Acetaminophen (Acetaminophen 325 Mg Tablet) 650 mg PO Q6H PRN PRN Reason: Pain, Mild (Pain Scale 1-3) Amlodipine Besylate (Amlodipine Besylate 5 Mg Tablet) 5 mg PO DAILY [facility]; Protocol Dextrose (Dextrose 50 % 25 Gm/50 Ml Syringe) 25 gm IVPUSH Q15M PRN; Protocol PRN Reason: per Hypoglycemia Standing Ord. Docusate Sodium (Docusate Sodium 100 Mg Capsule) 100 mg PO DAILY PRN PRN Reason: Constipation Fentanyl (Fentanyl Citrate/Pf 100 Mcg/2 Ml Vial) 25 mcg IVPUSH Q5M PRN; Protocol PRN Reason: Pain, Moderate (Pain Scale 4-6 Glucose (Glucose Gel 15 Gm Gel..Gram.) 15 gm PO Q15M PRN; Protocol PRN Reason: per Hypoglycemia Standing Ord. Ceftriaxone Sodium 1 gm/ (Sodium Chloride) 50 mls @ 100 mls/hr IV Q24H [facility] Last Infusion: 05/24/22 00:29 Dose: 0 mls/hr Documented By: TONY Metronidazole (Flagyl) 500 mg in 100 mls @ 100 mls/hr IV Q8H [facility] Last Infusion: 05/24/22 09:39 Dose: 0 mls/hr Documented By: NILDA Lactated Ringer's (Lr) 1,000 mls @ 100 mls/hr IVCONT .Q10H [facility] Last Admin: 05/24/22 08:14 Dose: 100 mls/hr Documented By: NILDA Insulin Human Lispro (Insulin Lispro 100 Unit/Ml 3 Ml Vial) 0 unit SUBCUT QIDACHS [facility]; Protocol Last Admin: 05/24/22 07:38 Dose: Not Given Documented By: NILDA Non-Admin Reason: No Insulin Coverage Ondansetron HCl (Ondansetron Hcl 4 Mg/2 Ml Vial) 4 mg IVPUSH Q8H PRN PRN Reason: Nausea and Vomiting Ondansetron HCl (Ondansetron Hcl 4 Mg/2 Ml Vial) 4 mg IVPUSH ONCE PRN PRN Reason: Nausea and Vomiting Oxycodone HCl (Oxycodone Hcl Immed Release 5 Mg Tablet) 5 mg PO Q6H PRN PRN Reason: Pain, Severe (Pain Scale 7-10) Pharmacy Consult (Consult Rx Perform Med Rec) 1 each MISCELLANE ONCE PRN PRN Reason: Consult order Sodium Chloride (0.9 % Sodium Chloride Flush 3 Ml Syringe) 3 ml IVFLUSH QSHIFT [facility] Last Admin: 05/24/22 08:14 Dose: Not Given Documented By: NILDA Non-Admin Reason: IV Running Tamsulosin HCl (Tamsulosin Hcl 0.4 Mg Capsule) 0.4 mg PO DAILY@1700 [facility] Last Admin: 05/23/22 18:19 Dose: 0.4 mg Documented By: MARLEE Labs CBC & Chem 7: 05/24/22 06:24 05/24/22 06:24 Labs: Laboratory Results - last 24 hr 05/22/22 05/22/22 05/23/22 18:36 18:36 13:44 MCV MCH MCHC RDW Plt Count MPV Absolute Nucleated RBC Nucleated RBC % (auto) Anion Gap Estim Creat Clear Calc Estimated GFR POC Glucose 91 Random Glucose Calcium Total Bilirubin Direct Bilirubin AST ALT Alkaline Phosphatase Total Protein Albumin Fapti-0-Mgzjrpiiwux 202 H Tiss Transglutamin IgA <1.0 05/23/22 05/23/22 05/24/22 18:09 20:57 06:24 MCV 80.6 MCH 26.0 L MCHC 32.2 RDW 16.4 H Plt Count 332 D MPV 11.9 Absolute Nucleated RBC 0.000 Nucleated RBC % (auto) 0.0 Anion Gap Estim Creat Clear Calc Estimated GFR POC Glucose 120 H 169 H Random Glucose Calcium Total Bilirubin Direct Bilirubin AST ALT Alkaline Phosphatase Total Protein Albumin Gskpq-2-Mhvuvsswygd Tiss Transglutamin IgA 05/24/22 05/24/22 05/24/22 06:24 06:24 07:21 MCV MCH MCHC RDW Plt Count MPV Absolute Nucleated RBC Nucleated RBC % (auto) Anion Gap 16 16 Estim Creat Clear Calc 77.8 76.7 Estimated GFR > 60 > 60 POC Glucose 138 H Random Glucose 137 H D 137 H Calcium 8.1 L 8.1 L Total Bilirubin 2.5 H 2.4 H Direct Bilirubin 1.9 H AST 438 H 439 H ALT 289 H 288 H Alkaline Phosphatase 908 H 902 H Total Protein 5.5 L 5.6 L Albumin 2.4 L 2.4 L Ceytv-3-Surfdhpbago Tiss Transglutamin IgA 05/24/22 11:07 MCV MCH MCHC RDW Plt Count MPV Absolute Nucleated RBC Nucleated RBC % (auto) Anion Gap Estim Creat Clear Calc Estimated GFR POC Glucose 152 H Random Glucose Calcium Total Bilirubin Direct Bilirubin AST ALT Alkaline Phosphatase Total Protein Albumin Mryfx-1-Lbzlvfkakwh Tiss Transglutamin IgA Microbiology Microbiology Results: Microbiology 05/21/22 19:29 Blood Culture - Preliminary Blood - Venous No growth after 48 hours. 05/21/22 19:29 Blood Culture - Preliminary Blood - Venous No growth after 48 hours. 05/21/22 Unknown Urine Culture - Final Urine Catheterized - Frederick Catheter Escherichia coli Assessment and Plan (1) Elevated LFTs: Status: Acute Plan 86-year-old male with past medical history as mentioned above with dementia at baseline presents to the hospital with dark? urine found to have acute cholecystitis and UTI #? Acute cholecystitis elevated LFTs with elevated bili and alk-phos patient Sent to ED by RN since noted to have dark-colored urine Patient asymptomatic, with no nausea vomiting abdominal pain , WBC normalized , hepatitis serology negative Hida scan showed no gallbladder activity suggestive of acute cholecystitis, ultrasound of abdomen showed some degree of wall thickening of gallbladder, no Hadley sign CT abdomen and ultrasound showed no gallbladder wall abnormalities, due to concern for obstructive etiology and MRCP was obtained but was consistent with acute cholecystitis s/p cholecystectomy 05/23 Continue IV ceftriaxone and Flagyl seen by Dr. Lyons he ordered further workup to rule out other possibilities of elevated LFTs - labs pending LFTs still elevated - will trend #? UTI related to chronic Frederick urine culture grew E coli, ESBL negative continue IV ceftriaxone evidence of cystitis on CT abdomen with bladder wall thickness - urology was consulted,? and recommend outpatient follow-up for further evaluation of the CT finding #? hematuria -? likely secondary to UTI versus bladder malignancy -? CT abdomen? pelvis shows? thickness of the gallbladder wall, patient to follow-up with Urology outpatient for further evaluation #? hypertension -? resume amlodipine # recent history of CVA nonambulatory at home, hold statin due to elevated LFTs # diabetes mellitus hold metformin follow blood sugars, diabetic diet when able to tolerate by mouth # dementia likely vascular, no behavioral issues noted dvt ppx: compression boots Requires ongoing inpatient hospitalization due to persistently elevated LFTs and further workup Attending-Dr. Polk Quality Stroke Does the patient have a stroke diagnosis?: No VTE Prior VTE?: No VTE Risk Level:: Medical - moderate - high VTE Device Contraindication: N/A - Device Ordered VTE Drug Contraindication: Treatment Not Indicated
[2022-05-24 13:51] LABS: Myeloperoxidase Antibody <1.0 AI; Proteinase 3 PR3 Antibodies <1.0 AI
[2022-05-24] MEDS: 0.9 % Sodium Chloride Flush 3 ML SYRINGE IVFLUSH ×2 (16:05→20:42)
[2022-05-24] MEDS: Tamsulosin HCL 0.4 MG CAPSULE PO (16:05)
[2022-05-24 16:28] LABS: Glucose, Whole Blood 143 mg/dL (60-115)
[2022-05-24 20:52] LABS: Glucose, Whole Blood 136 mg/dL (60-115)
[2022-05-24] MEDS: cefTRIAXone sodium 1 GM in 0.9 % Sodium Chloride 50 ML IV (23:06)
[2022-05-25 03:13] VITALS: BP 118/56; PULSE 67; RESP 18; TEMP 36.8; O2SAT 97
[2022-05-25 06:14] LABS: Hematocrit 35.3 % (42.0-52.0); Hemoglobin 11.8 g/dl (14.0-18.0); Mean Corpuscular HGB Conc 33.4 g/dl (31.0-36.0); Mean Corpuscular Hemoglobin 27.1 pg (27.0-33.0); Mean Platelet Volume 11.6 fL (9.4-12.4); Platelet Count 295 X10*3/uL (160-400); Red Blood Count 4.36 X10*6/uL (4.60-5.80); Red Cell Distribution Width 16.5 % (11.0-16.0); White Blood Count 11.2 X10*3/uL (4.8-10.8)
[2022-05-25 06:41] LABS: Alanine Aminotransferase 232 U/L (0-40); Albumin Level 2.4 g/dL (3.5-5.0); Alkaline Phosphatase 846 U/L (39-117); Anion Gap 12 (12-20); Aspartate Amino Transferase 328 U/L (5-37); Bilirubin Direct 1.3 mg/dL (0.0-0.5); Bilirubin Total 1.7 mg/dL (0.0-1.0); Blood Urea Nitrogen 14 mg/dL (9-16); Carbon Dioxide 27 mmol/L (22-29); Chloride 104 mmol/L (96-108); Creatinine Clr Calc Pharmacy 76.7; Estimated Glomerular Filt Rate > 60; Glucose Random 119 mg/dL (60-115); Potassium 3.3 mmol/L (3.3-5.1); Sodium 140 mmol/L (135-145); Total Protein 5.4 g/dL (6.5-8.0)
[2022-05-25 07:23] VITALS: BP 124/57; PULSE 62; RESP 18; TEMP 36.7; O2SAT 95
--- NOTE | 2022-05-25 07:40 | P.PNGS_ITS ---
Subjective Subjective Date of Service: 05/25/22 Patient reports: no new complaints Interval history: Continues to deny pain, but grimaces when his right upper quadrant is palpated today. He denies nausea or vomiting. Physical Exam Vital Signs: Vital Signs: Last Vital Signs Temp 98.1 F 05/25/22 07:23 Pulse 62 05/25/22 07:23 Resp 18 05/25/22 07:23 BP 124/57 L 05/25/22 07:23 Pulse Ox 95 05/25/22 07:23 O2 Del Method 05/25/22 07:23 O2 Flow Rate 2 05/23/22 16:33 BMI result Body Mass Index 29.9 Dressings are clean, dry and intact but the patient has upper abdominal tenderness on palpation with no peritoneal sign. This is a little more than yesterday. Objective Data Active Medications Acetaminophen (Acetaminophen 325 Mg Tablet) 650 mg PO Q6H PRN PRN Reason: Pain, Mild (Pain Scale 1-3) Amlodipine Besylate (Amlodipine Besylate 5 Mg Tablet) 5 mg PO DAILY [facility]; Protocol Dextrose (Dextrose 50 % 25 Gm/50 Ml Syringe) 25 gm IVPUSH Q15M PRN; Protocol PRN Reason: per Hypoglycemia Standing Ord. Docusate Sodium (Docusate Sodium 100 Mg Capsule) 100 mg PO DAILY PRN PRN Reason: Constipation Fentanyl (Fentanyl Citrate/Pf 100 Mcg/2 Ml Vial) 25 mcg IVPUSH Q5M PRN; Protocol PRN Reason: Pain, Moderate (Pain Scale 4-6 Glucose (Glucose Gel 15 Gm Gel..Gram.) 15 gm PO Q15M PRN; Protocol PRN Reason: per Hypoglycemia Standing Ord. Ceftriaxone Sodium 1 gm/ (Sodium Chloride) 50 mls @ 100 mls/hr IV Q24H [facility] Last Infusion: 05/24/22 23:37 Dose: 0 mls/hr Documented By: HAYDER Metronidazole (Flagyl) 500 mg in 100 mls @ 100 mls/hr IV Q8H [facility] Last Infusion: 05/25/22 01:04 Dose: 0 mls/hr Documented By: HAYDER Insulin Human Lispro (Insulin Lispro 100 Unit/Ml 3 Ml Vial) 0 unit SUBCUT QIDACHS [facility]; Protocol Last Admin: 05/24/22 20:41 Dose: Not Given Documented By: HAYDER Non-Admin Reason: No Insulin Coverage Ondansetron HCl (Ondansetron Hcl 4 Mg/2 Ml Vial) 4 mg IVPUSH Q8H PRN PRN Reason: Nausea and Vomiting Ondansetron HCl (Ondansetron Hcl 4 Mg/2 Ml Vial) 4 mg IVPUSH ONCE PRN PRN Reason: Nausea and Vomiting Oxycodone HCl (Oxycodone Hcl Immed Release 5 Mg Tablet) 5 mg PO Q6H PRN PRN Reason: Pain, Severe (Pain Scale 7-10) Pharmacy Consult (Consult Rx Perform Med Rec) 1 each MISCELLANE ONCE PRN PRN Reason: Consult order Sodium Chloride (0.9 % Sodium Chloride Flush 3 Ml Syringe) 3 ml IVFLUSH QSHIFT [facility] Last Admin: 05/24/22 20:42 Dose: 3 ml Documented By: HAYDER Tamsulosin HCl (Tamsulosin Hcl 0.4 Mg Capsule) 0.4 mg PO DAILY@1700 [facility] Last Admin: 05/24/22 16:05 Dose: 0.4 mg Documented By: NILDA Labs CBC & Chem 7: 05/25/22 05:13 05/25/22 05:13 Labs: Laboratory Results - last 24 hr 05/22/22 05/24/22 05/24/22 18:36 06:24 06:24 MCV MCH MCHC RDW Plt Count MPV Absolute Nucleated RBC Nucleated RBC % (auto) Anion Gap 16 16 Estim Creat Clear Calc 77.8 76.7 Estimated GFR > 60 > 60 POC Glucose Random Glucose 137 H D 137 H Calcium 8.1 L 8.1 L Total Bilirubin 2.5 H 2.4 H Direct Bilirubin 1.9 H AST 438 H 439 H ALT 289 H 288 H Alkaline Phosphatase 908 H 902 H Total Protein 5.5 L 5.6 L Albumin 2.4 L 2.4 L Proteinase 3 (PR3) Ab <1.0 Myeloperoxidase Ab <1.0 05/24/22 05/24/22 05/24/22 07:21 11:07 16:11 MCV MCH MCHC RDW Plt Count MPV Absolute Nucleated RBC Nucleated RBC % (auto) Anion Gap Estim Creat Clear Calc Estimated GFR POC Glucose 138 H 152 H 143 H Random Glucose Calcium Total Bilirubin Direct Bilirubin AST ALT Alkaline Phosphatase Total Protein Albumin Proteinase 3 (PR3) Ab Myeloperoxidase Ab 08/05/25/22 05/25/22 20:38 05:13 05:13 MCV 81.0 MCH 27.1 MCHC 33.4 RDW 16.5 H Plt Count 295 MPV 11.6 Absolute Nucleated RBC 0.000 Nucleated RBC % (auto) 0.0 Anion Gap 12 Estim Creat Clear Calc 76.7 Estimated GFR > 60 POC Glucose 136 H Random Glucose 119 H Calcium 8.0 L Total Bilirubin 1.7 H Direct Bilirubin 1.3 H AST 328 H ALT 232 H Alkaline Phosphatase 846 H Total Protein 5.4 L Albumin 2.4 L Proteinase 3 (PR3) Ab Myeloperoxidase Ab Procedures Date of Service Date of Service: 05/25/22 Progress Note: A&P Assessment and plan (1) Abnormal biliary HIDA scan: Status: Acute (2) Gallstone: Status: Acute (3) Elevated LFTs: Status: Acute (4) UTI (urinary tract infection): Status: Acute (5) Abdominal lymphadenopathy: Status: Acute Plan LFTs are trending down. White count is bumped back up. Patient is tolerating a diet and is expected to have some right upper quadrant pain post cholecystectomy. Path is still pending. Continue present management. If the patient appears to be back to his baseline and tolerating a diet, he is surgically stable for discharge, however the leukocytosis source remains unclear. It would be unusual for a postoperative infection at this point. Please also note that the patient's liver bed required Surgicel which will appeared as an abscess due to its fibrous nature. Abscesses typically take greater than 5 days to form and mature. Time Spent With Patient Time: Total time spent is greater than 50% in coordination of care (as documented) at patient's floor/unit and/or counseling patient: Quality Stroke Does the patient have a stroke diagnosis?: No VTE Prior VTE?: No VTE Risk Level:: Medical - moderate - high VTE Device Contraindication: N/A - Device Ordered VTE Drug Contraindication: Treatment Not Indicated
[2022-05-25 07:55] LABS: Glucose, Whole Blood 116 mg/dL (60-115)
[2022-05-25] MEDS: 0.9 % Sodium Chloride Flush 3 ML SYRINGE IVFLUSH ×2 (08:12→16:00)
[2022-05-25] MEDS: metroNIDAZOLE/NS 500 MG/100 ML PIGGYBACK 100 MG IV ×3 (08:12→23:15)
[2022-05-25 11:10] VITALS: BP 125/69; PULSE 71; RESP 18; TEMP 36.6; O2SAT 96
[2022-05-25] MEDS: Insulin Lispro 100 UNIT/ML 3 ML VIAL SUBCUT ×2 (12:07→20:41)
[2022-05-25 12:08] LABS: Glucose, Whole Blood 178 mg/dL (60-115)
[2022-05-25 12:08] LABS: Glucose, Whole Blood 157 mg/dL (60-115)
--- NOTE | 2022-05-25 13:03 | HO.PM.IMPN ---
Subjective Subjective Date of Service: 05/25/22 Interval History: Seen and examined this morning Follow-up for elevated LFTs, acute cholecystitis Patient denies abdominal pain although does grimace on palpation of the abdomen today. Due to underlying dementia difficult to obtain full review of systems Review of Systems Review of Systems: Yes Unobtainable due to mental condition Physical Exam Vital Signs: Vital Signs: Last Vital Signs Temp 97.8 F 05/25/22 11:10 Pulse 71 05/25/22 11:10 Resp 18 05/25/22 11:10 BP 125/69 05/25/22 11:10 Pulse Ox 96 05/25/22 11:10 O2 Del Method 05/25/22 11:10 O2 Flow Rate 2 05/23/22 16:33 BMI result Body Mass Index 29.9 Const: General: cooperative, comfortable, alert and awake Nutritional Appearance: average body habitus Orientation/consciousness: oriented to person Resp: Effort & Inspection: normal respiratory effort and able to speak in complete sentences Cardio: Rate: regular rate Heart sounds: S1 normal heart sound present and S2 normal heart sound present GI: Other: Abdomen soft with positive bowel sounds, grimace with palpation RUQ, dressings are clean, dry, intact Neuro: General: oriented to person and CN's II-XI intact bilaterally Extrem: General: Yes no pedal edema Objective Data Active Medications Acetaminophen (Acetaminophen 325 Mg Tablet) 650 mg PO Q6H PRN PRN Reason: Pain, Mild (Pain Scale 1-3) Amlodipine Besylate (Amlodipine Besylate 5 Mg Tablet) 5 mg PO DAILY [facility]; Protocol Dextrose (Dextrose 50 % 25 Gm/50 Ml Syringe) 25 gm IVPUSH Q15M PRN; Protocol PRN Reason: per Hypoglycemia Standing Ord. Docusate Sodium (Docusate Sodium 100 Mg Capsule) 100 mg PO DAILY PRN PRN Reason: Constipation Fentanyl (Fentanyl Citrate/Pf 100 Mcg/2 Ml Vial) 25 mcg IVPUSH Q5M PRN; Protocol PRN Reason: Pain, Moderate (Pain Scale 4-6 Glucose (Glucose Gel 15 Gm Gel..Gram.) 15 gm PO Q15M PRN; Protocol PRN Reason: per Hypoglycemia Standing Ord. Ceftriaxone Sodium 1 gm/ (Sodium Chloride) 50 mls @ 100 mls/hr IV Q24H [facility] Last Infusion: 05/24/22 23:37 Dose: 0 mls/hr Documented By: HAYDER Metronidazole (Flagyl) 500 mg in 100 mls @ 100 mls/hr IV Q8H [facility] Last Infusion: 05/25/22 11:13 Dose: 0 mls/hr Documented By: NILDA Insulin Human Lispro (Insulin Lispro 100 Unit/Ml 3 Ml Vial) 0 unit SUBCUT QIDACHS [facility]; Protocol Last Admin: 05/25/22 12:07 Dose: 2 unit Documented By: JOHNNY Comments: [id number] Ondansetron HCl (Ondansetron Hcl 4 Mg/2 Ml Vial) 4 mg IVPUSH Q8H PRN PRN Reason: Nausea and Vomiting Ondansetron HCl (Ondansetron Hcl 4 Mg/2 Ml Vial) 4 mg IVPUSH ONCE PRN PRN Reason: Nausea and Vomiting Oxycodone HCl (Oxycodone Hcl Immed Release 5 Mg Tablet) 5 mg PO Q6H PRN PRN Reason: Pain, Severe (Pain Scale 7-10) Pharmacy Consult (Consult Rx Perform Med Rec) 1 each MISCELLANE ONCE PRN PRN Reason: Consult order Sodium Chloride (0.9 % Sodium Chloride Flush 3 Ml Syringe) 3 ml IVFLUSH QSHIFT [facility] Last Admin: 05/25/22 08:12 Dose: 3 ml Documented By: NILDA Tamsulosin HCl (Tamsulosin Hcl 0.4 Mg Capsule) 0.4 mg PO DAILY@1700 [facility] Last Admin: 05/24/22 16:05 Dose: 0.4 mg Documented By: NILDA Labs CBC & Chem 7: 05/25/22 05:13 05/25/22 05:13 Labs: Laboratory Results - last 24 hr 05/22/22 05/24/22 05/24/22 18:36 16:11 20:38 MCV MCH MCHC RDW Plt Count MPV Absolute Nucleated RBC Nucleated RBC % (auto) Anion Gap Estim Creat Clear Calc Estimated GFR POC Glucose 143 H 136 H Random Glucose Calcium Total Bilirubin Direct Bilirubin AST ALT Alkaline Phosphatase Total Protein Albumin Proteinase 3 (PR3) Ab <1.0 Myeloperoxidase Ab <1.0 05/25/22 05/25/22 05/25/22 05:13 05:13 07:22 MCV 81.0 MCH 27.1 MCHC 33.4 RDW 16.5 H Plt Count 295 MPV 11.6 Absolute Nucleated RBC 0.000 Nucleated RBC % (auto) 0.0 Anion Gap 12 Estim Creat Clear Calc 76.7 Estimated GFR > 60 POC Glucose 116 H Random Glucose 119 H Calcium 8.0 L Total Bilirubin 1.7 H Direct Bilirubin 1.3 H AST 328 H ALT 232 H Alkaline Phosphatase 846 H Total Protein 5.4 L Albumin 2.4 L Proteinase 3 (PR3) Ab Myeloperoxidase Ab 05/25/22 05/25/22 11:09 12:04 MCV MCH MCHC RDW Plt Count MPV Absolute Nucleated RBC Nucleated RBC % (auto) Anion Gap Estim Creat Clear Calc Estimated GFR POC Glucose 157 H 178 H Random Glucose Calcium Total Bilirubin Direct Bilirubin AST ALT Alkaline Phosphatase Total Protein Albumin Proteinase 3 (PR3) Ab Myeloperoxidase Ab Assessment and Plan (1) Acute cholecystitis: Status: Acute Plan 86-year-old male with past medical history as mentioned above with dementia at baseline presents to the hospital with dark? urine found to have acute cholecystitis and UTI Acute cholecystitis elevated LFTs with elevated bili and alk-phos Patient asymptomatic, with no nausea vomiting abdominal pain, WBC normalized , hepatitis serology negative Hida scan showed no gallbladder activity suggestive of acute cholecystitis, ultrasound of abdomen showed some degree of wall thickening of gallbladder, no Hadley sign CT abdomen and ultrasound showed no gallbladder wall abnormalities, due to concern for obstructive etiology and MRCP was obtained but was consistent with acute cholecystitis s/p cholecystectomy 05/23 Continue IV ceftriaxone and Flagyl seen by Dr. Lyons he ordered further workup to rule out other possibilities of elevated LFTs - labs pending LFTs still elevated but trending down. Discussed with GI, no need for further workup UTI related to chronic [place] urine culture grew E coli, ESBL negative continue IV ceftriaxone evidence of cystitis on CT abdomen with bladder wall thickness - urology was consulted,? and recommend outpatient follow-up for further evaluation of the CT finding hematuria -? likely secondary to UTI versus bladder malignancy -? CT abdomen? pelvis shows? thickness of the gallbladder wall, patient to follow-up with Urology outpatient for further evaluation hypertension -? 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 Polk Quality Stroke Does the patient have a stroke diagnosis?: No VTE Prior VTE?: No VTE Risk Level:: Medical - moderate - high VTE Device Contraindication: N/A - Device Ordered VTE Drug Contraindication: Treatment Not Indicated
[2022-05-25 13:12] LABS: Smooth Muscle Antibody 29 U (<20)
[2022-05-25 13:16] LABS: Soluble Liver Ag Autoantibody <20.1 U (0.0-20.0)
--- NOTE | 2022-05-25 15:10 | MHC.CM.PN ---
LFT STILL ELEVATED. PLAN IS GASTRO CONSULT DC POSSIBLY Saturday05/27/22
[2022-05-25 16:00] VITALS: BP 134/75; PULSE 69; RESP 15; TEMP 37.1; O2SAT 97
[2022-05-25] MEDS: Tamsulosin HCL 0.4 MG CAPSULE PO (16:01)
--- NOTE | 2022-05-25 16:11 | PC.NURSE ---
BS 89,BRITT Briggs notified
[2022-05-25 16:16] LABS: Glucose, Whole Blood 89 mg/dL (60-115)
[2022-05-25 16:22] LABS: Glucose, Whole Blood 106 mg/dL (60-115)
[2022-05-25 19:12] VITALS: BP 116/54; PULSE 79; RESP 16; TEMP 36.1; O2SAT 96
[2022-05-25 19:30] LABS: Glucose, Whole Blood 154 mg/dL (60-115)
[2022-05-25] MEDS: cefTRIAXone sodium 1 GM in 0.9 % Sodium Chloride 50 ML IV (23:15)
[2022-05-25 23:32] VITALS: BP 117/56; PULSE 75; RESP 16; TEMP 36.3; O2SAT 96
[2022-05-26 03:31] VITALS: BP 117/56; PULSE 68; RESP 16; TEMP 36.4; O2SAT 97
[2022-05-26 06:01] LABS: Hematocrit 35.3 % (42.0-52.0); Hemoglobin 11.5 g/dl (14.0-18.0); Mean Corpuscular HGB Conc 32.6 g/dl (31.0-36.0); Mean Corpuscular Hemoglobin 25.9 pg (27.0-33.0); Mean Corpuscular Volume 79.5 fL (80.0-98.0); Mean Platelet Volume 11.4 fL (9.4-12.4); Platelet Count 310 X10*3/uL (160-400); Red Blood Count 4.44 X10*6/uL (4.60-5.80); Red Cell Distribution Width 16.8 % (11.0-16.0)
[2022-05-26 06:30] LABS: Alanine Aminotransferase 205 U/L (0-40); Albumin Level 2.3 g/dL (3.5-5.0); Alkaline Phosphatase 844 U/L (39-117); Aspartate Amino Transferase 285 U/L (5-37); Bilirubin Direct 1.2 mg/dL (0.0-0.5); Bilirubin Total 1.5 mg/dL (0.0-1.0); Total Protein 5.4 g/dL (6.5-8.0)
[2022-05-26 07:34] LABS: Glucose, Whole Blood 116 mg/dL (60-115)
[2022-05-26 08:00] VITALS: BP 119/71; PULSE 67; RESP 16; TEMP 36.8; O2SAT 95
[2022-05-26] MEDS: 0.9 % Sodium Chloride Flush 3 ML SYRINGE IVFLUSH ×2 (08:28→17:23)
[2022-05-26] MEDS: metroNIDAZOLE/NS 500 MG/100 ML PIGGYBACK 100 MG IV ×3 (08:28→22:30)
[2022-05-26] MEDS: Acetaminophen 325 MG TABLET 650 MG PO (09:50)
[2022-05-26 11:24] VITALS: BP 144/76; PULSE 63; RESP 13; TEMP 35.9; O2SAT 96
[2022-05-26 11:33] LABS: Glucose, Whole Blood 144 mg/dL (60-115)
--- NOTE | 2022-05-26 12:44 | PM.PNGS ---
Subjective Subjective Date of Service: 05/26/22 Interval history: pt quiet but eating not saying too much grimaces with deeper palpation in ruq but appropriately Physical Exam Vital Signs: Vital Signs: Last Vital Signs Temp 96.7 F L 05/26/22 11:24 Pulse 63 05/26/22 11:24 Resp 13 05/26/22 11:24 BP 144/76 H 05/26/22 11:24 Pulse Ox 96 05/26/22 11:24 O2 Del Method 05/26/22 11:24 O2 Flow Rate 2 05/23/22 16:33 BMI result Body Mass Index 29.9 GI: Other: abdo soft tender ruq no peritoneal signs incisions look good Objective Data Active Medications Acetaminophen (Acetaminophen 325 Mg Tablet) 650 mg PO Q6H PRN PRN Reason: Pain, Mild (Pain Scale 1-3) Last Admin: 05/26/22 09:50 Dose: 650 mg Documented By: KIMBERLY Amlodipine Besylate (Amlodipine Besylate 5 Mg Tablet) 5 mg PO DAILY [facility]; Protocol Dextrose (Dextrose 50 % 25 Gm/50 Ml Syringe) 25 gm IVPUSH Q15M PRN; Protocol PRN Reason: per Hypoglycemia Standing Ord. Docusate Sodium (Docusate Sodium 100 Mg Capsule) 100 mg PO DAILY PRN PRN Reason: Constipation Fentanyl (Fentanyl Citrate/Pf 100 Mcg/2 Ml Vial) 25 mcg IVPUSH Q5M PRN; Protocol PRN Reason: Pain, Moderate (Pain Scale 4-6 Glucose (Glucose Gel 15 Gm Gel..Gram.) 15 gm PO Q15M PRN; Protocol PRN Reason: per Hypoglycemia Standing Ord. Ceftriaxone Sodium 1 gm/ (Sodium Chloride) 50 mls @ 100 mls/hr IV Q24H [facility] Last Infusion: 05/25/22 23:59 Dose: 0 mls/hr Documented By: SARAH Metronidazole (Flagyl) 500 mg in 100 mls @ 100 mls/hr IV Q8H [facility] Last Infusion: 05/26/22 09:48 Dose: 0 mls/hr Documented By: KIMBERLY Insulin Human Lispro (Insulin Lispro 100 Unit/Ml 3 Ml Vial) 0 unit SUBCUT QIDACHS [facility]; Protocol Last Admin: 05/26/22 12:23 Dose: Not Given Documented By: KIMBERLY Non-Admin Reason: No Insulin Coverage Ondansetron HCl (Ondansetron Hcl 4 Mg/2 Ml Vial) 4 mg IVPUSH Q8H PRN PRN Reason: Nausea and Vomiting Ondansetron HCl (Ondansetron Hcl 4 Mg/2 Ml Vial) 4 mg IVPUSH ONCE PRN PRN Reason: Nausea and Vomiting Oxycodone HCl (Oxycodone Hcl Immed Release 5 Mg Tablet) 5 mg PO Q6H PRN PRN Reason: Pain, Severe (Pain Scale 7-10) Pharmacy Consult (Consult Rx Perform Med Rec) 1 each MISCELLANE ONCE PRN PRN Reason: Consult order Sodium Chloride (0.9 % Sodium Chloride Flush 3 Ml Syringe) 3 ml IVFLUSH QSHIFT [facility] Last Admin: 05/26/22 08:28 Dose: 3 ml Documented By: KIMBERLY Tamsulosin HCl (Tamsulosin Hcl 0.4 Mg Capsule) 0.4 mg PO DAILY@1700 [facility] Last Admin: 05/25/22 16:01 Dose: 0.4 mg Documented By: MRALEE Labs CBC & Chem 7: 05/26/22 04:57 05/25/22 05:13 Labs: Laboratory Results - last 24 hr 05/22/22 05/22/22 05/25/22 18:36 18:36 15:28 MCV MCH MCHC RDW Plt Count MPV Absolute Nucleated RBC Nucleated RBC % (auto) POC Glucose 106 Total Bilirubin Direct Bilirubin AST ALT Alkaline Phosphatase Total Protein Albumin Soluble Liver Antigen <20.1 Anti-Smooth Muscle Ab 29 H 05/25/22 05/25/22 05/26/22 16:10 19:27 04:57 MCV 79.5 L MCH 25.9 L MCHC 32.6 RDW 16.8 H Plt Count 310 MPV 11.4 Absolute Nucleated RBC 0.000 Nucleated RBC % (auto) 0.0 POC Glucose 89 154 H Total Bilirubin Direct Bilirubin AST ALT Alkaline Phosphatase Total Protein Albumin Soluble Liver Antigen Anti-Smooth Muscle Ab 05/26/22 05/26/22 05/26/22 04:57 07:31 11:29 MCV MCH MCHC RDW Plt Count MPV Absolute Nucleated RBC Nucleated RBC % (auto) POC Glucose 116 H 144 H Total Bilirubin 1.5 H Direct Bilirubin 1.2 H AST 285 H ALT 205 H Alkaline Phosphatase 844 H Total Protein 5.4 L Albumin 2.3 L Soluble Liver Antigen Anti-Smooth Muscle Ab Procedures Date of Service Date of Service: 05/26/22 Progress Note: A&P Assessment and plan (1) Acute cholecystitis: Start date: 05/26/22 Status: Acute Assessment and Plan: 86 year old male with some med issues and dementia s/p lap wilber for acute choleycstitis - doing overall well with slow improvement. no surgical issues at this time Plan 86 year old male with cholecystitis - sp lap wilber and doing better - rika po diet some po pain meds and lfts although still high have come down considerably so doing well. plan to cont with po diet can shower and get dressing area wet fu with surgery in 10 days recheck lfts in one week Time Spent With Patient Time: Total time spent is greater than 50% in coordination of care (as documented) at patient's floor/unit and/or counseling patient: Quality Stroke Does the patient have a stroke diagnosis?: No VTE Prior VTE?: No VTE Risk Level:: Medical - moderate - high VTE Device Contraindication: N/A - Device Ordered VTE Drug Contraindication: Treatment Not Indicated
--- NOTE | 2022-05-26 12:54 | PM.DS ---
DS: Providers Provider Date of Service: 05/27/22 Date of admission: 05/21/22 23:41 Date of discharge: 05/27/22 Primary care physician: Adi Campos PA-C Consults: 05/21/22 22:33 Consult to General Surgery Stat Consulting Provider: Adolfo Gardiner Reason for consultation: acute cholecystitis Has provider been notified: Yes 05/22/22 08:06 Consult to Gastroenterology Routine Consulting Provider: Jus Lyons Reason for consultation: elevated lfts Has provider been notified: No Attending physician on discharge: Keshawn Taveras Discharging clinician: Melia Rocha DS: Diagnosis Discharge Diagnosis (1) Acute cholecystitis: Status: Acute (2) UTI (urinary tract infection): Status: Acute (3) Elevated LFTs: Status: Acute (4) Hematuria: Status: Acute DS: Summary Hospital Course Hospital Course: From H&P on day of admission ?86-year-old Korean-speaking only, history is attempted to be obtained with the help of an refuge worker but unsuccessfully, This is an 86-year-old male from home who is confused at baseline, nonambulatory, history of recent CVA about a month ago, diabetes and hypertension who is brought in to the hospital after his VNA nurse noticed ? Dark urine in his Spencer catheter and recommended patient be sent to the hospital for further evaluation.? I am unable to get much history from the patient as he is confused, he thinks he is in [place], he is denying any pain, he just wants to drink water. ? After further workup in the ED patient was noted to have elevated WBC count, elevated total bili of 3.4, AST of 629 and ALT of 413, with an alk-phos of 1052 and a total CPK of 34.? Given the new LFT elevations patient underwent ultrasound of the right upper quadrant evaluate for liver gallbladder, which revealed? gallbladder wall thickness, and gallstones and HIDA scan was recommended.? HIDA scan was ordered which was positive for infection. ? general surgery was consulted, recommended admission to medical floor. ?Patient's UA was also found to be positive for acute infection with a CT showing bladder wall thickening and stranding of the perivesicular fat concerning for infectious process.? This case was also discussed with Dr. Arechiga and he recommended treatment with antibiotics for UTI and follow-up as outpatient for further evaluation of the bladder wall thickening seen on CT. Acute cholecystitis. Was noted to have elevated LFTs with elevated bili and alk-phos.? Patient asymptomatic, with no nausea vomiting or abdominal pain. Hepatitis serology was negative. Hida scan showed no gallbladder activity suggestive of acute cholecystitis. ultrasound of abdomen showed some degree of wall thickening of gallbladder, no Hadley sign. He was seen by GI obtained some workup to rule out other possible causes of elevated LFTs. CT abdomen and ultrasound showed no gallbladder wall abnormalities, due to concern for obstructive etiology and MRCP was obtained but was consistent with acute cholecystitis. He was seen in consultation by General surgery and underwent s/p cholecystectomy on 05/23. LFTs still elevated but trending down.? Discussed with GI, no need for further workup. Pathology report shows gallbladder with large stone lodged in the neck of the gallbladder. Recommend repeat LFTs in the next 1 week. Patient should follow-up with Dr. Gardiner of general surgery. UTI related to chronic Spencer. urine culture grew E coli, ESBL negative. He was initially treated with IV ceftriaxone. He will be transition to oral Ceftin on discharge. He has remained afebrile. There was evidence of cystitis on CT abdomen with bladder wall thickness. urology was consulted,? and recommend outpatient follow-up for further evaluation of the CT finding. He was previously referred to Urology for urinary retention and chronic Spencer placed on previous admission. hematuria, microscopic. likely secondary to UTI versus bladder malignancy. CT abdomen? pelvis shows? thickness of the gallbladder wall, patient to follow-up with Urology outpatient for further evaluation hypertension. Amlodipine was resumed at 5 mg, as compared to his home dose of 10 mg. Blood pressure has been controlled at this time. Would recommend outpatient follow-up with PCP for close blood pressure monitoring. recent history of CVA - statin was placed on hold due to elevated LFTs. Would continue to hold statin until LFTs have improved Time Spent with Patient Time attestation: Total time spent providing and/or coordinating discharge services: Discharge coordination time: Greater than 30 minutes Quality: Safe Use of Opioids Does Pt have an Active Cancer Diagnosis on the Problem List?: No Quality: Stroke Does the patient have a stroke diagnosis?: No Physical Exam Vital Signs: Vital Signs: Last Vital Signs Temp 96.7 F L 05/26/22 11:24 Pulse 63 08/27/22 11:24 Resp 13 05/26/22 11:24 BP 144/76 H 05/26/22 11:24 Pulse Ox 96 05/26/22 11:24 O2 Del Method 05/26/22 11:24 O2 Flow Rate 2 05/23/22 16:33 BMI result Body Mass Index 29.9 Const: General: cooperative, comfortable, alert and awake Nutritional Appearance: average body habitus Resp: Effort & Inspection: normal respiratory effort and able to speak in complete sentences Cardio: Rate: regular rate Heart sounds: S1 normal heart sound present and S2 normal heart sound present GI: Other: Abdomen soft with positive bowel sounds, grimace with palpation RUQ, dressings are clean, dry, intact Neuro: General: CN's II-XI intact bilaterally Extrem: General: Yes no pedal edema DS: Data Data Completed and Pending Completed studies during hospitalization [Text1]: Pending at discharge 05/23/22 15:21 Surgical [PTH] Routine Procedures Insertion of Infusion Device into Superior Vena Cava, Percutaneous Approach (04/14/22) Ultrasonography of Superior Vena Cava, Guidance (04/14/22) Labs on day of discharge: Laboratory Results - last 24 hr 05/22/22 05/22/22 05/25/22 18:36 18:36 15:28 WBC RBC Hgb Hct MCV MCH MCHC RDW Plt Count MPV Absolute Nucleated RBC Nucleated RBC % (auto) POC Glucose 106 Total Bilirubin Direct Bilirubin AST ALT Alkaline Phosphatase Total Protein Albumin Soluble Liver Antigen <20.1 Anti-Smooth Muscle Ab 29 H 05/25/22 05/25/22 05/26/22 16:10 19:27 04:57 WBC 10.0 RBC 4.44 L Hgb 11.5 L Hct 35.3 L MCV 79.5 L MCH 25.9 L MCHC 32.6 RDW 16.8 H Plt Count 310 MPV 11.4 Absolute Nucleated RBC 0.000 Nucleated RBC % (auto) 0.0 POC Glucose 89 154 H Total Bilirubin Direct Bilirubin AST ALT Alkaline Phosphatase Total Protein Albumin Soluble Liver Antigen Anti-Smooth Muscle Ab 05/26/22 05/26/22 05/26/22 04:57 07:31 11:29 WBC RBC Hgb Hct MCV MCH MCHC RDW Plt Count MPV Absolute Nucleated RBC Nucleated RBC % (auto) POC Glucose 116 H 144 H Total Bilirubin 1.5 H Direct Bilirubin 1.2 H AST 285 H ALT 205 H Alkaline Phosphatase 844 H Total Protein 5.4 L Albumin 2.3 L Soluble Liver Antigen Anti-Smooth Muscle Ab Preliminary micro results at discharge 05/21/22 19:29 Blood Culture - Preliminary Blood - Venous No growth after 48 hours. 05/21/22 19:29 Blood Culture - Preliminary Blood - Venous No growth after 48 hours. Discharge Plan Discharge Patient Disposition: Home Health Service Discharge Diagnosis: Acute cholecystitis UTI Elevated LFTs Hematuria Referrals: [facility] [Outside] - 1 Week Adi Campos PA-C [Primary Care Provider] - 1 Week Adolfo Gardiner MD [Physician] - 2 Weeks Discharge Medications: New amlodipine 5 mg Tablet 5 mg PO DAILY 30 Days Qty: 30 0RF Protocol: Hold for SBP< HOLD for SBP < : 90 cefuroxime axetil 250 mg tablet 250 mg PO BID 6 Days Qty: 12 0RF Continued aspirin 81 mg Tablet,Delayed Release (Dr/Ec) 81 mg PO DAILY tamsulosin 0.4 mg Capsule 0.4 mg PO DAILY@1700 30 Days Qty: 30 0RF metformin 500 mg tablet 500 mg PO DAILY 90 Days Qty: 90 1RF Held atorvastatin 80 mg Tablet 80 mg PO DAILY 30 Days Qty: 30 0RF Hold Instructions: Hold until follow up labs show decrease in liver function/follow up with PCP Discontinued amlodipine 10 mg tablet 10 mg PO DAILY 90 Days Qty: 90 1RF Discharge Orders: Discharge Order (Routine); Ordered 05/26/22 Ordered By: Melia Rocha Activity on Discharge: As tolerated Stand Alone Forms: Patient Portal Discharge page Other Ambulatory Orders: Liver Panel (Routine) Timeframe: [id number] Facility: [facility] - Location: Laboratory Ordered By: Melia Rocha Care Plan Goals: See below Health Concerns: Urinary tract infection with chronic spencer catheter Acute cholecystitis status post cholecystectomy with Dr. Gardiner Elevated liver function test- liver function levels are trending down but are still elevated Hematuria/urinary retention- imaging showed bladder wall thickening - should follow up with urologist Plan of Treatment: Complete course of antibiotics for UTI Repeat labs to monitor liver function in 1 week Call to schedule follow-up appointment to see Dr. Gardiner of general surgery in about 2 weeks Call to schedule follow-up appointment with PCP Do not take atorvastatin until liver function tests improve Steri-Strips on abdomen will fall off on their own, do not need to remove. Can shower/bathe Dose of amlodipine has been decreased from 10 mg daily to 5 mg daily Call to schedule follow-up appointment with Urology May continue to have some abdominal discomfort, can use motrin if needed for pain Assessment: See discharge summary Discharge Date/Time: 05/27/22 11:50
--- NOTE | 2022-05-26 14:26 | MHC.CM.PN ---
Addendum entered by April Ayala 05/26/22 15:34: CM CALLED PTS HCP, SARAH GARCÍA [phone], SHE INDICATED SHE NEEDED A TURNTABLE WORKER CM CALLED BACK USING [employer] [facility] #[id number], HOWEVER SARAH DID NOT ANSWER, CALL WENT TO WHICH WAS NOT SET UP. Addendum entered by April Ayala 05/26/22 14:49: CORRECTION: PT WILL NEED BLS TRANSPORT Original Note: PT WILL DC HOME TODAY WITH RESUMPTION OF COMFORT PLUS [facility] FAMILY TO TRANSPORT
[2022-05-26 15:26] VITALS: BP 121/65; PULSE 66; RESP 17; TEMP 36.5; O2SAT 97
[2022-05-26 16:19] LABS: Glucose, Whole Blood 129 mg/dL (60-115)
[2022-05-26] MEDS: Tamsulosin HCL 0.4 MG CAPSULE PO (17:22)
[2022-05-26 19:01] VITALS: BP 114/57; PULSE 69; RESP 15; TEMP 36.7; O2SAT 97
[2022-05-26 20:23] LABS: Glucose, Whole Blood 173 mg/dL (60-115)
[2022-05-26] MEDS: Insulin Lispro 100 UNIT/ML 3 ML VIAL SUBCUT (22:29)
[2022-05-26] MEDS: cefTRIAXone sodium 1 GM in 0.9 % Sodium Chloride 50 ML IV (22:29)
[2022-05-26 23:30] VITALS: BP 144/63; PULSE 70; RESP 16; TEMP 36.1; O2SAT 96
[2022-05-27 03:48] VITALS: BP 131/66; PULSE 68; RESP 18; TEMP 36.2; O2SAT 96
[2022-05-27 07:12] VITALS: BP 124/58; PULSE 69; RESP 18; TEMP 36.6; O2SAT 98
[2022-05-27 07:30] LABS: Glucose, Whole Blood 107 mg/dL (60-115)
[2022-05-27 10:36] VITALS: BP 129/63; PULSE 69; RESP 19; TEMP 36.7; O2SAT 97
--- NOTE | 2022-05-27 10:45 | MHC.CM.PN ---
PTS DC WAS HELD AT 1730 YESTERDAY DUE TO INABILITY TO REACH FAMILY CM CALLED PTS DAUGHTER, SARAH [phone], THIS MORNING WITH THE ASSISTANCE OF AN [facility] NUTRITIONIST PUBLIC HEALTH SHE WAS INFORMED OF THE PENDING DC AND INDICATED SHE WOULD BE HOME TO RECEIVE PATIENT SHE WAS ALSO INFORMED THERE WOULD BE PRESCRIPTIONS TO INSTALLER AT THE PREFERRED PHARMACY ON FILE SHE INDICATED THAT WOULD NOT BE A PROBLEM PT WILL DC HOME WITH RESUMPTION OF COMFORT PLUS VNA AND FAMILY CARE, TODAY AT 1130 HOURS [facility]
[2022-05-27 10:53] LABS: Glucose, Whole Blood 187 mg/dL (60-115)
--- NOTE | 2022-05-27 11:02 | P.PNIM_ITS ---
Subjective Subjective Date of Service: 05/26/22 Interval History: Seen and examined this morning, with the assistance of a mechanical product engineer Patient denies abdominal pain but does grimace when palpating right upper quadrant Otherwise patient appears comfortable Review of Systems Review of Systems: Yes Unobtainable due to mental condition Physical Exam Vital Signs: Vital Signs: Last Vital Signs Temp 98.0 F 05/27/22 10:36 Pulse 69 05/27/22 10:36 Resp 19 05/27/22 10:36 BP 129/63 05/27/22 10:36 Pulse Ox 97 05/27/22 10:36 O2 Del Method 05/27/22 10:36 O2 Flow Rate 2 05/23/22 16:33 BMI result Body Mass Index 29.9 Const: General: cooperative, comfortable, alert and awake Nutritional Appearance: average body habitus Orientation/consciousness: oriented to person Resp: Effort & Inspection: normal respiratory effort and able to speak in complete sentences Cardio: Rate: regular rate Heart sounds: S1 normal heart sound present and S2 normal heart sound present GI: Other: Abdomen soft with positive bowel sounds, grimace with palpation RUQ, dressings are clean, dry, intact Neuro: General: oriented to person and CN's II-XI intact bilaterally Extrem: General: Yes no pedal edema Objective Data Active Medications Acetaminophen (Acetaminophen 325 Mg Tablet) 650 mg PO Q6H PRN PRN Reason: Pain, Mild (Pain Scale 1-3) Last Admin: 05/26/22 09:50 Dose: 650 mg Documented By: KIMBERLY Amlodipine Besylate (Amlodipine Besylate 5 Mg Tablet) 5 mg PO DAILY [facility]; Protocol Dextrose (Dextrose 50 % 25 Gm/50 Ml Syringe) 25 gm IVPUSH Q15M PRN; Protocol PRN Reason: per Hypoglycemia Standing Ord. Docusate Sodium (Docusate Sodium 100 Mg Capsule) 100 mg PO DAILY PRN PRN Reason: Constipation Fentanyl (Fentanyl Citrate/Pf 100 Mcg/2 Ml Vial) 25 mcg IVPUSH Q5M PRN; Protocol PRN Reason: Pain, Moderate (Pain Scale 4-6 Glucose (Glucose Gel 15 Gm Gel..Gram.) 15 gm PO Q15M PRN; Protocol PRN Reason: per Hypoglycemia Standing Ord. Ceftriaxone Sodium 1 gm/ (Sodium Chloride) 50 mls @ 100 mls/hr IV Q24H [facility] Last Infusion: 05/26/22 23:17 Dose: 0 mls/hr Documented By: TOR Metronidazole (Flagyl) 500 mg in 100 mls @ 100 mls/hr IV Q8H [facility] Last Admin: 05/27/22 08:08 Dose: Not Given Documented By: INA Non-Admin Reason: No Access Insulin Human Lispro (Insulin Lispro 100 Unit/Ml 3 Ml Vial) 0 unit SUBCUT QIDACHS [facility]; Protocol Last Admin: 05/27/22 07:52 Dose: Not Given Documented By: INA Non-Admin Reason: No Insulin Coverage Ondansetron HCl (Ondansetron Hcl 4 Mg/2 Ml Vial) 4 mg IVPUSH Q8H PRN PRN Reason: Nausea and Vomiting Ondansetron HCl (Ondansetron Hcl 4 Mg/2 Ml Vial) 4 mg IVPUSH ONCE PRN PRN Reason: Nausea and Vomiting Pharmacy Consult (Consult Rx Perform Med Rec) 1 each MISCELLANE ONCE PRN PRN Reason: Consult order Sodium Chloride (0.9 % Sodium Chloride Flush 3 Ml Syringe) 3 ml IVFLUSH QSHIFT [facility] Last Admin: 05/27/22 08:08 Dose: Not Given Documented By: INA Non-Admin Reason: No Access Tamsulosin HCl (Tamsulosin Hcl 0.4 Mg Capsule) 0.4 mg PO DAILY@1700 [facility] Last Admin: 05/26/22 17:22 Dose: 0.4 mg Documented By: KIMBERLY Labs CBC & Chem 7: 05/26/22 04:57 05/25/22 05:13 Labs: Laboratory Results - last 24 hr 05/26/22 05/26/22 05/26/22 11:29 16:12 19:03 POC Glucose 144 H 129 H 173 H 05/27/22 05/27/22 07:16 10:41 POC Glucose 107 187 H Microbiology Microbiology Results: Microbiology 05/21/22 19:29 Blood Culture - Final Blood - Venous No growth after 5 days. 05/21/22 19:29 Blood Culture - Final Blood - Venous No growth after 5 days. Assessment and Plan (1) Elevated LFTs: Status: Acute (2) UTI (urinary tract infection): Status: Acute Plan 86-year-old male with past medical history as mentioned above with dementia at baseline presents to the hospital with dark? urine found to have acute cholecystitis and UTI Acute cholecystitis elevated LFTs with elevated bili and alk-phos Patient asymptomatic, with no nausea vomiting abdominal pain, WBC normalized , hepatitis serology negative Hida scan showed no gallbladder activity suggestive of acute cholecystitis, ultrasound of abdomen showed some degree of wall thickening of gallbladder, no Hadley sign CT abdomen and ultrasound showed no gallbladder wall abnormalities, due to concern for obstructive etiology and MRCP was obtained but was consistent with acute cholecystitis s/p cholecystectomy 05/23 s/p treatment with flagyl and ceftriaxone seen by Dr. Lyons he ordered further workup to rule out other possibilities of elevated LFTs. LFTs still elevated but trending down. 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 and recommend outpatient follow-up for further evaluation of the CT finding hematuria -? likely secondary to UTI versus bladder malignancy -? CT abdomen? pelvis shows? thickness of the gallbladder wall, patient to follow-up with Urology outpatient for further evaluation hypertension -? 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 Taveras Plan to discharge home, discussed with surgery and they are in agreement but was unable to contact family. patient unsafe to send home without supervision therefore patient will stay overnight until family can be reached. Quality Stroke Does the patient have a stroke diagnosis?: No VTE Prior VTE?: No VTE Risk Level:: Medical - moderate - high VTE Device Contraindication: N/A - Device Ordered VTE Drug Contraindication: Treatment Not Indicated
[2022-05-29 20:41] LABS: Anti Nuclear Antibody Pattern Mitotic, Centrosome; Anti Nuclear Antibody Screen POSITIVE (NEGATIVE); Anti Nuclear Antibody Titer 1:40 titer
== END 2022-05-27 11:50 | disposition home health service (06) | DRG 418 ==
LOC: HO.ED 22:56 → HO.EDOVER 23:44 → HO.S3 05-22 21:18
PROVIDERS: Hospitalist; Internal Medicine Gastroenterology; Physician Assistant; Physician Assistant Medical; Surgery; Admitting Provider Internal Medicine; Emergency Provider Emergency Medicine; PCP Physician Assistant; Visit Provider Physician Assistant Medical
PROC: 0FT44ZZ Resection of Gallbladder, Percutaneous Endoscopic Approach (ICD-10-PCS; CPT 47562; principal; 2022-05-23 13:30)
DX: K80.01 Calculus of gallbladder with acute cholecystitis with obstruction (principal); N39.0 Urinary tract infection, site not specified; T83.511A Infection and inflammatory reaction due to indwelling urethral catheter, initial encounter; I10 Essential (primary) hypertension; E11.9 Type 2 diabetes mellitus without complications; B96.20 Unspecified Escherichia coli [E. coli] as the cause of diseases classified elsewhere; I69.820 Aphasia following other cerebrovascular disease; F01.50 Vascular dementia, unspecified severity, without behavioral disturbance, psychotic disturbance, mood disturbance, and anxiety; R31.0 Gross hematuria; Z87.891 Personal history of nicotine dependence; Z20.822 Contact with and (suspected) exposure to COVID-19; Z79.01 Long term (current) use of anticoagulants; Z79.82 Long term (current) use of aspirin; Z79.84 Long term (current) use of oral hypoglycemic drugs; Z79.899 Other long term (current) drug therapy
CPT/HCPCS: 36415; 74176; 74181; 76705; 78226; 80048; 80053; 80076; 80143; 80179; 81001; 82103; 82550; 82784; 82947; 83520; 83605; 83690; 83735; 85025; 85027; 85610; 85730; 86015; 86021; 86038; 86039; 86364; 86704; 86706; 86709; 86803; 87040; 87086; 87088; 87186; 87340; 87635; 88304; 96374; 99285; A9537; C1758; J0690; J0696; J1100; J2250; J2370; J2405; J2795; J3010

== ENCOUNTER 2022-07-11 16:25 | Inpatient (IN) | payer MEDICARE, OTHER, SELFPAY ==
[2022-07-11] VITALS (9 sets, daily range): BP systolic 120–151; BP diastolic 62–86; PULSE 85–118; RESP 14–16; TEMP 36.3–37.7; O2SAT 95–100; BMI 23.2
--- NOTE | ~2022-07-11 | CT_ITS ---
EXAMINATION: CT ABDOMEN AND PELVIS WITHOUT CONTRAST CLINICAL INFORMATION: Suprapubic pain COMPARISON: 05/21/2022 TECHNIQUE: Multidetector volumetric imaging was performed from the superior aspect of the liver through the pubic symphysis. Sagittal and coronal reformatted images were obtained on the technologist's workstation. This CT examination was performed using dose optimization techniques as appropriate, variously including the following: *Automated exposure control *Adjustment of mA and/or kV according to patient size (this includes techniques or standardized protocols for targeted exams where dose is matched to indication/reason for exam; i.e. extremities or head) *Use of iterative reconstruction technique DLP: 648 mGy-cm FINDINGS: LUNG BASES: Grossly clear LIVER, GALLBLADDER, AND BILIARY TREE: The liver is normal in size, shape, and attenuation. No focal hepatic lesion or biliary ductal dilatation is present. Status post cholecystectomy PANCREAS: Unremarkable. SPLEEN: Unremarkable. ADRENAL GLANDS: Unremarkable. KIDNEYS AND URETERS: The ureters are mildly prominent. Fullness of the collecting systems right greater than left BLADDER: Small amount of air in the bladder. Some soft tissue stranding adjacent to the right side of the bladder is felt to be mildly increased from previous. GASTROINTESTINAL TRACT: The bowel pattern is felt to be nonobstructing. ABDOMINAL WALL: No significant hernia is appreciated. LYMPH NODES: Normal. VASCULAR: Some atherosclerotic changes are noted. PELVIC VISCERA: Frederick catheter balloon appears to be in the prostate. Bladder is mildly prominent OSSEOUS STRUCTURES: Unremarkable. CT/CT abdomen pelvis wo IV con IMPRESSION: The Frederick catheter balloon appears to be in the prostate bed and not in the bladder. The distal tip may be within the bladder lumen but this is equivocal. The bladder is mild to moderately dilated with surrounding soft tissue stranding. Cystitis would be a consideration. Mild fullness of the renal collecting systems leading into the bladder. Fleischner guidelines were followed.
--- NOTE | 2022-07-11 17:03 | ECG_ITS ---
Test Reason : CHEST PAIN Blood Pressure : / mmHG Vent. Rate : 111 BPM Atrial Rate : 111 BPM P-R Int : 172 ms QRS Dur : 134 ms QT Int : 360 ms P-R-T Axes : 044 -39 021 degrees QTc Int : 489 ms Sinus tachycardia Left axis deviation Right bundle branch block Abnormal ECG When compared with ECG of 14-APR-2022 13:47, No significant change was found Referred By: Sandhya Woodall Electronically Signed By:ALEX FIGUEROA MD
--- NOTE | 2022-07-11 17:15 | ED.GENADULT ---
HPI - General Adult General Chief complaint: Abdominal Pain Stated complaint: Abdominal pain Time Seen by Provider: 07/11/22 16:38 Source: patient and EMS Mode of arrival: EMS Limitations: other (Poor historian, history of dementia and CVA) History of Present Illness HPI narrative: Patient comes to the emergency room via EMS complaining of pain pain in his suprapubic area. Patient is poor historian, patient has history of dementia and CVA. Patient was discharged from the hospital on 05/27/2022, patient was diagnosed with a UTI. Patient is a chronic Frederick catheter. And prior admission, patient had a UTI. According to EMS, the patient's family did not report fever. Family initially called the primary care physician, and they were instructed to bring the patient to the hospital. Related Data Home Medications Medication Instructions Recorded Confirmed aspirin 81 mg tablet,delayed 81 mg PO DAILY 05/22/22 07/11/22 release Previous Rx's Medication Instructions Recorded atorvastatin 80 mg tablet 80 mg PO DAILY 30 days #30 tabs 05/11/22 tamsulosin 0.4 mg capsule 0.4 mg PO DAILY@1700 30 days #30 05/11/22 caps metformin 500 mg tablet 500 mg PO DAILY 90 days #90 tabs 05/14/22 amlodipine 5 mg tablet 5 mg PO DAILY 30 days #30 tabs 05/26/22 clotrimazole 1 % topical cream 1 appl topical BID 4 weeks #45 06/06/22 grams furosemide 20 mg tablet 20 mg PO DAILY 10 days #10 tabs 07/02/22 Allergies Allergy/AdvReac Type Severity Reaction Status Date / Time No Known Allergies Allergy Verified 05/21/22 12:36 [No Known Allergies*] Review of Systems Review of Systems: Patient complaining mostly of suprapubic pain Yes Unobtainable due to mental condition PMFSH Past Medical History Medical History Abdominal lymphadenopathy Acute left-sided weakness Cerebrovascular accident Dementia Diabetes Diverticulosis DMII (diabetes mellitus, type 2) Enlarged prostate Hematuria HTN (hypertension) Hypertension Family History Family History (Updated 07/11/22 @ 20:34 by SAMPSON Lang) Father Asthma CAD (coronary artery disease) Social History Social History Household Members: Other Household Members Other:: intermediate Housing: Group Home Unable to assess alcohol history related to: Unknown Alcohol intake: never Patient Tobacco Use Status: Former Tobacco user Tobacco use type: Cigarette e-Cigarette/Vaping Use: Never Used Second Hand Smoke Exposure: No Use of substances other than those prescribed or required for medical reasons: No Advance Directives: Yes Advance Directives on File: Yes Advance Directives Date on File: 05/14/22 service: No Current occupational status: retired Cognitive needs: Yes Hearing needs: No Vision needs: Yes (cataracts in both eyes) Physical Exam ED Vital Signs: Vital Signs - 24 hr 07/11/22 16:36 07/11/22 16:51 07/11/22 18:11 Temperature 98.8 F 98.8 F 99.9 F Pulse Rate 116 H 118 H 101 H Respiratory Rate 16 16 16 Blood Pressure 128/86 128/86 131/69 Pulse Oximetry 95 96 99 Oxygen Delivery Method Room Air Room Air Room Air 07/11/22 19:53 Temperature 98.3 F Pulse Rate 103 H Respiratory Rate 16 Blood Pressure 145/72 H Pulse Oximetry 98 Oxygen Delivery Method Room Air BMI result Body Mass Index 23.2 Const Other: Appearance: Alert. Oriented X1. No acute distress. Patient looks very dry, skin, oral mucosa Eyes: Pupils equal, round and reactive to light. Bilateral conjunctivitis worse on the right eye, gewy yellow discharge present in the right eye ENT: Pharynx normal. Neck: Normal inspection. Neck supple. No lymph nodes noted. No crepitus CVS: Normal heart rate and rhythm. Pulses normal. Normal S1 and S2 Respiratory: No respiratory distress. Breath sounds normal. No Wheezing. No rales Abdomen: Soft , seems to be tender on palpation over the suprapubic area Skin: Skin warm and dry. Normal skin color. Normal skin turgor. Extremities: No lower extremity edema. No Lacerations. No Rash Neuro: Moving all extremities. No slurred speech. CN 2 through 12 grossly intact Psych: calm, cooperative Course Course Course Narrative: Topical erythromycin was ordered due to conjunctivitis. On physical exam, patient looks very dehydrated. Patient getting IV fluids. Patient is known to have recurrent UTIs. According to patient's culture sensitivity from previous visit, ceftriaxone should work. Patient was given 2.5 L of normal saline. Patient is tachycardic, normal blood pressure, no fever. At this time, 17:23, sepsis is not suspected. All Of patient's labs and imaging pending. Patient's lactic acid is elevated, likely secondary to dehydration. Medical Decision Making Lab Data Result diagrams: 07/11/22 17:45 07/11/22 17:45 Labs: Lab Results 07/11/22 07/11/22 07/11/22 Range/Units 17:45 17:45 17:45 WBC 20.4 H (4.8-10.8) X10*3/uL RBC 5.99 H D (4.60-5.80) X10*6/uL Hgb 15.7 D (14.0-18.0) g/dl Hct 49.0 D (42.0-52.0) % MCV 81.8 (80.0-98.0) fL MCH 26.2 L (27.0-33.0) pg MCHC 32.0 (31.0-36.0) g/dl RDW 16.7 H (11.0-16.0) % Plt Count 325 (160-400) X10*3/uL MPV 11.5 (9.4-12.4) fL Immature Gran % (Auto) Cancelled Neut % (Auto) Cancelled Lymph % (Auto) Cancelled [place] % (Auto) Cancelled Eos % (Auto) Cancelled Baso % (Auto) Cancelled Lymph # (Auto) Cancelled [place] # (Auto) Cancelled Eos # (Auto) Cancelled Baso # (Auto) Cancelled Abs Immat Gran (auto) Cancelled Absolute Neuts (auto) Cancelled Absolute Nucleated RBC 0.000 (0.0-0.012) X10*3/uL Nucleated RBC % (auto) 0.0 (0.0-0.2) /100WBC Neutrophils % (Manual) 88 H (45-73) % Band Neutrophils % 3 (3-5) % Lymphocytes % (Manual) 5 L (20-40) % Monocytes % (Manual) 4 (2-11) % Abs Neuts (Manual) 18.6 H (2.0-8.3) X10*3/uL Lymphocytes # (Manual) 1.0 L (1.2-4.9) X10*3/uL Monocytes # (Manual) 0.8 (0.1-1.2) X10*3/uL [place] Cells PRESENT Toxic Vacuolation PRESENT Platelet Estimate NORMAL (NORMAL) Large Platelets PRESENT Plt Morphology Comment NOTED RBC Morphology NOTED Microcytosis 2+ (15-30) /OIF [place] Cells 3+ (>5) /OIF PT 12.8 (10.0-13.1) SEC INR 1.1 (0.9-1.1) Sodium 142 (135-145) mmol/L Potassium 3.7 (3.3-5.1) mmol/L Chloride 99 (96-108) mmol/L Carbon Dioxide 23 (22-29) mmol/L Anion Gap 24 H (12-20) BUN 19 H (9-16) mg/dL Creatinine 0.82 (0.5-1.4) mg/dL Estim Creat Clear Calc 67.5 Estimated GFR > 60 Random Glucose 194 H D (60-115) mg/dL Lactic Acid (0.5-2.0) mmol/L Calcium 9.5 D (8.4-10.2) mg/dL Magnesium 1.6 (1.6-2.6) mg/dL Total Bilirubin 2.1 H (0.0-1.0) mg/dL Direct Bilirubin 1.1 H (0.0-0.5) mg/dL AST 27 D (5-37) U/L ALT 17 (0-40) U/L Alkaline Phosphatase 240 H D (39-117) U/L Troponin I High Sens (<3.5-35.0) ng/L Total Protein 7.5 D (6.5-8.0) g/dL Albumin 3.8 D (3.5-5.0) g/dL Lipase 26 (8-78) U/L Urine Color Urine Appearance Urine pH (5.0-9.0) Ur Specific [place] (1.005-1.025) Urine Protein (Neg-Trace) mg/dL Urine Glucose (UA) (Negative) mg/dL Urine Ketones (Negative) mg/dL Urine Blood (Negative) Urine Nitrite (Negative) Ur Leukocyte Esterase (Negative) Urine RBC (0-2) /HPF Urine WBC (0-5) /HPF Ur Squamous Epith Cells (0-2) /HPF Urine Bacteria (None Seen) Hyaline Casts (0-2) /LPF COVID-19 ([facility]) (Negative) COVID-19 Clin Com 07/11/22 07/11/22 07/11/22 Range/Units 17:45 17:45 17:45 WBC (4.8-10.8) X10*3/uL RBC (4.60-5.80) X10*6/uL Hgb (14.0-18.0) g/dl Hct (42.0-52.0) % MCV (80.0-98.0) fL MCH (27.0-33.0) pg MCHC (31.0-36.0) g/dl RDW (11.0-16.0) % Plt Count (160-400) X10*3/uL MPV (9.4-12.4) fL Immature Gran % (Auto) Neut % (Auto) Lymph % (Auto) [place] % (Auto) Eos % (Auto) Baso % (Auto) Lymph # (Auto) [place] # (Auto) Eos # (Auto) Baso # (Auto) Abs Immat Gran (auto) Absolute Neuts (auto) Absolute Nucleated RBC (0.0-0.012) X10*3/uL Nucleated RBC % (auto) (0.0-0.2) /100WBC Neutrophils % (Manual) (45-73) % Band Neutrophils % (3-5) % Lymphocytes % (Manual) (20-40) % Monocytes % (Manual) (2-11) % Abs Neuts (Manual) (2.0-8.3) X10*3/uL Lymphocytes # (Manual) (1.2-4.9) X10*3/uL Monocytes # (Manual) (0.1-1.2) X10*3/uL [place] Cells Toxic Vacuolation Platelet Estimate (NORMAL) Large Platelets Plt Morphology Comment RBC Morphology Microcytosis /OIF [place] Cells /OIF PT (10.0-13.1) SEC INR (0.9-1.1) Sodium (135-145) mmol/L Potassium (3.3-5.1) mmol/L Chloride (96-108) mmol/L Carbon Dioxide (22-29) mmol/L Anion Gap (12-20) BUN (9-16) mg/dL Creatinine (0.5-1.4) mg/dL Estim Creat Clear Calc Estimated GFR Random Glucose (60-115) mg/dL Lactic Acid 4.1 H* (0.5-2.0) mmol/L Calcium (8.4-10.2) mg/dL Magnesium (1.6-2.6) mg/dL Total Bilirubin (0.0-1.0) mg/dL Direct Bilirubin (0.0-0.5) mg/dL AST (5-37) U/L ALT (0-40) U/L Alkaline Phosphatase (39-117) U/L Troponin I High Sens 4.6 (<3.5-35.0) ng/L Total Protein (6.5-8.0) g/dL Albumin (3.5-5.0) g/dL Lipase (8-78) U/L Urine Color Urine Appearance Urine pH (5.0-9.0) Ur Specific [place] (1.005-1.025) Urine Protein (Neg-Trace) mg/dL Urine Glucose (UA) (Negative) mg/dL Urine Ketones (Negative) mg/dL Urine Blood (Negative) Urine Nitrite (Negative) Ur Leukocyte Esterase (Negative) Urine RBC (0-2) /HPF Urine WBC (0-5) /HPF Ur Squamous Epith Cells (0-2) /HPF Urine Bacteria (None Seen) Hyaline Casts (0-2) /LPF COVID-19 ([facility]) Negative (Negative) COVID-19 Clin Com See Note 07/11/22 Range/Units 17:45 WBC (4.8-10.8) X10*3/uL RBC (4.60-5.80) X10*6/uL Hgb (14.0-18.0) g/dl Hct (42.0-52.0) % MCV (80.0-98.0) fL MCH (27.0-33.0) pg MCHC (31.0-36.0) g/dl RDW (11.0-16.0) % Plt Count (160-400) X10*3/uL MPV (9.4-12.4) fL Immature Gran % (Auto) Neut % (Auto) Lymph % (Auto) [place] % (Auto) Eos % (Auto) Baso % (Auto) Lymph # (Auto) [place] # (Auto) Eos # (Auto) Baso # (Auto) Abs Immat Gran (auto) Absolute Neuts (auto) Absolute Nucleated RBC (0.0-0.012) X10*3/uL Nucleated RBC % (auto) (0.0-0.2) /100WBC Neutrophils % (Manual) (45-73) % Band Neutrophils % (3-5) % Lymphocytes % (Manual) (20-40) % Monocytes % (Manual) (2-11) % Abs Neuts (Manual) (2.0-8.3) X10*3/uL Lymphocytes # (Manual) (1.2-4.9) X10*3/uL Monocytes # (Manual) (0.1-1.2) X10*3/uL [place] Cells Toxic Vacuolation Platelet Estimate (NORMAL) Large Platelets Plt Morphology Comment RBC Morphology Microcytosis /OIF [place] Cells /OIF PT (10.0-13.1) SEC INR (0.9-1.1) Sodium (135-145) mmol/L Potassium (3.3-5.1) mmol/L Chloride (96-108) mmol/L Carbon Dioxide (22-29) mmol/L Anion Gap (12-20) BUN (9-16) mg/dL Creatinine (0.5-1.4) mg/dL Estim Creat Clear Calc Estimated GFR Random Glucose (60-115) mg/dL Lactic Acid (0.5-2.0) mmol/L Calcium (8.4-10.2) mg/dL Magnesium (1.6-2.6) mg/dL Total Bilirubin (0.0-1.0) mg/dL Direct Bilirubin (0.0-0.5) mg/dL AST (5-37) U/L ALT (0-40) U/L Alkaline Phosphatase (39-117) U/L Troponin I High Sens (<3.5-35.0) ng/L Total Protein (6.5-8.0) g/dL Albumin (3.5-5.0) g/dL Lipase (8-78) U/L Urine Color Dark Yellow Urine Appearance Turbid Urine pH 7.0 (5.0-9.0) Ur Specific [place] 1.020 (1.005-1.025) Urine Protein 300 (3+) H (Neg-Trace) mg/dL Urine Glucose (UA) Negative (Negative) mg/dL Urine Ketones Trace (Negative) mg/dL Urine Blood Large (3+) H (Negative) Urine Nitrite Positive H (Negative) Ur Leukocyte Esterase Large (3+) H (Negative) Urine RBC >20 H (0-2) /HPF Urine WBC >50 H (0-5) /HPF Ur Squamous Epith Cells 0-2 (0-2) /HPF Urine Bacteria 4+ (None Seen) Hyaline Casts 6-10 (0-2) /LPF COVID-19 ([facility]) (Negative) COVID-19 Clin Com Critical Care Time Critical Care Time Critical Care Time: Yes Total Critical Care Time: 60 Attestation: I have personally provided critical care time. Time includes review of lab data, radiology results, discussion with consultants, and monitoring for potential decompensation. Intervention performed as documented. Discharge Plan Discharge Clinical Impression: UTI (urinary tract infection), Dehydration Patient Disposition: Admitted As Inpatient
[2022-07-11] MEDS: 0.9 % Sodium Chloride 1,000 ML 999 ML IVCONT (17:53)
[2022-07-11 17:57] LABS: Appearance Urine Turbid; Color Urine Dark Yellow; Glucose Urine UA Negative (Negative); Leukocyte Esterase Urine Large (3+) (Negative); Nitrite Urine Positive (Negative); UMIC TRIGGER UACC YES; Urine Blood Large (3+) (Negative); Urine Ketones Trace mg/dL (Negative); Urine Protein 300 (3+) mg/dL (Neg-Trace)
[2022-07-11 18:01] LABS: INTERNATIONAL NORM RATIO 1.1 (0.9-1.1); Prothrombin Time 12.8 SEC (10.0-13.1)
[2022-07-11 18:02] LABS: Hemoglobin 15.7 g/dl (14.0-18.0); Mean Corpuscular Hemoglobin 26.2 pg (27.0-33.0); Mean Corpuscular Volume 81.8 fL (80.0-98.0); Mean Platelet Volume 11.5 fL (9.4-12.4); Platelet Count 325 X10*3/uL (160-400); Red Blood Count 5.99 X10*6/uL (4.60-5.80); Red Cell Distribution Width 16.7 % (11.0-16.0)
[2022-07-11 18:03] LABS: WBC ABN SCTR FOR CBC 1
[2022-07-11] MEDS: cefTRIAXone sodium 1 GM in 0.9 % Sodium Chloride 50 ML IV (18:03)
[2022-07-11] MEDS: Erythromycin Base 0.5% Oph Oin 1 GM TUBE 1 CM EYE-BOTH (18:04)
[2022-07-11 18:05] LABS: Bacteria Urine 4+ (None Seen); RBC Urine >20 /HPF (0-2); Squamous Epithelial Cell Urine 0-2 /HPF (0-2); UACC Culture Trigger YES; WBC Urine >50 /HPF (0-5)
[2022-07-11 18:07] LABS: Lactic Acid 4.1 mmol/L (0.5-2.0)
[2022-07-11 18:12] LABS: COVID-19 Test Negative (Negative); IDNOW Serial# 16C4AD1C
--- NOTE | 2022-07-11 18:14 | PC.NURSE ---
Pt is a/o x 1, pt lungs sounds are lungs, pt is connected to the telemetry and it shows sinus tachy, Pt labs were drawn, EKG was obtain, IVF are running. Pt is pacing and restlessness d/t pain. PT is afribile and has IV 20 G on LAC. Pt has dementia and he came in with a Frederick. Pt has peeled skin and dry through out the body, RN just started sepsis protocol d/t the labs result. Pt has antibiotic running and second bag of IVF ready to start. Will continue to monitor.
[2022-07-11 18:15] LABS: Alanine Aminotransferase 17 U/L (0-40); Albumin Level 3.8 g/dL (3.5-5.0); Alkaline Phosphatase 240 U/L (39-117); Anion Gap 24 (12-20); Aspartate Amino Transferase 27 U/L (5-37); Bilirubin Direct 1.1 mg/dL (0.0-0.5); Bilirubin Total 2.1 mg/dL (0.0-1.0); Blood Urea Nitrogen 19 mg/dL (9-16); Calcium 9.5 mg/dL (8.4-10.2); Carbon Dioxide 23 mmol/L (22-29); Chloride 99 mmol/L (96-108); Creatinine Clr Calc Pharmacy 67.5; Estimated Glomerular Filt Rate > 60; Glucose Random 194 mg/dL (60-115); Lipase 26 U/L (8-78); Magnesium 1.6 mg/dL (1.6-2.6); Potassium 3.7 mmol/L (3.3-5.1); Sodium 142 mmol/L (135-145); Total Protein 7.5 g/dL (6.5-8.0); Troponin-I High Sensitivity 4.6 ng/L (<3.5-35.0)
[2022-07-11 18:22] LABS: Band Neutrophils Percent 3 % (3-5); Lymphocytes Percent Manual 5 % (20-40); Monocytes Percent Manual 4 % (2-11); Neutrophils Percent Manual 88 % (45-73)
[2022-07-11 18:23] LABS: Burr Cells 3+ (>5) /OIF; Large Platelet PRESENT; Microcytosis 2+ (15-30) /OIF; Platelet Estimate NORMAL (NORMAL); Platelet Morphology Comment NOTED; RBC Morphology NOTED; Smudge Cells PRESENT; Toxic Vacuolation PRESENT
[2022-07-11 18:24] LABS: Monocytes Absolute Manual 0.8 X10*3/uL (0.1-1.2); Neutrophils Absolute Manual 18.6 X10*3/uL (2.0-8.3); White Blood Count 20.4 X10*3/uL (4.8-10.8)
[2022-07-11] MEDS: 0.9 % Sodium Chloride 1,500 ML 999 ML IVCONT (18:50)
--- NOTE | 2022-07-11 19:03 | PC.NURSE ---
patients 1st liter of fluids continues to run slowly, second liter spiked- pt unable to follow direction well to keep arm straight.
--- NOTE | 2022-07-11 19:31 | PM.IMHP ---
History of Present Illness Date of Service: 07/11/22 Attending physician on admission: Shadia Gallagher Chief Complaint: suprapubic pressure 86 year old male with history of BPH with chronic spencer for urinary retention, noninsulin depdendent type 2 diabetes, hx CVA, htn, hld, and dementia presented to the ED today for evaluation of suprapubic pain via EMS. Patient is a poor historian secondary to his dementia and history of CVA. Per pt's healthcare proxy, Melia (indonesian interpretor used for phone interview), pt's VNA nurse came to change his spencer yesterday and noted malodorous discharge from the penis. At that point patient reported the suprapubic pressure and there has been decreased output from spencer catheter. No hematuria. On arrival, patient tahycardic to 118. He is afebrile, no hypotension. WBC 20.4. Renal functionand lytes normal. Lactic acid 4.1 thought to be secondary to dehydration as patient is very dry. UA with 3+leuks, nitrite positive, 3+ blood, 3+ protein, 4+ bacteria. Given 2.5L IVF and ceftriaxone. CT of the abdomen/ pelvis shows the Spencer catheter balloon in the prostate bed rather than the bladder. The bladder is [id number] dilated with surrounding soft tissue stranding. There is also mild fullness of the renal collecting systems leading into the bladder. Subsequent bladder scan shows 422 mL. Patient to be admitted for acute cystitis with sepsis. Review of Systems Review of Systems: Pt reports suprapubic pain. No other ROS available d/t ams Yes Unobtainable due to mental condition [facility] Medical History Abdominal lymphadenopathy Acute left-sided weakness Cerebrovascular accident Dementia Diabetes Diverticulosis DMII (diabetes mellitus, type 2) Enlarged prostate Hematuria HTN (hypertension) Hypertension Family History (Updated 07/11/22 @ 20:34 by SAMPSON Lang) Father Asthma CAD (coronary artery disease) Social History Household Members: Other Household Members Other:: long-term Housing: Snf Unable to assess alcohol history related to: Unknown Alcohol intake: never Patient Tobacco Use Status: Former Tobacco user Tobacco use type: Cigarette e-Cigarette/Vaping Use: Never Used Second Hand Smoke Exposure: No Use of substances other than those prescribed or required for medical reasons: No Advance Directives: Yes Advance Directives on File: Yes Advance Directives Date on File: 05/14/22 service: No Current occupational status: retired Cognitive needs: Yes Hearing needs: No Vision needs: Yes (cataracts in both eyes) Meds Allergies Allergy/AdvReac Type Severity Reaction Status Date / Time No Known Allergies Allergy Verified 05/21/22 12:36 [No Known Allergies*] Active Medications: Current Medications Pharmacy Consult (Consult Rx Perform Med Rec) 1 each MISCELLANE ONCE PRN PRN Reason: Consult order Home Medications Medication Instructions Recorded Confirmed Last Taken Type aspirin 81 mg tablet,delayed 81 mg PO DAILY 05/22/22 07/11/22 Unknown History release Physical Exam Vital Signs and Narrative: Vital Signs: Last Vital Signs Temp 99.9 F 07/11/22 18:11 Pulse 101 H 07/11/22 18:11 Resp 16 07/11/22 18:11 BP 131/69 07/11/22 18:11 Pulse Ox 99 07/11/22 18:11 O2 Del Method 07/11/22 18:11 BMI result Body Mass Index 23.2 Constitutional - Awake and Alert, No apparent distress Eyes - PERRLA, EOMI Cardiovascular - S1S2, RRR, No edema Respiratory - Normal lung expansion, Normal respiratory effort, No respiratory distress, CTA bilaterally Gastrointestinal - Suprapubic ttp with wincing with mild distension. No other guarding or rebound. +BS - No CVA tenderness Extremities - no calf tenderness bilaterally, no swelling Skin - Warm. Very dry cracked skin Neurological - Alert & oriented to self and city, CN II-XII intact. 5/5 strength BUE and BLE, sensation in tact Psychological - Appropriate affect Results Labs CBC and Chem 7: 07/11/22 17:45 07/11/22 17:45 Labs: Laboratory Results - last 24 hr 07/11/22 07/11/22 07/11/22 17:45 17:45 17:45 MCV 81.8 MCH 26.2 L MCHC 32.0 RDW 16.7 H Plt Count 325 MPV 11.5 Immature Gran % (Auto) Cancelled Neut % (Auto) Cancelled Lymph % (Auto) Cancelled [place] % (Auto) Cancelled Eos % (Auto) Cancelled Baso % (Auto) Cancelled Lymph # (Auto) Cancelled [place] # (Auto) Cancelled Eos # (Auto) Cancelled Baso # (Auto) Cancelled Abs Immat Gran (auto) Cancelled Absolute Neuts (auto) Cancelled Absolute Nucleated RBC 0.000 Nucleated RBC % (auto) 0.0 Neutrophils % (Manual) 88 H Band Neutrophils % 3 Lymphocytes % (Manual) 5 L Monocytes % (Manual) 4 Abs Neuts (Manual) 18.6 H Lymphocytes # (Manual) 1.0 L Monocytes # (Manual) 0.8 Smudge Cells PRESENT Toxic Vacuolation PRESENT Platelet Estimate NORMAL Large Platelets PRESENT Plt Morphology Comment NOTED RBC Morphology NOTED Microcytosis 2+ (15-30) [place] Cells 3+ (>5) PT 12.8 INR 1.1 Anion Gap 24 H Estim Creat Clear Calc 67.5 Estimated GFR > 60 Random Glucose 194 H D Lactic Acid Calcium 9.5 D Magnesium 1.6 Total Bilirubin 2.1 H Direct Bilirubin 1.1 H AST 27 D ALT 17 Alkaline Phosphatase 240 H D Troponin I High Sens Total Protein 7.5 D Albumin 3.8 D Lipase 26 Urine Color Urine Appearance Urine pH Ur Specific [place] Urine Protein Urine Glucose (UA) Urine Ketones Urine Blood Urine Nitrite Ur Leukocyte Esterase Urine RBC Urine WBC Ur Squamous [place]ith Cells Urine Bacteria Hyaline Casts COVID-19 ([facility]) COVID-19 Clin Com 07/11/22 07/11/22 07/11/22 17:45 17:45 17:45 MCV MCH MCHC RDW Plt Count MPV Immature Gran % (Auto) Neut % (Auto) Lymph % (Auto) [place] % (Auto) Eos % (Auto) Baso % (Auto) Lymph # (Auto) [place] # (Auto) Eos # (Auto) Baso # (Auto) Abs Immat Gran (auto) Absolute Neuts (auto) Absolute Nucleated RBC Nucleated RBC % (auto) Neutrophils % (Manual) Band Neutrophils % Lymphocytes % (Manual) Monocytes % (Manual) Abs Neuts (Manual) Lymphocytes # (Manual) Monocytes # (Manual) Smudge Cells Toxic Vacuolation Platelet Estimate Large Platelets Plt Morphology Comment RBC Morphology Microcytosis [place] Cells PT INR Anion Gap Estim Creat Clear Calc Estimated GFR Random Glucose Lactic Acid 4.1 H* Calcium Magnesium Total Bilirubin Direct Bilirubin AST ALT Alkaline Phosphatase Troponin I High Sens 4.6 Total Protein Albumin Lipase Urine Color Urine Appearance Urine pH Ur Specific [place] Urine Protein Urine Glucose (UA) Urine Ketones Urine Blood Urine Nitrite Ur Leukocyte Esterase Urine RBC Urine WBC Ur Squamous Epith Cells Urine Bacteria Hyaline Casts COVID-19 ([facility]) Negative COVID-19 Clin Com See Note 07/11/22 17:45 MCV MCH MCHC RDW Plt Count MPV Immature Gran % (Auto) Neut % (Auto) Lymph % (Auto) [place] % (Auto) Eos % (Auto) Baso % (Auto) Lymph # (Auto) [place] # (Auto) Eos # (Auto) Baso # (Auto) Abs Immat Gran (auto) Absolute Neuts (auto) Absolute Nucleated RBC Nucleated RBC % (auto) Neutrophils % (Manual) Band Neutrophils % Lymphocytes % (Manual) Monocytes % (Manual) Abs Neuts (Manual) Lymphocytes # (Manual) Monocytes # (Manual) Smudge Cells Toxic Vacuolation Platelet Estimate Large Platelets Plt Morphology Comment RBC Morphology Microcytosis [place] Cells PT INR Anion Gap Estim Creat Clear Calc Estimated GFR Random Glucose Lactic Acid Calcium Magnesium Total Bilirubin Direct Bilirubin AST ALT Alkaline Phosphatase Troponin I High Sens Total Protein Albumin Lipase Urine Color Dark Yellow Urine Appearance Turbid Urine pH 7.0 Ur Specific [place] 1.020 Urine Protein 300 (3+) H Urine Glucose (UA) Negative Urine Ketones Trace Urine Blood Large (3+) H Urine Nitrite Positive H Ur Leukocyte Esterase Large (3+) H Urine RBC >20 H Urine WBC >50 H Ur Squamous Epith Cells 0-2 Urine Bacteria 4+ Hyaline Casts 6-10 COVID-19 ([facility]) COVID-19 Clin Com Assessment and Plan (1) UTI (urinary tract infection) due to urinary indwelling Spencer catheter: Status: Acute (2) Dehydration: Status: Acute (3) Sepsis: Status: Acute Plan 86 year old male with history of BPH with chronic spencer for urinary retention, noninsulin depdendent type 2 diabetes, hx CVA, htn, hld, and dementia admitted for acute UTI with sepsis. #sepsis secondary to UTI -WBC 20.4, tachycardic to 118. Lactic acid elevated at 4.1 secondary to dehydration, not severe sepsis. Afebrile, hemodynamically stable. Repeat lactic acid - received IV ceftriaxone and 2 L IVF in ED -Continue IVF and antibiotics as below -follow CBC # acute UTI related to Spencer catheter usage -CT of the abdomen/ pelvis shows the Spencer catheter balloon in the prostate bed rather than the bladder. The bladder is dhvq-[id number] dilated with surrounding soft tissue stranding. There is also mild fullness of the renal collecting systems leading into the bladder. Subsequent bladder scan shows 422 mL -UA with 3+leuks, nitrite positive, 3+ blood, 3+ protein, 4+ bacteria -Recent admission 1.5 months ago with e.coli UTI treated with ceftriaxone -Continue ceftriaxone -Change spencer -ondansetron prn nausea -Pain management with pain scale #Acute dehydration- secondary to decreased PO intake -received 2L in ED -BMP am # [id number]-[id number]-wphlvxzky type 2 diabetes - POC glucose - diabetic diet - Humalog on sliding scale # hypertension-controlled - continue amlodipine and furosemide # BPH with urinary retention - continue Spencer as above - continue tamsulosin #dementia without behavioral disturbance-baseline - candidiasis of the groin - continue home clotrimazole # HLD - continue atorvastatin #History CVA -Continue asa and statin DVT prophylaxis- Lovenox full code per healthcare proxy patient requires inpatient stay of at least 2 midnights due to complicated Spencer catheter associated UTI with sepsis requiring IVF and IV antibiotics and close monitoring Quality Stroke Does the patient have a stroke diagnosis?: No VTE Prior VTE?: No VTE Risk Level:: Medical - moderate - high VTE Device Contraindication: Treatment Not Indicated VTE Drug Contraindication: N/A - Med Ordered
[2022-07-11 19:52] LABS: Reflex Lactate? Lactic Acid Added
--- NOTE | 2022-07-11 20:06 | PHA.MEDREC ---
Pharmacy Consult ? Medication Reconciliation Pharmacy has completed the medication reconciliation.
--- NOTE | 2022-07-11 20:57 | PC.NURSE ---
Pt urine cath was change to 16, pt urine is cloudy with sediment and hematuria. Pt bladder scan was 422, provider is aware. second IVF is still running. will continue to monitor.
[2022-07-11 21:31] LABS: ~Lactic Acid-LAB USE ONLY 4.8 mmol/L (0.5-2.0)
[2022-07-11 22:57] LABS: Reflex Lactate? 2 Y
[2022-07-11] MEDS: Enoxaparin Sodium 40 MG/0.4 ML SYRINGE SUBCUT (23:01)
[2022-07-11] MEDS: 0.9 % Sodium Chloride Flush 3 ML SYRINGE IVFLUSH (23:06)
[2022-07-11 23:11] LABS: Glucose, Whole Blood 138 mg/dL (60-115)
[2022-07-11 23:57] LABS: ~Lactic Acid-LAB USE ONLY 2.8 mmol/L (0.5-2.0)
[2022-07-12 03:16] VITALS: BP 121/55; PULSE 84; RESP 15; TEMP 36.3; O2SAT 97
[2022-07-12 05:47] VITALS: BMI 23.3
[2022-07-12 06:54] LABS: Basophils Absolute Auto 0.1 X10*3/uL (0.0-0.2); Basophils Percent Auto 0.3 % (0-2); Eosinophils Percent Auto 0.1 % (0-4); Hematocrit 40.9 % (42.0-52.0); Hemoglobin 13.3 g/dl (14.0-18.0); Imm Gran Abs Auto 0.15 X10*3/uL (0.00-0.03); Imm Gran Pct Auto 0.7 % (0.0-0.4); Lymphocytes Absolute Auto 3.6 X10*3/uL (1.2-4.9); Lymphocytes Percent Auto 16.5 % (20-40); MANUAL DIFF FLAG SCAN; Mean Corpuscular HGB Conc 32.5 g/dl (31.0-36.0); Mean Corpuscular Hemoglobin 26.7 pg (27.0-33.0); Mean Platelet Volume 11.9 fL (9.4-12.4); Monocytes Absolute Auto 2.1 X10*3/uL (0.1-1.2); Monocytes Percent Auto 9.4 % (2-11); Neutrophils Absolute Auto 15.9 x10*3/uL (2.0-8.3); Platelet Count 244 X10*3/uL (160-400); Red Blood Count 4.99 X10*6/uL (4.60-5.80); Red Cell Distribution Width 16.1 % (11.0-16.0); SCAN SMEAR FLAG 1; White Blood Count 21.7 X10*3/uL (4.8-10.8)
[2022-07-12 07:12] LABS: Anion Gap 15 (12-20); Blood Urea Nitrogen 13 mg/dL (9-16); Calcium 8.4 mg/dL (8.4-10.2); Carbon Dioxide 27 mmol/L (22-29); Chloride 106 mmol/L (96-108); Creatinine Clr Calc Pharmacy 80.3; Estimated Glomerular Filt Rate > 60; Glucose Random 92 mg/dL (60-115); Potassium 3.4 mmol/L (3.3-5.1); Sodium 145 mmol/L (135-145)
[2022-07-12 07:20] VITALS: BP 113/57; PULSE 84; RESP 12; TEMP 36.9; O2SAT 96
[2022-07-12 07:20] LABS: SLIDE REVIEW VERIFIED
[2022-07-12 08:04] LABS: Glucose, Whole Blood 86 mg/dL (60-115)
[2022-07-12] MEDS: 0.9 % Sodium Chloride Flush 3 ML SYRINGE IVFLUSH ×2 (09:29→15:12)
[2022-07-12] MEDS: Aspirin Enteric Coated 81 MG TABLET.DR PO (09:29)
[2022-07-12] MEDS: Atorvastatin Calcium 80 MG TABLET PO (09:29)
[2022-07-12 11:55] LABS: Glucose, Whole Blood 107 mg/dL (60-115)
--- NOTE | 2022-07-12 14:30 | MHC.CM.PN ---
IMM ADDRESSED WITH HCP SARAH VIA PHONE MESSAGE AT [phone] WITH [facility]. WHITE COPY MAILED VIA CERTIFIED MAIL, YELLOW COPY PLACED IN CHART. PER CHART REVIEW,LIVES WITH FAMILY, USES W/C AT HOME. [facility] SERVICES WITH [facility]. + HCP AND MOLST ON FILE. COVID VAX X2 WITH [facility].PCP DAYO BRADEN AT [facility] [place]. PT AND FAMILY ARE [place] SPEAKING. CM WILL FOLLOW FOR PLAN. DP: BLS TO TRANSPORT HOME ON DC
[2022-07-12 15:29] VITALS: BP 114/56; PULSE 88; RESP 16; TEMP 36.1; O2SAT 99
[2022-07-12 15:57] LABS: Glucose, Whole Blood 82 mg/dL (60-115)
--- NOTE | 2022-07-12 16:48 | HO.PM.IMPN ---
Subjective Subjective Date of Service: 07/12/22 Interval History: History obtained via solution consultant, patient feeling better denies suprapubic pain, denies fever chills, Spencer catheter with dark urine, patient denies nausea vomiting abdominal pain no other acute issues since admission. Review of Systems Review of Systems: Yes all other systems are reviewed and are negative Physical Exam Vital Signs: Vital Signs: Last Vital Signs Temp 96.9 F 07/12/22 15:29 Pulse 88 07/12/22 15:29 Resp 16 07/12/22 15:29 BP 114/56 L 07/12/22 15:29 Pulse Ox 99 07/12/22 15:29 O2 Del Method 07/12/22 15:29 BMI result Body Mass Index 23.3 Const: Other: General awake alert, resting comfortably in no acute distress. Anicteric sclera Neck no JVD. CVS regular rate rhythm, Respiratory lungs clear to auscultation, no respiratory distress, no wheeze, no rhonchi. Gastrointestinal abdomen soft, nontender, bowel sounds audible, no guarding , no rigidity. Extremities no edema. Neuro moving all 4 extremity speech clear. Skin no rash Objective Data Active Medications Acetaminophen (Acetaminophen 325 Mg Tablet) 650 mg PO Q6H PRN PRN Reason: Pain, Mild (Pain Scale 1-3) Aspirin (Aspirin Enteric Coated 81 Mg Tablet.) 81 mg PO DAILY [facility] Last Admin: 07/12/22 09:29 Dose: 81 mg Documented By: REKHA Atorvastatin Calcium (Atorvastatin Calcium 80 Mg Tablet) 80 mg PO DAILY [facility] Last Admin: 07/12/22 09:29 Dose: 80 mg Documented By: REKHA Clotrimazole (Clotrimazole 1 % Cream 15 Gm Tube) 1 appl TOPICAL BID [facility]; Protocol Last Admin: 07/12/22 09:32 Dose: Not Given Documented By: REKHA Non-Admin Reason: Med Not Available Dextrose (Dextrose 50 % 25 Gm/50 Ml Syringe) 25 gm IVPUSH Q15M PRN; Protocol PRN Reason: per Hypoglycemia Standing Ord. Docusate Sodium (Docusate Sodium 100 Mg Capsule) 100 mg PO DAILY PRN PRN Reason: Constipation Enoxaparin Sodium (Enoxaparin Sodium 40 Mg/0.4 Ml Syringe) 40 mg SUBCUT Q24H [facility] Last Admin: 07/11/22 23:01 Dose: 40 mg Documented By: JENIFER Glucose (Glucose Gel 15 Gm Gel..Gram.) 15 gm PO Q15M PRN; Protocol PRN Reason: per Hypoglycemia Standing Ord. Ceftriaxone Sodium 1 gm/ (Sodium Chloride) 50 mls @ 100 mls/hr IV Q24H [facility] Insulin Human Lispro (Insulin Lispro 100 Unit/Ml 3 Ml Vial) 0 unit SUBCUT QIDACHS [facility]; Protocol Last Admin: 07/12/22 16:26 Dose: Not Given Documented By: REKHA Non-Admin Reason: No Insulin Coverage Lactic Acid (Ammonium Lactate 12 % Lotion 226 Gm Bottle) 1 appl TOPICAL BID [facility]; Protocol Last Admin: 07/12/22 09:32 Dose: Not Given Documented By: REKHA Non-Admin Reason: Med Not Available Morphine Sulfate (Morphine Sulfate 4 Mg/Ml Cartridge) 2 mg IVPUSH Q4H PRN; Protocol PRN Reason: Pain, Severe (Pain Scale 7-10) Ondansetron HCl (Ondansetron Hcl 4 Mg/2 Ml Vial) 4 mg IVPUSH Q8H PRN PRN Reason: Nausea and Vomiting Pharmacy Consult (Consult Rx Perform Med Rec) 1 each MISCELLANE ONCE PRN PRN Reason: Consult order Sodium Chloride (0.9 % Sodium Chloride Flush 3 Ml Syringe) 3 ml IVFLUSH QSHIFT [facility] Last Admin: 07/12/22 15:12 Dose: 3 ml Documented By: REKHA Tamsulosin HCl (Tamsulosin Hcl 0.4 Mg Capsule) 0.4 mg PO DAILY@1700 [facility] Labs CBC & Chem 7: 07/12/22 06:22 07/12/22 06:22 Labs: Laboratory Results - last 24 hr 07/11/22 07/11/22 07/11/22 17:45 17:45 17:45 MCV 81.8 MCH 26.2 L MCHC 32.0 RDW 16.7 H Plt Count 325 MPV 11.5 Immature Gran % (Auto) Cancelled Neut % (Auto) Cancelled Lymph % (Auto) Cancelled Carlton % (Auto) Cancelled Eos % (Auto) Cancelled Baso % (Auto) Cancelled Lymph # (Auto) Cancelled Carlton # (Auto) Cancelled Eos # (Auto) Cancelled Baso # (Auto) Cancelled Abs Immat Gran (auto) Cancelled Absolute Neuts (auto) Cancelled Absolute Nucleated RBC 0.000 Nucleated RBC % (auto) 0.0 Neutrophils % (Manual) 88 H Band Neutrophils % 3 Lymphocytes % (Manual) 5 L Monocytes % (Manual) 4 Abs Neuts (Manual) 18.6 H Lymphocytes # (Manual) 1.0 L Monocytes # (Manual) 0.8 Smudge Cells PRESENT Toxic Vacuolation PRESENT Platelet Estimate NORMAL Large Platelets PRESENT Plt Morphology Comment NOTED RBC Morphology NOTED Microcytosis 2+ (15-30) [place] Cells 3+ (>5) Smear Tech's Comments PT 12.8 INR 1.1 Anion Gap 24 H Estim Creat Clear Calc 67.5 Estimated GFR > 60 POC Glucose Random Glucose 194 H D Lactic Acid Lactic Acid F/U @ 2Hr Lactic Acid F/U @ 4Hr Calcium 9.5 D Magnesium 1.6 Total Bilirubin 2.1 H Direct Bilirubin 1.1 H AST 27 D ALT 17 Alkaline Phosphatase 240 H D Troponin I High Sens Total Protein 7.5 D Albumin 3.8 D Lipase 26 Urine Color Urine Appearance Urine pH Ur Specific [place] Urine Protein Urine Glucose (UA) Urine Ketones Urine Blood Urine Nitrite Ur Leukocyte Esterase Urine RBC Urine WBC Ur Squamous Epith Cells Urine Bacteria Hyaline Casts COVID-19 ([facility]) COVID-19 Clin Com 07/11/22 07/11/22 07/11/22 17:45 17:45 17:45 MCV MCH MCHC RDW Plt Count MPV Immature Gran % (Auto) Neut % (Auto) Lymph % (Auto) Carlton % (Auto) Eos % (Auto) Baso % (Auto) Lymph # (Auto) Carlton # (Auto) Eos # (Auto) Baso # (Auto) Abs Immat Gran (auto) Absolute Neuts (auto) Absolute Nucleated RBC Nucleated RBC % (auto) Neutrophils % (Manual) Band Neutrophils % Lymphocytes % (Manual) Monocytes % (Manual) Abs Neuts (Manual) Lymphocytes # (Manual) Monocytes # (Manual) Smudge Cells Toxic Vacuolation Platelet Estimate Large Platelets Plt Morphology Comment RBC Morphology Microcytosis Paul Cells Smear Tech's Comments PT INR Anion Gap Estim Creat Clear Calc Estimated GFR POC Glucose Random Glucose Lactic Acid 4.1 H* Lactic Acid F/U @ 2Hr Lactic Acid F/U @ 4Hr Calcium Magnesium Total Bilirubin Direct Bilirubin AST ALT Alkaline Phosphatase Troponin I High Sens 4.6 Total Protein Albumin Lipase Urine Color Urine Appearance Urine pH Ur Specific [place] Urine Protein Urine Glucose (UA) Urine Ketones Urine Blood Urine Nitrite Ur Leukocyte Esterase Urine RBC Urine WBC Ur Squamous Epith Cells Urine Bacteria Hyaline Casts COVID-19 ([facility]) Negative COVID-19 Clin Com See Note 07/11/22 07/11/22 07/11/22 17:45 20:39 22:59 MCV MCH MCHC RDW Plt Count MPV Immature Gran % (Auto) Neut % (Auto) Lymph % (Auto) Carl[place] % (Auto) Eos % (Auto) Baso % (Auto) Lymph # (Auto) Carlton # (Auto) Eos # (Auto) Baso # (Auto) Abs Immat Gran (auto) Absolute Neuts (auto) Absolute Nucleated RBC Nucleated RBC % (auto) Neutrophils % (Manual) Band Neutrophils % Lymphocytes % (Manual) Monocytes % (Manual) Abs Neuts (Manual) Lymphocytes # (Manual) Monocytes # (Manual) Smudge Cells Toxic Vacuolation Platelet Estimate Large Platelets Plt Morphology Comment RBC Morphology Microcytosis Paul Cells Smear Tech's Comments PT INR Anion Gap Estim Creat Clear Calc Estimated GFR POC Glucose 138 H Random Glucose Lactic Acid Lactic Acid F/U @ 2Hr 4.8 H* Lactic Acid F/U @ 4Hr Calcium Magnesium Total Bilirubin Direct Bilirubin AST ALT Alkaline Phosphatase Troponin I High Sens Total Protein Albumin Lipase Urine Color Dark Yellow Urine Appearance Turbid Urine pH 7.0 Ur Specific [place] 1.020 Urine Protein 300 (3+) H Urine Glucose (UA) Negative Urine Ketones Trace Urine Blood Large (3+) H Urine Nitrite Positive H Ur Leukocyte Esterase Large (3+) H Urine RBC >20 H Urine WBC >50 H Ur Squamous Epith Cells 0-2 Urine Bacteria 4+ Hyaline Casts 6-10 COVID-19 ([facility]) COVID-19 Clin Com 07/11/22 07/12/22 07/12/22 23:26 06:22 06:22 MCV 82.0 MCH 26.7 L MCHC 32.5 RDW 16.1 H Plt Count 244 MPV 11.9 Immature Gran % (Auto) 0.7 H Neut % (Auto) 73.0 Lymph % (Auto) 16.5 L [place] % (Auto) 9.4 Eos % (Auto) 0.1 Baso % (Auto) 0.3 Lymph # (Auto) 3.6 Carlton # (Auto) 2.1 H Eos # (Auto) 0.0 Baso # (Auto) 0.1 Abs Immat Gran (auto) 0.15 H Absolute Neuts (auto) 15.9 H Absolute Nucleated RBC 0.000 Nucleated RBC % (auto) 0.0 Neutrophils % (Manual) Band Neutrophils % Lymphocytes % (Manual) Monocytes % (Manual) Abs Neuts (Manual) Lymphocytes # (Manual) Monocytes # (Manual) Smudge Cells Toxic Vacuolation Platelet Estimate Large Platelets Plt Morphology Comment RBC Morphology Microcytosis Paul Cells Smear Tech's Comments VERIFIED PT INR Anion Gap 15 Estim Creat Clear Calc 80.3 Estimated GFR > 60 POC Glucose Random Glucose 92 D Lactic Acid Lactic Acid F/U @ 2Hr Lactic Acid F/U @ 4Hr 2.8 H* Calcium 8.4 D Magnesium Total Bilirubin Direct Bilirubin AST ALT Alkaline Phosphatase Troponin I High Sens Total Protein Albumin Lipase Urine Color Urine Appearance Urine pH Ur Specific [place] Urine Protein Urine Glucose (UA) Urine Ketones Urine Blood Urine Nitrite Ur Leukocyte Esterase Urine RBC Urine WBC Ur Squamous Epith Cells Urine Bacteria Hyaline Casts COVID-19 ([facility]) COVID-19 Clin Com 07/12/22 07/12/22 07/12/22 08:00 11:48 15:33 MCV MCH MCHC RDW Plt Count MPV Immature Gran % (Auto) Neut % (Auto) Lymph % (Auto) Carl[place] % (Auto) Eos % (Auto) Baso % (Auto) Lymph # (Auto) Carl[place] # (Auto) Eos # (Auto) Baso # (Auto) Abs Immat Gran (auto) Absolute Neuts (auto) Absolute Nucleated RBC Nucleated RBC % (auto) Neutrophils % (Manual) Band Neutrophils % Lymphocytes % (Manual) Monocytes % (Manual) Abs Neuts (Manual) Lymphocytes # (Manual) Monocytes # (Manual) Smudge Cells Toxic Vacuolation Platelet Estimate Large Platelets Plt Morphology Comment RBC Morphology Microcytosis [place] Cells Smear Tech's Comments PT INR Anion Gap Estim Creat Clear Calc Estimated GFR POC Glucose 86 107 82 Random Glucose Lactic Acid Lactic Acid F/U @ 2Hr Lactic Acid F/U @ 4Hr Calcium Magnesium Total Bilirubin Direct Bilirubin AST ALT Alkaline Phosphatase Troponin I High Sens Total Protein Albumin Lipase Urine Color Urine Appearance Urine pH Ur Specific [place] Urine Protein Urine Glucose (UA) Urine Ketones Urine Blood Urine Nitrite Ur Leukocyte Esterase Urine RBC Urine WBC Ur Squamous Epith Cells Urine Bacteria Hyaline Casts COVID-19 ([facility]) COVID-19 Clin Com Microbiology Microbiology Results: Microbiology 07/11/22 17:45 Blood Culture - Preliminary Blood - Venous Prelim: GPC Gram Stain only 07/11/22 18:06 Urine Culture - Preliminary Urine clean catch - Urine dawson top Culture in progress. Assessment and Plan (1) Sepsis: Status: Acute (2) UTI (urinary tract infection) due to urinary indwelling Spencer catheter: Status: Acute (3) Dehydration: Status: Acute Plan 86 year old male with history of BPH with chronic spencer for urinary retention, noninsulin depdendent type 2 diabetes, hx CVA, htn, hld, and dementia admitted for acute UTI with sepsis. #sepsis secondary to UTI related to Spencer catheter usage -suprapubic pain resolved WBC remains elevated, tachycardia resolved , lactic acid trending down patient hemodynamically stable CT of the abdomen/ pelvis shows the Spenecr catheter balloon in the prostate bed rather than the bladder.? The bladder is [id number] dilated with surrounding soft tissue stranding, mild fullness of the renal collecting systems leading into the bladder.? Subsequent bladder scan shows 422 mL -UA with 3+leuks, nitrite positive, 3+ blood, 3+ protein, 4+ bacteria -Recent admission 1.5 months ago with e.coli UTI treated with ceftriaxone, Spencer catheter changed -on ceftriaxone day 1, blood cultures 1/2 growing Gram-positive cocci in stain only Will add IV vancomycin follow final urine and blood cultures, follow CBC #Acute dehydration- secondary to decreased PO intake Resolved # [id number] type 2 diabetes blood sugars stable, continue diabetic diet and insulin sliding scale monitor blood sugar closely # hypertension-controlled - continue amlodipine and furosemide # BPH with urinary retention - continue Spencer as above - continue tamsulosin #dementia without behavioral disturbance-baseline - candidiasis of the groin - continue home clotrimazole # HLD - continue atorvastatin #History CVA -Continue asa and statin ?DVT prophylaxis- Lovenox ?full code per healthcare proxy ?patient required continued inpatient hospitalization due to complicated Spencer catheter associated UTI with sepsis requiring IV antibiotics and close monitoring Quality Stroke Does the patient have a stroke diagnosis?: No VTE Prior VTE?: No VTE Risk Level:: Medical - moderate - high VTE Device Contraindication: Treatment Not Indicated VTE Drug Contraindication: N/A - Med Ordered
--- NOTE | 2022-07-12 17:18 | PHA.PROG ---
Admission Date/Time: July 11, 2022 20:19 Indication: Bacteremia Weight in k.7 kg Adjusted body weight in Kg: Hunter body weight in Kg: Obesity Dosing Indication % IBW: Serum Creatinine - Last 168 Hours 07/11/22 07/12/22 17:45 06:22 Creatinine 0.82 0.69 Estimated CrCl and GFR - Last 168 Hours 07/11/22 07/12/22 17:45 06:22 Estim Creat Clear Calc 67.5 80.3 Estimated GFR > 60 > 60 Vancomycin Loading Dose: 1750mg X 1 Current Vancomycin Dosing Regimen: 1500mg Q24H Vancomycin Monitoring using AUC goal of 400 - 600 range with trough as surrogate marker: 437mg/L Date and Time for next Vancomycin Level to be drawn: 07/15/22 @1600 Pharmacist Comments on Vancomycin Plan: Will continue to monitor renal function; modified model utilized Vancomycin dosing will take advantage of [employer] as a clinical decision support tool that uses Bayesian modeling to calculate individual patient's pharmacokinetic parameters and forecast the patient's drug concentration time course with the target goal AUC 24 range of 400 - 600 mg/L/hr.
[2022-07-12] MEDS: cefTRIAXone sodium 1 GM in 0.9 % Sodium Chloride 50 ML IV (17:37)
[2022-07-12] MEDS: Tamsulosin HCL 0.4 MG CAPSULE PO (17:42)
[2022-07-12] MEDS: vancomycin HCL 1,000 MG, vancomycin HCL 750 MG in 0.9 % Sodium Chloride 500 ML 267.5 MG IV (18:36)
[2022-07-12] MEDS: Enoxaparin Sodium 40 MG/0.4 ML SYRINGE SUBCUT (20:09)
[2022-07-12] MEDS: Insulin Lispro 100 UNIT/ML 3 ML VIAL SUBCUT (20:09)
[2022-07-12 20:23] LABS: Glucose, Whole Blood 167 mg/dL (60-115)
[2022-07-12] MEDS: Clotrimazole 1 % Cream 15 GM TUBE 1 APPL TOPICAL (22:09)
[2022-07-12] MEDS: Ammonium Lactate 12 % Lotion 226 GM BOTTLE 1 APPL TOPICAL (22:09)
[2022-07-12 23:27] VITALS: BP 149/77; PULSE 78; RESP 18; TEMP 36.9; O2SAT 96
[2022-07-13] MEDS: 0.9 % Sodium Chloride Flush 3 ML SYRINGE IVFLUSH ×4 (00:13→21:02)
[2022-07-13 04:09] VITALS: BP 117/72; PULSE 77; RESP 20; TEMP 37.1; O2SAT 97
[2022-07-13 07:20] VITALS: BP 136/75; PULSE 80; RESP 12; TEMP 36; O2SAT 96
[2022-07-13 07:27] LABS: Glucose, Whole Blood 103 mg/dL (60-115)
[2022-07-13] MEDS: Aspirin Enteric Coated 81 MG TABLET.DR PO (08:27)
[2022-07-13] MEDS: Ammonium Lactate 12 % Lotion 226 GM BOTTLE 1 APPL TOPICAL ×2 (08:27→21:02)
[2022-07-13] MEDS: Atorvastatin Calcium 80 MG TABLET PO (08:27)
[2022-07-13] MEDS: Clotrimazole 1 % Cream 15 GM TUBE 1 APPL TOPICAL ×2 (08:29→21:03)
[2022-07-13 09:22] LABS: Hematocrit 42.8 % (42.0-52.0); Mean Corpuscular HGB Conc 32.7 g/dl (31.0-36.0); Mean Corpuscular Hemoglobin 27.2 pg (27.0-33.0); Mean Corpuscular Volume 83.1 fL (80.0-98.0); Mean Platelet Volume 12.1 fL (9.4-12.4); Platelet Count 229 X10*3/uL (160-400); Red Blood Count 5.15 X10*6/uL (4.60-5.80); Red Cell Distribution Width 16.3 % (11.0-16.0); White Blood Count 15.4 X10*3/uL (4.8-10.8)
[2022-07-13 09:57] LABS: Creatinine Clr Calc Pharmacy 90.8; Estimated Glomerular Filt Rate > 60
[2022-07-13 11:19] LABS: Glucose, Whole Blood 154 mg/dL (60-115)
--- NOTE | 2022-07-13 11:19 | MHC.CM.PN ---
Per ROUNDS discussion, Patient has (+) BC and is not yet medically cleared for dc. Home is the goal and CM will continue to follow.
--- NOTE | 2022-07-13 14:03 | HO.PM.IMPN ---
Subjective Subjective Date of Service: 07/13/22 Interval History: History obtained via bedspread inspector patient denies abdominal pain, tolerating diet, no nausea no vomiting no fevers, no chills no acute issues overnight Spencer catheter with clear urine. 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 Anicteri c sclera Neck? no JVD. CVS? regular rate rhythm, Respi ratory lungs clear to auscultation, no respiratory dis tress, no wheeze, no rhonchi. Gastro intestinal abdomen soft, nontender, bowel sounds audib le, no guarding , no rigidity. Extre mities no edema. N euro moving all 4 extremity speech c lear. Skin no rash Objective Data Active Medications Acetaminophen (Acetaminophen 325 Mg Tablet) 650 mg PO Q6H PRN PRN Reason: Pain, Mild (Pain Scale 1-3) Aspirin (Aspirin Enteric Coated 81 Mg Tablet.) 81 mg PO DAILY [facility] Last Admin: 07/13/22 08:27 Dose: 81 mg Documented By: KALEB Atorvastatin Calcium (Atorvastatin Calcium 80 Mg Tablet) 80 mg PO DAILY [facility] Last Admin: 07/13/22 08:27 Dose: 80 mg Documented By: KALEB Clotrimazole (Clotrimazole 1 % Cream 15 Gm Tube) 1 appl TOPICAL BID [facility]; Protocol Last Admin: 07/13/22 08:29 Dose: 1 appl Documented By: KALEB Dextrose (Dextrose 50 % 25 Gm/50 Ml Syringe) 25 gm IVPUSH Q15M PRN; Protocol PRN Reason: per Hypoglycemia Standing Ord. Docusate Sodium (Docusate Sodium 100 Mg Capsule) 100 mg PO DAILY PRN PRN Reason: Constipation Enoxaparin Sodium (Enoxaparin Sodium 40 Mg/0.4 Ml Syringe) 40 mg SUBCUT Q24H [facility] Last Admin: 07/12/22 20:09 Dose: 40 mg Documented By: SABRINA Glucose (Glucose Gel 15 Gm Gel..Gram.) 15 gm PO Q15M PRN; Protocol PRN Reason: per Hypoglycemia Standing Ord. Ceftriaxone Sodium 1 gm/ (Sodium Chloride) 50 mls @ 100 mls/hr IV Q24H [facility] Last Infusion: 07/12/22 18:22 Dose: 0 mls/hr Documented By: REKHA Vancomycin HCl 1,500 mg/ (Sodium Chloride) 500 mls @ 333.333 mls/hr IV Q24H [facility] Insulin Human Lispro (Insulin Lispro 100 Unit/Ml 3 Ml Vial) 0 unit SUBCUT QIDACHS [facility]; Protocol Last Admin: 07/13/22 12:37 Dose: Not Given Documented By: KALEB Non-Admin Reason: No Insulin Coverage Lactic Acid (Ammonium Lactate 12 % Lotion 226 Gm Bottle) 1 appl TOPICAL BID [facility]; Protocol Last Admin: 07/13/22 08:27 Dose: 1 appl Documented By: KALEB Morphine Sulfate (Morphine Sulfate 4 Mg/Ml Cartridge) 2 mg IVPUSH Q4H PRN; Protocol PRN Reason: Pain, Severe (Pain Scale 7-10) Ondansetron HCl (Ondansetron Hcl 4 Mg/2 Ml Vial) 4 mg IVPUSH Q8H PRN PRN Reason: Nausea and Vomiting Pharmacy Consult (Consult Rx Perform Med Rec) 1 each MISCELLANE ONCE PRN PRN Reason: Consult order Pharmacy Consult (Consult Rx Vancomycin Dosing) 1 each MISCELLANE DAILY PRN PRN Reason: Consult order Sodium Chloride (0.9 % Sodium Chloride Flush 3 Ml Syringe) 3 ml IVFLUSH QSHIFT [facility] Last Admin: 07/13/22 08:27 Dose: 3 ml Documented By: KALEB Tamsulosin HCl (Tamsulosin Hcl 0.4 Mg Capsule) 0.4 mg PO DAILY@1700 [facility] Last Admin: 07/12/22 17:42 Dose: 0.4 mg Documented By: REKHA Labs CBC & Chem 7: 07/13/22 08:59 07/13/22 08:59 Labs: Laboratory Results - last 24 hr 10/07/12/22 07/13/22 15:33 20:03 07:21 MCV MCH MCHC RDW Plt Count MPV Absolute Nucleated RBC Nucleated RBC % (auto) Estim Creat Clear Calc Estimated GFR POC Glucose 82 167 H 103 07/13/22 07/13/22 07/13/22 08:59 08:59 10:57 MCV 83.1 MCH 27.2 MCHC 32.7 RDW 16.3 H Plt Count 229 MPV 12.1 Absolute Nucleated RBC 0.000 Nucleated RBC % (auto) 0.0 Estim Creat Clear Calc 90.8 Estimated GFR > 60 POC Glucose 154 H Microbiology Microbiology Results: Microbiology 07/11/22 18:06 Urine Culture - Preliminary Urine clean catch - Urine dawson top Gram negative angel 07/11/22 17:45 Blood Culture - Final Blood - Venous Coag negative Staphylococcus 07/11/22 17:45 Blood Culture - Preliminary Blood - Venous No growth after 24 hours. Assessment and Plan (1) Sepsis: Status: Acute (2) UTI (urinary tract infection) due to urinary indwelling Spencer catheter: Status: Acute (3) Dehydration: Status: Acute Plan 86 year old male with history of BPH with chronic spencer for urinary retention, noninsulin depdendent type 2 diabetes, hx CVA, htn, hld, and dementia admitted for acute UTI with sepsis. #sepsis secondary to UTI related to Spencer catheter usage -suprapubic pain resolved WBC trending down, tachycardia resolved , lactic acid improved CT of the abdomen/ pelvis showed Spencer catheter balloon in the prostate bed rather than the bladder,with bladder [id number] dilated with surrounding soft tissue stranding, mild fullness of the renal collecting systems leading into the bladder.? Subsequent bladder scan shows 422 mL -UA with 3+leuks, nitrite positive, 3+ blood, 3+ protein, 4+ bacteria -urine culture growing Gram-negative angel, 1/2 blood culture growing coagulase negative Staph -on ceftriaxone day 2, and iv vanco day 2 will follow final urine and blood cultures #Acute dehydration- secondary to decreased PO intake Resolved # [id number] type 2 diabetes blood sugars stable, continue diabetic diet and insulin sliding scale , stable blood sugars # hypertension-controlled - continue amlodipine and furosemide # BPH with urinary retention - continue Spencer and tamsulosin #dementia without behavioral disturbance-baseline - candidiasis of the groin,- continue home clotrimazole # HLD- continue atorvastatin #History CVA -Continue asa and statin ?DVT prophylaxis- Lovenox ?full code per healthcare proxy ?patient required continued inpatient hospitalization due to complicated Spencer catheter associated UTI with sepsis requiring IV antibiotics and close monitoring Quality Stroke Does the patient have a stroke diagnosis?: No VTE Prior VTE?: No VTE Risk Level:: Medical - moderate - high VTE Device Contraindication: Treatment Not Indicated VTE Drug Contraindication: N/A - Med Ordered
[2022-07-13 15:36] VITALS: BP 119/60; PULSE 81; RESP 17; TEMP 36.7; O2SAT 98
[2022-07-13 16:16] LABS: Glucose, Whole Blood 126 mg/dL (60-115)
[2022-07-13] MEDS: Tamsulosin HCL 0.4 MG CAPSULE PO (16:20)
[2022-07-13] MEDS: cefTRIAXone sodium 1 GM in 0.9 % Sodium Chloride 50 ML IV (18:35)
[2022-07-13 19:00] VITALS: BP 140/73; PULSE 90; RESP 16; TEMP 36.6; O2SAT 98
[2022-07-13] MEDS: vancomycin HCL 1,500 MG in 0.9 % Sodium Chloride 500 ML 333.33 MG IV (19:03)
[2022-07-13 19:47] LABS: Glucose, Whole Blood 149 mg/dL (60-115)
[2022-07-13] MEDS: Enoxaparin Sodium 40 MG/0.4 ML SYRINGE SUBCUT (21:06)
[2022-07-13 23:33] VITALS: BP 136/69; PULSE 76; RESP 15; TEMP 36.2; O2SAT 98
[2022-07-14 03:25] VITALS: BP 157/78; PULSE 78; RESP 14; TEMP 36.2; O2SAT 96
[2022-07-14 06:38] LABS: Hematocrit 35.7 % (42.0-52.0); Hemoglobin 11.6 g/dl (14.0-18.0); Mean Corpuscular HGB Conc 32.5 g/dl (31.0-36.0); Mean Corpuscular Hemoglobin 26.7 pg (27.0-33.0); Mean Corpuscular Volume 82.3 fL (80.0-98.0); Mean Platelet Volume 12.6 fL (9.4-12.4); Platelet Count 223 X10*3/uL (160-400); Red Blood Count 4.34 X10*6/uL (4.60-5.80); Red Cell Distribution Width 15.9 % (11.0-16.0); White Blood Count 10.2 X10*3/uL (4.8-10.8)
[2022-07-14 06:58] LABS: Creatinine Clr Calc Pharmacy 110.8; Estimated Glomerular Filt Rate > 60
[2022-07-14 07:31] VITALS: BP 130/63; PULSE 79; RESP 18; TEMP 36.1; O2SAT 97
[2022-07-14 07:38] LABS: Glucose, Whole Blood 83 mg/dL (60-115)
[2022-07-14] MEDS: Atorvastatin Calcium 80 MG TABLET PO (09:39)
[2022-07-14] MEDS: cefEPime HCl 2 GM in 0.9 % Sodium Chloride 50 ML IV ×2 (09:39→21:49)
[2022-07-14] MEDS: Aspirin Enteric Coated 81 MG TABLET.DR PO (09:39)
[2022-07-14] MEDS: 0.9 % Sodium Chloride Flush 3 ML SYRINGE IVFLUSH ×2 (09:39→16:15)
[2022-07-14] MEDS: Clotrimazole 1 % Cream 15 GM TUBE 1 APPL TOPICAL ×2 (09:39→20:42)
--- NOTE | 2022-07-14 09:58 | HE.PHANOTE ---
VANCOMYCIN DOSING BASED ON LABS DOSE CONTINUED. NEXT TROUGH 07/15 @ 1600
[2022-07-14] MEDS: Ammonium Lactate 12 % Lotion 226 GM BOTTLE 1 APPL TOPICAL ×2 (10:42→20:41)
[2022-07-14 11:39] VITALS: BP 147/82; PULSE 76; RESP 17; TEMP 36.6; O2SAT 98
[2022-07-14 11:44] LABS: Glucose, Whole Blood 122 mg/dL (60-115)
--- NOTE | 2022-07-14 12:04 | HO.PM.IMPN ---
Subjective Subjective Date of Service: 07/14/22 Interval History: history obtained via manager programming, patient denies abdominal pain, denies fever chills, tolerating diet, no nausea, no vomiting, offers no acute complaints, no events overnight. Review of Systems [employer] no headache no dizziness CVS no chest pain Respiratory no cough, no shortness of breath Review of Systems: Yes all other systems are reviewed and are negative Physical Exam Vital Signs: Vital Signs: Last Vital Signs Temp 97.8 F 07/14/22 11:39 Pulse 76 07/14/22 11:39 Resp 17 07/14/22 11:39 BP 147/82 H 07/14/22 11:39 Pulse Ox 98 07/14/22 11:39 O2 Del Method 07/14/22 11:39 BMI result Body Mass Index 23.3 Const: Other: General awake alert, resting comfortably in no acute distress.? Anicteric sclera Neck? no JVD. CVS? regular rate rhythm, Respiratory lungs clear to auscultation, no respiratory distress, no wheeze, no rhonchi. Gastrointestinal abdomen soft, nontender, bowel sounds audible, no guarding , no rigidity. Extremities no edema. Neuro moving all 4 extremity speech clear. Skin no rash Objective Data Active Medications Acetaminophen (Acetaminophen 325 Mg Tablet) 650 mg PO Q6H PRN PRN Reason: Pain, Mild (Pain Scale 1-3) Aspirin (Aspirin Enteric Coated 81 Mg Tablet.) 81 mg PO DAILY [facility] Last Admin: 07/14/22 09:39 Dose: 81 mg Documented By: JAIME Atorvastatin Calcium (Atorvastatin Calcium 80 Mg Tablet) 80 mg PO DAILY [facility] Last Admin: 07/14/22 09:39 Dose: 80 mg Documented By: JAIME Clotrimazole (Clotrimazole 1 % Cream 15 Gm Tube) 1 appl TOPICAL BID [facility]; Protocol Last Admin: 07/14/22 09:39 Dose: 1 appl Documented By: JAIME Dextrose (Dextrose 50 % 25 Gm/50 Ml Syringe) 25 gm IVPUSH Q15M PRN; Protocol PRN Reason: per Hypoglycemia Standing Ord. Docusate Sodium (Docusate Sodium 100 Mg Capsule) 100 mg PO DAILY PRN PRN Reason: Constipation Enoxaparin Sodium (Enoxaparin Sodium 40 Mg/0.4 Ml Syringe) 40 mg SUBCUT Q24H [facility] Last Admin: 07/13/22 21:06 Dose: 40 mg Documented By: BASHIR Glucose (Glucose Gel 15 Gm Gel..Gram.) 15 gm PO Q15M PRN; Protocol PRN Reason: per Hypoglycemia Standing Ord. Vancomycin HCl 1,500 mg/ (Sodium Chloride) 500 mls @ 333.333 mls/hr IV Q24H [facility] Last Infusion: 07/13/22 21:09 Dose: 0 mls/hr Documented By: BASHIR Cefepime HCl 2 gm/ Sodium (Chloride) 50 mls @ 100 mls/hr IV Q12H [facility] Last Infusion: 07/14/22 10:40 Dose: 0 mls/hr Documented By: JAIME Insulin Human Lispro (Insulin Lispro 100 Unit/Ml 3 Ml Vial) 0 unit SUBCUT QIDACHS [facility]; Protocol Last Admin: 07/14/22 11:42 Dose: Not Given Documented By: JAIME Non-Admin Reason: No Insulin Coverage Lactic Acid (Ammonium Lactate 12 % Lotion 226 Gm Bottle) 1 appl TOPICAL BID [facility]; Protocol Last Admin: 07/14/22 10:42 Dose: 1 appl Documented By: JAIME Morphine Sulfate (Morphine Sulfate 4 Mg/Ml Cartridge) 2 mg IVPUSH Q4H PRN; Protocol PRN Reason: Pain, Severe (Pain Scale 7-10) Ondansetron HCl (Ondansetron Hcl 4 Mg/2 Ml Vial) 4 mg IVPUSH Q8H PRN PRN Reason: Nausea and Vomiting Pharmacy Consult (Consult Rx Perform Med Rec) 1 each MISCELLANE ONCE PRN PRN Reason: Consult order Pharmacy Consult (Consult Rx Vancomycin Dosing) 1 each MISCELLANE DAILY PRN PRN Reason: Consult order Sodium Chloride (0.9 % Sodium Chloride Flush 3 Ml Syringe) 3 ml IVFLUSH QSHIFT [facility] Last Admin: 07/14/22 09:39 Dose: 3 ml Documented By: JAIME Tamsulosin HCl (Tamsulosin Hcl 0.4 Mg Capsule) 0.4 mg PO DAILY@1700 [facility] Last Admin: 07/13/22 16:20 Dose: 0.4 mg Documented By: JARRET Labs CBC & Chem 7: 07/14/22 05:56 07/14/22 05:56 Labs: Laboratory Results - last 24 hr 07/13/22 07/13/22 07/14/22 16:13 19:42 05:56 MCV 82.3 MCH 26.7 L MCHC 32.5 RDW 15.9 Plt Count 223 MPV 12.6 H Absolute Nucleated RBC 0.000 Nucleated RBC % (auto) 0.0 Estim Creat Clear Calc Estimated GFR POC Glucose 126 H 149 H 07/14/22 07/14/22 07/14/22 05:56 07:35 11:37 MCV MCH MCHC RDW Plt Count MPV Absolute Nucleated RBC Nucleated RBC % (auto) Estim Creat Clear Calc 110.8 Estimated GFR > 60 POC Glucose 83 122 H Microbiology Microbiology Results: Microbiology 07/11/22 17:45 Blood Culture - Preliminary Blood - Venous Prelim: GPR Gram Stain only 07/11/22 18:06 Urine Culture - Preliminary Urine clean catch - Urine dawson top Pseudomonas aeruginosa Gram positive cocci 07/11/22 17:45 Blood Culture - Final Blood - Venous Coag negative Staphylococcus Assessment and Plan (1) Sepsis: Status: Acute (2) UTI (urinary tract infection) due to urinary indwelling Spencer catheter: Status: Acute (3) Dehydration: Status: Acute Plan 86 year old male with history of BPH with chronic spencer for urinary retention, noninsulin depdendent type 2 diabetes, hx CVA, htn, hld, and dementia admitted for acute UTI with sepsis. #sepsis secondary to UTI related to Spencer catheter usage -suprapubic pain resolved WBC normalized, lactic acid improved Patient offers no acute complaints CT of the abdomen/ pelvis showed Spencer catheter balloon in the prostate bed rather than the bladder,with bladder held-[id number]-[id number] dilated with surrounding soft tissue stranding -UA with 3+leuks, nitrite positive, 3+ blood, 3+ protein, 4+ bacteria -urine culture growing Pseudomonas and Gram-positive cocci, 1 blood culture growing Gram-positive rods and other grew coagulase-negative Staph Will DC IV ceftriaxone and place on IV cefepime for Pseudomonas coverage follow final report of urine culture and blood culture Continue IV vancomycin day 3 till final urine and blood cultures are back #Acute dehydration- secondary to decreased PO intake Resolved # [id number] type 2 diabetes blood sugars stable, continue diabetic diet and insulin sliding scale , stable blood sugars # hypertension-controlled - continue amlodipine and furosemide # BPH with urinary retention has chronic Spencer catheter - continue Spencer and tamsulosin #dementia without behavioral disturbance-baseline - candidiasis of the groin,- continue home clotrimazole # HLD- continue atorvastatin #History CVA -Continue asa and statin ?DVT prophylaxis- Lovenox ?full code per healthcare proxy ?patient required continued inpatient hospitalization due to complicated Spencer catheter associated UTI with sepsis requiring IV antibiotics and close monitoring Quality Stroke Does the patient have a stroke diagnosis?: No VTE Prior VTE?: No VTE Risk Level:: Medical - moderate - high VTE Device Contraindication: Treatment Not Indicated VTE Drug Contraindication: N/A - Med Ordered
[2022-07-14 15:40] VITALS: BP 146/70; PULSE 70; RESP 16; TEMP 36.2; O2SAT 97
[2022-07-14] MEDS: Tamsulosin HCL 0.4 MG CAPSULE PO (16:15)
[2022-07-14 16:21] LABS: Glucose, Whole Blood 128 mg/dL (60-115)
[2022-07-14] MEDS: vancomycin HCL 1,500 MG in 0.9 % Sodium Chloride 500 ML 333.33 MG IV (18:11)
[2022-07-14 18:56] VITALS: BP 151/72; PULSE 67; RESP 16; TEMP 36.1; O2SAT 99
[2022-07-14 20:34] VITALS: BP 143/76; PULSE 70; RESP 16; TEMP 36.9; O2SAT 99
[2022-07-14 20:45] LABS: Glucose, Whole Blood 122 mg/dL (60-115)
[2022-07-14] MEDS: Enoxaparin Sodium 40 MG/0.4 ML SYRINGE SUBCUT (21:49)
[2022-07-15] VITALS: BP 133/63; PULSE 69; RESP 17; TEMP 36.4; O2SAT 96
[2022-07-15 06:54] LABS: Creatinine Clr Calc Pharmacy 106.5; Estimated Glomerular Filt Rate > 60
[2022-07-15 07:51] VITALS: BP 155/79; PULSE 74; RESP 18; TEMP 36.5; O2SAT 98
[2022-07-15 07:56] LABS: Glucose, Whole Blood 96 mg/dL (60-115)
[2022-07-15] MEDS: Aspirin Enteric Coated 81 MG TABLET.DR PO (08:31)
[2022-07-15] MEDS: Atorvastatin Calcium 80 MG TABLET PO (08:31)
[2022-07-15] MEDS: Ammonium Lactate 12 % Lotion 226 GM BOTTLE 1 APPL TOPICAL ×2 (08:32→19:36)
[2022-07-15] MEDS: 0.9 % Sodium Chloride Flush 3 ML SYRINGE IVFLUSH ×3 (08:32→20:11)
[2022-07-15] MEDS: cefEPime HCl 2 GM in 0.9 % Sodium Chloride 50 ML IV ×2 (08:32→20:07)
[2022-07-15] MEDS: Clotrimazole 1 % Cream 15 GM TUBE 1 APPL TOPICAL ×2 (09:12→19:36)
[2022-07-15] MEDS: Lidocaine 4 % Patch ADH..PATCH 1 PATCH TRANSDERMA (11:34)
[2022-07-15 11:40] LABS: Glucose, Whole Blood 142 mg/dL (60-115)
--- NOTE | 2022-07-15 12:12 | HO.PM.IMPN ---
Subjective Subjective Date of Service: 07/15/22 Interval History: This history was taken in Japanese from the patient. no N/V/abd pain c/o L knee pain [chronic] Review of Systems Review of Systems: Yes all other systems are reviewed and are negative Physical Exam Vital Signs: Vital Signs: Last Vital Signs Temp 97.7 F 07/15/22 07:51 Pulse 74 07/15/22 07:51 Resp 18 07/15/22 07:51 BP 155/79 H 07/15/22 07:51 Pulse Ox 98 07/15/22 07:51 O2 Del Method 07/15/22 07:51 BMI result Body Mass Index 23.3 Gen: in no acute distress HEENT: sclera anicteric, moist mucus membranes Neck: supple Lungs: clear to auscultation bilaterally Heart: regular rate and rhythm, no murmurs Abd: soft, non-tender, non-distended : Frederick draining clear urine Ext: no edema Skin: warm/well-perfused Neuro: no focal findings Psych: appropriate affect Objective Data Active Medications Acetaminophen (Acetaminophen 325 Mg Tablet) 650 mg PO Q6H PRN PRN Reason: Pain, Mild (Pain Scale 1-3) Aspirin (Aspirin Enteric Coated 81 Mg Tablet.Dr) 81 mg PO DAILY [facility] Last Admin: 07/15/22 08:31 Dose: 81 mg Documented By: TIFFANIE Atorvastatin Calcium (Atorvastatin Calcium 80 Mg Tablet) 80 mg PO DAILY [facility] Last Admin: 07/15/22 08:31 Dose: 80 mg Documented By: TIFFANIE Clotrimazole (Clotrimazole 1 % Cream 15 Gm Tube) 1 appl TOPICAL BID [facility]; Protocol Last Admin: 07/15/22 09:12 Dose: 1 appl Documented By: TIFFANIE Dextrose (Dextrose 50 % 25 Gm/50 Ml Syringe) 25 gm IVPUSH Q15M PRN; Protocol PRN Reason: per Hypoglycemia Standing Ord. Docusate Sodium (Docusate Sodium 100 Mg Capsule) 100 mg PO DAILY PRN PRN Reason: Constipation Enoxaparin Sodium (Enoxaparin Sodium 40 Mg/0.4 Ml Syringe) 40 mg SUBCUT Q24H [facility] Last Admin: 07/14/22 21:49 Dose: 40 mg Documented By: BASHIR Glucose (Glucose Gel 15 Gm Gel..Gram.) 15 gm PO Q15M PRN; Protocol PRN Reason: per Hypoglycemia Standing Ord. Vancomycin HCl 1,500 mg/ (Sodium Chloride) 500 mls @ 333.333 mls/hr IV Q24H [facility] Last Infusion: 07/14/22 20:43 Dose: 0 mls/hr Documented By: BASHIR Cefepime HCl 2 gm/ Sodium (Chloride) 50 mls @ 100 mls/hr IV Q12H [facility] Last Infusion: 07/15/22 09:13 Dose: 0 mls/hr Documented By: TIFFANIE Insulin Human Lispro (Insulin Lispro 100 Unit/Ml 3 Ml Vial) 0 unit SUBCUT QIDACHS [facility]; Protocol Last Admin: 07/15/22 11:41 Dose: Not Given Documented By: TIFFANIE Non-Admin Reason: No Insulin Coverage Lactic Acid (Ammonium Lactate 12 % Lotion 226 Gm Bottle) 1 appl TOPICAL BID [facility]; Protocol Last Admin: 07/15/22 08:32 Dose: 1 appl Documented By: TIFFANIE Lidocaine (Lidocaine 4 % Patch Adh..Patch) 1 patch TRANSDERMA DAILY [facility]; Protocol Last Admin: 07/15/22 11:34 Dose: 1 patch Documented By: TIFFANIE Morphine Sulfate (Morphine Sulfate 4 Mg/Ml Cartridge) 2 mg IVPUSH Q4H PRN; Protocol PRN Reason: Pain, Severe (Pain Scale 7-10) Ondansetron HCl (Ondansetron Hcl 4 Mg/2 Ml Vial) 4 mg IVPUSH Q8H PRN PRN Reason: Nausea and Vomiting Pharmacy Consult (Consult Rx Perform Med Rec) 1 each MISCELLANE ONCE PRN PRN Reason: Consult order Pharmacy Consult (Consult Rx Vancomycin Dosing) 1 each MISCELLANE DAILY PRN PRN Reason: Consult order Sodium Chloride (0.9 % Sodium Chloride Flush 3 Ml Syringe) 3 ml IVFLUSH QSHIFT [facility] Last Admin: 07/15/22 08:32 Dose: 3 ml Documented By: TIFFANIE Tamsulosin HCl (Tamsulosin Hcl 0.4 Mg Capsule) 0.4 mg PO DAILY@1700 [facility] Last Admin: 07/14/22 16:15 Dose: 0.4 mg Documented By: JAIME Labs CBC & Chem 7: 07/14/22 05:56 07/15/22 06:25 Labs: Laboratory Results - last 24 hr 07/14/22 07/14/22 07/15/22 16:14 20:41 06:25 Estim Creat Clear Calc 106.5 Estimated GFR > 60 POC Glucose 128 H 122 H 07/15/22 07/15/22 07:51 11:19 Estim Creat Clear Calc Estimated GFR POC Glucose 96 142 H Microbiology Microbiology Results: Microbiology 07/11/22 17:45 Blood Culture - Final Blood - Venous Corynebacterium species 07/11/22 18:06 Urine Culture - Final Urine clean catch - Urine dawson top Pseudomonas aeruginosa Enterococcus faecalis Assessment and Plan (1) Sepsis: Status: Acute (2) UTI (urinary tract infection) due to urinary indwelling Frederick catheter: Status: Acute (3) Dehydration: Status: Acute Plan d#5 86yo M with BPH, chronic Frederick for urinary retention, DM2, hx CVA, HTN, HLD, dementia admitted for sepsis due to UTI # complicated UTI due to indwelling catheter - suprapubic pain resolved, WBC normalized - CT showed Frederick balloon in prostate bed rather than bladder; replaced - UCx growing Pseudomonas aeruginosa + Enterococcus faecalis. BCx growing coag-neg Staph and Corynebacterium - d/c'ed ceftriaxone, d/c vancomycin, now on cefepime d#2 - ID consult requested # acute dehydration - resolved s/p IV fluids # DM2 - correction-dose lispro # HTN - continue amlodipine + furosemide # BPH with chronic retention/Frederick - Frederick replaced, continue tamsulosin # dementia without behavioral disturbance - baseline # candidiasis of groin - clotrimazole # HLD - atorvastatin # hx CVA - continue ASA + statin # VTE ppx: LMWH # dispo: plan home with VNA in next 2-3d In my clinical judgment, the patient requires continued hospitalization for the following reasons: IV ABX Quality Stroke Does the patient have a stroke diagnosis?: No VTE Prior VTE?: No VTE Risk Level:: Medical - moderate - high VTE Device Contraindication: Treatment Not Indicated VTE Drug Contraindication: N/A - Med Ordered
[2022-07-15 16:00] VITALS: BP 137/70; PULSE 77; RESP 17; TEMP 36.6; O2SAT 98
[2022-07-15 16:20] LABS: Glucose, Whole Blood 154 mg/dL (60-115)
[2022-07-15] MEDS: Tamsulosin HCL 0.4 MG CAPSULE PO (16:45)
[2022-07-15] MEDS: Insulin Lispro 100 UNIT/ML 3 ML VIAL SUBCUT (16:45)
[2022-07-15 17:58] LABS: Vancomycin Trough 11.4 mcg/mL (10.0-20.0)
[2022-07-15 19:36] VITALS: BP 144/75; PULSE 78; RESP 17; TEMP 36.8; O2SAT 98
[2022-07-15 20:07] LABS: Glucose, Whole Blood 90 mg/dL (60-115)
[2022-07-15] MEDS: Enoxaparin Sodium 40 MG/0.4 ML SYRINGE SUBCUT (20:07)
[2022-07-16] VITALS: BP 144/73; PULSE 80; RESP 18; TEMP 36.3; O2SAT 99
[2022-07-16 06:01] LABS: Creatinine Clr Calc Pharmacy 104.5; Estimated Glomerular Filt Rate > 60
[2022-07-16 07:17] VITALS: BP 134/65; PULSE 79; RESP 16; TEMP 36.1; O2SAT 96
[2022-07-16 07:29] LABS: Glucose, Whole Blood 97 mg/dL (60-115)
[2022-07-16] MEDS: Acetaminophen 325 MG TABLET 650 MG PO (08:04)
[2022-07-16] MEDS: Atorvastatin Calcium 80 MG TABLET PO (08:04)
[2022-07-16] MEDS: Aspirin Enteric Coated 81 MG TABLET.DR PO (08:04)
[2022-07-16] MEDS: 0.9 % Sodium Chloride Flush 3 ML SYRINGE IVFLUSH ×2 (08:05→18:07)
[2022-07-16] MEDS: Ammonium Lactate 12 % Lotion 226 GM BOTTLE 1 APPL TOPICAL (08:05)
[2022-07-16] MEDS: cefEPime HCl 2 GM in 0.9 % Sodium Chloride 50 ML IV (08:05)
[2022-07-16] MEDS: Clotrimazole 1 % Cream 15 GM TUBE 1 APPL TOPICAL (08:05)
[2022-07-16] MEDS: Lidocaine 4 % Patch ADH..PATCH 1 PATCH TRANSDERMA (08:06)
[2022-07-16 11:40] LABS: Glucose, Whole Blood 119 mg/dL (60-115)
[2022-07-16 11:45] VITALS: BP 126/58; PULSE 76; RESP 20; TEMP 36.1; O2SAT 97
--- NOTE | 2022-07-16 13:49 | P.DS_ITS ---
DS: Providers Provider Date of Service: 07/16/22 Date of admission: 07/11/22 20:19 Date of discharge: 07/16/22 Primary care physician: Adi Campos PA-C Consults: 07/15/22 09:01 Consult to Infectious Diseases Routine Consulting Provider: Clover Odom Reason for consultation: complciated UTI DS: Diagnosis Discharge Diagnosis (1) Sepsis: Status: Acute (2) UTI (urinary tract infection) due to urinary indwelling Spencer catheter: Status: Acute (3) Dehydration: Status: Acute DS: Summary Hospital Course Hospital Course: from admission H+P by hospitalist SAMPSON Sorto, 07/11/22: 86 year old male with history of BPH with chronic spencer for urinary retention, noninsulin depdendent type 2 diabetes, hx CVA, htn, hld, and dementia presented to the ED today for evaluation of suprapubic pain via EMS. Patient is a poor historian secondary to his dementia and history of CVA. Per pt's healthcare proxy, Melia (south african interpretor used for phone interview), pt's VNA nurse came to change his spencer yesterday and noted malodorous discharge from the penis. At that point patient reported the suprapubic pressure and there has been decreased output from spencer catheter. No hematuria. On arrival, patient tahycardic to 118. He is afebrile, no hypotension. WBC 20.4. Renal functionand l ytes normal. Lactic acid 4.1 thought to be secondary to dehydration as patient is very dry. UA with 3+leuks, nitrite positive, 3+ blood, 3+ protein, 4+ bacteria. Given 2.5L IVF and ceftriaxone.? CT of the abdomen/ pelvis shows the Spencer catheter balloon in the prostate bed rather than the bladder.? The bladder is [id number]-[id number] dilated with surrounding soft tissue stranding.? There is also mild fullness of the renal collecting systems leading into the bladder.? Subsequent bladder scan shows 422 mL.? Patient to be admitted for acute cystitis with sepsis. This 86yo M with BPH, chronic Spencer for urinary retention, DM2, hx CVA, HTN, HLD, and dementia was admitted for sepsis due to complicated UTI related to indwelling catheter. The catheter was replaced, as the CT showed the prior catheter's balloon was in the prostate bed rather than in the bladder. Urine culture grew both Pseudomonas aeruginosa + Enterococcus faecalis.? These were sensitive to fluoroquinolones. Blood culture grew coag-neg Staph and Corynebacterium, which were both contaminants. He was initially treated with ceftriaxone and vancomycin but transitioned to cefepime once the urine culture results returned. He was also given IV fluids. Leukocytosis resolved, as did lactic acidosis. ID was consulted. Due to the injury to the prostate, it was thought prudent to treat this infection as prostatitis and as such, after getting 2 days of cefepime, he was discharged home on 26 days of levofloxacin. He should follow up with primary care within 2 weeks and was also referred for outpatient urologic follow-up. VNA services to resume upon discharge. Time Spent with Patient Time attestation: Total time spent providing and/or coordinating discharge services: Discharge coordination time: Greater than 30 minutes Quality: Safe Use of Opioids Does Pt have an Active Cancer Diagnosis on the Problem List?: No Quality: Stroke Does the patient have a stroke diagnosis?: No Physical Exam Vital Signs: Vital Signs: Last Vital Signs Temp 96.9 F 07/16/22 11:45 Pulse 76 07/16/22 11:45 Resp 20 07/16/22 11:45 BP 126/58 L 07/16/22 11:45 Pulse Ox 97 07/16/22 11:45 O2 Del Method 07/16/22 11:45 BMI result Body Mass Index 23.3 DS: Data Data Completed and Pending Completed studies during hospitalization [Text1]: Procedures Insertion of Infusion Device into Superior Vena Cava, Percutaneous Approach (04/14/22) Resection of Gallbladder, Percutaneous Endoscopic Approach (05/21/22) Ultrasonography of Superior Vena Cava, Guidance (04/14/22) Labs on day of discharge: Laboratory Results - last 24 hr 07/15/22 07/15/22 07/15/22 16:01 16:06 19:39 Creatinine Estim Creat Clear Calc Estimated GFR POC Glucose 154 H 90 Vancomycin Trough 11.4 07/16/22 07/16/22 07/16/22 05:38 07:16 11:31 Creatinine 0.53 Estim Creat Clear Calc 104.5 Estimated GFR > 60 POC Glucose 97 119 H Vancomycin Trough Discharge Plan Discharge Anticipated Discharge Date/Time: 07/16/22 13:43 Patient Disposition: Home Health Service Discharge Diagnosis: sepsis due to complicated UTI Referrals: Adi Campos PA-C [Primary Care Provider] - 1 Week [facility] [place]Provider Group] - 2 Weeks Discharge Medications: New levofloxacin 500 mg tablet 500 mg PO DAILY Qty: 26 0RF Continued clotrimazole 1 % cream 1 appl topical BID 28 Days Qty: 45 0RF furosemide 20 mg tablet 20 mg PO DAILY 10 Days Qty: 10 0RF aspirin 81 mg Tablet,Delayed Release (Dr/Ec) 81 mg PO DAILY amlodipine 5 mg Tablet 5 mg PO DAILY 30 Days Qty: 30 0RF Protocol: Hold for SBP< HOLD for SBP < : 90 tamsulosin 0.4 mg Capsule 0.4 mg PO DAILY@1700 30 Days Qty: 30 0RF atorvastatin 80 mg Tablet 80 mg PO DAILY 30 Days Qty: 30 0RF Hold Instructions: Hold until follow up labs show decrease in liver function/follow up with PCP metformin 500 mg tablet 500 mg PO DAILY 90 Days Qty: 90 1RF Discharge Orders: Discharge Order (Routine); Ordered 07/16/22 Ordered By: Arias Fenton Diet: Diabetic diet Activity on Discharge: As tolerated Stand Alone Forms: Patient Portal Discharge page Care Plan Goals: cure of urinary tract infection Health Concerns: complicated UTI Plan of Treatment: levofloxacin 500 mg daily x 26 days follow up with urologist in 1-2 weeks Please follow up with your primary care doctor within 1 week. Return to the hospital if you experience recurrent or worsening symptoms. Assessment: See Discharge Summary.
--- NOTE | 2022-07-16 14:38 | MHC.CM.PN ---
CM CONTACTED PT'S FAMILY DIO AT 2:25PM AT [facility]'S NUMBER O FILE, DIO REPORTS HE IS AT WORK UNTIL 5PM AND AGREEABLE TO 5:30PM DISCHARGE W/[facility] FOR BLS TRANSPORT AND RESUMPTION OF COMFORT PLUS AND FAMILY SUPPORT. DIO AWARE PT WILL NEED HIS ABX PICKED UP FROM PHARMACY.
--- NOTE | 2022-07-16 15:12 | P.CNID_ITS ---
History of Present Illness Data of Consult Service Date: 07/16/22 Requesting physician: Arias Fenton Primary Care Provider: Adi Campos PA-C HPI Reason for consult: UTI with sepsis He feels ill with weakness and has chronic Frederick. He has Pseudomonas and enterococcus urine. He has chronic Frederick catheter and had catheter adjacent to bladder wall near prostate. Review of Systems Review of Systems: Yes all other systems are reviewed and are negative PMFSH Past Medical History Medical History Abdominal lymphadenopathy Acute left-sided weakness Cerebrovascular accident Dementia Diabetes Diverticulosis DMII (diabetes mellitus, type 2) Enlarged prostate Hematuria HTN (hypertension) Hypertension Family History Family History Father Asthma CAD (coronary artery disease) Family history: reviewed and not pertinent Social History Social History Household Members: Other Household Members Other:: group home Housing: [facility] Do you presently have visiting nurse or other home services: No Unable to assess alcohol history related to: Unknown Alcohol intake: never Patient Tobacco Use Status: Former Tobacco user Tobacco use type: Cigarette e-Cigarette/Vaping Use: Never Used Second Hand Smoke Exposure: No Advance Directives Date on File: 05/14/22 service: No Current occupational status: retired Cognitive needs: Yes Hearing needs: No Vision needs: Yes (cataracts in both eyes) Meds Allergies Allergy/AdvReac Type Severity Reaction Status Date / Time No Known Allergies Allergy Verified 05/21/22 12:36 [No Known Allergies*] Active Medications: Current Medications Acetaminophen (Acetaminophen 325 Mg Tablet) 650 mg PO Q6H PRN PRN Reason: Pain, Mild (Pain Scale 1-3) Last Admin: 07/16/22 08:04 Dose: 650 mg Aspirin (Aspirin Enteric Coated 81 Mg Tablet.) 81 mg PO DAILY [facility] Last Admin: 07/16/22 08:04 Dose: 81 mg Atorvastatin Calcium (Atorvastatin Calcium 80 Mg Tablet) 80 mg PO DAILY [facility] Last Admin: 07/16/22 08:04 Dose: 80 mg Clotrimazole (Clotrimazole 1 % Cream 15 Gm Tube) 1 appl TOPICAL BID [facility]; Protocol Last Admin: 07/16/22 08:05 Dose: 1 appl Dextrose (Dextrose 50 % 25 Gm/50 Ml Syringe) 25 gm IVPUSH Q15M PRN; Protocol PRN Reason: per Hypoglycemia Standing Ord. Docusate Sodium (Docusate Sodium 100 Mg Capsule) 100 mg PO DAILY PRN PRN Reason: Constipation Enoxaparin Sodium (Enoxaparin Sodium 40 Mg/0.4 Ml Syringe) 40 mg SUBCUT Q24H [facility] Last Admin: 07/15/22 20:07 Dose: 40 mg Glucose (Glucose Gel 15 Gm Gel..Gram.) 15 gm PO Q15M PRN; Protocol PRN Reason: per Hypoglycemia Standing Ord. Cefepime HCl 2 gm/ Sodium (Chloride) 50 mls @ 100 mls/hr IV Q12H [facility] Last Infusion: 07/16/22 08:35 Dose: Infused Insulin Human Lispro (Insulin Lispro 100 Unit/Ml 3 Ml Vial) 0 unit SUBCUT QIDACHS [facility]; Protocol Last Admin: 07/16/22 11:46 Dose: Not Given Lactic Acid (Ammonium Lactate 12 % Lotion 226 Gm Bottle) 1 appl TOPICAL BID [facility]; Protocol Last Admin: 07/16/22 08:05 Dose: 1 appl Lidocaine (Lidocaine 4 % Patch Adh..Patch) 1 patch TRANSDERMA DAILY [facility]; Protocol Last Admin: 07/16/22 08:06 Dose: 1 patch Morphine Sulfate (Morphine Sulfate 4 Mg/Ml Cartridge) 2 mg IVPUSH Q4H PRN; Pr otocol PRN Reason: Pain, Severe (Pain Scale 7-10) Ondansetron HCl (Ondansetron Hcl 4 Mg/2 Ml Vial) 4 mg IVPUSH Q8H PRN PRN Reason: Nausea and Vomiting Pharmacy Consult (Consult Rx Perform Med Rec) 1 each MISCELLANE ONCE PRN PRN Reason: Consult order Pharmacy Consult (Consult Rx Vancomycin Dosing) 1 each MISCELLANE DAILY PRN PRN Reason: Consult order Sodium Chloride (0.9 % Sodium Chloride Flush 3 Ml Syringe) 3 ml IVFLUSH QSHIFT [facility] Last Admin: 07/16/22 08:05 Dose: 3 ml Tamsulosin HCl (Tamsulosin Hcl 0.4 Mg Capsule) 0.4 mg PO DAILY@1700 [facility] Last Admin: 07/15/22 16:45 Dose: 0.4 mg Home Medications Medication Instructions Recorded Confirmed Last Taken Type aspirin 81 mg tablet,delayed 81 mg PO DAILY 05/22/22 07/11/22 Unknown History release Physical Exam Vital Signs: Vital Signs: Last Vital Signs Temp 96.9 F 07/16/22 11:45 Pulse 76 07/16/22 11:45 Resp 20 07/16/22 11:45 BP 126/58 L 07/16/22 11:45 Pulse Ox 97 07/16/22 11:45 O2 Del Method 07/16/22 11:45 BMI result Body Mass Index 23.3 Const: General: cooperative HEENT: Head: Yes normal to inspection Face and sinus: Yes normal facial exam Mouth: Normal oral and palatal mucosa present Teeth and gingiva: dentition normal Eyes: General: appearance normal, both eyes and all related structures Pupils: Equal, round and reactive pupils present Resp: Effort & Inspection: normal respiratory effort Cardio: Rate: regular rate Rhythm: regular rhythm GI: Palpation (GI): Soft to palpation and nontender : General: Yes no CVA tenderness Back/Spine/Pelvis: Back: no CVA tenderness Skin: General skin exam: no rashes or lesions noted Neuro: General: moves all extremities Cranial nerves: Yes Equal, round and reactive pupils present Extrem: General: Yes normal to inspection Psych: Other: alert Results Labs CBC & Chem 7: 07/14/22 05:56 07/16/22 05:38 Labs: BMP 07/16/22 05:38 Creatinine 0.53 Microbiology Microbiology Results: Microbiology 07/11/22 17:45 Blood - Venous Blood Culture - Final Corynebacterium species 07/11/22 18:06 Urine clean catch - Urine dawson top Urine Culture - Final Pseudomonas aeruginosa Enterococcus faecalis 07/11/22 17:45 Blood - Venous Blood Culture - Final Coag negative Staphylococcus Assessment and Plan (1) UTI (urinary tract infection) due to urinary indwelling Frederick catheter: Status: Acute He has Pseudomonas and enterococcus sensitive to Levaquin urine He has chronic Frederick catheter. He has possible prostatis possibly Plan Would continue Levaquin for 28 days
[2022-07-16 15:16] VITALS: BP 132/70; PULSE 71; RESP 18; TEMP 36.2; O2SAT 100
[2022-07-16 16:04] LABS: Glucose, Whole Blood 125 mg/dL (60-115)
[2022-07-16] MEDS: Tamsulosin HCL 0.4 MG CAPSULE PO (18:07)
== END 2022-07-16 18:48 | disposition home health service (06) | DRG 698 ==
LOC: HO.ED 17:39 → HO.EDOVER 20:45 → HO.IMC 20:56 → HO.S3 07-14 19:16
PROVIDERS: Hospitalist; Student in an Organized Health Care Education/Training Program; Admitting Provider Physician Assistant; Emergency Provider Emergency Medicine; PCP Physician Assistant; Visit Provider Family Medicine
DX: T83.511A Infection and inflammatory reaction due to indwelling urethral catheter, initial encounter (principal); A41.9 Sepsis, unspecified organism; B37.49 Other urogenital candidiasis; E86.0 Dehydration; E11.9 Type 2 diabetes mellitus without complications; I10 Essential (primary) hypertension; F03.90 Unspecified dementia, unspecified severity, without behavioral disturbance, psychotic disturbance, mood disturbance, and anxiety; N40.1 Benign prostatic hyperplasia with lower urinary tract symptoms; R33.8 Other retention of urine; N41.9 Inflammatory disease of prostate, unspecified; B95.2 Enterococcus as the cause of diseases classified elsewhere; B96.5 Pseudomonas (aeruginosa) (mallei) (pseudomallei) as the cause of diseases classified elsewhere; Z20.822 Contact with and (suspected) exposure to COVID-19; Z86.73 Personal history of transient ischemic attack (TIA), and cerebral infarction without residual deficits; Z79.82 Long term (current) use of aspirin; Z79.84 Long term (current) use of oral hypoglycemic drugs; Z79.899 Other long term (current) drug therapy
CPT/HCPCS: 36415; 74176; 80048; 80076; 80202; 81001; 82565; 82947; 83605; 83690; 83735; 84484; 85007; 85025; 85027; 85610; 87040; 87086; 87088; 87147; 87186; 87205; 87635; 93005; 99285; C1758; J0692; J0696; J1650; J3370

== ENCOUNTER 2022-09-20 16:43 | Inpatient (IN) | payer MEDICARE, OTHER, SELFPAY ==
[2022-09-20] VITALS (12 sets, daily range): BP systolic 62–112; BP diastolic 19–79; PULSE 80–104; RESP 12–21; TEMP 36.2–38.5; O2SAT 93–97; BMI 21.7
--- NOTE | 2022-09-20 17:39 | ECG_ITS ---
Test Reason : WEAKNESS Blood Pressure : / mmHG Vent. Rate : 091 BPM Atrial Rate : 091 BPM P-R Int : 150 ms QRS Dur : 106 ms QT Int : 412 ms P-R-T Axes : 068 -15 -27 degrees QTc Int : 506 ms Artifact on tracing Normal sinus rhythm Right bundle branch block When compared with ECG of 11-JUL-2022 17:26, Poor data quality in current ECG precludes serial comparison Referred By: Sandhya Woodall Electronically Signed By:Otto Candelaria
[2022-09-20] MEDS: 0.9 % Sodium Chloride 3,000 ML 999 ML IVCONT (17:48)
[2022-09-20 18:04] LABS: Lactic Acid 11.8 mmol/L (0.5-2.0)
[2022-09-20 18:07] LABS: Hematocrit 52.2 % (42.0-52.0); Hemoglobin 16.5 g/dl (14.0-18.0); Mean Corpuscular HGB Conc 31.6 g/dl (31.0-36.0); Mean Corpuscular Volume 85.3 fL (80.0-98.0); Mean Platelet Volume 13.3 fL (9.4-12.4); NRBC Pct Auto 0.5 /100WBC (0.0-0.2); Red Blood Count 6.12 X10*6/uL (4.60-5.80); Red Cell Distribution Width 18.2 % (11.0-16.0); White Blood Count 15.4 X10*3/uL (4.8-10.8)
[2022-09-20 18:11] LABS: INTERNATIONAL NORM RATIO 1.1 (0.9-1.1); Prothrombin Time 12.2 SEC (10.0-13.1)
--- NOTE | 2022-09-20 18:25 | PC.NURSE ---
pt non verbal at this time, cardiac cath lab radiology technologist applied, rt ej inserted by provider, labs drawn, bc drawn, pts pressures were hypotensive pt ivf started per order, nasal swabs obtained, urine obtained, will continue to monitor.
[2022-09-20 18:28] LABS: PLT ABN DIST 1
[2022-09-20 18:30] LABS: Appearance Urine Cloudy; Color Urine Dark Yellow; Glucose Urine UA Negative (Negative); Leukocyte Esterase Urine Small (1+) (Negative); Nitrite Urine Negative (Negative); PH 5.5 (5.0-9.0); UMIC TRIGGER UACC YES; Urine Blood Small (1+) (Negative); Urine Ketones Negative (Negative); Urine Protein 100 (2+) mg/dL (Neg-Trace)
[2022-09-20 18:31] LABS: B Type Natriuretic Peptide 106 pg/mL (<100)
[2022-09-20 18:32] LABS: Troponin-I High Sensitivity 260.4 ng/L (<3.5-35.0)
[2022-09-20 18:38] LABS: Influenza A PCR NEGATIVE (Negative); Influenza B PCR NEGATIVE (Negative); Resp Syncy Virus RNA Qual PCR NEGATIVE (Negative); SARS COV2 PCR INHOUSE POSITIVE (Negative)
[2022-09-20 18:47] LABS: Alanine Aminotransferase 44 U/L (0-40); Albumin Level 2.7 g/dL (3.5-5.0); Alkaline Phosphatase 178 U/L (39-117); Anion Gap 31 (12-20); Aspartate Amino Transferase 121 U/L (5-37); Bilirubin Direct 0.8 mg/dL (0.0-0.5); Bilirubin Total 1.3 mg/dL (0.0-1.0); Blood Urea Nitrogen 45 mg/dL (9-16); Calcium 8.7 mg/dL (8.4-10.2); Carbon Dioxide 26 mmol/L (22-29); Chloride 104 mmol/L (96-108); Estimated Glomerular Filt Rate 22; Glucose Random 167 mg/dL (60-115); Lipase 14 U/L (8-78); Magnesium 2.1 mg/dL (1.6-2.6); Potassium 3.3 mmol/L (3.3-5.1); Sodium 158 mmol/L (135-145); TSH reflex Free T4 4.12 uIU/mL (0.32-4.0); Total Protein 5.7 g/dL (6.5-8.0)
[2022-09-20 18:51] LABS: Atypical Lymph Absolute Manual 0.6 x10*3/uL; Atypical Lymphs Percent Manual 4 % (0-6); Lymphocytes Absolute Manual 0.9 X10*3/uL (1.2-4.9); Lymphocytes Percent Manual 6 % (20-40); Metamyelocytes Absolute 0.8 X10*3/uL; Metamyelocytes Percent 5 %; Monocytes Absolute Manual 0.5 X10*3/uL (0.1-1.2); Monocytes Percent Manual 3 % (2-11); Neutrophils Absolute Manual 12.6 X10*3/uL (2.0-8.3); Neutrophils Percent Manual 53 % (45-73); Nucleated Red Blood Cells 2 /100WBC (0-0)
[2022-09-20 18:58] LABS: Band Neutrophils Percent 29 % (3-5); Burr Cells 1+ (0-2) /OIF; Platelet Estimate NORMAL (NORMAL); RBC Morphology NORMAL
[2022-09-20 18:59] LABS: Platelet Morphology Comment NORMAL
[2022-09-20] MEDS: cefTRIAXone sodium 1 GM in 0.9 % Sodium Chloride 50 ML IV (18:59)
--- NOTE | 2022-09-20 18:59 | PC.NURSE ---
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
[2022-09-20 19:06] LABS: Bacteria Urine None Seen (None Seen); Hyaline Casts Urine 0-2 /LPF (0-2); Squamous Epithelial Cell Urine 0-2 /HPF (0-2); UACC Culture Trigger YES; WBC Urine 0-5 /HPF (0-5)
--- NOTE | 2022-09-20 19:06 | PC.NURSE ---
Addendum entered by Thao Jean RN 09/21/22 04:24: report given to FORM SETTER STE[employer] PAN FORMSBRITT Everett Addendum entered by Thao Jean RN 09/21/22 03:56: hematoma notice to L back of the shoulder. ICU VEHICLE DAMAGE APPRAISER aware that pt IV infiltrated. Addendum entered by Thao Jean RN 09/21/22 02:37: ICU VEHICLE DAMAGE APPRAISER Radha made aware that pt lost another IV, per provider she will place another line once the pt arrived to ICU Addendum entered by Thao Jean RN 09/21/22 00:13: Per Dr. Lynne to give second argon tester of albumin no instead at the schedule time Addendum entered by Thao Jean RN 09/20/22 19:28: pt is alert and oriented to self resting in bed pt covered in stool, incontinent care provided. pressure ulcer notice to L hip pt on continuos cardiac monitoring breathing equally unlabored close monitoring maintained Original Note: report received from BRITT Hernadez
[2022-09-20 20:28] LABS: ~Lactic Acid-LAB USE ONLY 12.5 mmol/L (0.5-2.0)
--- NOTE | 2022-09-20 20:29 | PC.NURSE ---
provider and nurse notified of critical labs cpk 2840, lactic 12.5
[2022-09-20 20:35] LABS: Anion Gap 29 (12-20); Blood Urea Nitrogen 43 mg/dL (9-16); Carbon Dioxide 18 mmol/L (22-29); Chloride 114 mmol/L (96-108); Creatinine Clr Calc Pharmacy 19.3; Estimated Glomerular Filt Rate 27; Glucose Random 131 mg/dL (60-115); Potassium 3.2 mmol/L (3.3-5.1); Sodium 158 mmol/L (135-145)
--- NOTE | 2022-09-20 20:47 | ED.GENADULT ---
HPI - General Adult General Chief complaint: Altered Mental Status Stated complaint: ?SEPSIS Time Seen by Provider: 09/20/22 16:50 Source: patient and EMS Mode of arrival: EMS Limitations: no limitations History of Present Illness HPI narrative: Patient comes to the emergency room complaining of severe weakness, dehydration, altered mental status. The patient comes via EMS from home, EMS reports that the family said that pain much everyone in the family has COVID-19. They noticed that the patient has been weaker and less alert since yesterday. Patient is unable to give any significant history. Patient is awake, alert, unable to answer any questions.I was made aware by the patient's nurse that on arrival, blood pressure was 67/30, heart rate 104, patient has a Frederick catheter, urine looks dark and cloudy. Related Data Home Medications Medication Instructions Recorded Confirmed aspirin 81 mg tablet,delayed 81 mg PO DAILY 05/22/22 07/30/22 release Previous Rx's Medication Instructions Recorded clotrimazole 1 % topical cream 1 appl topical BID 4 weeks #45 06/06/22 grams furosemide 20 mg tablet 20 mg PO DAILY 10 days #10 tabs 07/02/22 levofloxacin 500 mg tablet 500 mg PO DAILY #26 tabs 07/16/22 acetaminophen 500 mg capsule 500 mg PO QID PRN fever 30 days 07/30/22 #120 caps amlodipine 5 mg tablet 5 mg PO DAILY 30 days #90 tabs 07/30/22 atorvastatin 80 mg tablet 80 mg PO DAILY 90 days #90 tabs 07/30/22 metformin 500 mg tablet 500 mg PO DAILY 90 days #90 tabs 07/30/22 tamsulosin 0.4 mg capsule 0.4 mg PO DAILY@1700 30 days #30 07/30/22 caps miscellaneous medical supply 1 ea miscellaneous DAILY 99 days 08/08/22 #1 ea Allergies Allergy/AdvReac Type Severity Reaction Status Date / Time No Known Allergies Allergy Verified 07/30/22 11:04 [No Known Allergies*] Review of Systems Review of Systems: Yes Unobtainable due to mental condition PMFSH Past Medical History Medical History Abdominal lymphadenopathy Acute left-sided weakness Cerebrovascular accident Conjunctivitis Dementia Diabetes Diverticulosis DMII (diabetes mellitus, type 2) Enlarged prostate Hematuria HTN (hypertension) Hypertension Family History Family History Father Asthma CAD (coronary artery disease) Social History Social History Household Members: Other Household Members Other:: prison Housing: Halfway Do you presently have visiting nurse or other home services: No Unable to assess alcohol history related to: Unknown Alcohol intake: unknown Patient Tobacco Use Status: Former Tobacco user Tobacco use type: Cigarette Smoked in Last 30 Days: No e-Cigarette/Vaping Use: Never Used Second Hand Smoke Exposure: No Use of substances other than those prescribed or required for medical reasons: Unable to respond Advance Directives: Yes Advance Directives on File: Yes Advance Directives Date on File: 05/14/22 service: No Current occupational status: retired Cognitive needs: Yes Hearing needs: No Vision needs: Yes (cataracts in both eyes) Physical Exam ED Vital Signs: Vital Signs - 24 hr 09/20/22 16:50 09/20/22 17:48 09/20/22 18:13 Temperature 101.3 F H Pulse Rate 104 H 99 93 Respiratory Rate 18 12 20 Blood Pressure 67/30 L 72/45 L 112/79 Pulse Oximetry 97 Oxygen Delivery Method Room Air Room Air Room Air 09/20/22 17:37 09/20/22 17:58 09/20/22 18:13 Temperature Pulse Rate 100 96 89 Respiratory Rate 15 12 20 Blood Pressure 91/49 L 62/19 L 112/79 Pulse Oximetry 93 97 Oxygen Delivery Method Room Air 09/20/22 18:29 09/20/22 18:43 09/20/22 18:58 Temperature Pulse Rate 99 104 H 90 Respiratory Rate 18 16 18 Blood Pressure 100/75 103/75 107/74 Pulse Oximetry 97 96 97 Oxygen Delivery Method Room Air Simple Mask Room Air Room Air 09/20/22 19:26 09/20/22 21:00 09/20/22 21:40 Temperature 97.1 F Pulse Rate 91 85 89 Respiratory Rate 13 21 H 17 Blood Pressure 104/73 94/73 93/58 L Pulse Oximetry 97 97 96 Oxygen Delivery Method Room Air Room Air Room Air 09/20/22 23:32 09/21/22 00:04 09/21/22 00:30 Temperature Pulse Rate 80 82 86 Respiratory Rate 20 17 23 H Blood Pressure 92/50 L 91/73 95/63 Pulse Oximetry 97 98 96 Oxygen Delivery Method Room Air Room Air Room Air 09/21/22 01:01 09/21/22 01:47 Temperature Pulse Rate 84 86 Respiratory Rate 19 26 H Blood Pressure 104/65 94/63 Pulse Oximetry 96 96 Oxygen Delivery Method Room Air Room Air BMI result Body Mass Index 21.7 Const Other: Appearance: Alert. Oriented x1 it is altered, seems very uncomfortable, ill-appearing Eyes: Pupils equal, round and reactive to light. ENT: Very dry oral mucosa Neck: Normal inspection. Neck supple. No lymph nodes noted. No crepitus CVS: Tachycardic, regular rhythm. Pulses normal. Normal S1 and S2 Respiratory: No respiratory distress. Breath sounds normal. No Wheezing. No rales Abdomen: Soft and nontender. No rigidity. No distention. Skin: Skin warm and dry. Very dry, scaling of dry skin Extremities: No lower extremity edema. No Lacerations. No Rash Neuro: Very weak, unable to participating cranial nerve assessment Psych: calm, cooperative, Course Course Course Narrative: Patient has known COVID contacts. Patient arrived tachycardic, hypotensive, 3 L normal saline were bolused. Patient has no history of CHF. Empirically, patient received 1 g of ceftriaxone. After the bolus, was started receiving labs, patient's sodium 158, patient has new acute kidney injury 2.8, elevated leukocytosis at 15.4, lactic acid 11.8. Patient's CPK is 2840. Chest x-ray negative, COVID positive. Labs were repeated after the 3 L of normal saline, sodium a sterile elevated, fluid switched to D5W. Lactic acid worsen CT scan of the abdomen and pelvis pending. Patient's urinalysis is very positive for UTI. COVID positive, unclear if patient has abdominal pain, palpations sometimes he does not have any reaction, sometimes he groans in pain Patient is DNR DNI, I spoke with the patient's family, I discussed with them that the patient is severely sick. Patient will be going to intensive care unit. They confirmed that the patient wishes to be DNR DNI. Patient is unable to give any history. I discussed with the patient's [id number] who is the primary carpenter cradle and dolly I discussed the patient with Dr. Parikh, patient is not having any significant improvement despite multiple doses of IV fluids and albumin. Patient's blood pressure has been stable. However, patient is significantly sick. Prefers the patient is admitted to the ICU. I discussed the patient with Dr. Bower, who will be admitting the patient under his service. Medications Administered Generic Name Dose Route Start Last Admin Trade Name Freq PRN Reason Stop Dose Admin Dextrose 1,000 mls @ 125 mls/hr 09/20/22 20:45 09/20/22 21:36 D5w IVCONT 125 mls/hr .Q8H BEVERLY Administration Albumin Human 100 mls @ 100 mls/hr 09/20/22 21:15 09/21/22 00:23 Kedbumin 25 % IV 09/21/22 16:14 100 mls/hr Q6H BEVERLY Administration Discontinued Medications Generic Name Dose Route Start Last Admin Trade Name Freq PRN Reason Stop Dose Admin Sodium Chloride 3,000 mls @ 999 mls/hr 09/20/22 17:38 09/20/22 21:41 Ns IVCONT 09/20/22 20:38 Infused .Q3H1M ONE Infusion Ceftriaxone Sodium 1 gm/ 50 mls @ 100 mls/hr 09/20/22 17:42 09/20/22 20:10 Sodium Chloride IV 09/20/22 18:11 Infused ONCE ONE Infusion Potassium Chloride 10 meq in 100 mls @ 100 mls/hr 09/20/22 21:07 09/21/22 00:30 Potassium Chloride/H20 IV 09/20/22 22:06 Infused ONCE ONE Infusion Lactated Ringer's 1,000 mls @ 999 mls/hr 09/20/22 23:45 09/21/22 00:12 Lr IV 09/21/22 00:45 999 mls/hr .Q1H1M BEVERLY Administration Medical Decision Making Lab Data MDM Lab Attestation statement: I reviewed the patient's lab results. Result Diagrams: 09/20/22 17:35 09/21/22 01:23 Labs: Lab Results 09/20/22 09/20/22 09/20/22 Range/Units 17:35 17:35 17:35 WBC 15.4 H (4.8-10.8) X10*3/uL RBC 6.12 H D (4.60-5.80) X10*6/uL Hgb 16.5 D (14.0-18.0) g/dl Hct 52.2 H D (42.0-52.0) % MCV 85.3 (80.0-98.0) fL MCH 27.0 (27.0-33.0) pg MCHC 31.6 (31.0-36.0) g/dl RDW 18.2 H (11.0-16.0) % Plt Count TNP MPV 13.3 H (9.4-12.4) fL Immature Gran % (Auto) Cancelled Neut % (Auto) Cancelled Lymph % (Auto) Cancelled [place] % (Auto) Cancelled Eos % (Auto) Cancelled Baso % (Auto) Cancelled Lymph # (Auto) Cancelled [place] # (Auto) Cancelled Eos # (Auto) Cancelled Baso # (Auto) Cancelled Abs Immat Gran (auto) Cancelled Absolute Neuts (auto) Cancelled Absolute Nucleated RBC 0.070 H (0.0-0.012) X10*3/uL Nucleated RBC % (auto) 0.5 H (0.0-0.2) /100WBC Neutrophils % (Manual) 53 (45-73) % Band Neutrophils % 29 H (3-5) % Lymphocytes % (Manual) 6 L (20-40) % Atypical Lymphs % (Man) 4 (0-6) % Monocytes % (Manual) 3 (2-11) % Metamyelocytes % 5 % Abs Neuts (Manual) 12.6 H (2.0-8.3) X10*3/uL Lymphocytes # (Manual) 0.9 L (1.2-4.9) X10*3/uL Atyp Lymphs # (Manual) 0.6 x10*3/uL Monocytes # (Manual) 0.5 (0.1-1.2) X10*3/uL Metamyelocytes # 0.8 X10*3/uL Nucleated RBCs 2 H (0-0) /100WBC Platelet Estimate NORMAL (NORMAL) Plt Morphology Comment NORMAL RBC Morphology NORMAL Paul Cells 1+ (0-2) /OIF PT 12.2 (10.0-13.1) SEC INR 1.1 (0.9-1.1) VBG pH (7.32-7.43) VBG pCO2 mmHg VBG pO2 mmHg VBG HCO3 (22-26) mmol/L VBG O2 Saturation % VBG Base Excess mmol/L Sodium 158 H (135-145) mmol/L Potassium 3.3 (3.3-5.1) mmol/L Chloride 104 (96-108) mmol/L Carbon Dioxide 26 (22-29) mmol/L Anion Gap 31 H (12-20) BUN 45 H (9-16) mg/dL Creatinine 2.80 H (0.5-1.4) mg/dL Estim Creat Clear Calc 16.0 Estimated GFR 22 Random Glucose 167 H (60-115) mg/dL Lactic Acid (0.5-2.0) mmol/L Lactic Acid F/U @ 2Hr (0.5-2.0) mmol/L Lactic Acid F/U @ 4Hr (0.5-2.0) mmol/L Calcium 8.7 (8.4-10.2) mg/dL Magnesium 2.1 (1.6-2.6) mg/dL Total Bilirubin 1.3 H (0.0-1.0) mg/dL Direct Bilirubin 0.8 H (0.0-0.5) mg/dL AST 121 H (5-37) U/L ALT 44 H (0-40) U/L Alkaline Phosphatase 178 H (39-117) U/L Total Creatine Kinase 2840 H (38-174) U/L Troponin I High Sens (<3.5-35.0) ng/L B-Natriuretic Peptide (<100) pg/mL Total Protein 5.7 L (6.5-8.0) g/dL Albumin 2.7 L (3.5-5.0) g/dL Lipase 14 (8-78) U/L TSH 4.12 H (0.32-4.0) uIU/mL Free T4 1.00 (0.71-1.85) ng/dL Urine Color Urine Appearance Urine pH (5.0-9.0) Ur Specific [place] (1.005-1.025) Urine Protein (Neg-Trace) mg/dL Urine Glucose (UA) (Negative) mg/dL Urine Ketones (Negative) mg/dL Urine Blood (Negative) Urine Nitrite (Negative) Ur Leukocyte Esterase (Negative) Urine RBC (0-2) /HPF Urine WBC (0-5) /HPF Ur Squamous Epith Cells (0-2) /HPF Urine Bacteria (None Seen) Hyaline Casts (0-2) /LPF Urine Yeast COVID-19 ([facility]) COVID-19 Clin Com Influenza Type A (PCR) (Negative) Influenza Type B (PCR) (Negative) RSV RNA Qual (PCR) (Negative) SARS-CoV-2 RNA (RT-PCR) (Negative) 09/20/22 09/20/22 09/20/22 Range/Units 17:35 17:35 17:35 WBC (4.8-10.8) X10*3/uL RBC (4.60-5.80) X10*6/uL Hgb (14.0-18.0) g/dl Hct (42.0-52.0) % MCV (80.0-98.0) fL MCH (27.0-33.0) pg MCHC (31.0-36.0) g/dl RDW (11.0-16.0) % Plt Count MPV (9.4-12.4) fL Immature Gran % (Auto) Neut % (Auto) Lymph % (Auto) [place] % (Auto) Eos % (Auto) Baso % (Auto) Lymph # (Auto) [place] # (Auto) Eos # (Auto) Baso # (Auto) Abs Immat Gran (auto) Absolute Neuts (auto) Absolute Nucleated RBC (0.0-0.012) X10*3/uL Nucleated RBC % (auto) (0.0-0.2) /100WBC Neutrophils % (Manual) (45-73) % Band Neutrophils % (3-5) % Lymphocytes % (Manual) (20-40) % Atypical Lymphs % (Man) (0-6) % Monocytes % (Manual) (2-11) % Metamyelocytes % % Abs Neuts (Manual) (2.0-8.3) X10*3/uL Lymphocytes # (Manual) (1.2-4.9) X10*3/uL Atyp Lymphs # (Manual) x10*3/uL Monocytes # (Manual) (0.1-1.2) X10*3/uL Metamyelocytes # X10*3/uL Nucleated RBCs (0-0) /100WBC Platelet Estimate (NORMAL) Plt Morphology Comment RBC Morphology [place] Cells /OIF PT (10.0-13.1) SEC INR (0.9-1.1) VBG pH (7.32-7.43) VBG pCO2 mmHg VBG pO2 mmHg VBG HCO3 (22-26) mmol/L VBG O2 Saturation % VBG Base Excess mmol/L Sodium (135-145) mmol/L Potassium (3.3-5.1) mmol/L Chloride (96-108) mmol/L Carbon Dioxide (22-29) mmol/L Anion Gap (12-20) BUN (9-16) mg/dL Creatinine (0.5-1.4) mg/dL Estim Creat Clear Calc Estimated GFR Random Glucose (60-115) mg/dL Lactic Acid 11.8 H* (0.5-2.0) mmol/L Lactic Acid F/U @ 2Hr (0.5-2.0) mmol/L Lactic Acid F/U @ 4Hr (0.5-2.0) mmol/L Calcium (8.4-10.2) mg/dL Magnesium (1.6-2.6) mg/dL Total Bilirubin (0.0-1.0) mg/dL Direct Bilirubin (0.0-0.5) mg/dL AST (5-37) U/L ALT (0-40) U/L Alkaline Phosphatase (39-117) U/L Total Creatine Kinase (38-174) U/L Troponin I High Sens 260.4 H* (<3.5-35.0) ng/L B-Natriuretic Peptide 106 H (<100) pg/mL Total Protein (6.5-8.0) g/dL Albumin (3.5-5.0) g/dL Lipase (8-78) U/L TSH (0.32-4.0) uIU/mL Free T4 (0.71-1.85) ng/dL Urine Color Urine Appearance Urine pH (5.0-9.0) Ur Specific [place] (1.005-1.025) Urine Protein (Neg-Trace) mg/dL Urine Glucose (UA) (Negative) mg/dL Urine Ketones (Negative) mg/dL Urine Blood (Negative) Urine Nitrite (Negative) Ur Leukocyte Esterase (Negative) Urine RBC (0-2) /HPF Urine WBC (0-5) /HPF Ur Squamous Epith Cells (0-2) /HPF Urine Bacteria (None Seen) Hyaline Casts (0-2) /LPF Urine Yeast COVID-19 ([facility]) COVID-19 Clin Com Influenza Type A (PCR) (Negative) Influenza Type B (PCR) (Negative) RSV RNA Qual (PCR) (Negative) SARS-CoV-2 RNA (RT-PCR) (Negative) 09/20/22 09/20/22 09/20/22 Range/Units 17:36 17:37 17:47 WBC (4.8-10.8) X10*3/uL RBC (4.60-5.80) X10*6/uL Hgb (14.0-18.0) g/dl Hct (42.0-52.0) % MCV (80.0-98.0) fL MCH (27.0-33.0) pg MCHC (31.0-36.0) g/dl RDW (11.0-16.0) % Plt Count MPV (9.4-12.4) fL Immature Gran % (Auto) Neut % (Auto) Lymph % (Auto) [place] % (Auto) Eos % (Auto) Baso % (Auto) Lymph # (Auto) [place] # (Auto) Eos # (Auto) Baso # (Auto) Abs Immat Gran (auto) Absolute Neuts (auto) Absolute Nucleated RBC (0.0-0.012) X10*3/uL Nucleated RBC % (auto) (0.0-0.2) /100WBC Neutrophils % (Manual) (45-73) % Band Neutrophils % (3-5) % Lymphocytes % (Manual) (20-40) % Atypical Lymphs % (Man) (0-6) % Monocytes % (Manual) (2-11) % Metamyelocytes % % Abs Neuts (Manual) (2.0-8.3) X10*3/uL Lymphocytes # (Manual) (1.2-4.9) X10*3/uL Atyp Lymphs # (Manual) x10*3/uL Monocytes # (Manual) (0.1-1.2) X10*3/uL Metamyelocytes # X10*3/uL Nucleated RBCs (0-0) /100WBC Platelet Estimate (NORMAL) Plt Morphology Comment RBC Morphology Paul Cells /OIF PT (10.0-13.1) SEC INR (0.9-1.1) VBG pH 7.42 (7.32-7.43) VBG pCO2 39 mmHg VBG pO2 35 mmHg VBG HCO3 26 (22-26) mmol/L VBG O2 Saturation 47.0 % VBG Base Excess 1.7 mmol/L Sodium (135-145) mmol/L Potassium (3.3-5.1) mmol/L Chloride (96-108) mmol/L Carbon Dioxide (22-29) mmol/L Anion Gap (12-20) BUN (9-16) mg/dL Creatinine (0.5-1.4) mg/dL Estim Creat Clear Calc Estimated GFR Random Glucose (60-115) mg/dL Lactic Acid (0.5-2.0) mmol/L Lactic Acid F/U @ 2Hr (0.5-2.0) mmol/L Lactic Acid F/U @ 4Hr (0.5-2.0) mmol/L Calcium (8.4-10.2) mg/dL Magnesium (1.6-2.6) mg/dL Total Bilirubin (0.0-1.0) mg/dL Direct Bilirubin (0.0-0.5) mg/dL AST (5-37) U/L ALT (0-40) U/L Alkaline Phosphatase (39-117) U/L Total Creatine Kinase (38-174) U/L Troponin I High Sens (<3.5-35.0) ng/L B-Natriuretic Peptide (<100) pg/mL Total Protein (6.5-8.0) g/dL Albumin (3.5-5.0) g/dL Lipase (8-78) U/L TSH (0.32-4.0) uIU/mL Free T4 (0.71-1.85) ng/dL Urine Color Urine Appearance Urine pH (5.0-9.0) Ur Specific [place] (1.005-1.025) Urine Protein (Neg-Trace) mg/dL Urine Glucose (UA) (Negative) mg/dL Urine Ketones (Negative) mg/dL Urine Blood (Negative) Urine Nitrite (Negative) Ur Leukocyte Esterase (Negative) Urine RBC (0-2) /HPF Urine WBC (0-5) /HPF Ur Squamous Epith Cells (0-2) /HPF Urine Bacteria (None Seen) Hyaline Casts (0-2) /LPF Urine Yeast COVID-19 ([facility]) Cancelled COVID-19 Clin Com Cancelled Influenza Type A (PCR) NEGATIVE (Negative) Influenza Type B (PCR) NEGATIVE (Negative) RSV RNA Qual (PCR) NEGATIVE (Negative) SARS-CoV-2 RNA (RT-PCR) POSITIVE A (Negative) 09/20/22 09/20/22 09/20/22 Range/Units 18:16 19:58 19:58 WBC (4.8-10.8) X10*3/uL RBC (4.60-5.80) X10*6/uL Hgb (14.0-18.0) g/dl Hct (42.0-52.0) % MCV (80.0-98.0) fL MCH (27.0-33.0) pg MCHC (31.0-36.0) g/dl RDW (11.0-16.0) % Plt Count MPV (9.4-12.4) fL Immature Gran % (Auto) Neut % (Auto) Lymph % (Auto) [place] % (Auto) Eos % (Auto) Baso % (Auto) Lymph # (Auto) [place] # (Auto) Eos # (Auto) Baso # (Auto) Abs Immat Gran (auto) Absolute Neuts (auto) Absolute Nucleated RBC (0.0-0.012) X10*3/uL Nucleated RBC % (auto) (0.0-0.2) /100WBC Neutrophils % (Manual) (45-73) % Band Neutrophils % (3-5) % Lymphocytes % (Manual) (20-40) % Atypical Lymphs % (Man) (0-6) % Monocytes % (Manual) (2-11) % Metamyelocytes % % Abs Neuts (Manual) (2.0-8.3) X10*3/uL Lymphocytes # (Manual) (1.2-4.9) X10*3/uL Atyp Lymphs # (Manual) x10*3/uL Monocytes # (Manual) (0.1-1.2) X10*3/uL Metamyelocytes # X10*3/uL Nucleated RBCs (0-0) /100WBC Platelet Estimate (NORMAL) Plt Morphology Comment RBC Morphology [place] Cells /OIF PT (10.0-13.1) SEC INR (0.9-1.1) VBG pH (7.32-7.43) VBG pCO2 mmHg VBG pO2 mmHg VBG HCO3 (22-26) mmol/L VBG O2 Saturation % VBG Base Excess mmol/L Sodium 158 H (135-145) mmol/L Potassium 3.2 L (3.3-5.1) mmol/L Chloride 114 H (96-108) mmol/L Carbon Dioxide 18 L (22-29) mmol/L Anion Gap 29 H (12-20) BUN 43 H (9-16) mg/dL Creatinine 2.33 H (0.5-1.4) mg/dL Estim Creat Clear Calc 19.3 Estimated GFR 27 Random Glucose 131 H (60-115) mg/dL Lactic Acid Cancelled (0.5-2.0) mmol/L Lactic Acid F/U @ 2Hr (0.5-2.0) mmol/L Lactic Acid F/U @ 4Hr (0.5-2.0) mmol/L Calcium 7.0 L D (8.4-10.2) mg/dL Magnesium (1.6-2.6) mg/dL Total Bilirubin (0.0-1.0) mg/dL Direct Bilirubin (0.0-0.5) mg/dL AST (5-37) U/L ALT (0-40) U/L Alkaline Phosphatase (39-117) U/L Total Creatine Kinase (38-174) U/L Troponin I High Sens (<3.5-35.0) ng/L B-Natriuretic Peptide (<100) pg/mL Total Protein (6.5-8.0) g/dL Albumin (3.5-5.0) g/dL Lipase (8-78) U/L TSH (0.32-4.0) uIU/mL Free T4 (0.71-1.85) ng/dL Urine Color Dark Yellow Urine Appearance Cloudy Urine pH 5.5 (5.0-9.0) Ur Specific [place] 1.020 (1.005-1.025) Urine Protein 100 (2+) H (Neg-Trace) mg/dL Urine Glucose (UA) Negative (Negative) mg/dL Urine Ketones Negative (Negative) mg/dL Urine Blood Small (1+) H (Negative) Urine Nitrite Negative (Negative) Ur Leukocyte Esterase Small (1+) H (Negative) Urine RBC 11-20 H (0-2) /HPF Urine WBC 0-5 (0-5) /HPF Ur Squamous Epith Cells 0-2 (0-2) /HPF Urine Bacteria None Seen (None Seen) Hyaline Casts 0-2 (0-2) /LPF Urine Yeast Present COVID-19 ([facility]) COVID-19 Clin Com Influenza Type A (PCR) (Negative) Influenza Type B (PCR) (Negative) RSV RNA Qual (PCR) (Negative) SARS-CoV-2 RNA (RT-PCR) (Negative) 09/20/22 09/21/22 09/21/22 Range/Units 19:58 00:05 01:23 WBC (4.8-10.8) X10*3/uL RBC (4.60-5.80) X10*6/uL Hgb (14.0-18.0) g/dl Hct (42.0-52.0) % MCV (80.0-98.0) fL MCH (27.0-33.0) pg MCHC (31.0-36.0) g/dl RDW (11.0-16.0) % Plt Count MPV (9.4-12.4) fL Immature Gran % (Auto) Neut % (Auto) Lymph % (Auto) [place] % (Auto) Eos % (Auto) Baso % (Auto) Lymph # (Auto) [place] # (Auto) Eos # (Auto) Baso # (Auto) Abs Immat Gran (auto) Absolute Neuts (auto) Absolute Nucleated RBC (0.0-0.012) X10*3/uL Nucleated RBC % (auto) (0.0-0.2) /100WBC Neutrophils % (Manual) (45-73) % Band Neutrophils % (3-5) % Lymphocytes % (Manual) (20-40) % Atypical Lymphs % (Man) (0-6) % Monocytes % (Manual) (2-11) % Metamyelocytes % % Abs Neuts (Manual) (2.0-8.3) X10*3/uL Lymphocytes # (Manual) (1.2-4.9) X10*3/uL Atyp Lymphs # (Manual) x10*3/uL Monocytes # (Manual) (0.1-1.2) X10*3/uL Metamyelocytes # X10*3/uL Nucleated RBCs (0-0) /100WBC Platelet Estimate (NORMAL) Plt Morphology Comment RBC Morphology [place] Cells /OIF PT (10.0-13.1) SEC INR (0.9-1.1) VBG pH (7.32-7.43) VBG pCO2 mmHg VBG pO2 mmHg VBG HCO3 (22-26) mmol/L VBG O2 Saturation % VBG Base Excess mmol/L Sodium 156 H (135-145) mmol/L Potassium 3.0 L (3.3-5.1) mmol/L Chloride 110 H (96-108) mmol/L Carbon Dioxide 18 L (22-29) mmol/L Anion Gap 31 H (12-20) BUN 47 H (9-16) mg/dL Creatinine 2.51 H (0.5-1.4) mg/dL Estim Creat Clear Calc 17.9 Estimated GFR 24 Random Glucose 159 H (60-115) mg/dL Lactic Acid (0.5-2.0) mmol/L Lactic Acid F/U @ 2Hr 12.5 H* (0.5-2.0) mmol/L Lactic Acid F/U @ 4Hr 12.5 H* (0.5-2.0) mmol/L Calcium 7.9 L D (8.4-10.2) mg/dL Magnesium (1.6-2.6) mg/dL Total Bilirubin (0.0-1.0) mg/dL Direct Bilirubin (0.0-0.5) mg/dL AST (5-37) U/L ALT (0-40) U/L Alkaline Phosphatase (39-117) U/L Total Creatine Kinase (38-174) U/L Troponin I High Sens (<3.5-35.0) ng/L B-Natriuretic Peptide (<100) pg/mL Total Protein (6.5-8.0) g/dL Albumin (3.5-5.0) g/dL Lipase (8-78) U/L TSH (0.32-4.0) uIU/mL Free T4 (0.71-1.85) ng/dL Urine Color Urine Appearance Urine pH (5.0-9.0) Ur Specific [place] (1.005-1.025) Urine Protein (Neg-Trace) mg/dL Urine Glucose (UA) (Negative) mg/dL Urine Ketones (Negative) mg/dL Urine Blood (Negative) Urine Nitrite (Negative) Ur Leukocyte Esterase (Negative) Urine RBC (0-2) /HPF Urine WBC (0-5) /HPF Ur Squamous Epith Cells (0-2) /HPF Urine Bacteria (None Seen) Hyaline Casts (0-2) /LPF Urine Yeast COVID-19 ([facility]) COVID-19 Clin Com Influenza Type A (PCR) (Negative) Influenza Type B (PCR) (Negative) RSV RNA Qual (PCR) (Negative) SARS-CoV-2 RNA (RT-PCR) (Negative) 09/21/22 Range/Units 01:23 WBC (4.8-10.8) X10*3/uL RBC (4.60-5.80) X10*6/uL Hgb (14.0-18.0) g/dl Hct (42.0-52.0) % MCV (80.0-98.0) fL MCH (27.0-33.0) pg MCHC (31.0-36.0) g/dl RDW (11.0-16.0) % Plt Count MPV (9.4-12.4) fL Immature Gran % (Auto) Neut % (Auto) Lymph % (Auto) [place] % (Auto) Eos % (Auto) Baso % (Auto) Lymph # (Auto) [place] # (Auto) Eos # (Auto) Baso # (Auto) Abs Immat Gran (auto) Absolute Neuts (auto) Absolute Nucleated RBC (0.0-0.012) X10*3/uL Nucleated RBC % (auto) (0.0-0.2) /100WBC Neutrophils % (Manual) (45-73) % Band Neutrophils % (3-5) % Lymphocytes % (Manual) (20-40) % Atypical Lymphs % (Man) (0-6) % Monocytes % (Manual) (2-11) % Metamyelocytes % % Abs Neuts (Manual) (2.0-8.3) X10*3/uL Lymphocytes # (Manual) (1.2-4.9) X10*3/uL Atyp Lymphs # (Manual) x10*3/uL Monocytes # (Manual) (0.1-1.2) X10*3/uL Metamyelocytes # X10*3/uL Nucleated RBCs (0-0) /100WBC Platelet Estimate (NORMAL) Plt Morphology Comment RBC Morphology Paul Cells /OIF PT (10.0-13.1) SEC INR (0.9-1.1) VBG pH (7.32-7.43) VBG pCO2 mmHg VBG pO2 mmHg VBG HCO3 (22-26) mmol/L VBG O2 Saturation % VBG Base Excess mmol/L Sodium (135-145) mmol/L Potassium (3.3-5.1) mmol/L Chloride (96-108) mmol/L Carbon Dioxide (22-29) mmol/L Anion Gap (12-20) BUN (9-16) mg/dL Creatinine (0.5-1.4) mg/dL Estim Creat Clear Calc Estimated GFR Random Glucose (60-115) mg/dL Lactic Acid 11.7 H* (0.5-2.0) mmol/L Lactic Acid F/U @ 2Hr (0.5-2.0) mmol/L Lactic Acid F/U @ 4Hr (0.5-2.0) mmol/L Calcium (8.4-10.2) mg/dL Magnesium (1.6-2.6) mg/dL Total Bilirubin (0.0-1.0) mg/dL Direct Bilirubin (0.0-0.5) mg/dL AST (5-37) U/L ALT (0-40) U/L Alkaline Phosphatase (39-117) U/L Total Creatine Kinase (38-174) U/L Troponin I High Sens (<3.5-35.0) ng/L B-Natriuretic Peptide (<100) pg/mL Total Protein (6.5-8.0) g/dL Albumin (3.5-5.0) g/dL Lipase (8-78) U/L TSH (0.32-4.0) uIU/mL Free T4 (0.71-1.85) ng/dL Urine Color Urine Appearance Urine pH (5.0-9.0) Ur Specific [place] (1.005-1.025) Urine Protein (Neg-Trace) mg/dL Urine Glucose (UA) (Negative) mg/dL Urine Ketones (Negative) mg/dL Urine Blood (Negative) Urine Nitrite (Negative) Ur Leukocyte Esterase (Negative) Urine RBC (0-2) /HPF Urine WBC (0-5) /HPF Ur Squamous Epith Cells (0-2) /HPF Urine Bacteria (None Seen) Hyaline Casts (0-2) /LPF Urine Yeast COVID-19 ([facility]) COVID-19 Clin Com Influenza Type A (PCR) (Negative) Influenza Type B (PCR) (Negative) RSV RNA Qual (PCR) (Negative) SARS-CoV-2 RNA (RT-PCR) (Negative) Radiology Impression Discussion of test interpretation with radiology: I have reviewed the radiologist's reading. Radiologist Impression: FINDINGS: Chest: LUNGS: The lungs are well-expanded with bilateral apical parenchymal scarring and pleural thickening. Focal atelectatic changes seen in the left lung base. There is no acute consolidation, mass or nodule. There is a groundglass density seen scattered throughout both lower lobes, nonspecific likely low-grade inflammatory process or breathing artifact. PLEURA: There is no pleural effusion, thickening or pleural calcifications. MEDIASTINUM: Heart size is normal. No pericardial effusion seen. There is mild to moderate coronary artery calcifications. The central trachea and the bronchi are widely patent. The thyroid lobes are symmetrical and normal. No abnormal size mediastinal or hilar lymph nodes seen. AXILLA: There is no abnormal axillary lymph nodes. The chest wall appears normal. OSSEOUS STRUCTURES: No aggressive lytic or sclerotic process seen. There is calcification of the anterior longitudinal ligament likely. ABDOMEN AND PELVIS: LIVER, DUCTS AND GALLBLADDER: The liver is homogeneous in density, normal size and contour. No focal lesion seen. The gallbladder has been surgically removed. SPLEEN: Unremarkable. PANCREAS: There is mild atrophy with no focal mass or lesion seen. ADRENAL GLANDS: Unremarkable. KIDNEYS AND URETERS: Both kidneys are normal size, shape and contour. No radiopaque renal calculi or hydronephrosis seen. There is no perinephric stranding. LYMPHOVASCULAR STRUCTURES: The abdominal aorta is normal caliber. No retroperitoneal lymph nodes or mass seen. GI TRACT: There is scattered stool and groundglass seen in colon without any mural thickening or pericolic fat stranding. No colonic distention. There is nondilated air-filled levels in the small bowel loops mid segment with punctate gas seen within the mesentery on several axial images 32/11 through 38/11 and coronal images 26/15 through 30/15. There is no mural thickening. No gas is seen within the bowel wall at this time ABDOMINAL WALL: There is no evidence of hernia, mass or hematoma. PELVIS: There is a Frederick's catheter in the bladder. Moderate stool is seen in the rectum and colon with scattered diverticuli. No free fluid or abnormal pelvic lymphadenopathy. OSSEOUS STRUCTURES: No aggressive lytic or sclerotic process seen. There is mild ventral spondylosis lower dorsal and lumbar spine. CT/CT abdomen pelvis wo IV con IMPRESSION: Prominent small bowel loops with air-fluid level but no pneumatosis. There is punctate gas seen scattered within the mesentery in the upper/ mid abdomen. No gas seen within the portal vein or the liver. The findings are nonspecific. Recommend close follow-up. ? Scattered colonic diagnosis without diverticulitis. ? No acute process seen in the chest. Bilateral apical pleural thickening and parenchymal scarring. Critical Care Time Critical Care Time Critical Care Time: Yes Total Critical Care Time: 180 Attestation: I have personally provided critical care time. Time includes review of lab data, radiology results, discussion with consultants, and monitoring for potential decompensation. Intervention performed as documented. Discharge Plan Discharge Clinical Impression: COVID-19, Dehydration, severe, Acute hypernatremia, Acute hypokalemia, JOHANA (acute kidney injury), Acute UTI Patient Disposition: Admitted As Inpatient Prescriptions: No Action clotrimazole 1 % cream 1 appl topical BID 28 Days Qty: 45 0RF furosemide 20 mg tablet 20 mg PO DAILY 10 Days Qty: 10 0RF miscellaneous medical supply Misc 1 ea miscellaneous DAILY 99 Days Qty: 1 0RF aspirin 81 mg Tablet,Delayed Release (Dr/Ec) 81 mg PO DAILY levofloxacin 500 mg tablet 500 mg PO DAILY Qty: 26 0RF acetaminophen 500 mg capsule 500 mg PO QID PRN (Reason: fever) 30 Days Qty: 120 1RF amlodipine 5 mg tablet 5 mg PO DAILY 30 Days Qty: 90 1RF Protocol: Hold for SBP< HOLD for SBP < : 90 metformin 500 mg tablet 500 mg PO DAILY 90 Days Qty: 90 1RF tamsulosin 0.4 mg capsule 0.4 mg PO DAILY@1700 30 Days Qty: 30 0RF atorvastatin 80 mg tablet 80 mg PO DAILY 90 Days Qty: 90 2RF Hold Instructions: Hold until follow up labs show decrease in liver function/follow up with PCP
[2022-09-20] MEDS: Albumin Human 25 % 100 ML IV (21:25)
[2022-09-20] MEDS: Dextrose 5 % 1,000 ML 125 ML IVCONT (21:36)
[2022-09-20] MEDS: Potassium Chloride/H20 10 MEQ/100 ML PIGGYBACK 100 MEQ IV (23:31)
[2022-09-21] VITALS (20 sets, daily range): BP systolic 91–160; BP diastolic 53–81; PULSE 71–137; RESP 12–26; TEMP 35.8–36; O2SAT 90–98; BMI 22.8
[2022-09-21] MEDS: Lactated Ringers 1,000 ML 999 ML IV ×3 (00:12→09:20)
[2022-09-21] MEDS: Albumin Human 25 % 100 ML IV ×5 (00:23→13:40)
[2022-09-21 00:29] LABS: ~Lactic Acid-LAB USE ONLY 12.5 mmol/L (0.5-2.0)
[2022-09-21 01:44] LABS: Lactic Acid 11.7 mmol/L (0.5-2.0)
[2022-09-21 01:45] LABS: Anion Gap 31 (12-20); Blood Urea Nitrogen 47 mg/dL (9-16); Calcium 7.9 mg/dL (8.4-10.2); Carbon Dioxide 18 mmol/L (22-29); Chloride 110 mmol/L (96-108); Creatinine Clr Calc Pharmacy 17.9; Estimated Glomerular Filt Rate 24; Glucose Random 159 mg/dL (60-115); Sodium 156 mmol/L (135-145)
--- NOTE | 2022-09-21 02:38 | P.HPCC_ITS ---
History of Present Illness Date of Service: 09/21/22 Attending physician on admission: Blanco Bower Chief Complaint: altered mental status Past Medical History medical history of? diabetes mellitus, hypertension, dementia, nonambulatory, Abdominal lymphadenopathy Acute left-sided weakness Cerebrovascular accident Dementia Diabetes Laboratory data significant for WBC 50.4,? hematocrit 52.2, sodium 158, Enlarged prostate Hematuria ?Urine:? positive for UTI ?Imaging:? Family History Family History Father Asthma of potassium, and ceftriaxone 1 g.? ? Blood pressure improved while in the emergency room, but despite multiple Household Members: Other will admit to ICU for closely monitored ? Review of Systems Review of Systems: Yes Unobtainable due to mental status PMFSH Past Medical History Medical History Abdominal lymphadenopathy Acute left-sided weakness Cerebrovascular accident Conjunctivitis Dementia Diabetes Diverticulosis DMII (diabetes mellitus, type 2) Enlarged prostate Hematuria HTN (hypertension) Hypertension Family History Family History Father Asthma
--- NOTE | 2022-09-21 02:38 | PM.CCHP ---
History of Present Illness Date of Service: 09/21/22 Attending physician on admission: Blanco Bower Chief Complaint: altered mental status The patient is a 86-year-old? is Estonian-speaking only patient with a past medical history of? diabetes mellitus, hypertension, dementia, nonambulatory, CVA,? multiple UTIs and chronic Frederick who presented to emergency room? via EMS from home with altered mental status.? According to the family? patient complaining of severe weakness, dehydration and altered mental status, they also report multiple family members have COVID-19 infection.?? On arrival to the emergency room, the patient blood pressure 67/30, heart rate 104, temp 101.3, urine in the Frederick appeared dark and cloudy.? Laboratory data significant for WBC 50.4,? hematocrit 52.2, sodium 158, potassium 3.3, serum bicarb 26, BUN 45, creatinine 2.8, lactic acid 11.8, AST 121, ALT 44, alk-phos 178, CK 2840, troponin sensitivity to 260,? albumin 2.7 ?Urine:? positive for UTI ?Imaging:? Chest CT-? no significant acute changes Abdominal CT- Prominent small bowel loops with air-fluid level but no pneumatosis. There is punctate gas seen scattered within the mesentery in the upper/ mid abdomen. No gas seen within the portal vein or the liver ED course:? patient received a total 4 L of fluids,? 200 mL of albumin, 10 mEq of potassium, and ceftriaxone 1 g.? ? Blood pressure improved while in the emergency room, but despite multiple administration of? crystalloid and colloids? lactic continued to be elevated? will admit to ICU for closely monitored ? Review of Systems Review of Systems: Yes Unobtainable due to mental status PMFSH Past Medical History Medical History Abdominal lymphadenopathy Acute left-sided weakness Cerebrovascular accident Conjunctivitis Dementia Diabetes Diverticulosis DMII (diabetes mellitus, type 2) Enlarged prostate Hematuria HTN (hypertension) Hypertension Family History Family History Father Asthma CAD (coronary artery disease) Social History Social History Household Members: Other Household Members Other:: shelter Housing: [facility] Do you presently have visiting nurse or other home services: No Unable to assess alcohol history related to: Unknown Alcohol intake: unknown Patient Tobacco Use Status: Former Tobacco user Tobacco use type: Cigarette Smoked in Last 30 Days: No e-Cigarette/Vaping Use: Never Used Second Hand Smoke Exposure: No Use of substances other than those prescribed or required for medical reasons: Unable to respond Advance Directives: Yes Advance Directives on File: Yes Advance Directives Date on File: 05/14/22 service: No Current occupational status: retired Cognitive needs: Yes Hearing needs: No Vision needs: Yes (cataracts in both eyes) Meds Allergies Allergy/AdvReac Type Severity Reaction Status Date / Time No Known Allergies Allergy Verified 07/30/22 11:04 [No Known Allergies*] Active Medications: Current Medications Heparin Sodium (Porcine) (Heparin Sodium,Porcine 5,000 Unit/Ml Vial) 5,000 unit SUBCUT TID [facility] Dextrose (D5w) 1,000 mls @ 125 mls/hr IVCONT .Q8H [facility] Last Admin: 09/20/22 21:36 Dose: 125 mls/hr Albumin Human (Kedbumin 25 %) 100 mls @ 100 mls/hr IV Q6H [facility] Stop: 09/21/22 16:14 Last Infusion: 09/21/22 02:29 Dose: Infused Potassium Chloride (Potassium Chloride/H20) 10 meq in 100 mls @ 100 mls/hr IV Q1H [facility] Stop: 09/21/22 06:29 Vancomycin HCl 1,000 mg/ (Sodium Chloride) 270 mls @ 270 mls/hr IV ONCE ONE Stop: 09/21/22 03:30 Pharmacy Consult (Consult Rx Vancomycin Dosing) 1 each MISCELLANE DAILY PRN PRN Reason: Consult order Home Medications Medication Instructions Recorded Confirmed Last Taken Type aspirin 81 mg tablet,delayed 81 mg PO DAILY 05/22/22 07/30/22 Unknown History release Physical Exam Vital Signs: Vital Signs: Last Vital Signs Temp 97.1 F 09/20/22 19:26 Pulse 86 09/21/22 01:47 Resp 26 H 09/21/22 01:47 BP 94/63 09/21/22 01:47 Pulse Ox 96 09/21/22 01:47 O2 Del Method 09/21/22 01:47 BMI result Body Mass Index 21.7 Focused exam performed at 0010 ?General:? Alert oriented xperson only. able to answer simple questions and following simple commands ?HEENT:? Head is normocephalic, atraumatic, pupils equal round reactive to light accommodation bilaterally.? Extraocular movements appear intact.? Buccal mucosa is dry, Neck is supple ?Cardiac:? sinus rhythm with some PACs, S1-S2, no murmurs rubs or gallops. ?Pulmonary:? Clear to auscultation, no wheezes, rales or rhonchi. ?Abdomen:? ?Abdomen soft, with diffuse tenderness. Normal bowel sounds ?Musculoskeletal:? Reports pain to touch in all body parts. Bilateral Legs contracted. Gait not assessed at this point. ?Neurologic: Confused, No focal deficits noted.Motor strength as above.?? ?Skin: patient with significant amount of ecchymosis throughout his body. pressure ulcer on his left hip. dry skin. Vascular:? 2+ pulses upper and lower extremities distally.? Results Labs CBC and Chem 7: 09/20/22 17:35 09/21/22 01:23 Labs: Laboratory Results - last 24 hr 09/20/22 09/20/22 09/20/22 17:35 17:35 17:35 MCV 85.3 MCH 27.0 MCHC 31.6 RDW 18.2 H Plt Count TNP MPV 13.3 H Immature Gran % (Auto) Cancelled Neut % (Auto) Cancelled Lymph % (Auto) Cancelled Foard % (Auto) Cancelled Eos % (Auto) Cancelled Baso % (Auto) Cancelled Lymph # (Auto) Cancelled Foard # (Auto) Cancelled Eos # (Auto) Cancelled Baso # (Auto) Cancelled Abs Immat Gran (auto) Cancelled Absolute Neuts (auto) Cancelled Absolute Nucleated RBC 0.070 H Nucleated RBC % (auto) 0.5 H Neutrophils % (Manual) 53 Band Neutrophils % 29 H Lymphocytes % (Manual) 6 L Atypical Lymphs % (Man) 4 Monocytes % (Manual) 3 Metamyelocytes % 5 Abs Neuts (Manual) 12.6 H Lymphocytes # (Manual) 0.9 L Atyp Lymphs # (Manual) 0.6 Monocytes # (Manual) 0.5 Metamyelocytes # 0.8 Nucleated RBCs 2 H Platelet Estimate NORMAL Plt Morphology Comment NORMAL RBC Morphology NORMAL Powderly Cells 1+ (0-2) PT 12.2 INR 1.1 VBG pH VBG pCO2 VBG pO2 VBG HCO3 VBG O2 Saturation VBG Base Excess Anion Gap 31 H Estim Creat Clear Calc 16.0 Estimated GFR 22 Random Glucose 167 H Lactic Acid Lactic Acid F/U @ 2Hr Lactic Acid F/U @ 4Hr Calcium 8.7 Magnesium 2.1 Total Bilirubin 1.3 H Direct Bilirubin 0.8 H AST 121 H ALT 44 H Alkaline Phosphatase 178 H Total Creatine Kinase 2840 H Troponin I High Sens B-Natriuretic Peptide Total Protein 5.7 L Albumin 2.7 L Lipase 14 TSH 4.12 H Free T4 1.00 Urine Color Urine Appearance Urine pH Ur Specific Faxon Urine Protein Urine Glucose (UA) Urine Ketones Urine Blood Urine Nitrite Ur Leukocyte Esterase Urine RBC Urine WBC Ur Squamous Epith Cells Urine Bacteria Hyaline Casts Urine Yeast COVID-19 ([facility]) COVID-19 Clin Com Influenza Type A (PCR) Influenza Type B (PCR) RSV RNA Qual (PCR) SARS-CoV-2 RNA (RT-PCR) 09/20/22 09/20/22 09/20/22 17:35 17:35 17:35 MCV MCH MCHC RDW Plt Count MPV Immature Gran % (Auto) Neut % (Auto) Lymph % (Auto) Foard % (Auto) Eos % (Auto) Baso % (Auto) Lymph # (Auto) Foard # (Auto) Eos # (Auto) Baso # (Auto) Abs Immat Gran (auto) Absolute Neuts (auto) Absolute Nucleated RBC Nucleated RBC % (auto) Neutrophils % (Manual) Band Neutrophils % Lymphocytes % (Manual) Atypical Lymphs % (Man) Monocytes % (Manual) Metamyelocytes % Abs Neuts (Manual) Lymphocytes # (Manual) Atyp Lymphs # (Manual) Monocytes # (Manual) Metamyelocytes # Nucleated RBCs Platelet Estimate Plt Morphology Comment RBC Morphology Powderly Cells PT INR VBG pH VBG pCO2 VBG pO2 VBG HCO3 VBG O2 Saturation VBG Base Excess Anion Gap Estim Creat Clear Calc Estimated GFR Random Glucose Lactic Acid 11.8 H* Lactic Acid F/U @ 2Hr Lactic Acid F/U @ 4Hr Calcium Magnesium Total Bilirubin Direct Bilirubin AST ALT Alkaline Phosphatase Total Creatine Kinase Troponin I High Sens 260.4 H* B-Natriuretic Peptide 106 H Total Protein Albumin Lipase TSH Free T4 Urine Color Urine Appearance Urine pH Ur Specific Faxon Urine Protein Urine Glucose (UA) Urine Ketones Urine Blood Urine Nitrite Ur Leukocyte Esterase Urine RBC Urine WBC Ur Squamous Epith Cells Urine Bacteria Hyaline Casts Urine Yeast COVID-19 ([facility]) COVID-19 Clin Com Influenza Type A (PCR) Influenza Type B (PCR) RSV RNA Qual (PCR) SARS-CoV-2 RNA (RT-PCR) 09/20/22 09/20/22 09/20/22 17:36 17:37 17:47 MCV MCH MCHC RDW Plt Count MPV Immature Gran % (Auto) Neut % (Auto) Lymph % (Auto) Foard % (Auto) Eos % (Auto) Baso % (Auto) Lymph # (Auto) Foard # (Auto) Eos # (Auto) Baso # (Auto) Abs Immat Gran (auto) Absolute Neuts (auto) Absolute Nucleated RBC Nucleated RBC % (auto) Neutrophils % (Manual) Band Neutrophils % Lymphocytes % (Manual) Atypical Lymphs % (Man) Monocytes % (Manual) Metamyelocytes % Abs Neuts (Manual) Lymphocytes # (Manual) Atyp Lymphs # (Manual) Monocytes # (Manual) Metamyelocytes # Nucleated RBCs Platelet Estimate Plt Morphology Comment RBC Morphology Paul Cells PT INR VBG pH 7.42 VBG pCO2 39 VBG pO2 35 VBG HCO3 26 VBG O2 Saturation 47.0 VBG Base Excess 1.7 Anion Gap Estim Creat Clear Calc Estimated GFR Random Glucose Lactic Acid Lactic Acid F/U @ 2Hr Lactic Acid F/U @ 4Hr Calcium Magnesium Total Bilirubin Direct Bilirubin AST ALT Alkaline Phosphatase Total Creatine Kinase Troponin I High Sens B-Natriuretic Peptide Total Protein Albumin Lipase TSH Free T4 Urine Color Urine Appearance Urine pH Ur Specific Faxon Urine Protein Urine Glucose (UA) Urine Ketones Urine Blood Urine Nitrite Ur Leukocyte Esterase Urine RBC Urine WBC Ur Squamous Epith Cells Urine Bacteria Hyaline Casts Urine Yeast COVID-19 ([facility]) Cancelled COVID-19 Clin Com Cancelled Influenza Type A (PCR) NEGATIVE Influenza Type B (PCR) NEGATIVE RSV RNA Qual (PCR) NEGATIVE SARS-CoV-2 RNA (RT-PCR) POSITIVE A 09/20/22 09/20/22 09/20/22 18:16 19:58 19:58 MCV MCH MCHC RDW Plt Count MPV Immature Gran % (Auto) Neut % (Auto) Lymph % (Auto) Foard % (Auto) Eos % (Auto) Baso % (Auto) Lymph # (Auto) Foard # (Auto) Eos # (Auto) Baso # (Auto) Abs Immat Gran (auto) Absolute Neuts (auto) Absolute Nucleated RBC Nucleated RBC % (auto) Neutrophils % (Manual) Band Neutrophils % Lymphocytes % (Manual) Atypical Lymphs % (Man) Monocytes % (Manual) Metamyelocytes % Abs Neuts (Manual) Lymphocytes # (Manual) Atyp Lymphs # (Manual) Monocytes # (Manual) Metamyelocytes # Nucleated RBCs Platelet Estimate Plt Morphology Comment RBC Morphology Powderly Cells PT INR VBG pH VBG pCO2 VBG pO2 VBG HCO3 VBG O2 Saturation VBG Base Excess Anion Gap 29 H Estim Creat Clear Calc 19.3 Estimated GFR 27 Random Glucose 131 H Lactic Acid Cancelled Lactic Acid F/U @ 2Hr Lactic Acid F/U @ 4Hr Calcium 7.0 L D Magnesium Total Bilirubin Direct Bilirubin AST ALT Alkaline Phosphatase Total Creatine Kinase Troponin I High Sens B-Natriuretic Peptide Total Protein Albumin Lipase TSH Free T4 Urine Color Dark Yellow Urine Appearance Cloudy Urine pH 5.5 Ur Specific Faxon 1.020 Urine Protein 100 (2+) H Urine Glucose (UA) Negative Urine Ketones Negative Urine Blood Small (1+) H Urine Nitrite Negative Ur Leukocyte Esterase Small (1+) H Urine RBC 11-20 H Urine WBC 0-5 Ur Squamous Epith Cells 0-2 Urine Bacteria None Seen Hyaline Casts 0-2 Urine Yeast Present COVID-19 ([facility]) COVID-19 Clin Com Influenza Type A (PCR) Influenza Type B (PCR) RSV RNA Qual (PCR) SARS-CoV-2 RNA (RT-PCR) 09/20/22 09/21/22 09/21/22 19:58 00:05 01:23 MCV MCH MCHC RDW Plt Count MPV Immature Gran % (Auto) Neut % (Auto) Lymph % (Auto) Foard % (Auto) Eos % (Auto) Baso % (Auto) Lymph # (Auto) Foard # (Auto) Eos # (Auto) Baso # (Auto) Abs Immat Gran (auto) Absolute Neuts (auto) Absolute Nucleated RBC Nucleated RBC % (auto) Neutrophils % (Manual) Band Neutrophils % Lymphocytes % (Manual) Atypical Lymphs % (Man) Monocytes % (Manual) Metamyelocytes % Abs Neuts (Manual) Lymphocytes # (Manual) Atyp Lymphs # (Manual) Monocytes # (Manual) Metamyelocytes # Nucleated RBCs Platelet Estimate Plt Morphology Comment RBC Morphology Powderly Cells PT INR VBG pH VBG pCO2 VBG pO2 VBG HCO3 VBG O2 Saturation VBG Base Excess Anion Gap 31 H Estim Creat Clear Calc 17.9 Estimated GFR 24 Random Glucose 159 H Lactic Acid Lactic Acid F/U @ 2Hr 12.5 H* Lactic Acid F/U @ 4Hr 12.5 H* Calcium 7.9 L D Magnesium Total Bilirubin Direct Bilirubin AST ALT Alkaline Phosphatase Total Creatine Kinase Troponin I High Sens B-Natriuretic Peptide Total Protein Albumin Lipase TSH Free T4 Urine Color Urine Appearance Urine pH Ur Specific Faxon Urine Protein Urine Glucose (UA) Urine Ketones Urine Blood Urine Nitrite Ur Leukocyte Esterase Urine RBC Urine WBC Ur Squamous Epith Cells Urine Bacteria Hyaline Casts Urine Yeast COVID-19 ([facility]) COVID-19 Clin Com Influenza Type A (PCR) Influenza Type B (PCR) RSV RNA Qual (PCR) SARS-CoV-2 RNA (RT-PCR) 09/21/22 01:23 MCV MCH MCHC RDW Plt Count MPV Immature Gran % (Auto) Neut % (Auto) Lymph % (Auto) Foard % (Auto) Eos % (Auto) Baso % (Auto) Lymph # (Auto) Foard # (Auto) Eos # (Auto) Baso # (Auto) Abs Immat Gran (auto) Absolute Neuts (auto) Absolute Nucleated RBC Nucleated RBC % (auto) Neutrophils % (Manual) Band Neutrophils % Lymphocytes % (Manual) Atypical Lymphs % (Man) Monocytes % (Manual) Metamyelocytes % Abs Neuts (Manual) Lymphocytes # (Manual) Atyp Lymphs # (Manual) Monocytes # (Manual) Metamyelocytes # Nucleated RBCs Platelet Estimate Plt Morphology Comment RBC Morphology Paul Cells PT INR VBG pH VBG pCO2 VBG pO2 VBG HCO3 VBG O2 Saturation VBG Base Excess Anion Gap Estim Creat Clear Calc Estimated GFR Random Glucose Lactic Acid 11.7 H* Lactic Acid F/U @ 2Hr Lactic Acid F/U @ 4Hr Calcium Magnesium Total Bilirubin Direct Bilirubin AST ALT Alkaline Phosphatase Total Creatine Kinase Troponin I High Sens B-Natriuretic Peptide Total Protein Albumin Lipase TSH Free T4 Urine Color Urine Appearance Urine pH Ur Specific Faxon Urine Protein Urine Glucose (UA) Urine Ketones Urine Blood Urine Nitrite Ur Leukocyte Esterase Urine RBC Urine WBC Ur Squamous Epith Cells Urine Bacteria Hyaline Casts Urine Yeast COVID-19 ([facility]) COVID-19 Clin Com Influenza Type A (PCR) Influenza Type B (PCR) RSV RNA Qual (PCR) SARS-CoV-2 RNA (RT-PCR) Imaging Radiologist's Impressions: Impressions Chest X-Ray 09/20/22 18:35 IMPRESSION: Unremarkable chest examination. Abdomen/Pelvis CT 09/20/22 20:38 IMPRESSION: Prominent small bowel loops with air-fluid level but no pneumatosis. There is punctate gas seen scattered within the mesentery in the upper/ mid abdomen. No gas seen within the portal vein or the liver. The findings are nonspecific. Recommend close follow-up. Scattered colonic diagnosis without diverticulitis. No acute process seen in the chest. Bilateral apical pleural thickening and parenchymal scarring. Chest CT 09/20/22 20:38 IMPRESSION: Prominent small bowel loops with air-fluid level but no pneumatosis. There is punctate gas seen scattered within the mesentery in the upper/ mid abdomen. No gas seen within the portal vein or the liver. The findings are nonspecific. Recommend close follow-up. Scattered colonic diagnosis without diverticulitis. No acute process seen in the chest. Bilateral apical pleural thickening and parenchymal scarring. Assessment and Plan (1) Septic shock: Status: Acute (2) Rhabdomyolysis: Status: Acute (3) Acute UTI: Status: Acute (4) COVID-19: Status: Acute (5) JOHANA (acute kidney injury): Status: Acute (6) Metabolic encephalopathy: Status: Acute (7) Dehydration, severe: Status: Acute (8) Acute hypokalemia: Status: Acute (9) Acute hypernatremia: Status: Acute Plan 86-year-old? male with a past medical history diabetes mellitus, hypertension, dementia, nonambulatory, CVA,? multiple UTIs and chronic Frederick? who presented with worsening altered mental status likely with sepsis/? /rhabdo Neuro:? ?Metabolic encephalopathy-? patient has dementia at baseline,? but family states that the patient is more confused than his usual.? This is likely due? to infection.? Continue antibiotics Cardiac:?? ?Septic shock-? patient has significant elevated lactic acid,? elevated white count, johana,? hypertension,? fever and tachycardia.? Abdominal CT? did not show? a specific reason for such as elevated? lactic acid.? CT of the chest? no acute? issues.? Urine is positive for UTI? which is likely the source.? Continue antibiotics.? ? Rhabdo-? patient with elevated CK,? family denies recent fall blood.? Received? a total 4 L and 200 mL over a few min in the ED.? EKG no significant changes. will continue fluid hydration.? Continue trend CK Pulmonary:? ?COVID-19 infection:? patient is in room air,? denies any shortness of breath.? Will continue to monitor.? Renal:? JOHANA- most likely related to hypoperfusion, nonoliguric.? 4L in the floor.? Continue to check renal induces and urine output Hypernatremia-? being treated with D5W Endo:? No acute issues.?? GI:? ?Transaminitis- ? no coagulopathy, could be related to septic shock.? Continue to trend LFTs? ?ID:? septic shock likely from UTI.? has a history of Pseudomonas UTI.? Received ceftriaxone emergency room.? Will give empiric antibiotics? until blood culture? resulted.? Heme/Onc:? No acute issues. Psych:? No acute issues. Diet: Diabetic? Prophylaxis:? subQ heparin,? no GI prophylaxis is sent Code? status:? DNR/DNI.? Confirmed by? ED physician? ? Critical care time: x 60 min of critical care time? ? Case discussed with attending Dr Bower? Time Spent With Patient Time: Total time managing care of this patient today __60__ minutes. Critical Care Time Critical Care Time (minutes): 60
[2022-09-21 03:26] LABS: Reflex Lactate? Lactic Acid Added
[2022-09-21 04:57] LABS: Hematocrit 49.6 % (42.0-52.0); Hemoglobin 15.7 g/dl (14.0-18.0); Mean Corpuscular HGB Conc 31.7 g/dl (31.0-36.0); Mean Corpuscular Hemoglobin 26.4 pg (27.0-33.0); Mean Corpuscular Volume 83.5 fL (80.0-98.0); NRBC Pct Auto 0.4 /100WBC (0.0-0.2); Platelet Count 142 X10*3/uL (160-400); Red Blood Count 5.94 X10*6/uL (4.60-5.80); White Blood Count 13.6 X10*3/uL (4.8-10.8)
[2022-09-21 05:12] LABS: ~Lactic Acid-LAB USE ONLY 9.4 mmol/L (0.5-2.0)
[2022-09-21 05:19] LABS: Alanine Aminotransferase 53 U/L (0-40); Albumin Level 2.4 g/dL (3.5-5.0); Alkaline Phosphatase 168 U/L (39-117); Anion Gap 28 (12-20); Aspartate Amino Transferase 172 U/L (5-37); Bilirubin Direct 0.6 mg/dL (0.0-0.5); Bilirubin Total 1.2 mg/dL (0.0-1.0); Blood Urea Nitrogen 50 mg/dL (9-16); Calcium 7.6 mg/dL (8.4-10.2); Carbon Dioxide 18 mmol/L (22-29); Chloride 111 mmol/L (96-108); Creatinine Clr Calc Pharmacy 17.5; Estimated Glomerular Filt Rate 24; Glucose Random 155 mg/dL (60-115); Phosphorus 3.9 mg/dL (2.7-4.5); Potassium 3.6 mmol/L (3.3-5.1); Sodium 153 mmol/L (135-145); Total Protein 5.5 g/dL (6.5-8.0)
[2022-09-21 05:21] LABS: Troponin-I High Sensitivity 253.3 ng/L (<3.5-35.0)
[2022-09-21 05:24] LABS: Band Neutrophils Percent 9 % (3-5); Lymphocytes Absolute Manual 1.5 X10*3/uL (1.2-4.9); Lymphocytes Percent Manual 11 % (20-40); Monocytes Absolute Manual 0.5 X10*3/uL (0.1-1.2); Monocytes Percent Manual 4 % (2-11); Neutrophils Absolute Manual 11.6 X10*3/uL (2.0-8.3); Neutrophils Percent Manual 76 % (45-73); Nucleated Red Blood Cells 1 /100WBC (0-0)
[2022-09-21 05:25] LABS: Acanthocytes 1+ (0-2) /OIF; Burr Cells 1+ (0-2) /OIF; Large Platelet PRESENT; Macrocytosis 1+ (5-14) /OIF; Platelet Estimate SLIGHTLY INCREASED (NORMAL); Platelet Morphology Comment NORMAL; Polychromasia 1+ (0-2) /OIF; RBC Morphology NOTED; Schistocytes 1+ (0-2) /OIF; Smudge Cells PRESENT; Toxic Vacuolation PRESENT
--- NOTE | 2022-09-21 06:35 | PC.NURSE ---
ADMIT TO 253-1 FROM ER DEPT..AWAKE..BABBLING INCOHERENTLY..DOES NOT FOLLOW COMMANDS...WEAKLY MOVING ARMS..LEFT SIDED WEAKNESS...LEGS SEMI-CONTRACTED...SAO2 93-94% ON ROOM AIR..FULLER W/O MEASURABLE OUTPUT..NSR..HR 80'S...REMAINS W/O IV ACCESS PER PARCEL CARRIER REPORT...MULTIPLE ATTEMPTS AT IV ACCESS W/O SUCCESS...ICU CALL CENTER NURSE ATTEMPTED PERIPHERAL IV ACCESS VIA ULTRASOUND W/O SUCCESS...PER CALL CENTER NURSE WELDER METAL FAB AWARE AND WELDER METAL FAB TO ATTEMPT CENTRAL LINE ACCESS...RIGHT ARM GROSSLY SWOLLEN AT IV INFILTRATION SITE PER ER REPORT...MULTIPLE BRUISES TO RIGHT SHOULDER/HIP AND BACK....WOUND TO RIGHT HIP W/O DRAINAGE..COCCYX EXCORIATED AND DTI..PICTURES PENDING
[2022-09-21 08:25] LABS: Venous Blood Gas Refer to POC result
[2022-09-21] MEDS: Midazolam HCl/PF 2 MG/2 ML VIAL IM (08:45)
[2022-09-21] MEDS: Heparin Sodium,Porcine 5,000 UNIT/ML VIAL 5000 UNIT SUBCUT ×3 (09:44→21:22)
[2022-09-21] MEDS: cefEPime HCl 1 GM in 0.9 % Sodium Chloride 50 ML IV (09:46)
[2022-09-21] MEDS: Potassium Chloride/H20 10 MEQ/100 ML PIGGYBACK 100 MEQ IV ×4 (09:46→13:38)
[2022-09-21] MEDS: Dextrose 5 % 1,000 ML 125 ML IVCONT ×2 (10:27→18:13)
--- NOTE | 2022-09-21 11:54 | W.PM.CCHP ---
Procedures Date of Service Date of Service: 09/21/22 Central Line Placement Right IJ: Central Line Comments: Right internal jugular triple-lumen central venous catheter emergently placed for vascular access under ultrasound guidance and usual sterile conditions with no immediate complications. Line position verified on chest x-ray.
[2022-09-21 12:57] LABS: Hemoglobin 11.6 g/dl (14.0-18.0); Mean Corpuscular HGB Conc 32.2 g/dl (31.0-36.0); Mean Corpuscular Hemoglobin 27.4 pg (27.0-33.0); Mean Corpuscular Volume 84.9 fL (80.0-98.0); NRBC Pct Auto 0.6 /100WBC (0.0-0.2); Red Blood Count 4.24 X10*6/uL (4.60-5.80)
[2022-09-21 13:03] LABS: WBC ABN SCTR FOR CBC 1
[2022-09-21 13:04] LABS: Lactic Acid 6.9 mmol/L (0.5-2.0)
[2022-09-21 13:20] LABS: Alanine Aminotransferase 39 U/L (0-40); Albumin Level 3.1 g/dL (3.5-5.0); Alkaline Phosphatase 103 U/L (39-117); Anion Gap 21 (12-20); Aspartate Amino Transferase 127 U/L (5-37); Bilirubin Total 1.3 mg/dL (0.0-1.0); Blood Urea Nitrogen 52 mg/dL (9-16); Calcium 7.4 mg/dL (8.4-10.2); Carbon Dioxide 24 mmol/L (22-29); Chloride 109 mmol/L (96-108); Creatinine Clr Calc Pharmacy 19.2; Estimated Glomerular Filt Rate 25; Glucose Random 162 mg/dL (60-115); Magnesium 1.6 mg/dL (1.6-2.6); Phosphorus 3.1 mg/dL (2.7-4.5); Potassium 3.1 mmol/L (3.3-5.1); Sodium 151 mmol/L (135-145); Total Protein 4.8 g/dL (6.5-8.0)
[2022-09-21 13:22] LABS: Troponin-I High Sensitivity 145.7 ng/L (<3.5-35.0)
[2022-09-21 13:24] LABS: Band Neutrophils Percent 11 % (3-5); Lymphocytes Percent Manual 12 % (20-40); Monocytes Percent Manual 2 % (2-11); Neutrophils Percent Manual 75 % (45-73)
[2022-09-21 13:25] LABS: Burr Cells 3+ (>5) /OIF; Large Platelet PRESENT; Platelet Estimate DECREASED (NORMAL); RBC Morphology NOTED
[2022-09-21 13:26] LABS: Microcytosis 1+ (5-14) /OIF
[2022-09-21 13:27] LABS: Acanthocytes 3+ (>5) /OIF; Platelet Morphology Comment NOTE
[2022-09-21] MEDS: Potassium Chloride Packet 20 MEQ PACKET 60 MEQ PO (13:38)
[2022-09-21 14:32] LABS: Monocytes Absolute Manual 0.2 X10*3/uL (0.1-1.2); Neutrophils Absolute Manual 6.9 X10*3/uL (2.0-8.3); Platelet Count 91 X10*3/uL (160-400)
--- NOTE | 2022-09-21 14:32 | PC.NURSE ---
SKIN/WOUND PICTURES OBTAINED AROUND 0900 MD AND CASE MANAGEMENT NOTIFED OF FINDINGS AND PICTURED PLACED IN CHART PINK FOAMS AND BARRIER CREAM APPLIED TO AFFECTED AREAS THIS RN ASKED THE HOSPICE SUPERINTENDENT TO CALL THE WOUND CENTER AND SEE WHO THE PROVIDER WAS SO A CONSULT COULD BE ENTERED AND WAS TOLD THAT DUE TO PATIENTS COVID POSITIVE STATUS THEY WOULD NOT BE ABLE TO BE CONSULTED - MD AND ICU DIRECTOR NOTIFIED
--- NOTE | 2022-09-21 15:34 | MHC.CM.PN ---
Addendum entered by Юлия Presley 09/21/22 16:14: Received call from Vahe at [facility] [phone] who states he is the one who called 911 yesterday after a home visit. Vahe states an open case for elder at risk: home visit noted clean apartment: 3 minor children in home all of whom recently had COVID: pt observed to be moaning and crying out: appeared cachectic and dry to Phill and in need of medical attention. Vahe states that family has been caring for pt for several years and that he has been primarily bed bound for 2 years. Pt has missed PCP appointments because family can no longer carry him downstairs to a vehicle. Family is not compensate and pt may have VNA but this is uncertain. Per Vahe, family states they are overwhelmed by pt's care needs and other family commitments and unable to care for pt in the home. Family stated that pt has not eaten or drank anything in several days. Pt does not have a secondary payor for LTC: will need [facility] [place] [employer] Referrals made for [facility] and LTC. Anticipate a long [facility] stay d/t lack of payor and need for LTC. CM to update son Lui on d/c plan. CM to follow. Original Note: Pt in ICU receiving care for COVID and urosepsis: moaning and not participatory in CM assessment: Call placed to pt's son (HCP #2) for additional information. He states he is at work and to call back with an bilingual interpreter later today. He also states his , Melia (HCP #1) is the pt's primary care trainer but has no phone and cannot assist with CM assessment or d/c planning. Information obtained from EMR. Pt arrived via EMS from home with MS changes: not a reliable historian at baseline. Pt dirty: arrived incontinent of feces with long dirty nails and multiple large bruises to various sights on body including several areas of impaired skin integrity at various staging. Pt also clinically dry per MD with + rhabdo. Concern with care at home based on physical and clinical presentation. Pt has a HCP and MOLST on file and is reported to be W/C bound at home. CM to await conversation with son and diplomatic interpreter/translator. SS may need to be involved should discussion w/family give suspicion of decreased ability to provide care. CM to follow.
[2022-09-21 15:48] LABS: ~Lactic Acid-LAB USE ONLY 5.8 mmol/L (0.5-2.0)
--- NOTE | 2022-09-21 16:32 | PM.CCN ---
Critical Care Event Note Summary Date of Service: 09/21/22 Code activated: No Narrative: Through the course of the day with improving CPK, urine output, renal indices, and lactic acid with further IV hydration. Critical Care Time (minutes): 0
--- NOTE | 2022-09-21 16:46 | PC.NURSE ---
Pt confused and lethargic initially, continues to moan constantly, unable to follow commands. TLC placed by Md at bedside and rehydrated with IV LR boluses as ordered. Pt waking up more and saying couple words, had the pipe stem repairer come to bedside as pt Mongolian speaking only. Pt is AAO to self only, aware he is in [place]. Pt requires frequent redirection but is otherwise calm and cooperative. Pt's spencer (chronic) draining dark corwin urine, cath care provided as needed. Pt incontinent of stool, incontinence care provided as needed. Pictures were obtained of pt's skin alteration, see in chart; skin care provided as needed. Pt bathed and shaved this shift, repositioned every two hrs and as needed, pillows, wedges, prevalon system utilized. Bed alarmed. Maintained on enhanced resp precautions for COVID+. Safety maintained throughout. Pt being downgraded to IMC, report given to receiving RN who will continue with the plan of care.
[2022-09-21 18:31] LABS: ~Lactic Acid-LAB USE ONLY 5.8 mmol/L (0.5-2.0)
[2022-09-22] VITALS (8 sets, daily range): BP systolic 59–109; BP diastolic 38–66; PULSE 71–96; RESP 14–22; TEMP 36–36.7; O2SAT 87–96; BMI 27.4
[2022-09-22] MEDS: Dextrose 5 % 1,000 ML 125 ML IVCONT (02:10)
[2022-09-22 08:33] LABS: Hematocrit 42.7 % (42.0-52.0); Hemoglobin 13.8 g/dl (14.0-18.0); Mean Corpuscular HGB Conc 32.3 g/dl (31.0-36.0); Mean Corpuscular Hemoglobin 26.4 pg (27.0-33.0); Mean Corpuscular Volume 81.8 fL (80.0-98.0); PLT CLUMP 1; Red Blood Count 5.22 X10*6/uL (4.60-5.80); Red Cell Distribution Width 16.6 % (11.0-16.0)
[2022-09-22 08:35] LABS: NRBC Pct Auto 4.7 /100WBC (0.0-0.2); WBC ABN SCTR FOR CBC 1
[2022-09-22 08:56] LABS: Platelet Count 66 X10*3/uL (160-400); White Blood Count 3.6 X10*3/uL (4.8-10.8)
[2022-09-22 09:07] LABS: Band Neutrophils Percent 16 % (3-5); Lymphocytes Absolute Manual 0.9 X10*3/uL (1.2-4.9); Lymphocytes Percent Manual 26 % (20-40); Metamyelocytes Absolute 0.2 X10*3/uL; Metamyelocytes Percent 5 %; Neutrophils Absolute Manual 2.5 X10*3/uL (2.0-8.3); Neutrophils Percent Manual 53 % (45-73); Nucleated Red Blood Cells 6 /100WBC (0-0)
[2022-09-22 09:13] LABS: Acanthocytes 3+ (>5) /OIF; Burr Cells 1+ (0-2) /OIF; Polychromasia 1+ (0-2) /OIF; RBC Morphology NOTED
[2022-09-22 09:16] LABS: Platelet Estimate DECREASED (NORMAL); Platelet Morphology Comment NORMAL; Toxic Vacuolation PRESENT
[2022-09-22 09:37] LABS: Albumin Level 2.9 g/dL (3.5-5.0); Anion Gap 19 (12-20); Blood Urea Nitrogen 63 mg/dL (9-16); Calcium 6.9 mg/dL (8.4-10.2); Carbon Dioxide 20 mmol/L (22-29); Chloride 104 mmol/L (96-108); Creatinine Clr Calc Pharmacy 22.1; Estimated Glomerular Filt Rate 27; Glucose Random 160 mg/dL (60-115); Magnesium 1.4 mg/dL (1.6-2.6); Phosphorus 1.3 mg/dL (2.7-4.5); Potassium 3.6 mmol/L (3.3-5.1); Sodium 139 mmol/L (135-145)
[2022-09-22] MEDS: cefEPime HCl 1 GM in 0.9 % Sodium Chloride 50 ML IV (10:47)
[2022-09-22] MEDS: dexAMETHasone sod phosphate 4 MG/ML VIAL 6 MG IVPUSH (10:48)
[2022-09-22] MEDS: 0.9 % Sodium Chloride 1,000 ML 125 ML IVCONT (10:51)
--- NOTE | 2022-09-22 12:34 | HO.PM.IMPN ---
Subjective Subjective Date of Service: 09/22/22 Interval History: Stepped down to [facility] yesterday evening Nonverbal Appears uncomfortable On 2-3L O2 via NC Review of Systems Review of Systems: Yes Unobtainable due to mental condition Physical Exam Vital Signs: Vital Signs: Last Vital Signs Temp 97.1 F 09/22/22 12:00 Pulse 78 09/22/22 12:00 Resp 14 09/22/22 12:00 BP 109/66 09/22/22 12:00 Pulse Ox 91 L 09/22/22 12:00 O2 Del Method 09/22/22 12:00 O2 Flow Rate 2 09/22/22 12:00 BMI result Body Mass Index 27.4 Gen: chronically ill-appearing, nonverbal at this time HEENT: sclera anicteric, moist mucus membranes Neck: supple Lungs: clear to auscultation bilaterally Heart: regular rate and rhythm, no murmurs Abd: soft, non-tender, non-distended Ext: RUE swollen Skin: warm/well-perfused, L hip pressure ulcer, diffuse ecchymoses Neuro: alert, nonverbal, legs contracted Psych: impaired insight Objective Data Active Medications Aspirin (Aspirin Enteric Coated 81 Mg Tablet.) 81 mg PO DAILY [facility] Last Admin: 09/22/22 10:49 Dose: 81 mg Documented By: KHANH Atorvastatin Calcium (Atorvastatin Calcium 80 Mg Tablet) 80 mg PO DAILY [facility] Last Admin: 09/22/22 10:49 Dose: 80 mg Documented By: KHANH Dexamethasone Sodium Phosphate (Dexamethasone Sod Phosphate 4 Mg/Ml Vial) 6 mg IVPUSH DAILY [facility] Last Admin: 09/22/22 10:48 Dose: 6 mg Documented By: KHANH Cefepime HCl 1 gm/ Sodium (Chloride) 50 mls @ 100 mls/hr IV Q24H [facility] Last Infusion: 09/22/22 11:37 Dose: 0 mls/hr Documented By: KHANH Sodium Chloride (Ns) 1,000 mls @ 125 mls/hr IVCONT .Q8H [facility] Last Admin: 09/22/22 10:51 Dose: 125 mls/hr Documented By: KHANH Potassium Phosphate (Kphos) 15 mmol in 250 mls @ 62.5 mls/hr IV ONCE ONE Stop: 09/22/22 14:44 Last Admin: 09/22/22 12:20 Dose: 62.5 mls/hr Documented By: KHANH Potassium Phosphate 15 mmol/ (Sodium Chloride) 255 mls @ 63.75 mls/hr IV ONCE ONE Stop: 09/22/22 14:59 Last Admin: 09/22/22 11:37 Dose: 63.75 mls/hr Documented By: KHANH Morphine Sulfate (Morphine Sulfate 2 Mg/Ml Cartridge) 1 mg IVPUSH Q2H PRN; Protocol PRN Reason: severe pain Tamsulosin HCl (Tamsulosin Hcl 0.4 Mg Capsule) 0.4 mg PO DAILY@1700 [facility] Labs CBC & Chem 7: 09/22/22 07:55 09/22/22 07:55 Labs: Laboratory Results - last 24 hr 09/21/22 09/21/22 09/21/22 12:23 12:23 12:23 MCV 84.9 MCH 27.4 MCHC 32.2 RDW 17.0 H Plt Count 91 L D MPV Immature Gran % (Auto) Cancelled Neut % (Auto) Cancelled Lymph % (Auto) Cancelled Briscoe % (Auto) Cancelled Eos % (Auto) Cancelled Baso % (Auto) Cancelled Lymph # (Auto) Cancelled Briscoe # (Auto) Cancelled Eos # (Auto) Cancelled Baso # (Auto) Cancelled Abs Immat Gran (auto) Cancelled Absolute Neuts (auto) Cancelled Absolute Nucleated RBC 0.050 H Nucleated RBC % (auto) 0.6 H Neutrophils % (Manual) 75 H Band Neutrophils % 11 H Lymphocytes % (Manual) 12 L Monocytes % (Manual) 2 Metamyelocytes % Abs Neuts (Manual) 6.9 Lymphocytes # (Manual) 1.0 L Monocytes # (Manual) 0.2 Metamyelocytes # Nucleated RBCs Toxic Vacuolation Platelet Estimate DECREASED Large Platelets PRESENT Plt Morphology Comment NOTE RBC Morphology NOTED Polychromasia Microcytosis 1+ (5-14) Paul Cells 3+ (>5) Acanthocytes (Spur) 3+ (>5) Anion Gap 21 H Estim Creat Clear Calc 19.2 Estimated GFR 25 POC Glucose Random Glucose 162 H Lactic Acid 6.9 H* Lactic Acid F/U @ 2Hr Lactic Acid F/U @ 4Hr Calcium 7.4 L Phosphorus 3.1 Magnesium 1.6 Total Bilirubin 1.3 H AST 127 H ALT 39 Alkaline Phosphatase 103 Total Creatine Kinase 2969 H Troponin I High Sens Total Protein 4.8 L Albumin 3.1 L 09/21/22 09/21/22 09/21/22 12:23 14:57 16:42 MCV MCH MCHC RDW Plt Count MPV Immature Gran % (Auto) Neut % (Auto) Lymph % (Auto) Briscoe % (Auto) Eos % (Auto) Baso % (Auto) Lymph # (Auto) Briscoe # (Auto) Eos # (Auto) Baso # (Auto) Abs Immat Gran (auto) Absolute Neuts (auto) Absolute Nucleated RBC Nucleated RBC % (auto) Neutrophils % (Manual) Band Neutrophils % Lymphocytes % (Manual) Monocytes % (Manual) Metamyelocytes % Abs Neuts (Manual) Lymphocytes # (Manual) Monocytes # (Manual) Metamyelocytes # Nucleated RBCs Toxic Vacuolation Platelet Estimate Large Platelets Plt Morphology Comment RBC Morphology Polychromasia Microcytosis Paul Cells Acanthocytes (Spur) Anion Gap Estim Creat Clear Calc Estimated GFR POC Glucose 183 H Random Glucose Lactic Acid Lactic Acid F/U @ 2Hr 5.8 H* Lactic Acid F/U @ 4Hr Calcium Phosphorus Magnesium Total Bilirubin AST ALT Alkaline Phosphatase Total Creatine Kinase Troponin I High Sens 145.7 H* Total Protein Albumin 09/21/22 09/22/22 09/22/22 17:47 07:35 07:55 MCV 81.8 MCH 26.4 L MCHC 32.3 RDW 16.6 H Plt Count 66 L D MPV Not Reportable Immature Gran % (Auto) Cancelled Neut % (Auto) Cancelled Lymph % (Auto) Cancelled Briscoe % (Auto) Cancelled Eos % (Auto) Cancelled Baso % (Auto) Cancelled Lymph # (Auto) Cancelled Briscoe # (Auto) Cancelled Eos # (Auto) Cancelled Baso # (Auto) Cancelled Abs Immat Gran (auto) Cancelled Absolute Neuts (auto) Cancelled Absolute Nucleated RBC 0.170 H Nucleated RBC % (auto) 4.7 H Neutrophils % (Manual) 53 Band Neutrophils % 16 H Lymphocytes % (Manual) 26 Monocytes % (Manual) Metamyelocytes % 5 Abs Neuts (Manual) 2.5 Lymphocytes # (Manual) 0.9 L Monocytes # (Manual) Metamyelocytes # 0.2 Nucleated RBCs 6 H Toxic Vacuolation PRESENT Platelet Estimate DECREASED Large Platelets Plt Morphology Comment NORMAL RBC Morphology NOTED Polychromasia 1+ (0-2) Microcytosis Paul Cells 1+ (0-2) Acanthocytes (Spur) 3+ (>5) Anion Gap Estim Creat Clear Calc Estimated GFR POC Glucose 180 H Random Glucose Lactic Acid Lactic Acid F/U @ 2Hr Lactic Acid F/U @ 4Hr 5.8 H* Calcium Phosphorus Magnesium Total Bilirubin AST ALT Alkaline Phosphatase Total Creatine Kinase Troponin I High Sens Total Protein Albumin 09/22/22 07:55 MCV MCH MCHC RDW Plt Count MPV Immature Gran % (Auto) Neut % (Auto) Lymph % (Auto) Briscoe % (Auto) Eos % (Auto) Baso % (Auto) Lymph # (Auto) Briscoe # (Auto) Eos # (Auto) Baso # (Auto) Abs Immat Gran (auto) Absolute Neuts (auto) Absolute Nucleated RBC Nucleated RBC % (auto) Neutrophils % (Manual) Band Neutrophils % Lymphocytes % (Manual) Monocytes % (Manual) Metamyelocytes % Abs Neuts (Manual) Lymphocytes # (Manual) Monocytes # (Manual) Metamyelocytes # Nucleated RBCs Toxic Vacuolation Platelet Estimate Large Platelets Plt Morphology Comment RBC Morphology Polychromasia Microcytosis Paul Cells Acanthocytes (Spur) Anion Gap 19 Estim Creat Clear Calc 22.1 Estimated GFR 27 POC Glucose Random Glucose 160 H Lactic Acid Lactic Acid F/U @ 2Hr Lactic Acid F/U @ 4Hr Calcium 6.9 L D Phosphorus 1.3 L Magnesium 1.4 L* Total Bilirubin AST ALT Alkaline Phosphatase Total Creatine Kinase 2147 H Troponin I High Sens Total Protein Albumin 2.9 L Microbiology Microbiology Results: Microbiology 09/20/22 19:14 Urine Culture - Final Urine clean catch - Urine dawson top No growth. 09/20/22 17:36 Blood Culture - Final Blood - Venous Coag negative Staphylococcus 09/20/22 17:37 Blood Culture - Preliminary Blood - Venous No growth after 24 hours. Assessment and Plan (1) Rhabdomyolysis: Status: Acute (2) Septic shock: Status: Acute (3) Metabolic encephalopathy: Status: Acute Plan hospital d#2 86yo bed-bound M with DM2, HTN, dementia, hx CVA. chronic Frederick, recurrent UTIs admitted to ICU with AMS/sepsis/rhabdomyolysis/Covid-19 infection # severe sepsis/hypotension - responded to isotonic IV fluids and colloid repletion # rhabdomyolysis - isotonic fluids, trend CPK # UTI- - cefepime d#2, follow UCx/BCx. hx Pseudomonas infection. # Covid-19 infection - dexamethasone d#10/09, no remdesivir given renal dysfunction # hyperNa - hypovolemic; given D5W; corrected 12 mg/dL in last 24 hr; will switch to NS and recheck Na q6h and consult Nephrology # hypoPO4 - replete, recheck level # hypoMg - replete, recheck level # JOHANA - septic ATN + prerenal. Give isotonic normal saline, avoid nephrotoxins, renally dose medications, and recheck BMP in AM # transaminitis - suspect shock liver. recheck LFTs in AM # thrombocytopenia - suspect due to sepsis. hold heparin and monitor CBC # metabolic encephalopathy - due to above derangements with underlying dementia - pureed solids + nectar thick liquids pending formal BELT AND LINK ASSEMBLY SUPERVISOR evaluation # RUE sweling - Doppler US to r/o DVT # DM2 - correction-dose lispro # VTE ppx: SCDs In my clinical judgment, the patient requires continued inpatient hospitalization for the following reasons: IV fluids/antibiotics Time Spent With Patient Time: Total time managing care of this patient today _50___ minutes. Quality Stroke Does the patient have a stroke diagnosis?: No VTE Prior VTE?: No VTE Risk Level:: Medical - moderate - high VTE Device Contraindication: N/A - Device Ordered VTE Drug Contraindication: N/A - Med Ordered
[2022-09-22 13:40] LABS: Sodium 140 mmol/L (135-145)
--- NOTE | 2022-09-22 14:39 | PM.EVENT ---
Event Note Date of Service: 09/22/22 Event Note: Pt seen and examined Full consult to follow D/w Medical team 1. Hypernatremia : Due to free water deficit - Over corrected 2. JOHANA - In the setting of Sepsis / Hypotension / ATN / COVID -1 9 infection / Rhabdo r/o Obstruction 3. Sepsis / UTI 4. COVID -19 5. HypoMag/ Po4 6. Rhabdo Urine studies Urine and Serum OSM Avoid Nephrotoxins Antibiotics as per medical team COVID Rx as per medical team F/u CPK trend ISotonic fluid- Off D5 W - Trend Na maintain between 140- 145 for Now Thx Will Follow D/w Medical team Dr. Wise Time Spent With Patient Time: Total time managing care of this patient today ____ minutes.
--- NOTE | 2022-09-22 16:15 | PM.EVENT ---
Event Note Date of Service: 09/22/22 Event Note: rapid response was called for low blood pressure of 70s over 50s I went directly to see the patient who was laying comfortably in his bed, not in distress but looks mildly encephalopathic which reported to be his baseline since admission. Only Telugu speaker as a nurse tried to talk to him but the patient did not respond with any meaningful words. His head was placed down and repeated blood pressure was 90s over 50s as 1 L of Ringer lactate started. Will continue to monitor closely for the next couple of hours for any further drop in his blood pressure. Time Spent With Patient Time: Total time managing care of this patient today ____ minutes.
[2022-09-22 16:17] LABS: Osmolality, Serum 305 mosm/kg (281-305)
[2022-09-22 19:34] LABS: Hematocrit 39.8 % (42.0-52.0); Hemoglobin 12.9 g/dl (14.0-18.0); Mean Corpuscular HGB Conc 32.4 g/dl (31.0-36.0); Mean Corpuscular Hemoglobin 26.8 pg (27.0-33.0); Mean Corpuscular Volume 82.6 fL (80.0-98.0); Red Blood Count 4.82 X10*6/uL (4.60-5.80); Red Cell Distribution Width 16.6 % (11.0-16.0)
[2022-09-22 19:35] LABS: NRBC Pct Auto 7.4 /100WBC (0.0-0.2); PLT ABN DIST 1; Platelet Count 50 X10*3/uL (160-400)
[2022-09-22 19:51] LABS: Alanine Aminotransferase 33 U/L (0-40); Albumin Level 2.5 g/dL (3.5-5.0); Alkaline Phosphatase 100 U/L (39-117); Anion Gap 21 (12-20); Aspartate Amino Transferase 86 U/L (5-37); Bilirubin Total 1.5 mg/dL (0.0-1.0); Blood Urea Nitrogen 67 mg/dL (9-16); Calcium 6.4 mg/dL (8.4-10.2); Carbon Dioxide 17 mmol/L (22-29); Chloride 105 mmol/L (96-108); Creatinine Clr Calc Pharmacy 22.8; Estimated Glomerular Filt Rate 28; Glucose Random 87 mg/dL (60-115); Potassium 3.6 mmol/L (3.3-5.1); Sodium 139 mmol/L (135-145)
[2022-09-22 19:51] LABS: Lactic Acid 6.4 mmol/L (0.5-2.0)
[2022-09-22 19:57] LABS: Troponin-I High Sensitivity 95.9 ng/L (<3.5-35.0)
--- NOTE | 2022-09-22 20:39 | PM.EVENT ---
Event Note Date of Service: 09/22/22 Event Note: a rapid response was called on pt , for hypoxia as well as hypotension. Pt bp 60s/30s manually. Os low 80 on non-rebreather. Spoke to health care proxy with the help of model and mold maker. pt will be made RETAIL STORE ASSOCIATE. She does not want him admitted to ICU for Pressors. and would like him made RETAIL STORE ASSOCIATE Time Spent With Patient Time: Total time managing care of this patient today ____ minutes.
--- NOTE | 2022-09-22 21:40 | PC.NURSE ---
Care assumed at 7 am. Patient was Completely disoriented, only says one word: Ay, in Guamanian. No commands followed. Attends speaker. moves left arm, but bilat legs contracted and right arm flaccid. R arm with edema localized, some skin discoloration locally, discussed with MD and new US doppler ordered and negative for DVT. Patient was initially incontinent of formed brown stool, red staining on the toilet paper, noted H/H stable. Patient with able to take pureed food and pills crushed in pudding, discussed with MD and ST eval ordered with nectar thick and pureed pending formal ST eval. Patient unable to express needs, had clear nonverbal signs of pain, especially during repositining, MD aware, new order for PRN morphine, administered with good effect. Later in afteroon patient with very low BPs, 72/44, 76/48, AMUSEMENT CENTRE MANAGER called, new order for LR bolus, administered with good effect, followup BP 92/52; Continuing to monitor. Oxygen demand increased from 2 LPM to 6 LPM over day, with hypoxia and added continuous oxygen sat monitor. about 19:00, patient with another AMUSEMENT CENTRE MANAGER related to being found unresponsive to sternal rub, new bolus normal saline ordered and administered, POCT glucose WNL, labs ordered and drawn: CBC, CMP, LA, trop, VBG, drawn and LA was 6.4 and MD aware, but discussion with family, patient going to TECHNOLOGY COORDINATOR status.
--- NOTE | 2022-09-22 23:18 | PM.EVENT ---
Event Note Date of Service: 09/22/22 Event Note: pt at 11:00 pm on 09/22/2022 exam showed no pulse, no respiratory effort, pupils dilated and not reactive to light family will be informed Time Spent With Patient Time: Total time managing care of this patient today ____ minutes.
--- NOTE | 2022-09-23 07:35 | PM.DDS ---
Discharge Sum: Prov Provider Primary care physician: Adi Campos PA-C Admitting clinician: Baudilio Jerry Attending physician on admission: Blanco Bower Consults: 09/22/22 10:24 Consult to Nephrology Routine Consulting Provider: [facility] Reason for consultation: hyperNa corrected to quickly? Pronouncing clinician: Blade Carlisle Discharge Sum: Diag Contributing Factors (1) Rhabdomyolysis: (2) Septic shock: (3) Metabolic encephalopathy: Discharge Sum: Summary Date and Time Date of admission: 09/21/22 02:27 Date of : 09/22/22 Time of : 23:00 Summary Details: From H+P by business systems technician Baudilio Jerry, 09/21/22: The patient is a 86-year-old? is Pashto-speaking only patient with a past medical history of? diabetes mellitus, hypertension, dementia, nonambulatory, CVA,? multiple UTIs and chronic Frederick who presented to emergency room? via EMS from home with altered mental status.? According to the family? patient complaining of severe weakness, dehydration and altered mental status, they also report multiple family members have COVID-19 infection.?? On arrival to the emergency room, the patient blood pressure 67/30, heart rate 104, temp 101.3, urine in the Frederick appeared dark and cloudy.? Laboratory data significant for WBC 50.4,? hematocrit 52.2, sodium 158, potassium 3.3, serum bicarb 26, BUN 45, creatinine 2.8, lactic acid 11.8, AST 121, ALT 44, alk-phos 178, CK 2840, troponin sensitivity to 260,? albumin 2.7 ?Urine:? positive for UTI ?Imaging:? Chest CT-? no significant acute changes Abdominal CT- Prominent small bowel loops with air-fluid level but no pneumatosis. There is punctate gas seen scattered within the mesentery in the upper/ mid abdomen. No gas seen within the portal vein or the liver ED course:? patient received a total 4 L of fluids,? 200 mL of albumin, 10 mEq of potassium, and ceftriaxone 1 g.? ? Blood pressure improved while in the emergency room, but despite multiple administration of? crystalloid and colloids? lactic continued to be elevated? will admit to ICU for closely monitored 86yo bed-bound M with DM2, HTN, dementia, hx CVA. chronic Frederick, recurrent UTIs who was admitted to ICU with AMS/sepsis/rhabdomyolysis/Covid-19 infection and stepped down to the IMC on 09/22/22 after blood pressure normalized with isotonic IV fluid and colloid repletion. However, he became hypotensive again. THe covering physician spoke to his healthcare proxy, who did not want him to return to the ICU for pressors. The patient was transitioned to GAMING CAGE WORKER care and at 23:00 on 09/22/22. Additional Data Confirmation of as documented by pronouncing clinician: no pulse, no respirations, no heart sounds and pupils fixed and dilated Family: contacted Attending physician: Arias Fenton MD Was code activated?: No Autopsy requested?: No certified driver examiner notified?: No
--- NOTE | 2022-09-25 13:19 | CONS_ITS ---
DATE OF SERVICE: 09/22/2022 REASON FOR CONSULTATION: Consult requested by the medical team to evaluate and help in management of patient with hypernatremia and renal insufficiency. HISTORY OF PRESENT ILLNESS: The patient is an 86-year-old Armenian-speaking male with past medical history of type 2 diabetes mellitus, history of hypertension, dementia, CVA, who presents to the emergency room with altered mental status on 09/21/2022. He has had severe weakness. They also reported family members having COVID-19 infection. In the ER, the patient's blood pressure was 67/30, heart rate of 104, and temperature 101.3 degrees Fahrenheit. He was evaluated by the ICU and admitted to the ICU. He did have imaging studies of his chest and abdomen. There was no hydronephrosis. No iodinated contrast was given. His BUN and creatinine were 45 and 2.8. His baseline creatinine was normal and was 0.53 in 06/2022. He was given IV fluids 4 L in the ER and albumin. He was also treated with ceftriaxone, admitted to the hospital for further evaluation and management. He was noted to have rhabdomyolysis with a peak CPK level of 4800, which has come down to 2100. Renal consult has been requested as his sodium level was elevated in the 150s, and the patient was on D5 water corrected more than 12 mEq over the last 24 hours, and he has switched over to normal saline. He is personally not giving any history. PAST MEDICAL HISTORY: History of abdominal lymphadenopathy, acute left-sided weakness, cerebrovascular accident, history of conjunctivitis, dementia, type 2 diabetes mellitus, diverticulosis, enlarged prostate, hematuria, hypertension. FAMILY HISTORY: No history of asthma or coronary artery disease. PERSONAL AND SOCIAL HISTORY: Patient is from [place]. Former smoker. Does not drink alcohol or use recreational drugs at the present time. ALLERGIES: PATIENT HAS NO KNOWN DRUG ALLERGIES. MEDICATIONS: As an outpatient, patient reviewed in detail. REVIEW OF SYSTEMS: Unobtainable. PHYSICAL EXAMINATION: GENERAL: Patient is resting in the bed on isolation. VITAL SIGNS: Blood pressure was 109/66, pulse 78, afebrile. HEENT: Shows pupils equal bilaterally to light. No jugular venous distention is noted. Mucosa dry. There is no scleral icterus or conjunctival congestion. CARDIOVASCULAR SYSTEM: S1, S2 without rub. RESPIRATORY SYSTEM: Decreased in the bases with bilateral crepitation. ABDOMEN: Obese, soft. Bowel sounds normal. EXTREMITIES: Showed right upper extremity swelling. LABORATORY DATA: Labs done recently. WBC 3.6, hemoglobin 13.8, hematocrit 42.7, platelets 62. Sodium 139, potassium 3.6, chloride 104, CO2 of 20, BUN 63, creatinine 2.30. Urinalysis shows yellow urine, cloudy, protein was 100, rbc's 11-20 wbc's 0-7. Lactic acid level was 5.8, magnesium 1.4, phosphorus 1.3. IMPRESSION: An 86-year-old male with: 1. Hypernatremia. Hypernatremia due to free water deficit. The sodium was corrected more than 12 mEq over 24 hours. He was given isotonic saline with improvement of the sodium level. 2. Acute kidney injury in setting of sepsis, hypotension, acute tubular necrosis, COVID-19 infection, rhabdomyolysis. Obstruction has been ruled out in this patient based on the CT scan on admission. 3. Sepsis/urinary tract infection. 4. COVID-19 infection. 5. deficiency including hypomagnesemia, hypophosphatemia. 6. Rhabdomyolysis. 7. Respiratory failure. RECOMMENDATION: I have taken the liberty to order spot urine for electrolytes, protein, creatinine. I have also ordered the serum and urine osmolality. We should avoid nephrotoxic agents on this patient. Agreed to switching over to isotonic saline and following sodium level q.6 hourly. The target sodium should be somewhere between 140 to 145 over the next 24 hours. Antibiotic and COVID management as per medical team. We should follow up CPK levels. Overall prognosis in this patient is poor. Though patient was on vanco, I doubt the patient had vanco toxicity. His platelet level was on the low side, but I doubt patient has picture in the absence of anemia and improving renal function. Thank you for allowing me to participate in the medical management of the patient. MD SEUN Westbrook/MODL / [id number]
== END 2022-09-22 23:54 | disposition expired | DRG 871 ==
LOC: HO.ED 09-21 02:20 → HO.EDOVER 09-21 02:42 → HO.ICU 09-21 04:33 → HO.IMC 09-21 16:28
PROVIDERS: Internal Medicine; Internal Medicine Nephrology; Internal Medicine Pulmonary Disease; Admitting Provider Registered Nurse Community Health; Emergency Provider Emergency Medicine; PCP Physician Assistant; Visit Provider Family Medicine
DX: A41.9 Sepsis, unspecified organism (principal); G93.41 Metabolic encephalopathy; K72.00 Acute and subacute hepatic failure without coma; R65.21 Severe sepsis with septic shock; U07.1 COVID-19; N17.0 Acute kidney failure with tubular necrosis; E87.1 Hypo-osmolality and hyponatremia; N39.0 Urinary tract infection, site not specified; M62.82 Rhabdomyolysis; F03.90 Unspecified dementia, unspecified severity, without behavioral disturbance, psychotic disturbance, mood disturbance, and anxiety; Z66 Do not resuscitate; E83.42 Hypomagnesemia; D69.6 Thrombocytopenia, unspecified; Z51.5 Encounter for palliative care; E86.0 Dehydration; E87.6 Hypokalemia; I10 Essential (primary) hypertension; E11.9 Type 2 diabetes mellitus without complications; Z86.73 Personal history of transient ischemic attack (TIA), and cerebral infarction without residual deficits; Z96.0 Presence of urogenital implants; Z87.440 Personal history of urinary (tract) infections; Z74.01 Bed confinement status; Z79.82 Long term (current) use of aspirin; Z79.84 Long term (current) use of oral hypoglycemic drugs; Z79.899 Other long term (current) drug therapy
CPT/HCPCS: 0241U; 36415; 71045; 71250; 74176; 80048; 80053; 80076; 81001; 82040; 82550; 82803; 82947; 83605; 83690; 83735; 83880; 83930; 84100; 84295; 84439; 84443; 84484; 85007; 85025; 85027; 85610; 87040; 87086; 87147; 87205; 93005; 93971; 96361; 96365; 96366; 96367; 96375; 99285; J0692; J0696; J1100; J2250; J2270; J3370; J3475; P9047